=== PATIENT | male | born 1945 | race Caucasian/White ===

== ENCOUNTER 2019-10-15 10:51 | Outpatient (CLI) | payer OTHER, SELFPAY ==
[2019-10-15 11:53] LABS: Prostate Specific Antigen < 0.02 ng/mL (0-4)
[2019-10-15 12:44] LABS: Testosterone Total 4.5 ng/dL (193-740)
== END 2019-10-15 10:52 | disposition home or self-care (01) ==
LOC: ONCMED 10:54
PROVIDERS: Family Provider Internal Medicine; PCP Internal Medicine; Visit Provider Internal Medicine Hematology & Oncology
DX: C61 Malignant neoplasm of prostate (principal)
CPT/HCPCS: 84153; 84403

== ENCOUNTER 2019-10-16 15:32 | Outpatient (CLI) | payer OTHER, SELFPAY ==
--- NOTE | 2019-10-16 16:17 | ONC FU_ITS ---
Dr. Park follow up note Patient: Luther Lindquist Unit #: [id number]: 1945 Dicatated By: Aretha Park M.D.Date of Visit:Oct 16, 2019 Onc Med Follow-up/Prog Note History of Present Illness: Mr. Luther Lindquist, 74-year-old gentleman who was recently diagnosed with adenocarcinoma prostrate gland. As per patient his PSA was progressively going up to 4.64, subsequently was referred to urology and on 03/07/2018 he underwent prostate biopsy which confirmed prostrate cancer. On 02/23/[address] scan of abdomen pelvis done which showed no evidence of pelvic lymphadenopathy or bone lesions but prominent prostrate gland.Started on ADT with Zoladex and Casodex on 03/28/2018 as neoadjuvant, concurrent radiation therapy started on 07/02/2018 till 08/07/2018.and adjuvant Zoladex till 03/28/2019 Came for follow-up, denies any specific complaints, no fever or chills, no nausea or vomiting, no diarrhea constipation, no hot flashes. No new bony pains. No dysuria or hematuria. Patient underwent right shoulder surgery recently, now recovering well. . Medications: Allopurinol 1 Tablet (of 300 mg) Tablet Oral daily, Atenolol 0.5 Tablet (of 100 mg) Oral daily, Casodex 1 (50 mg) Tablet Oral daily, Fish Oil 1 Capsule (of 1000 mg) Oral b.i.d., Gemfibrozil 1 Tablet (of 600 mg) Oral b.i.d., GlipiZIDE 2 Tablet (of 10 mg) Oral b.i.d., Insulin Glargine 35 Units (of 100 Units/mL) Subcutaneous daily, Lisinopril 0.5 Tablet (of 20 mg) Oral daily, MetFORMIN HCl 1 Tablet (of 1000 mg) Oral b.i.d. Allergies: Aspirin Review of Systems: Review of Systems is not available for this patient. Vital Signs: Performed on Oct 16, 2019 15:48 Height - 72.00 in Weight - 219.0 lbs (LOW) BSA - 2.21 sq.m BMI - 29.70 Temperature - 97.8 F (LOW) Pulse - 67 /min Respiration - 18 /min BP - 151/83 mm(hg) (HIGH) O2 Sat - 99 % Pain - 0 Performance Status: 1 - No physically strenuous activity, but ambulatory and able to carry out light or sedentary work (e.g. office work, light house work). (ECOG) Physical Examination: ENMT - No oral exudates, ulcers, masses, thrush or mucositis. Oropharynx clear. Tongue normal, Respiratory - Lungs are clear to auscultation without rhonchi or wheezing, Cardiovascular - Regular rate and rhythm of heart, Abdomen - Non-tender, non-distended, Good bowel sounds. No guarding or rebound tenderness. No pulsatile masses, Extremities - no edema. Lab/Imaging: Test performed on Jun 27, 2019 09:25 Sodium 137 mmol/L Testosterone, Total 5.1 ng/dL Potassium 4.3 mmol/L Chloride 99 mmol/L CO2 23 mmol/L Anion Gap 19.3 BUN 20 mg/dL Creatinine 1.0 mg/dL Cr Clearance (Est) 95.6200 mL/min Glucose 163 mg/dl Calcium 9.3 mg/dL Protein, Total 7.3 g/dL Albumin 4.3 g/dL Globulin 3.0 gm/dL Bilirubin, Total 0.3 mg/dL ALT (SGPT) 20 U/L AST (SGOT) 18 U/L Alkaline Phosphatase 139 U/L WBC 6.1 /cmm RBC 4.00 10 6/cmm HGB 12.1 g/dl HCT 33.6 % MCV 83.9 /cmm MCH 30.2 pg MCHC 36.0 g/dl RDW 13.5 % Platelet Count 217 10 3/cmm MPV 7.6 fl Neutrophils 3.8 10 3/cmm Lymphocytes 1.5 10 3/cmm Monocytes 0.5 10 3/cmm Eosinophils 0.2 10 3/cmm Basophils 0.1 10 3/cmm Neutrophil % 62.5 % Lymphocyte % 25.2 % Monocyte % 8.0 % Eosinophil % 3.1 % Basophils % 1.2 % PSA < 0.02 ng/mL Impression: Adenocarcinoma of prostate gland per biopsy done on 03/07/2018 [place] score 3+4, PSA 4.64, intermediate risk stage T2b, Nx MX CT scan of abdomen pelvis done on 02/23/2018 showed no evidence of pelvic lymphadenopathy or bony lesions but prominent prostate gland Started on combined androgen blockade with Zoladex and Casodex on 03/28/2018As neoadjuvant, concurrent radiation therapy was added on 07/02/2018 and finished on 08/07/2018 and casodex d/bryan last dose of Zoladex given on 12/27/18 PSA on 09/25/2018 was less than 0.01 .Adjuvant therapy with Zoladex was concluded on 03/28/2019 Plan: Discussed with patient regarding his labs PSA less than 0.02 testosterone 4.5 Clinically, patient is doing well with no signs symptoms suggestive of recurrence of disease his follow-up lab shows PSA stable and still less than 0.02. We will continue to monitor and he will return to clinic in 6 months with PSA. Signed By: Aretha Park M.D. <<Signature on File>>
== END 2019-10-16 15:33 | disposition home or self-care (01) ==
PROVIDERS: Family Provider Internal Medicine; PCP Internal Medicine; Visit Provider Internal Medicine Hematology & Oncology
DX: C61 Malignant neoplasm of prostate (principal); Z79.818 Long term (current) use of other agents affecting estrogen receptors and estrogen levels; Z79.899 Other long term (current) drug therapy; Z92.3 Personal history of irradiation
CPT/HCPCS: G0463

== ENCOUNTER 2020-01-09 16:59 | Outpatient (CLI) | payer OTHER, SELFPAY | END 2020-01-09 17:00 | disposition home or self-care (01) | LOC: LAB 17:01 | PROVIDERS: Family Provider Internal Medicine; PCP Internal Medicine; Visit Provider Nurse Practitioner Family | DX: E11.621 Type 2 diabetes mellitus with foot ulcer (principal) | CPT/HCPCS: 87070; 87077; 87186; 87205 ==

== ENCOUNTER 2020-01-13 14:38 | Outpatient (RCR) | payer MEDICARE, BC, SELFPAY ==
--- NOTE | 2020-01-13 14:42 | XR_ITS ---
WS: [id number] FOOT RIGHT TECHNIQUE: 3 views of the right foot CLINICAL INFORMATION: PAIN, REDNESS, NON HEALING ULCER COMPARISON: None. FINDINGS: Soft tissue ulceration overlying the big toe with subcutaneous emphysema. Erosive changes involving t he first MTP suspicious for osteomyelitis. This can be further evaluated with MRI. Plantar and Achill es calcaneal spurring. XR/XR foot RT min 3V* [id number] IMPRESSION: Soft tissue ulceration overlying the big toe with erosive changes first MTP justin picious for osteomyelitis. This can be further evaluated with MRI.
== END 2020-01-16 23:59 | disposition home or self-care (01) ==
LOC: WOUND 14:38
PROVIDERS: Family Provider Internal Medicine; PCP Internal Medicine; Visit Provider Emergency Medicine
DX: E11.621 Type 2 diabetes mellitus with foot ulcer (principal); L97.512 Non-pressure chronic ulcer of other part of right foot with fat layer exposed; M79.671 Pain in right foot
CPT/HCPCS: 11042; 73630; 87070; 87077; 87176; 87186; 87205; G0463; L3260

== ENCOUNTER 2020-01-20 13:32 | Outpatient (CLI) | payer MEDICARE, BC, SELFPAY | END 2020-01-20 13:33 | disposition home or self-care (01) | PROVIDERS: Family Provider Internal Medicine; PCP Internal Medicine; Visit Provider Nurse Practitioner Family | DX: E11.621 Type 2 diabetes mellitus with foot ulcer (principal); L97.512 Non-pressure chronic ulcer of other part of right foot with fat layer exposed | CPT/HCPCS: 11042 ==

== ENCOUNTER 2020-01-23 13:15 | Outpatient (CLI) | payer MEDICARE, BC, SELFPAY ==
--- NOTE | 2020-01-23 13:24 | USCV_ITS ---
ThoLuther villanueva Age: 74 Gender: M : 1945 Exam Date: 01/23/2020 14:09 Ordering Phys: Apple Andrews DO Technologist: Ra Vogt Exam Location: [facility] – [place] Indication: HISTORY: PROCEDURES: Bilateral duplex Venous Insufficiency study of the Deep and Superficial systems was carried out according to normal protocol with the patient in supine positon for deep system and dependent position for the superficial system. FINDINGS: There is no evidence of bilateral deep vein thrombosis. No notable reflux was seen in the bilateral deep system at this time. No evidence of superficial thrombosis in the bilateral saphenous system. No notable reflux was seen in the RIGHT saphenous system at this time. Venous reflux is demonstrated in the LEFT greater saphenous vein with a spectral Doppler display of greater than 500 milliseconds below the knee. Marginal reflux noted in the LEFT greater saphenous vein with a spectral Doppler display of 494 milliseconds just distal to SFJ. CONCLUSIONS No evidence of DVT in the above-mentioned identifiable veins. Significant venous reflux of 1560 ms was noted at the below-knee segment of the greater saphenous vein on the left side. This segment was found to be 1.02 cm deep from the surface and a diameter of 0.46 cm. The venous dimensions and depth from the surface of all the other venous segments are as mentioned above. No similar previous studies available for comparison Dr Aspen Lucia MD [facility] (Electronically Signed) Final Date: 23 Jan 2020 19:07 S
== END 2020-01-23 13:16 | disposition home or self-care (01) ==
PROVIDERS: PCP Family Medicine; Visit Provider Emergency Medicine
DX: L97.909 Non-pressure chronic ulcer of unspecified part of unspecified lower leg with unspecified severity (principal); M79.605 Pain in left leg; M79.604 Pain in right leg
CPT/HCPCS: 93970

== ENCOUNTER 2020-01-24 08:31 | Outpatient (CLI) | payer MEDICARE, BC, SELFPAY ==
--- NOTE | 2020-01-24 09:30 | USCV_ITS ---
Luther Lindquist Age: 74 Gender: M : 1945 Exam Date: 01/24/2020 08:26 Ordering Phys: Apple Andrews DO Technologist: Tegan Sarah Exam Location: [facility] [place] Indication: NON HEALING WOUND RT PLANTAR SURFACE OF FOOT RIGHT LEFT Brachial 146.00 mmHg Brachial 147.00 mmHg Pressure (mmHg) Waveform Pressure (mmHg) Waveform 174.00 Above Knee 173.00 180.00 Below Knee 170.00 182.00 BAIL ATTACHER 174.00 182.00 DPA 181.00 1.24 Ankle/Brachial Index 1.23 91.00 Pre-Exercise Toe Pressure 120.00 0.62 Pre-Exercise Toe/Brachial Index 0.82 FINDINGS Normal resting ABIs bilaterally Slightly diminished resting TBI on the right side PVR waveforms showing slight blunting of the dicrotic notch. The segmental pressures revealed no significant gradient between segments except for the differential pressure between the right and left big toes. CONCLUSIONS Features suggestive of mild PAD on the right side No significant arterial obstruction on the left side Dr Aspen Lucia MD [facility] (Electronically Signed) Final Date: 24 Jan 2020 11:09 S
== END 2020-01-24 08:32 | disposition home or self-care (01) ==
LOC: RAD 08:34
PROVIDERS: PCP Family Medicine; Visit Provider Emergency Medicine
DX: L97.909 Non-pressure chronic ulcer of unspecified part of unspecified lower leg with unspecified severity (principal)
CPT/HCPCS: 93925

== ENCOUNTER 2020-01-27 07:47 | Outpatient (CLI) | payer MEDICARE, BC, SELFPAY | END 2020-01-27 07:48 | disposition home or self-care (01) | LOC: WOUND 07:48 | PROVIDERS: PCP Family Medicine; Visit Provider Nurse Practitioner Family | DX: E11.621 Type 2 diabetes mellitus with foot ulcer (principal); L97.512 Non-pressure chronic ulcer of other part of right foot with fat layer exposed | CPT/HCPCS: 11042; A6545 ==

== ENCOUNTER 2020-02-12 13:40 | Outpatient (CLI) | payer OTHER, SELFPAY | END 2020-02-12 13:41 | disposition home or self-care (01) | LOC: WOUND 13:42 | PROVIDERS: PCP Family Medicine; Visit Provider Nurse Practitioner Family | DX: E11.621 Type 2 diabetes mellitus with foot ulcer (principal); L97.512 Non-pressure chronic ulcer of other part of right foot with fat layer exposed | CPT/HCPCS: 11042 ==

== ENCOUNTER 2020-02-17 07:47 | Outpatient (CLI) | payer MEDICARE, BC, SELFPAY ==
--- NOTE | 2020-02-17 07:59 | NM_ITS ---
WS: [id number] [place] bone 3 phase 57633 REASON FOR EXAM: ?OSTEOMYELITIS RT FOOT /PAIN/REDNESS/NON HEALING ULCER TECHNICAL: The dose 26.2 mCi technetium 99m HDP FINDINGS: This study shows progressive activity in the first metatarsal phalangeal joint of the right foot with increased uptake noted extending into the delayed images. This is consistent with destruct winsome process and probably osteomyelitis. The left ankle shows increased activity diffusely involving the ankle but no 3 phase changes. The left shoulder shows increased activity from degenerate changes NM/NM bone 3 phase 32680 IMPRESSION: Abnormal three-phase findings in the first metatarsal phalangeal joint of the r ight foot consistent with osteomyelitis There is degenerated of activity noted in the left ankle diffuse There is diffuse activity noted in the left shoulder. There is normal activity in both kidneys.
--- NOTE | 2020-02-17 10:39 | XR_ITS ---
WS: [id number] XR foot RT min 3V* [id number] REASON FOR EXAM: BONE SCAN COMPARISON FINDINGS: Right foot comparisons no further destruction of the first metatarsal head proximal first p halanx with large cystic changes noted this area on the bone scan appears to show progressive uptake of the contrast suggesting inflammatory bone disease. Rather than gout. XR/XR foot RT min 3V* [id number] IMPRESSION: Destructive changes involving the first metacarpal tarsal phalangeal junction s uggest destructive changes.
== END 2020-02-17 07:48 | disposition home or self-care (01) ==
LOC: RAD 07:53
PROVIDERS: PCP Family Medicine; Visit Provider Nurse Practitioner Family
DX: L98.499 Non-pressure chronic ulcer of skin of other sites with unspecified severity (principal)
CPT/HCPCS: 73630; 78315; A9561

== ENCOUNTER 2020-02-20 07:57 | Outpatient (CLI) | payer OTHER, SELFPAY ==
[2020-02-20 09:49] LABS: Basophils # 0.1 10^3/uL (0.0-0.1); Basophils % 1.2 %; Eosinophils # 0.2 10^3/uL (0.0-0.8); Eosinophils % 4.1 %; Hemoglobin 11.1 g/dL (11.7-16.6); Lymphocytes # 1.7 10^3/uL (0.8-4.8); Lymphocytes % 33.8 %; Mean Corpuscular HGB Conc 32.6 g/dL (30.0-36.0); Mean Corpuscular Hemoglobin 27.9 pg (28.0-34.0); Mean Corpuscular Volume 85.4 fL (80-94); Mean Platelet Volume 9.3 fL (7.4-10.4); Monocytes # 0.4 10^3/uL (0.2-0.9); Monocytes % 8.4 %; Neutrophils # 2.5 10^3/uL (1.8-7.7); Neutrophils % 52.1 %; Nucleated Red Blood Cells % 0 %; Platelet Count 218 10^3/cmm (130-400); Red Blood Count 3.98 10^6/uL (4.1-5.3); Red Cell Distribution Width 12.6 % (12.1-15.1); White Blood Count 4.9 10^3/uL (4.0-10.0)
[2020-02-20 10:02] LABS: Anion Gap 14.5 (5-19); Blood Urea Nitrogen 16 mg/dL (8-23); Calcium 9.6 mg/dL (8.5-10.5); Carbon Dioxide 26 mmol/L (22-29); Chloride 102 mmol/L (98-107); Glucose 184 mg/dL (65-115); Osmolality Calculated 287 mOsm/kg (285-295); Potassium 4.5 mmol/L (3.5-5.1); Sodium 138 mmol/L (136-145)
== END 2020-02-20 07:58 | disposition home or self-care (01) ==
LOC: WOUND 07:59
PROVIDERS: Visit Provider Nurse Practitioner Family
DX: E11.621 Type 2 diabetes mellitus with foot ulcer (principal); L97.512 Non-pressure chronic ulcer of other part of right foot with fat layer exposed
CPT/HCPCS: 11042; 36415; 80048; 85025; L3260

== ENCOUNTER 2020-02-27 08:10 | Outpatient (CLI) | payer OTHER, SELFPAY | END 2020-02-27 08:11 | disposition home or self-care (01) | LOC: WOUND 08:17 | PROVIDERS: Visit Provider Nurse Practitioner Family | DX: E11.621 Type 2 diabetes mellitus with foot ulcer (principal); L97.512 Non-pressure chronic ulcer of other part of right foot with fat layer exposed | CPT/HCPCS: 11042; L3260 ==

== ENCOUNTER 2020-03-05 08:30 | Outpatient (CLI) | payer OTHER, SELFPAY | END 2020-03-05 08:31 | disposition home or self-care (01) | LOC: WOUND 08:31 | PROVIDERS: Visit Provider Nurse Practitioner Family | DX: E11.621 Type 2 diabetes mellitus with foot ulcer (principal); L97.512 Non-pressure chronic ulcer of other part of right foot with fat layer exposed | CPT/HCPCS: 11042 ==

== ENCOUNTER 2020-03-12 08:35 | Outpatient (CLI) | payer OTHER, SELFPAY | END 2020-03-12 08:36 | disposition home or self-care (01) | LOC: WOUND 08:43 | PROVIDERS: Visit Provider Nurse Practitioner Family | DX: E11.621 Type 2 diabetes mellitus with foot ulcer (principal); L97.519 Non-pressure chronic ulcer of other part of right foot with unspecified severity | CPT/HCPCS: 11042 ==

== ENCOUNTER 2020-03-19 08:02 | Outpatient (CLI) | payer OTHER, SELFPAY | END 2020-03-19 08:03 | disposition home or self-care (01) | LOC: WOUND 08:03 | PROVIDERS: Visit Provider Nurse Practitioner Family | DX: E11.621 Type 2 diabetes mellitus with foot ulcer (principal); L97.512 Non-pressure chronic ulcer of other part of right foot with fat layer exposed | CPT/HCPCS: 11042 ==

== ENCOUNTER 2020-03-26 14:58 | Outpatient (CLI) | payer OTHER, SELFPAY | END 2020-03-26 14:59 | disposition home or self-care (01) | LOC: WOUND 15:00 | PROVIDERS: Visit Provider Surgery | DX: E11.621 Type 2 diabetes mellitus with foot ulcer (principal); L97.512 Non-pressure chronic ulcer of other part of right foot with fat layer exposed | CPT/HCPCS: 11042 ==

== ENCOUNTER 2020-04-02 10:33 | Outpatient (CLI) | payer OTHER, SELFPAY | END 2020-04-02 10:34 | disposition home or self-care (01) | LOC: WOUND 10:35 | PROVIDERS: Visit Provider Emergency Medicine | DX: E11.621 Type 2 diabetes mellitus with foot ulcer (principal); L97.512 Non-pressure chronic ulcer of other part of right foot with fat layer exposed | CPT/HCPCS: 11042 ==

== ENCOUNTER 2020-04-09 14:00 | Outpatient (CLI) | payer OTHER, SELFPAY | END 2020-04-09 14:01 | disposition home or self-care (01) | LOC: WOUND 14:02 | PROVIDERS: Visit Provider Nurse Practitioner Family | DX: E11.621 Type 2 diabetes mellitus with foot ulcer (principal); L97.512 Non-pressure chronic ulcer of other part of right foot with fat layer exposed | CPT/HCPCS: 11042; L4387 ==

== ENCOUNTER 2020-04-13 07:55 | Outpatient (CLI) | payer OTHER, SELFPAY | END 2020-04-13 07:56 | disposition home or self-care (01) | LOC: WOUND 07:55 | PROVIDERS: Visit Provider Emergency Medicine | DX: E11.621 Type 2 diabetes mellitus with foot ulcer (principal); L97.516 Non-pressure chronic ulcer of other part of right foot with bone involvement without evidence of necrosis | CPT/HCPCS: G0277 ==

== ENCOUNTER 2020-04-14 07:40 | Outpatient (CLI) | payer OTHER, SELFPAY | END 2020-04-14 07:41 | disposition home or self-care (01) | LOC: WOUND 07:40 | PROVIDERS: Visit Provider Thoracic Surgery (Cardiothoracic Vascular Surgery) | DX: E11.621 Type 2 diabetes mellitus with foot ulcer (principal); L97.516 Non-pressure chronic ulcer of other part of right foot with bone involvement without evidence of necrosis | CPT/HCPCS: G0277 ==

== ENCOUNTER 2020-04-14 10:30 | Outpatient (CLI) | payer OTHER, SELFPAY ==
[2020-04-14 11:41] LABS: Prostate Specific Antigen 0.006 ng/mL (0-4)
== END 2020-04-14 10:31 | disposition home or self-care (01) ==
LOC: ONCMED 10:35
PROVIDERS: PCP Family Medicine; Visit Provider Internal Medicine Hematology & Oncology
DX: C61 Malignant neoplasm of prostate (principal)
CPT/HCPCS: 84153

== ENCOUNTER 2020-04-15 07:37 | Outpatient (CLI) | payer OTHER, SELFPAY | END 2020-04-15 07:38 | disposition home or self-care (01) | LOC: WOUND 07:39 | PROVIDERS: PCP Family Medicine; Visit Provider Emergency Medicine | DX: E11.622 Type 2 diabetes mellitus with other skin ulcer (principal); L98.496 Non-pressure chronic ulcer of skin of other sites with bone involvement without evidence of necrosis | CPT/HCPCS: G0277 ==

== ENCOUNTER 2020-04-15 11:37 | Outpatient (CLI) | payer OTHER, SELFPAY ==
--- NOTE | 2020-04-15 13:52 | ONC FU_ITS ---
Dr. Park follow up note Patient: Luther Lindquist Unit #: [id number]: 1945 Dicatated By: Aretha Park M.D.Date of Visit:Apr 15, 2020 Onc Med Follow-up/Prog Note History of Present Illness: Mr. Luther Lindquist, 74-year-old gentleman who was recently diagnosed with adenocarcinoma prostrate gland. As per patient his PSA was progressively going up to 4.64, subsequently was referred to urology and on 03/07/2018 he underwent prostate biopsy which confirmed prostrate cancer. On 02/23/[address] scan of abdomen pelvis done which showed no evidence of pelvic lymphadenopathy or bone lesions but prominent prostrate gland.Started on ADT with Zoladex and Casodex on 03/28/2018 as neoadjuvant, concurrent radiation therapy started on 07/02/2018 till 08/07/2018.and adjuvant Zoladex till 03/28/2019 Came for follow-up, denies any specific complaints, no fever chills, no nausea or vomiting, no diarrhea or constipation, no new bony pains except right big toe infection and recently diagnosed with osteomyelitis and being treated with hyperbaric oxygenation. Otherwise no back pain no hematuria or dysuria, no weight loss, appetite is good. . Medications: Allopurinol 1 Tablet (of 300 mg) Tablet Oral daily, Atenolol 0.5 Tablet (of 100 mg) Oral daily, Casodex 1 (50 mg) Tablet Oral daily, Fish Oil 1 Capsule (of 1000 mg) Oral b.i.d., Gemfibrozil 1 Tablet (of 600 mg) Oral b.i.d., GlipiZIDE 2 Tablet (of 10 mg) Oral b.i.d., Insulin Glargine 35 Units (of 100 Units/mL) Subcutaneous daily, Lisinopril 0.5 Tablet (of 20 mg) Oral daily, MetFORMIN HCl 1 Tablet (of 1000 mg) Oral b.i.d. Allergies: Aspirin Review of Systems: Review of Systems is not available for this patient. Vital Signs: Performed on Apr 15, 2020 13:11 Height - 72.00 in Weight - 222.0 lbs (HIGH) BSA - 2.23 sq.m BMI - 30.11 (HIGH) Temperature - 98.3 F (LOW) Pulse - 73 /min Respiration - 16 /min BP - 133/69 mm(hg) O2 Sat - 97 % Pain - 0 Performance Status: 1 - No physically strenuous activity, but ambulatory and able to carry out light or sedentary work (e.g. office work, light house work). (ECOG) Physical Examination: ENMT - No mouth sores no thrush or jaundice, Respiratory - Lungs are clear, Cardiovascular - Regular rate and rhythm of heart, Abdomen - Soft, bowel sounds present, Extremities - No visible edema. , Right big toe cellulitis Lab/Imaging: Most recent lab results are not available for this patient. Impression: Adenocarcinoma of prostate gland per biopsy done on 03/07/2018 [place] score 3+4, PSA 4.64, intermediate risk stage T2b, Nx MX CT scan of abdomen pelvis done on 02/23/2018 showed no evidence of pelvic lymphadenopathy or bony lesions but prominent prostate gland Started on combined androgen blockade with Zoladex and Casodex on 03/28/2018As neoadjuvant, concurrent radiation therapy was added on 07/02/2018 and finished on 08/07/2018 and casodex d/bryan PSA on 09/25/2018 was less than 0.01 .Adjuvant therapy with Zoladex was concluded on 03/28/2019 Plan: Discussed with patient regarding his labs PSA is 0.006 Clinically, patient is doing well with no signs symptom suggestive of recurrence of disease his follow-up labs shows PSA still subzero. At this point we will continue to monitor return to clinic in 6 months with PSA Recently diagnosed with right big toe cellulitis/osteomyelitis, now undergoing hyperbaric oxygenation. Signed By: Aretha Park M.D. <<Signature on File>>
== END 2020-04-15 11:38 | disposition home or self-care (01) ==
PROVIDERS: PCP Family Medicine; Visit Provider Internal Medicine Hematology & Oncology
DX: Z08 Encounter for follow-up examination after completed treatment for malignant neoplasm (principal); Z85.46 Personal history of malignant neoplasm of prostate; L03.031 Cellulitis of right toe; M86.9 Osteomyelitis, unspecified; Z92.23 Personal history of estrogen therapy; Z92.3 Personal history of irradiation
CPT/HCPCS: G0463

== ENCOUNTER 2020-04-16 08:10 | Outpatient (CLI) | payer OTHER, SELFPAY | END 2020-04-16 08:11 | disposition home or self-care (01) | LOC: WOUND 08:11 | PROVIDERS: PCP Family Medicine; Visit Provider Emergency Medicine | DX: E11.621 Type 2 diabetes mellitus with foot ulcer (principal); L97.516 Non-pressure chronic ulcer of other part of right foot with bone involvement without evidence of necrosis | CPT/HCPCS: 11042; G0277 ==

== ENCOUNTER 2020-04-17 07:36 | Outpatient (CLI) | payer OTHER, SELFPAY | END 2020-04-17 07:37 | disposition home or self-care (01) | LOC: WOUND 07:36 | PROVIDERS: PCP Family Medicine; Visit Provider Surgery | DX: E11.621 Type 2 diabetes mellitus with foot ulcer (principal); L97.516 Non-pressure chronic ulcer of other part of right foot with bone involvement without evidence of necrosis | CPT/HCPCS: G0277 ==

== ENCOUNTER 2020-04-20 07:55 | Outpatient (CLI) | payer OTHER, SELFPAY | END 2020-04-20 07:56 | disposition home or self-care (01) | LOC: WOUND 07:55 | PROVIDERS: PCP Family Medicine; Visit Provider Nurse Practitioner Family | DX: E11.621 Type 2 diabetes mellitus with foot ulcer (principal); L97.516 Non-pressure chronic ulcer of other part of right foot with bone involvement without evidence of necrosis | CPT/HCPCS: 99183; G0277 ==

== ENCOUNTER 2020-04-21 07:51 | Outpatient (CLI) | payer OTHER, SELFPAY | END 2020-04-21 07:52 | disposition home or self-care (01) | LOC: WOUND 07:51 | PROVIDERS: PCP Family Medicine; Visit Provider Thoracic Surgery (Cardiothoracic Vascular Surgery) | DX: E11.621 Type 2 diabetes mellitus with foot ulcer (principal); L97.516 Non-pressure chronic ulcer of other part of right foot with bone involvement without evidence of necrosis | CPT/HCPCS: 99183; G0277 ==

== ENCOUNTER 2020-04-24 07:46 | Outpatient (CLI) | payer OTHER, SELFPAY | END 2020-04-24 07:47 | disposition home or self-care (01) | LOC: WOUND 07:46 | PROVIDERS: PCP Family Medicine; Visit Provider Thoracic Surgery (Cardiothoracic Vascular Surgery) | DX: E11.621 Type 2 diabetes mellitus with foot ulcer (principal); L97.516 Non-pressure chronic ulcer of other part of right foot with bone involvement without evidence of necrosis | CPT/HCPCS: G0277 ==

== ENCOUNTER 2020-04-30 08:07 | Outpatient (CLI) | payer OTHER, SELFPAY | END 2020-04-30 08:08 | disposition home or self-care (01) | LOC: WOUND 08:09 | PROVIDERS: PCP Family Medicine; Visit Provider Nurse Practitioner Family | DX: E11.621 Type 2 diabetes mellitus with foot ulcer (principal); L97.512 Non-pressure chronic ulcer of other part of right foot with fat layer exposed | CPT/HCPCS: 11042; L3260 ==

== ENCOUNTER 2020-05-07 08:00 | Outpatient (CLI) | payer OTHER, SELFPAY | END 2020-05-07 08:01 | disposition home or self-care (01) | LOC: WOUND 08:00 | PROVIDERS: PCP Family Medicine; Visit Provider Emergency Medicine | DX: E11.621 Type 2 diabetes mellitus with foot ulcer (principal); L97.512 Non-pressure chronic ulcer of other part of right foot with fat layer exposed | CPT/HCPCS: 11042 ==

== ENCOUNTER 2020-05-14 08:12 | Outpatient (CLI) | payer OTHER, SELFPAY | END 2020-05-14 08:13 | disposition home or self-care (01) | LOC: WOUND 08:14 | PROVIDERS: PCP Family Medicine; Visit Provider Emergency Medicine | DX: E11.621 Type 2 diabetes mellitus with foot ulcer (principal); L97.512 Non-pressure chronic ulcer of other part of right foot with fat layer exposed | CPT/HCPCS: 11042 ==

== ENCOUNTER 2020-05-21 08:10 | Outpatient (CLI) | payer OTHER, SELFPAY | END 2020-05-21 08:11 | disposition home or self-care (01) | LOC: WOUND 08:11 | PROVIDERS: PCP Family Medicine; Visit Provider Emergency Medicine | DX: E11.621 Type 2 diabetes mellitus with foot ulcer (principal); L97.512 Non-pressure chronic ulcer of other part of right foot with fat layer exposed | CPT/HCPCS: 11042 ==

== ENCOUNTER 2020-05-28 08:16 | Outpatient (CLI) | payer OTHER, SELFPAY | END 2020-05-28 08:17 | disposition home or self-care (01) | LOC: WOUND 08:16 | PROVIDERS: PCP Family Medicine; Visit Provider Emergency Medicine | DX: E11.621 Type 2 diabetes mellitus with foot ulcer (principal); L97.512 Non-pressure chronic ulcer of other part of right foot with fat layer exposed | CPT/HCPCS: 11042; L3260 ==

== ENCOUNTER 2020-06-04 07:56 | Outpatient (CLI) | payer OTHER, SELFPAY | END 2020-06-04 07:57 | disposition home or self-care (01) | LOC: WOUND 07:57 | PROVIDERS: PCP Family Medicine; Visit Provider Emergency Medicine | DX: E11.621 Type 2 diabetes mellitus with foot ulcer (principal); L97.512 Non-pressure chronic ulcer of other part of right foot with fat layer exposed | CPT/HCPCS: 97597 ==

== ENCOUNTER 2020-06-11 08:10 | Outpatient (CLI) | payer OTHER, SELFPAY | END 2020-06-11 08:11 | disposition home or self-care (01) | LOC: WOUND 08:11 | PROVIDERS: PCP Family Medicine; Visit Provider Nurse Practitioner Family | DX: Z09 Encounter for follow-up examination after completed treatment for conditions other than malignant neoplasm (principal) | CPT/HCPCS: 99212 ==

== ENCOUNTER 2020-10-15 10:32 | Outpatient (CLI) | payer OTHER, MEDICARE, BC, SELFPAY ==
[2020-10-15 12:19] LABS: Prostate Specific Antigen 0.037 ng/mL (0-4)
--- NOTE | 2020-10-15 13:38 | ONC FU_ITS ---
Dr. Park follow up note Patient: Luther Lindquist Unit #: [id number]: 1945 Dicatated By: Aretha Park M.D.Date of Visit:Oct 15, 2020 Onc Med Follow-up/Prog Note History of Present Illness: Mr. Luther Lindquist, 75-year-old gentleman who was recently diagnosed with adenocarcinoma prostrate gland. As per patient his PSA was progressively going up to 4.64, subsequently was referred to urology and on 03/07/2018 he underwent prostate biopsy which confirmed prostrate cancer. On 02/23/[address] scan of abdomen pelvis done which showed no evidence of pelvic lymphadenopathy or bone lesions but prominent prostrate gland.Started on ADT with Zoladex and Casodex on 03/28/2018 as neoadjuvant, concurrent radiation therapy started on 07/02/2018 till 08/07/2018.and adjuvant Zoladex till 03/28/2019 Came for follow-up, denies any specific complaints, no fever chills, no nausea or vomiting, no diarrhea or constipation, no new bony pains, appetite is good . Medications: Allopurinol 1 Tablet (of 300 mg) Tablet Oral daily, Atenolol 0.5 Tablet (of 100 mg) Oral daily, Casodex 1 (50 mg) Tablet Oral daily, Fish Oil 1 Capsule (of 1000 mg) Oral b.i.d., Gemfibrozil 1 Tablet (of 600 mg) Oral b.i.d., GlipiZIDE 2 Tablet (of 10 mg) Oral b.i.d., Insulin Glargine 35 Units (of 100 Units/mL) Subcutaneous daily, Lisinopril 0.5 Tablet (of 20 mg) Oral daily, MetFORMIN HCl 1 Tablet (of 1000 mg) Oral b.i.d. Allergies: Aspirin Review of Systems: Review of Systems is not available for this patient. Vital Signs: Performed on Oct 15, 2020 13:02 Height - 72.00 in Weight - 221.5 lbs (LOW) BSA - 2.22 sq.m BMI - 30.04 (HIGH) Temperature - 98.2 F (LOW) Pulse - 77 /min Respiration - 16 /min BP - 152/73 mm(hg) (HIGH) O2 Sat - 94 % (LOW) Pain - 0 Performance Status: 0 - Fully active, able to carry on all predisease activities without restrictions. (ECOG) Physical Examination: ENMT - No mouth sores, no thrush, no jaundice, Respiratory - Lungs are clear to auscultation, Cardiovascular - Regular rate and rhythm of heart, Abdomen - Soft, bowel sounds present, Extremities - No visible edema. Lab/Imaging: Most recent lab results are not available for this patient. Impression: Adenocarcinoma of prostate gland per biopsy done on 03/07/2018 [place] score 3+4, PSA 4.64, intermediate risk stage T2b, Nx MX CT scan of abdomen pelvis done on 02/23/2018 showed no evidence of pelvic lymphadenopathy or bony lesions but prominent prostate gland Started on combined androgen blockade with Zoladex and Casodex on 03/28/2018As neoadjuvant, concurrent radiation therapy was added on 07/02/2018 and finished on 08/07/2018 and casodex d/bryan PSA on 09/25/2018 was less than 0.01 .Adjuvant therapy with Zoladex was concluded on 03/28/2019 Plan: Discussed with patient regarding his labs PSA is 0.037 compared to 0.006 on April 14, 2020 Clinically, patient doing well with no new signs symptom suggestive of disease progression but his follow-up PSA has increased since last time but still subzero, at this point ,we will continue to monitor and return to clinic in 3 months with PSA and testosterone level and patient was advised not to take testosterone in any form including [id number] Signed By: Aretha Park M.D. <<Signature on File>>
== END 2020-10-15 10:33 | disposition home or self-care (01) ==
PROVIDERS: Visit Provider Internal Medicine Hematology & Oncology
DX: C61 Malignant neoplasm of prostate (principal); R97.21 Rising PSA following treatment for malignant neoplasm of prostate; Z92.23 Personal history of estrogen therapy; Z92.3 Personal history of irradiation; Z92.21 Personal history of antineoplastic chemotherapy
CPT/HCPCS: 36415; 84153; 99214

== ENCOUNTER 2021-01-13 12:28 | Outpatient (CLI) | payer OTHER, MEDICARE, BC, SELFPAY ==
[2021-01-13 13:30] LABS: Prostate Specific Antigen 0.052 ng/mL (0-4); Testosterone Total 125.2 ng/dL (193-740)
--- NOTE | 2021-01-13 14:27 | ONC FU_ITS ---
Dr. Park follow up note Patient: Luther Lindquist Unit #: [id number]: 1945 Dicatated By: Aretha Park M.D.Date of Visit:Jan 13, 2021 Onc Med Follow-up/Prog Note History of Present Illness: Mr. Luther Lindquist, 75-year-old gentleman who was recently diagnosed with adenocarcinoma prostrate gland. As per patient his PSA was progressively going up to 4.64, subsequently was referred to urology and on 03/07/2018 he underwent prostate biopsy which confirmed prostrate cancer. On 02/23/[address] scan of abdomen pelvis done which showed no evidence of pelvic lymphadenopathy or bone lesions but prominent prostrate gland.Started on ADT with Zoladex and Casodex on 03/28/2018 as neoadjuvant, concurrent radiation therapy started on 07/02/2018 till 08/07/2018.and adjuvant Zoladex till 03/28/2019 Came for follow-up, denies any specific complaints, no fever chills, no nausea or vomiting, no diarrhea or constipation, no new bony pains, appetite is good . Medications: Allopurinol 1 Tablet (of 300 mg) Tablet Oral daily, Atenolol 0.5 Tablet (of 100 mg) Oral daily, Casodex 1 (50 mg) Tablet Oral daily, Fish Oil 1 Capsule (of 1000 mg) Oral b.i.d., Gemfibrozil 1 Tablet (of 600 mg) Oral b.i.d., GlipiZIDE 2 Tablet (of 10 mg) Oral b.i.d., Insulin Glargine 35 Units (of 100 Units/mL) Subcutaneous daily, Lisinopril 0.5 Tablet (of 20 mg) Oral daily, MetFORMIN HCl 1 Tablet (of 1000 mg) Oral b.i.d. Allergies: Aspirin Review of Systems: Review of Systems is not available for this patient. Vital Signs: Performed on Jan 13, 2021 14:02 Height - 72.00 in Weight - 228.0 lbs (HIGH) BSA - 2.25 sq.m BMI - 30.92 (HIGH) Temperature - 97.2 F (LOW) Pulse - 57 /min (LOW) Respiration - 18 /min BP - 176/81 mm(hg) (HIGH) O2 Sat - 99 % Pain - 0 Performance Status: 0 - Fully active, able to carry on all predisease activities without restrictions. (ECOG) Physical Examination: ENMT - No mouth sores, no thrush, no jaundice, Respiratory - Lungs are clear to auscultation, Cardiovascular - Regular rate and rhythm of heart, Abdomen - Soft, bowel sounds present, Extremities - No visible edema. Lab/Imaging: Test performed on Oct 15, 2020 11:04 PSA 0.037 ng/mL Impression: Adenocarcinoma of prostate gland per biopsy done on 03/07/2018 [place] score 3+4, PSA 4.64, intermediate risk stage T2b, Nx MX CT scan of abdomen pelvis done on 02/23/2018 showed no evidence of pelvic lymphadenopathy or bony lesions but prominent prostate gland Started on combined androgen blockade with Zoladex and Casodex on 03/28/2018As neoadjuvant, concurrent radiation therapy was added on 07/02/2018 and finished on 08/07/2018 and casodex d/bryan PSA on 09/25/2018 was less than 0.01 .Adjuvant therapy with Zoladex was concluded on 03/28/2019 Plan: Regarding his labs PSA 0.052 compared to 0.037 on October 15, 2020, his testosterone is 125.2 Clinically, patient is doing well with no new signs symptom suggestive of recurrence of disease, his follow-up labs shows PSA mildly progressive, will continue to monitor return to clinic in 3 months with a PSA, if it continues to go up may consider scan to rule out recurrence Signed By: Aretha Park M.D. <<Signature on File>>
== END 2021-01-13 12:29 | disposition home or self-care (01) ==
LOC: ONCMED 12:30
PROVIDERS: Visit Provider Internal Medicine Hematology & Oncology
DX: C61 Malignant neoplasm of prostate (principal); R97.20 Elevated prostate specific antigen [PSA]; Z79.818 Long term (current) use of other agents affecting estrogen receptors and estrogen levels
CPT/HCPCS: 36415; 84153; 84403; 99214

== ENCOUNTER 2021-04-23 08:14 | Outpatient (CLI) | payer OTHER, MEDICARE, BC, SELFPAY ==
[2021-04-23 09:22] LABS: Prostate Specific Antigen 0.083 ng/mL (0-4)
--- NOTE | 2021-04-23 10:12 | ONC FU_ITS ---
Dr. Park follow up note Patient: Luther Lindquist Unit #: [id number]: 1945 Dicatated By: Aretha Park M.D.Date of Visit:Apr 23, 2021 Onc Med Follow-up/Prog Note History of Present Illness: Mr. Luther Lindquist, 75-year-old gentleman who was recently diagnosed with adenocarcinoma prostrate gland. As per patient his PSA was progressively going up to 4.64, subsequently was referred to urology and on 03/07/2018 he underwent prostate biopsy which confirmed prostrate cancer. On 02/23/[address] scan of abdomen pelvis done which showed no evidence of pelvic lymphadenopathy or bone lesions but prominent prostrate gland.Started on ADT with Zoladex and Casodex on 03/28/2018 as neoadjuvant, concurrent radiation therapy started on 07/02/2018 till 08/07/2018.and adjuvant Zoladex till 03/28/2019 Came for follow-up, denies any specific complaints, no fever chills, no nausea or vomiting, no diarrhea or constipation, no melena or hematochezia, no hemoptysis hematemesis, no dysuria or hematuria, no new bony pains, appetite is good . Medications: Allopurinol 1 Tablet (of 300 mg) Tablet Oral daily, Atenolol 0.5 Tablet (of 100 mg) Oral daily, Casodex 1 (50 mg) Tablet Oral daily, Fish Oil 1 Capsule (of 1000 mg) Oral b.i.d., Gemfibrozil 1 Tablet (of 600 mg) Oral b.i.d., GlipiZIDE 2 Tablet (of 10 mg) Oral b.i.d., Insulin Glargine 35 Units (of 100 Units/mL) Subcutaneous daily, Lisinopril 0.5 Tablet (of 20 mg) Oral daily, MetFORMIN HCl 1 Tablet (of 1000 mg) Oral b.i.d. Allergies: Aspirin Review of Systems: Review of Systems is not available for this patient. Vital Signs: Performed on Apr 23, 2021 09:30 Height - 72.00 in Weight - 222.8 lbs (LOW) BSA - 2.23 sq.m BMI - 30.22 (HIGH) Temperature - 97.6 F (LOW) Pulse - 58 /min (LOW) Respiration - 18 /min BP - 154/82 mm(hg) (HIGH) O2 Sat - 99 % Pain - 0 Performance Status: 0 - Fully active, able to carry on all predisease activities without restrictions. (ECOG) Physical Examination: ENMT - No mouth sores, no thrush, no jaundice, Respiratory - Lungs are clear to auscultation, Cardiovascular - Regular rate and rhythm of heart, Abdomen - Soft, bowel sounds present, Extremities - No visible edema. Lab/Imaging: Most recent lab results are not available for this patient. Impression: Adenocarcinoma of prostate gland per biopsy done on 03/07/2018 [place] score 3+4, PSA 4.64, intermediate risk stage T2b, Nx MX CT scan of abdomen pelvis done on 02/23/2018 showed no evidence of pelvic lymphadenopathy or bony lesions but prominent prostate gland Started on combined androgen blockade with Zoladex and Casodex on 03/28/2018As neoadjuvant, concurrent radiation therapy was added on 07/02/2018 and finished on 08/07/2018 and casodex d/bryan PSA on 09/25/2018 was less than 0.01 .Adjuvant therapy with Zoladex was concluded on 03/28/2019 Plan: Discussed with patient regarding his labs PSA is 0.083 compared to 0.052 in December 2020 Clinically, patient has no signs symptom suggestive of recurrence of disease, his PSA is still subzero, will continue to monitor and he'll return to clinic in 6 months with a PSA Signed By: Aretha Park M.D. <<Signature on File>>
== END 2021-04-23 08:15 | disposition home or self-care (01) ==
LOC: ONCMED 08:20
PROVIDERS: PCP Family Medicine; Visit Provider Internal Medicine Hematology & Oncology
DX: C61 Malignant neoplasm of prostate (principal); Z79.899 Other long term (current) drug therapy
CPT/HCPCS: 84153; 99214

== ENCOUNTER 2021-09-20 12:34 | Outpatient (CLI) | payer OTHER, SELFPAY ==
--- NOTE | 2021-09-20 13:08 | MM_ITS ---
WS: [id number] DIAGNOSTIC BILATERAL DIGITAL MAMMOGRAM WITH CAD LEFT breast ultrasound, limited. HISTORY: BREAST Pain, mass 3:00 LT BR COMPARISON: None available. Technique: CC, MLO and ML views. Spot compression LEFT MLO. Breast composition: The breasts are almost entirely fatty. Subtle increased density just posterior t o the LEFT nipple. Similar but less conspicuous findings on the RIGHT. This is a flame-shaped area of increased echogenicity measuring 11 x 10 mm on the LEFT. Ultrasound to follow. LEFT breast ultrasound, limited. Ultrasound is directed to the area of pain posterior to the nipple. There is very slight area of decr eased echogenicity posterior to the nipple. MM/[place] [id number] IMPRESSION: BI-RADS: 2-Benign FOLLOW UP: See Report Findings are most consistent with a very mild case of gynecomastia.
== END 2021-09-20 12:35 | disposition home or self-care (01) ==
PROVIDERS: PCP Family Medicine; Visit Provider Family Medicine
DX: N64.4 Mastodynia (principal); N63.25 Unspecified lump in the left breast, overlapping quadrants
CPT/HCPCS: 76642; 77066

== ENCOUNTER 2021-10-29 08:27 | Outpatient (CLI) | payer OTHER, SELFPAY ==
[2021-10-29 09:07] LABS: Basophils # 0.1 10^3/uL (0.0-0.1); Eosinophils # 0.2 10^3/uL (0.0-0.8); Eosinophils % 2.6 %; Hematocrit 40.2 % (42.0-52.0); Hemoglobin 13.8 g/dL (11.7-16.6); Lymphocytes # 1.5 10^3/uL (0.8-4.8); Lymphocytes % 19.3 %; Mean Corpuscular HGB Conc 34.3 g/dL (30.0-36.0); Mean Corpuscular Hemoglobin 29.1 pg (28.0-34.0); Mean Corpuscular Volume 84.8 fl (80-94); Mean Platelet Volume 9.6 fL (7.4-10.4); Monocytes # 0.4 10^3/uL (0.2-0.9); Monocytes % 5.6 %; Neutrophils # 5.45 10^3/uL (1.8-7.7); Neutrophils % 71.2 %; Nucleated Red Blood Cells % 0 %; Platelet Count 216 10^3/cmm (130-400); Red Blood Count 4.74 10^6/uL (4.1-5.3); Red Cell Distribution Width 12.4 % (12.1-15.1); White Blood Count 7.7 10^3/uL (4.0-10.0)
[2021-10-29 09:27] LABS: Alanine Aminotransferase 45 U/L (0-41); Albumin Level 4.7 g/dL (3.5-5.2); Alkaline Phosphatase 115 IU/L (40-130); Anion Gap 16.4 (5-19); Aspartate Amino Transferase 34 U/L (0-40); Blood Urea Nitrogen 16 mg/dL (8-23); Calcium 9.1 mg/dL (8.5-10.5); Carbon Dioxide 26 mmol/L (22-29); Chloride 96 mmol/L (98-107); Globulin 2.8 g/dL (1.3-4.6); Glucose 351 mg/dL (65-115); Osmolality Calculated 291 mOsm/kg (285-295); Potassium 5.4 mmol/L (3.5-5.1); Prostate Specific Antigen 0.174 ng/mL (0-4); Sodium 133 mmol/L (136-145); Testosterone Total 185.8 ng/dL (193-740); Total Bilirubin 0.5 mg/dL (0.15-1.2); Total Protein 7.5 g/dL (6.6-8.7)
--- NOTE | 2021-11-01 18:23 | ONC FU_ITS ---
Dr. Park follow up note Patient: Luther Lindquist Unit #: [id number]: 1945 Dicatated By: Aretha Park M.D.Date of Visit:Oct 29, 2021 Onc Med Follow-up/Prog Note History of Present Illness: Mr. Luther Lindquist, 76-year-old gentleman who was recently diagnosed with adenocarcinoma prostrate gland. As per patient his PSA was progressively going up to 4.64, subsequently was referred to urology and on 03/07/2018 he underwent prostate biopsy which confirmed prostrate cancer. On 02/23/[address] scan of abdomen pelvis done which showed no evidence of pelvic lymphadenopathy or bone lesions but prominent prostrate gland.Started on ADT with Zoladex and Casodex on 03/28/2018 as neoadjuvant, concurrent radiation therapy started on 07/02/2018 till 08/07/2018.and adjuvant Zoladex till 03/28/2019 Came for follow-up, denies any specific complaints, no fever chills, no nausea or vomiting, no diarrhea or constipation, no new bony pains, no dysuria or hematuria, patient denies taking [id number] medication or male hormone supplement in any form. . Medications: Allopurinol 1 Tablet (of 300 mg) Tablet Oral daily, Atenolol 0.5 Tablet (of 100 mg) Oral daily, Casodex 1 (50 mg) Tablet Oral daily, Fish Oil 1 Capsule (of 1000 mg) Oral b.i.d., Gemfibrozil 1 Tablet (of 600 mg) Oral b.i.d., GlipiZIDE 2 Tablet (of 10 mg) Oral b.i.d., Insulin Glargine 35 Units (of 100 Units/mL) Subcutaneous daily, Lisinopril 0.5 Tablet (of 20 mg) Oral daily, MetFORMIN HCl 1 Tablet (of 1000 mg) Oral b.i.d. Allergies: Aspirin Review of Systems: Review of Systems is not available for this patient. Vital Signs: Performed on Oct 29, 2021 09:58 Height - 72.00 in Weight - 227 lbs (HIGH) BSA - 2.25 sq.m BMI - 30.79 (HIGH) Temperature - 98.3 F (LOW) Pulse - 73 /min Respiration - 17 /min BP - 161/88 mm(hg) (HIGH) O2 Sat - 100 % Pain - 0 Fatigue - 0 Performance Status: 0 - Fully active, able to carry on all predisease activities without restrictions. (ECOG) Physical Examination: ENMT - No mouth sores, no thrush, no jaundice, Respiratory - Lungs are clear to auscultation, Cardiovascular - Regular rate and rhythm of heart, Abdomen - Soft, bowel sounds present, Extremities - No visible edema. Lab/Imaging: Most recent lab results are not available for this patient. Impression: Adenocarcinoma of prostate gland per biopsy done on 03/07/2018 Michelle score 3+4, PSA 4.64, intermediate risk stage T2b, Nx MX CT scan of abdomen pelvis done on 02/23/2018 showed no evidence of pelvic lymphadenopathy or bony lesions but prominent prostate gland Started on combined androgen blockade with Zoladex and Casodex on 03/28/2018As neoadjuvant, concurrent radiation therapy was added on 07/02/2018 and finished on 08/07/2018 and casodex d/bryan PSA on 09/25/2018 was less than 0.01 .Adjuvant therapy with Zoladex was concluded on 03/28/2019 Plan: Discussed with patient regarding his labs white blood count 7.7 hemoglobin 13.8 hematocrit 40.2 platelets 216,000 CMP within normal limit except sodium 133 potassium 5.4, ALT 45 and testosterone 185.8 normal being 193 to 740 and PSA 0.174 compared to 0.083 on April 23, 2021 Clinically, patient is doing well with no new signs symptoms just of recurrence of disease, his lab work-up shows CBC within normal range, CMP shows mildly elevated potassium with a normal creatinine, could be due to sample hemolysis, mildly elevated ALT Etiology unclear, will monitor As far as PSA is concerned, continue to go up but 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 So we will continue to monitor he will return to clinic in 6 months with CMP, testosterone and PSA level Signed By: Aretha Park M.D. <<Signature on File>>
== END 2021-10-29 08:28 | disposition home or self-care (01) ==
PROVIDERS: PCP Family Medicine; Visit Provider Internal Medicine Hematology & Oncology
DX: Z85.46 Personal history of malignant neoplasm of prostate (principal); Z79.899 Other long term (current) drug therapy
CPT/HCPCS: 36415; 80053; 84153; 84403; 85025; 99214

== ENCOUNTER → 2021-11-16 14:22 | Outpatient (BNVA) | payer OTHER, SELFPAY | PROVIDERS: PCP Family Medicine; Visit Provider Nurse Practitioner | DX: R05.9 Cough, unspecified (principal) | CPT/HCPCS: 87400 ==

== ENCOUNTER → 2022-04-13 09:37 | Outpatient (BNVA) | payer OTHER, SELFPAY | PROVIDERS: PCP Family Medicine; Referring Provider Family Medicine; Visit Provider Orthopaedic Surgery | DX: M17.12 Unilateral primary osteoarthritis, left knee (principal); M25.562 Pain in left knee | CPT/HCPCS: 20610; 73560; 73565; 99203; J0702; J3490 ==

== ENCOUNTER 2022-04-29 07:43 | Oncology outpatient (recurring) (ONCR) | payer OTHER, SELFPAY ==
[2022-04-29 07:58] LABS: Basophils # 0.1 10^3/uL (0.0-0.1); Eosinophils # 0.2 10^3/uL (0.0-0.8); Eosinophils % 3.1 %; Hematocrit 37.9 % (42.0-52.0); Hemoglobin 12.9 g/dL (11.7-16.6); Lymphocytes # 1.6 10^3/uL (0.8-4.8); Lymphocytes % 25.2 %; Mean Corpuscular Hemoglobin 29.1 pg (28.0-34.0); Mean Corpuscular Volume 85.4 fl (80-94); Mean Platelet Volume 9.7 fL (7.4-10.4); Monocytes # 0.5 10^3/uL (0.2-0.9); Monocytes % 7.8 %; Neutrophils # 3.85 10^3/uL (1.8-7.7); Neutrophils % 62.6 %; Nucleated Red Blood Cells % 0 %; Platelet Count 176 10^3/cmm (130-400); Red Blood Count 4.44 10^6/uL (4.1-5.3); Red Cell Distribution Width 12.3 % (12.1-15.1); White Blood Count 6.2 10^3/uL (4.0-10.0)
[2022-04-29 08:32] LABS: Alanine Aminotransferase 41 U/L (0-41); Albumin Level 4.1 g/dL (3.5-5.2); Alkaline Phosphatase 101 IU/L (40-130); Anion Gap 13.7 (5-19); Aspartate Amino Transferase 28 U/L (0-40); Blood Urea Nitrogen 18 mg/dL (8-23); Calcium 9.3 mg/dL (8.5-10.5); Carbon Dioxide 28 mmol/L (22-29); Chloride 98 mmol/L (98-107); Globulin 2.7 g/dL (1.3-4.6); Glucose 323 mg/dL (65-115); Osmolality Calculated 294 mOsm/kg (285-295); Potassium 4.7 mmol/L (3.5-5.1); Prostate Specific Antigen 0.147 ng/mL (0-4); Sodium 135 mmol/L (136-145); Testosterone Total 157.2 ng/dL (193-740); Total Bilirubin 0.4 mg/dL (0.15-1.2); Total Protein 6.8 g/dL (6.6-8.7)
== END 2022-05-18 23:59 | disposition home or self-care (01) ==
PROVIDERS: PCP Family Medicine; Visit Provider Internal Medicine Hematology & Oncology
DX: Z08 Encounter for follow-up examination after completed treatment for malignant neoplasm (principal); Z85.46 Personal history of malignant neoplasm of prostate; Z92.3 Personal history of irradiation; Z79.899 Other long term (current) drug therapy
CPT/HCPCS: 36415; 80053; 84153; 84403; 85025; 99214; G0463

== ENCOUNTER → 2022-05-11 09:00 | Outpatient (BNVA) | payer OTHER, SELFPAY | PROVIDERS: PCP Family Medicine; Visit Provider Orthopaedic Surgery | DX: M17.12 Unilateral primary osteoarthritis, left knee (principal) | CPT/HCPCS: 99212 ==

== ENCOUNTER 2022-08-04 10:42 | Oncology outpatient (recurring) (ONCR) | payer OTHER, SELFPAY ==
[2022-08-04 11:23] LABS: Prostate Specific Antigen 0.196 ng/mL (0-4); Testosterone Total 253.9 ng/dL (193-740)
== END 2022-08-17 23:59 | disposition home or self-care (01) ==
PROVIDERS: PCP Family Medicine; Visit Provider Internal Medicine Hematology & Oncology
DX: Z08 Encounter for follow-up examination after completed treatment for malignant neoplasm (principal); Z85.46 Personal history of malignant neoplasm of prostate; Z92.3 Personal history of irradiation
CPT/HCPCS: 36415; 84153; 84403; 99213; 99214

== ENCOUNTER → 2022-11-08 14:39 | Outpatient (BNVA) | payer OTHER, SELFPAY | PROVIDERS: PCP Family Medicine; Visit Provider Podiatrist Foot & Ankle Surgery | DX: M76.822 Posterior tibial tendinitis, left leg (principal); S93.322A Subluxation of tarsometatarsal joint of left foot, initial encounter; X58.XXXA Exposure to other specified factors, initial encounter; E11.42 Type 2 diabetes mellitus with diabetic polyneuropathy; Z79.84 Long term (current) use of oral hypoglycemic drugs; Z79.4 Long term (current) use of insulin | CPT/HCPCS: 11055; 11721; 73630; 99204 ==

== ENCOUNTER → 2023-01-25 13:11 | Outpatient (BNVA) | payer OTHER, SELFPAY | PROVIDERS: PCP Family Medicine; Visit Provider Dermatology | DX: D04.39 Carcinoma in situ of skin of other parts of face (principal); L57.0 Actinic keratosis; S50.812A Abrasion of left forearm, initial encounter; X58.XXXA Exposure to other specified factors, initial encounter; L82.1 Other seborrheic keratosis; L81.4 Other melanin hyperpigmentation; L57.8 Other skin changes due to chronic exposure to nonionizing radiation; B07.8 Other viral warts | CPT/HCPCS: 11102; 17000; 17003; 99213 ==

== ENCOUNTER 2023-02-01 12:57 | Oncology outpatient (recurring) (ONCR) | payer OTHER, SELFPAY ==
[2023-02-01 13:24] LABS: Basophils # 0.1 10^3/uL (0.0-0.1); Basophils % 0.9 %; Eosinophils # 0.1 10^3/uL (0.0-0.8); Eosinophils % 1.6 %; Hematocrit 41.2 % (42.0-52.0); Hemoglobin 13.9 g/dL (11.7-16.6); Lymphocytes # 1.6 10^3/uL (0.8-4.8); Lymphocytes % 21.7 %; Mean Corpuscular HGB Conc 33.7 g/dL (30.0-36.0); Mean Corpuscular Hemoglobin 28.8 pg (28.0-34.0); Mean Corpuscular Volume 85.5 fl (80-94); Mean Platelet Volume 9.4 fL (7.4-10.4); Monocytes # 0.5 10^3/uL (0.2-0.9); Monocytes % 6.1 %; Neutrophils # 5.18 10^3/uL (1.8-7.7); Neutrophils % 69.3 %; Nucleated Red Blood Cells % 0 %; Platelet Count 206 10^3/cmm (130-400); Red Blood Count 4.82 10^6/uL (4.1-5.3); Red Cell Distribution Width 12.6 % (12.1-15.1); White Blood Count 7.5 10^3/uL (4.0-10.0)
[2023-02-01 13:58] LABS: Alanine Aminotransferase 38 U/L (0-41); Albumin Level 4.3 g/dL (3.5-5.2); Alkaline Phosphatase 72 U/L (40-130); Anion Gap 14.7 (5-19); Aspartate Amino Transferase 30 U/L (0-40); Blood Urea Nitrogen 28 mg/dL (8-23); Calcium 9.6 mg/dL (8.5-10.5); Carbon Dioxide 27 mmol/L (22-29); Chloride 97 mmol/L (98-107); Globulin 2.7 g/dL (1.3-4.6); Glucose 201 mg/dL (65-115); Osmolality Calculated 289 mOsm/kg (285-295); Potassium 4.7 mmol/L (3.5-5.1); Prostate Specific Antigen 0.184 ng/mL (0-4); Sodium 134 mmol/L (136-145); Total Bilirubin 0.4 mg/dL (0.15-1.2)
== END 2023-02-15 23:59 | disposition home or self-care (01) ==
PROVIDERS: PCP Family Medicine; Visit Provider Internal Medicine Hematology & Oncology
DX: Z08 Encounter for follow-up examination after completed treatment for malignant neoplasm (principal); Z85.46 Personal history of malignant neoplasm of prostate; Z92.3 Personal history of irradiation
CPT/HCPCS: 36415; 80053; 84153; 85025; 99213; 99214

== ENCOUNTER → 2023-02-07 15:02 | Outpatient (BNVA) | payer OTHER, SELFPAY | PROVIDERS: PCP Family Medicine; Visit Provider Podiatrist Foot & Ankle Surgery | DX: E11.42 Type 2 diabetes mellitus with diabetic polyneuropathy (principal); L60.3 Nail dystrophy; L84 Corns and callosities; M76.822 Posterior tibial tendinitis, left leg; S93.322A Subluxation of tarsometatarsal joint of left foot, initial encounter; X58.XXXA Exposure to other specified factors, initial encounter; Z79.84 Long term (current) use of oral hypoglycemic drugs; Z79.4 Long term (current) use of insulin | CPT/HCPCS: 11055; 11721; 99214 ==

== ENCOUNTER → 2023-02-16 08:17 | Outpatient (BNVA) | payer OTHER, SELFPAY | PROVIDERS: PCP Family Medicine; Visit Provider Dermatology | DX: L57.0 Actinic keratosis (principal); D04.39 Carcinoma in situ of skin of other parts of face | CPT/HCPCS: 17000; 17003; 17282 ==

== ENCOUNTER → 2023-04-11 14:52 | Outpatient (BNVA) | payer OTHER, SELFPAY | PROVIDERS: PCP Family Medicine; Visit Provider Podiatrist Foot & Ankle Surgery | DX: M76.822 Posterior tibial tendinitis, left leg (principal); M19.072 Primary osteoarthritis, left ankle and foot; M21.42 Flat foot [pes planus] (acquired), left foot; Z79.84 Long term (current) use of oral hypoglycemic drugs; Z79.4 Long term (current) use of insulin; E11.42 Type 2 diabetes mellitus with diabetic polyneuropathy | CPT/HCPCS: 99214 ==

== ENCOUNTER 2023-05-04 09:49 | Oncology outpatient (recurring) (ONCR) | payer OTHER, SELFPAY ==
[2023-05-04 09:59] VITALS: BP 151/83; PULSE 62; RESP 18; TEMP 36.4; O2SAT 97
[2023-05-04 10:16] LABS: Basophils # 0.1 10^3/uL (0.0-0.1); Eosinophils # 0.3 10^3/uL (0.0-0.8); Eosinophils % 3.7 %; Hematocrit 39.7 % (42.0-52.0); Hemoglobin 13.5 g/dL (11.7-16.6); Lymphocytes # 1.6 10^3/uL (0.8-4.8); Lymphocytes % 24.4 %; Mean Corpuscular Hemoglobin 28.9 pg (28.0-34.0); Mean Platelet Volume 9.1 fL (7.4-10.4); Monocytes # 0.5 10^3/uL (0.2-0.9); Monocytes % 6.7 %; Neutrophils # 4.28 10^3/uL (1.8-7.7); Neutrophils % 63.9 %; Nucleated Red Blood Cells % 0 %; Platelet Count 210 10^3/cmm (130-400); Red Blood Count 4.67 10^6/uL (4.1-5.3); Red Cell Distribution Width 12.7 % (12.1-15.1); White Blood Count 6.7 10^3/uL (4.0-10.0)
[2023-05-04 10:53] LABS: Alanine Aminotransferase 40 U/L (0-41); Albumin Level 4.2 g/dL (3.5-5.2); Alkaline Phosphatase 78 U/L (40-130); Aspartate Amino Transferase 31 U/L (0-40); Blood Urea Nitrogen 27 mg/dL (8-23); Calcium 8.9 mg/dL (8.5-10.5); Carbon Dioxide 24 mmol/L (22-29); Chloride 100 mmol/L (98-107); Creatinine Clr Calc Pharmacy 70.9059; Globulin 2.8 g/dL (1.3-4.6); Glucose 161 mg/dL (65-115); Osmolality Calculated 291 mOsm/kg (285-295); Prostate Specific Antigen 0.148 ng/mL (0-4); Sodium 136 mmol/L (136-145); Testosterone Total 189.9 ng/dL (193-740); Total Bilirubin 0.2 mg/dL (0.15-1.2)
[2023-05-04 10:54] LABS: Anion Gap 16.4 (5-19); Potassium 4.4 mmol/L (3.5-5.1)
== END 2023-05-18 23:59 | disposition home or self-care (01) ==
PROVIDERS: Nurse Practitioner Family; PCP Family Medicine; Visit Provider Internal Medicine Medical Oncology
DX: Z08 Encounter for follow-up examination after completed treatment for malignant neoplasm (principal); Z85.46 Personal history of malignant neoplasm of prostate; Z92.3 Personal history of irradiation
CPT/HCPCS: 36415; 80053; 84153; 84403; 85025; 99213

== ENCOUNTER → 2023-06-20 13:36 | Outpatient (BNVA) | payer OTHER, SELFPAY | PROVIDERS: PCP Family Medicine; Visit Provider Dermatology | DX: Z85.828 Personal history of other malignant neoplasm of skin (principal); L57.0 Actinic keratosis; L57.8 Other skin changes due to chronic exposure to nonionizing radiation | CPT/HCPCS: 17000; 99214 ==

== ENCOUNTER 2023-07-01 14:04 | Emergency (ER) | payer OTHER, SELFPAY ==
[2023-07-01 14:17] VITALS: BMI 29.8
--- NOTE | 2023-07-01 14:24 | XRR_ITS ---
PROCEDURE INFORMATION: Exam: XR Left Foot Exam date and time: 07/01/2023 2:47 PM Age: 77 years old Clinical indication: Edema; Yes, it is localized; Prior surgery; Surgery date: 6+ months; Surgery type: Tendon repair left ankle; Patient HX: Lt foot pain/swelling/ erythema; Open wound of unknown origin to top of left great toe TECHNIQUE: Imaging protocol: Radiologic exam of the left foot. Views: 3 or more views. COMPARISON: CR XR foot LT min 3V* [id number] 11/08/2022 2:41 PM FINDINGS: Bones/joints: No acute fracture or dislocation. Mild progression of severe joint space narrowing, osteophytosis, subchondral sclerosis and cystic change at the 1st MTP joint. No cortical erosion or focal osteopenia. Small plantar and posterior calcaneal enthesophytes. Soft tissues: Soft tissue thickening overlies the medial 1st MTP joint. Dorsal foot soft tissue swelling. XR/XR foot LT min 3V* [id number] IMPRESSION: 1. Left foot soft tissue swelling without radiographic evidence of acute bony abnormality. 2. 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 No radiographic findings to suggest superimposed osteomyelitis. If there is significant clinical concern for this entity, MRI is more sensitive.
--- NOTE | 2023-07-01 15:25 | CTR_ITS ---
PROCEDURE INFORMATION: Exam: CT Left Lower Extremity Without Contrast, Foot Exam date and time: 07/01/2023 3:34 PM Age: 77 years old Clinical indication: Other: Red swollen ulcer to base of big toe; Additional info: Infection TECHNIQUE: Imaging protocol: CT of the left lower extremity without contrast was performed. Exam focused on the foot. Radiation optimization: All CT scans at this facility use at least one of these dose optimization techniques: automated exposure control; mA and/or kV adjustment per patient size (includes targeted exams where dose is matched to clinical indication); or iterative reconstruction. REPORTING DATA: Count of CT and Cardiac NM exams in prior 12 months: This patient has received 0 known CTs and 0 known cardiac nuclear medicine studies in the 12 months prior to the current study. COMPARISON: 1. CR (LOW EXM, ) 07/01/2023 2:47 PM 2. CR XR foot LT min 3V* [id number] 11/08/2022 2:41 PM RADIATION DOSE METRICS: Total DLP (mGy-cm): 153.09 FINDINGS: Bones/joints: No acute fracture or dislocation. Chronic sequela of medial and lateral ankle injuries with mild tibiotalar joint degenerative change and suspected small lateral intra-articular body. As seen on comparison radiographs, there is advanced degenerative change at the 1st MTP joint with joint space narrowing, osteophytosis, subchondral sclerosis and cystic change. Prominent chronic appearing cystic change/erosion at the 1st metatarsal head similar to October 2022 when allowing for differences in technique, as well as more mildly at the adjacent proximal phalanx base. No evidence of acute erosion or focal demineralization. Corticated dorsal ossicle may represent intra-articular body. Additional degenerative changes at the hindfoot with prominent cystic change at the talus and calcaneus. Additional midfoot degenerative change as well as at the 1st metatarsal head-sesamoids. Soft tissues: Edematous soft tissue swelling of the imaged foot and ankle with focal soft tissue defect at the medial plantar 1st metatarsal head level. CT/CT foot LT wo con* [id number] IMPRESSION: 1. Soft tissue swelling with ulceration at the medial plantar 1st metatarsal head level. 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 2. Additional degenerative changes throughout the hindfoot and midfoot. Suspect small intra-articular bodies at the great toe MTP joint as well as the lateral ankle joint.
--- NOTE | 2023-07-01 15:25 | XRR_ITS ---
PROCEDURE INFORMATION: Exam: XR Chest Exam date and time: 07/01/2023 3:34 PM Age: 77 years old Clinical indication: Cough; Patient HX: Fever; Chest congestion; High wbc; Diabetic ulcer of left foot TECHNIQUE: Imaging protocol: Radiologic exam of the chest. Views: 1 view. COMPARISON: DX XR chest 2V* [id number] 01/26/2018 9:25 AM FINDINGS: Lungs: Mild linear atelectasis versus scarring in the left lung base. No consolidation. Pleural spaces: Unremarkable. No pleural effusion. No pneumothorax. Heart/Mediastinum: Unremarkable. No cardiomegaly. Vasculature: Aortic arch atherosclerotic calcification. Bones/joints: Bilateral reverse shoulder arthroplasties. XR/XR chest 1V portable [id number] IMPRESSION: No acute findings.
--- NOTE | 2023-07-01 15:27 | ED_ITS ---
Documented by User: NANCY Steve 07/01/23 17:04 HPI - Extremity Problem General: Chief complaint: Extremity Problem,Nontraumatic Stated complaint: left foot possibly infected Time Seen by Provider: 07/01/23 15:00 History of Present Illness: Luther is a 77-year-old man that presents to the emergency department with a 48-hour history of fever, chills, body aches. He has had a foot ulcer x3 weeks and this morning upon waking it was noted with increased swelling, erythema, warmth, pain. There is a draining wound on the ball of his foot He had seen his provider at the [facility] who has referred him for podiatry. His appointment with Dr. Bhatia is not until the . Medical history includes hypertension, hyperlipidemia, gout, diabetes, prostate cancer. Associated symptoms: Reports fever(s); Deny chest pain or rash Review of Systems General: Reports: 10 or more systems reviewed and unremarkable except in HPI and below Const: Reports: fever(s), chills, body aches, fatigue and malaise; Denies: change in appetite or change in weight Eyes: Denies: change in vision, eye discomfort, eye discharge or eye redness ENMT: Denies: throat pain, enlarged tonsils, odynophagia, hoarseness, ear or mastoid pain, ear discharge, change in hearing, tinnitus, nasal discharge, nasal congestion, post nasal drip or sinus pain Card: Denies: chest pain, palpitations, irregular heart rhythm, edema, dyspnea on exertion, orthopnea or leg pain with exertion Resp: Denies: dyspnea, productive cough, non-productive cough, wheezing, stridor or chest congestion GI: Denies: abdominal pain, nausea, vomiting, dysphagia, diarrhea, constipation, bloating, GI cramping or hematochezia : Denies: flank pain, dysuria, urinary frequency, urinary urgency, urinary hesitancy, oliguria or hematuria Musc: Reports: extremity swelling, joint pain, joint swelling, joint redness, joint warmth and other (Open draining wound to the plantar surface of the foot); Denies: neck pain, back pain, extremity pain or muscle weakness Skin/Breast: Denies: rash, pruritus, erythema, photosensitivity or new lesions Neuro: Denies: headache(s), numbness in extremities, weakness in extremities, sensory changes, lack of coordination, difficulty walking, frequent falls, dizziness, confusion, Slurred speech present, difficulty communicating thoughts, seizure-like activity or involuntary movements Endo: Denies: polyuria, polydipsia or tired all the time Cristobal/Lymph: Denies: easy bruising or easy bleeding PFS ED PFSH: Medical History Diabetes Gout HTN (hypertension) Hyperlipidemia Prostate cancer Surgical History History of Achilles tendon repair left foot History of prostate biopsy History of replacement of both shoulder joints Previous back surgery Family History Father Cancer skin Other Diabetes Hyperlipidemia Hypertension Denies family history of CAD (coronary artery disease) Clotting disorder Dementia Psychiatric illness Chronic kidney disease (CKD) Suicide Anesthesia complication Bleeding disorder Lung disease Stroke Social History Smoking and tobacco/nicotine status: never used tobacco/nicotine Alcohol intake: current Alcohol intake frequency: holidays/special occasions only Physical Exam Const: COMMON NORMALS: no acute distress, patient oriented x3 and alert GENERAL APPEARANCE: cooperative ORIENTATION/CONSCIOUSNESS: Yes awake, Yes oriented to person, Yes oriented to place and Yes oriented to time HENMT: COMMON NORMALS: normocephalic and atraumatic HEAD & SCALP: normocephalic and atraumatic FACE & SINUS: normal facial exam MOUTH: Normal oral and palatal mucosa present THROAT: posterior oropharynx normal Eye: COMMON NORMALS: Equal, round and reactive pupils present, EOMs intact bilaterally, conjunctivae normal and no scleral icterus GENERAL EYE: appearance normal, both eyes and all related structures ALIGNMENT: Yes alignment normal PERIORBITAL: periorbital findings normal CONJUNCTIVA: Yes conjunctivae normal PUPIL: Yes Equal, round and reactive pupils present Neck/C-Spine: COMMON NORMALS: full ROM GENERAL: Yes normal visual inspection Lymph: LYMPHATIC: no lymphadenopathy noted Chest: COMMONS NORMALS: normal inspection of the chest Breast/axilla inspection: Yes no chest deformity, asymmetry, normal contours, no nodules, masses, tenderness Resp: COMMON NORMALS: normal respiratory effort, No retractions, No use of accessory muscles and clear to auscultation bilaterally EFFORT & INSPECTION: Yes able to speak in complete sentences and Yes symmetric chest movement AUSCULTATION: clear to auscultation bilaterally Cardio: COMMON NORMALS: regular rate, regular rhythm and Peripheral pulses 2+ throughout RATE: regular rate RHYTHM: regular rhythm PERIPHERAL PULSES: Peripheral pulses 2+ throughout GI: COMMON NORMALS: Normal to inspection, nondistended, normoactive bowel sounds present, Soft to palpation, non-tender and No hepatosplenomegaly present INSPECTION: Yes normal to inspection AUSCULTATION: Yes normoactive bowel sounds PALPATION: Yes Soft to palpation and Yes No hepatosplenomegaly present RECTAL EXAM: Yes deferred Extremity: OTHER: Left lower extremity: There is a 1 cm open wound to the plantar surface of the left foot. This wound is noted on the ball of the foot. There is ecchymosis, erythema, edema and warmth noted to the fore and midfoot. Edema noted into the ankle and calf. Patient is able to dorsiflex plantarflex the foot as well as the great toe Sensation is not intact?this is unchanged from baseline due to diabetic neuropathy. Neuro: COMMON NORMALS: patient oriented x3 SENSORIUM/ORIENTATION: Yes alert, Yes oriented to person, Yes oriented to place and Yes oriented to time CRANIAL NERVES: Yes CN normal except as noted Psych: COMMON NORMALS: mental status grossly normal, Normal thought process present, cooperative, activity/motor behavior normal, denies homicidal ideation and denies suicidal ideation THOUGHT PROCESS: Normal thought process present Skin: COMMON NORMALS: no rashes or lesions noted, no wounds and turgor normal GENERAL SKIN EXAM: no rashes or lesions noted and turgor normal Course Vital Signs: Vital signs: Vital Signs Pulse Rate 82 07/01/23 17:20 Respiratory Rate 16 07/01/23 17:20 Blood Pressure 139/75 07/01/23 17:20 Pulse Oximetry 97 07/01/23 17:20 MDM - Extremity (Nontraumatic) Medical Decision Making Patient was evaluated in the emergency department for left foot swelling, erythema, warmth. Patient does have a history of diabetes and was evaluated 3 weeks [facility] for [facility] foot [facility]. He was not started on any antibiotics. This morning he woke up with a very red swollen foot. He was rubbing his foot when he expressed what sounds like serosanguineous drainage from the plantar surface of the foot. He underwent CBC, chemistry, lactic acid. Patient also underwent a CT of the foot. Presumed osteomyelitis. He does have a follow-up with podiatry on the . While awaiting the rest of his labs Rei SIDDIQUI has assumed care Lab Data 07/01/23 16:02 07/01/23 16:02 Radiology Impressions Foot X-Ray 07/01/23 14:24 IMPRESSION: 1. Left foot soft tissue swelling without radiographic evidence of acute bony abnormality. 2. 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 No radiographic findings to suggest superimposed osteomyelitis. If there is significant clinical concern for this entity, MRI is more sensitive. Chest X-Ray 07/01/23 15:25 IMPRESSION: No acute findings. Foot CT 07/01/23 15:25 IMPRESSION: 1. Soft tissue swelling with ulceration at the medial plantar 1st metatarsal head level. 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 2. Additional degenerative changes throughout the hindfoot and midfoot. Suspect small intra-articular bodies at the great toe MTP joint as well as the lateral ankle joint. Laboratory Results WBC 10.76 10^3/uL (3.29-11.43) 07/01/23 16: RBC 4.24 10^6/uL (3.85-5.65) 07/01/23 16:02 Hgb 12.40 g/dL (11.27-16.99) 07/01/23 16: Hct 36.4 % (37-53) L 07/01/23 16: MCV 85.8 fl (82-101) 07/01/23 16:02 MCH 29.2 pg (27-33) 07/01/23 16:02 MCHC 34.1 g/dL (30-55) 07/01/23 16: RDW 12.4 % (12.1-15.1) 07/01/23 16:02 Plt Count 240 10^3/cmm (157-399) 07/01/23 16:02 MPV 9.7 fL (7.4-10.4) 07/01/23 16:02 Neut % (Auto) 82.5 % 07/01/23 16:02 Lymph % (Auto) 9.3 % 07/01/23 16:02 Powell % (Auto) 6.6 % 07/01/23 16:02 Eos % (Auto) 0.7 % 07/01/23 16:02 Baso % (Auto) 0.4 % 07/01/23 16:02 Neut # (Auto) 8.89 10^3/uL (1.8-7.7) H 07/01/23 16:02 Lymph # (Auto) 1.0 10^3/uL (0.8-4.8) 07/01/23 16:02 Powell # (Auto) 0.7 10^3/uL (0.2-0.9) 07/01/23 16:02 Eos # (Auto) 0.1 10^3/uL (0.0-0.8) 07/01/23 16:02 Baso # (Auto) 0.0 10^3/uL (0.0-0.1) 07/01/23 16:02 Nucleated RBC % (auto) 0 % 07/01/23 16:02 Nucleated RBCs # 0.0 /100WBC 07/01/23 16:02 Sodium 132 mmol/L (136-145) L 07/01/23 16:02 Potassium 4.2 mmol/L (3.5-5.1) 07/01/23 16:02 Chloride 98 mmol/L (98-107) 07/01/23 16:02 Carbon Dioxide 23 mmol/L (22-29) 07/01/23 16:02 Anion Gap 15.2 (5-19) 07/01/23 16:02 BUN 26 mg/dL (8-23) H 07/01/23 16:02 Creatinine 1.2 mg/dL (0.7-1.2) 07/01/23 16:02 GFR Calculation Not Reportable 07/01/23 16:02 Glucose 110 mg/dL (65-115) 07/01/23 16:02 Calculated Osmolality 279 mOsm/kg (285-295) L 07/01/23 16:02 Lactic Acid 1.1 mmol/L (0.5-2.2) 07/01/23 16:02 Calcium 9.1 mg/dL (8.5-10.5) 07/01/23 16:02 Total Bilirubin 0.4 mg/dL (0.15-1.2) 07/01/23 16:02 AST 21 U/L (0-40) 07/01/23 16:02 ALT 24 U/L (0-41) 07/01/23 16:02 Alkaline Phosphatase 75 U/L (40-130) 07/01/23 16:02 Total Protein 7.5 g/dL (6.6-8.7) 07/01/23 16:02 Albumin 3.9 g/dL (3.5-5.2) 07/01/23 16:02 Globulin 3.6 g/dL (1.3-4.6) 07/01/23 16:02 All radiology interpretation(s) finalized by discharge Discharge Plan Discharge Patient Disposition: Home Clinical Impression: Diabetic foot ulcer, Cellulitis Condition: Stable Prescriptions: New doxycycline hyclate 100 mg tablet 100 mg PO BID 10 Days Qty: 20 0RF No Action allopurinol 300 mg tablet 150 mg PO DAILY atenolol 100 mg tablet 100 mg PO DAILY glipizide 10 mg tablet 10 mg PO DAILY insulin glargine 100 unit/mL solution 20 unit SUBCUT BID lisinopril 10 mg tablet 10 mg PO DAILY metformin 1,000 mg tablet 1,000 mg PO BID omega-3 fatty acids [Fish Oil Concentrate] 1,000 mg capsule 1,000 mg PO BID fenofibrate 54 mg tablet 54 mg PO DAILY rosuvastatin [Crestor] 20 mg tablet 20 mg PO DAILY clotrimazole [Lotrimin AF (clotrimazole)] 1 % cream 1 applic topical BID Sebex 2-2 % shampoo 1 applic topical DAILY Rx Instructions: massage into wet scalp; leave on for 5 mins ; rinse; repeat application ciclopirox 8 % solution 1 applic topical DAILY Qty: 6.6 3RF Rx Instructions: Apply to nails daily. Do not wash nails for 8hr post application;remove w/alcohol every 7 days mometasone 0.1 % solution 1 applic topical DAILY Qty: 60 3RF Rx Instructions: to scalp prn itch fluconazole 150 mg tablet 300 mg PO .once per week 180 Days Qty: 48 0RF pyridoxine (vitamin B6) 50 mg tablet 50 mg PO DAILY Qty: 30 3RF folic acid 1 mg tablet 1 mg PO DAILY Qty: 30 3RF cyanocobalamin (vitamin B-12) 1,000 mcg capsule 1,000 mcg PO DAILY Qty: 60 5RF (DME) Shoes with custom inserts See Rx Instructions .Route .MEDSUPPLY Qty: 1 0RF Rx Instructions: As directed ketoconazole 2 % shampoo 1 applic topical .2 x weekly Qty: 120 3RF Rx Instructions: Lather into scalp 2 times weekly. Allow to sit on scalp for 5 minutes before rinsing. Discharge Orders: Discharge ED (Routine); Ordered 07/01/23 Ordered By: Itzel Minaya Referrals: Caitlin Beltran MD [Primary Care Provider] - Discharge Diet: Usual diet Discharge Activity: Increase activity as tolerated Patient Instructions: Diabetic Foot Ulcers (ED) Activity Restrictions/Additional Instructions: Labs and imaging today are reassuring. Imaging shows no signs of underlying bony infection concerning for osteomyelitis however, there is diffuse swelling concerning for soft tissue infection. We are going to continue your antibiotic treatment with a prescription started from the emergency room this evening. I have also placed a referral back to wound care for continued wound management as this will most likely take quite a while to heal. Until you are seen by wound care we recommend washing the wound at least once or twice a day with warm water and mild soap. Keep it covered with bandaging and be sure you are wearing socks and closed toed shoes at all times to protect this area. Keep your upcoming appointment with podiatry as it is very important they continue to monitor this as well. If for any reason you feel the infection is getting acutely worse with red streaking up the leg, new onset fever, or dusky discoloration of the toes- you need to be seen and reevaluated back here in the emergency department. Sign Out Sign Out Data: Patient Sign Out occurred on 07/01/23 at 17:16. Patient's care was discussed, and care was transferred from to ARTUR Rubio. Coding Level of Care Code ED All Source Collection Manager for Chg Fwd Documented by User: ARTUR Rubio 07/01/23 17:58 HPI - Extremity Problem General: Chief complaint: Extremity Problem,Nontraumatic Stated complaint: left foot possibly infected Time Seen by Provider: 07/01/23 15:00 [facility] ED PFSH: Medical History Diabetes Gout HTN (hypertension) Hyperlipidemia Prostate cancer Surgical History History of Achilles tendon repair left foot History of prostate biopsy History of replacement of both shoulder joints Previous back surgery Family History Father Cancer skin Other Diabetes Hyperlipidemia Hypertension Denies family history of CAD (coronary artery disease) Clotting disorder Dementia Psychiatric illness Chronic kidney disease (CKD) Suicide Anesthesia complication Bleeding disorder Lung disease Stroke Social History Smoking and tobacco/nicotine status: never used tobacco/nicotine Alcohol intake: current Alcohol intake frequency: holidays/special occasions only Course Vital Signs: Vital signs: Vital Signs Pulse Rate 82 07/01/23 17:20 Respiratory Rate 16 07/01/23 17:20 Blood Pressure 139/75 07/01/23 17:20 Pulse Oximetry 97 07/01/23 17:20 MDM - Extremity (Nontraumatic) Medical Decision Making Patient was evaluated in the emergency department for left foot swelling, erythema, warmth. Patient does have a history of diabetes and was evaluated 3 weeks ago [facility] for [facility] foot ulcer. He was not started on any antibiotics. This morning he woke up with a very red swollen foot. He was rubbing his foot when he expressed what sounds like serosanguineous drainage from the plantar surface of the foot. He underwent CBC, chemistry, lactic acid. Patient also underwent a CT of the foot. Presumed osteomyelitis. He does have a follow-up with podiatry on the . While awaiting the rest of his labs Rei SIDDIQUI has assumed care Itzel Minaya PA-C: Transfer of care at 1700. Lab work is generally unremarkable. CT of the foot reveals no signs of osteomyelitis. 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 Patient received 2 g of Rocephin here in the emergency department. I did discuss with him the negative finding of osteomyelitis on the CT examination. Patient has had diabetic wounds to his feet in the past and states has been a little over a year since he has been seen at wound care. I have referred him back to wound care. He also has an upcoming appointment with podiatry which I encouraged him to keep. We are starting him on doxycycline today with instructions for bandaging and wound care until he is seen and evaluated by specialty care for this ulcer. Wound was cleaned and bandaged here in the emergency department prior to discharge. Return precautions given including skin color changes, streaking redness up the leg or new onset fevers. Patient verbalized understanding and agreement to treatment plan. Differential Diagnosis Likely cellulitis and lower extremity edema; Unlikely gout, superficial thrombophlebitis or deep vein thrombosis of lower extremity Lab Data 07/01/23 16:02 07/01/23 16:02 Radiology Impressions Foot X-Ray 07/01/23 14:24 IMPRESSION: 1. Left foot soft tissue swelling without radiographic evidence of acute bony abnormality. 2. 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 No radiographic findings to suggest superimposed osteomyelitis. If there is significant clinical concern for this entity, MRI is more sensitive. Chest X-Ray 07/01/23 15:25 IMPRESSION: No acute findings. Foot CT 07/01/23 15:25 IMPRESSION: 1. Soft tissue swelling with ulceration at the medial plantar 1st metatarsal head level. 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 2. Additional degenerative changes throughout the hindfoot and midfoot. Suspect small intra-articular bodies at the great toe MTP joint as well as the lateral ankle joint. Laboratory Results WBC 10.76 10^3/uL (3.29-11.43) 07/01/23 16: RBC 4.24 10^6/uL (3.85-5.65) 07/01/23 16: Hgb 12.40 g/dL (11.27-16.99) 07/01/23 16: Hct 36.4 % (37-53) L 07/01/23 16: MCV 85.8 fl (82-101) 07/01/23 16: MCH 29.2 pg (27-33) 07/01/23 16:02 MCHC 34.1 g/dL (30-55) 07/01/23 16:02 RDW 12.4 % (12.1-15.1) 07/01/23 16:02 Plt Count 240 10^3/cmm (157-399) 07/01/23 16:02 MPV 9.7 fL (7.4-10.4) 07/01/23 16:02 Neut % (Auto) 82.5 % 07/01/23 16:02 Lymph % (Auto) 9.3 % 07/01/23 16:02 Powell % (Auto) 6.6 % 07/01/23 16:02 Eos % (Auto) 0.7 % 07/01/23 16:02 Baso % (Auto) 0.4 % 07/01/23 16:02 Neut # (Auto) 8.89 10^3/uL (1.8-7.7) H 07/01/23 16:02 Lymph # (Auto) 1.0 10^3/uL (0.8-4.8) 07/01/23 16:02 Powell # (Auto) 0.7 10^3/uL (0.2-0.9) 07/01/23 16:02 Eos # (Auto) 0.1 10^3/uL (0.0-0.8) 07/01/23 16:02 Baso # (Auto) 0.0 10^3/uL (0.0-0.1) 07/01/23 16:02 Nucleated RBC % (auto) 0 % 07/01/23 16:02 Nucleated RBCs # 0.0 /100WBC 07/01/23 16:02 Sodium 132 mmol/L (136-145) L 07/01/23 16:02 Potassium 4.2 mmol/L (3.5-5.1) 07/01/23 16:02 Chloride 98 mmol/L (98-107) 07/01/23 16:02 Carbon Dioxide 23 mmol/L (22-29) 07/01/23 16:02 Anion Gap 15.2 (5-19) 07/01/23 16:02 BUN 26 mg/dL (8-23) H 07/01/23 16:02 Creatinine 1.2 mg/dL (0.7-1.2) 07/01/23 16:02 GFR Calculation Not Reportable 07/01/23 16:02 Glucose 110 mg/dL (65-115) 07/01/23 16:02 Calculated Osmolality 279 mOsm/kg (285-295) L 07/01/23 16:02 Lactic Acid 1.1 mmol/L (0.5-2.2) 07/01/23 16:02 Calcium 9.1 mg/dL (8.5-10.5) 07/01/23 16:02 Total Bilirubin 0.4 mg/dL (0.15-1.2) 07/01/23 16:02 AST 21 U/L (0-40) 07/01/23 16:02 ALT 24 U/L (0-41) 07/01/23 16:02 Alkaline Phosphatase 75 U/L (40-130) 07/01/23 16:02 Total Protein 7.5 g/dL (6.6-8.7) 07/01/23 16:02 Albumin 3.9 g/dL (3.5-5.2) 07/01/23 16:02 Globulin 3.6 g/dL (1.3-4.6) 07/01/23 16:02 Discharge Plan Discharge Patient Disposition: Home Clinical Impression: Diabetic foot ulcer, Cellulitis Condition: Stable Prescriptions: New doxycycline hyclate 100 mg tablet 100 mg PO BID 10 Days Qty: 20 0RF No Action allopurinol 300 mg tablet 150 mg PO DAILY atenolol 100 mg tablet 100 mg PO DAILY glipizide 10 mg tablet 10 mg PO DAILY insulin glargine 100 unit/mL solution 20 unit SUBCUT BID lisinopril 10 mg tablet 10 mg PO DAILY metformin 1,000 mg tablet 1,000 mg PO BID omega-3 fatty acids [Fish Oil Concentrate] 1,000 mg capsule 1,000 mg PO BID fenofibrate 54 mg tablet 54 mg PO DAILY rosuvastatin [Crestor] 20 mg tablet 20 mg PO DAILY clotrimazole [Lotrimin AF (clotrimazole)] 1 % cream 1 applic topical BID Sebex 2-2 % shampoo 1 applic topical DAILY Rx Instructions: massage into wet scalp; leave on for 5 mins ; rinse; repeat application ciclopirox 8 % solution 1 applic topical DAILY Qty: 6.6 3RF Rx Instructions: Apply to nails daily. Do not wash nails for 8hr post application;remove w/alcohol every 7 days mometasone 0.1 % solution 1 applic topical DAILY Qty: 60 3RF Rx Instructions: to scalp prn itch fluconazole 150 mg tablet 300 mg PO .once per week 180 Days Qty: 48 0RF pyridoxine (vitamin B6) 50 mg tablet 50 mg PO DAILY Qty: 30 3RF folic acid 1 mg tablet 1 mg PO DAILY Qty: 30 3RF cyanocobalamin (vitamin B-12) 1,000 mcg capsule 1,000 mcg PO DAILY Qty: 60 5RF (DME) Shoes with custom inserts See Rx Instructions .Route .MEDSUPPLY Qty: 1 0RF Rx Instructions: As directed ketoconazole 2 % shampoo 1 applic topical .2 x weekly Qty: 120 3RF Rx Instructions: Lather into scalp 2 times weekly. Allow to sit on scalp for 5 minutes before rinsing. Discharge Orders: Discharge ED (Routine); Ordered 07/01/23 Ordered By: Itzel Minaya Referrals: Caitlin Beltran MD [Primary Care Provider] - Discharge Diet: Usual diet Discharge Activity: Increase activity as tolerated Patient Instructions: Diabetic Foot Ulcers (ED) Activity Restrictions/Additional Instructions: Labs and imaging today are reassuring. Imaging shows no signs of underlying bony infection concerning for osteomyelitis however, there is diffuse swelling concerning for soft tissue infection. We are going to continue your antibiotic treatment with a prescription started from the emergency room this evening. I have also placed a referral back to wound care for continued wound management as this will most likely take quite a while to heal. Until you are seen by wound care we recommend washing the wound at least once or twice a day with warm water and mild soap. Keep it covered with bandaging and be sure you are wearing socks and closed toed shoes at all times to protect this area. Keep your upcoming appointment with podiatry as it is very important they continue to monitor this as well. If for any reason you feel the infection is getting acutely worse with red streaking up the leg, new onset fever, or dusky discoloration of the toes- you need to be seen and reevaluated back here in the emergency department. Sign Out Sign Out Data: Patient Sign Out occurred on 07/01/23 at 17:16. Patient's care was discussed, and care was transferred from to ARTUR Rubio. Coding Level of Care Code ED All Source Collection Manager for Gloria Andino
[2023-07-01] MEDS: sodium chloride 0.9% 500 ML IV (16:00)
[2023-07-01 16:26] LABS: Basophils % 0.4 %; Eosinophils # 0.1 10^3/uL (0.0-0.8); Eosinophils % 0.7 %; Hematocrit 36.4 % (37-53); Lymphocytes % 9.3 %; Mean Corpuscular HGB Conc 34.1 g/dL (30-55); Mean Corpuscular Hemoglobin 29.2 pg (27-33); Mean Corpuscular Volume 85.8 fl (82-101); Mean Platelet Volume 9.7 fL (7.4-10.4); Monocytes # 0.7 10^3/uL (0.2-0.9); Monocytes % 6.6 %; Neutrophils # 8.89 10^3/uL (1.8-7.7); Neutrophils % 82.5 %; Nucleated Red Blood Cells % 0 %; Platelet Count 240 10^3/cmm (157-399); Red Blood Count 4.24 10^6/uL (3.85-5.65); Red Cell Distribution Width 12.4 % (12.1-15.1); White Blood Count 10.76 10^3/uL (3.29-11.43)
[2023-07-01] MEDS: cefTRIAXone 2,000 MG in sodium chloride 0.9% (plus) 50 ML 100 MG IV (16:40)
[2023-07-01 16:52] LABS: Alanine Aminotransferase 24 U/L (0-41); Albumin Level 3.9 g/dL (3.5-5.2); Alkaline Phosphatase 75 U/L (40-130); Anion Gap 15.2 (5-19); Aspartate Amino Transferase 21 U/L (0-40); Blood Urea Nitrogen 26 mg/dL (8-23); Calcium 9.1 mg/dL (8.5-10.5); Carbon Dioxide 23 mmol/L (22-29); Chloride 98 mmol/L (98-107); Globulin 3.6 g/dL (1.3-4.6); Glucose 110 mg/dL (65-115); Osmolality Calculated 279 mOsm/kg (285-295); Potassium 4.2 mmol/L (3.5-5.1); Sodium 132 mmol/L (136-145); Total Bilirubin 0.4 mg/dL (0.15-1.2); Total Protein 7.5 g/dL (6.6-8.7)
[2023-07-01 16:53] LABS: Lactic Sepsis W/Reflex 1.1 mmol/L (0.5-2.2)
[2023-07-01 17:20] VITALS: BP 139/75; PULSE 82; RESP 16; O2SAT 97
--- NOTE | 2023-07-01 18:06 | PC.NURSE ---
Cleansed wound to left foot with NS, covered with non stick dressing and wrapped with kerlex, secured with tape
--- NOTE | 2023-07-03 11:43 | PC.SOCIAL ---
Wound Clinic Referral Referral to clinic at this time. Clinic to contact patient with appt date/time.
== END 2023-07-01 18:07 | disposition home or self-care (01) ==
PROVIDERS: Nurse Practitioner; Emergency Provider Physician Assistant; PCP Family Medicine
DX: E11.621 Type 2 diabetes mellitus with foot ulcer (principal); L03.116 Cellulitis of left lower limb; Z79.4 Long term (current) use of insulin; Z79.84 Long term (current) use of oral hypoglycemic drugs; I10 Essential (primary) hypertension; E78.5 Hyperlipidemia, unspecified; Z85.46 Personal history of malignant neoplasm of prostate
CPT/HCPCS: 36415; 71045; 73630; 73700; 80053; 83605; 85025; 87040; 96361; 96374; 99285; J0696; J7040

== ENCOUNTER → 2023-07-06 13:05 | Outpatient (BNVA) | payer OTHER, MEDICARE, BC, SELFPAY | PROVIDERS: PCP Family Medicine; Visit Provider Nurse Practitioner Family | DX: E11.52 Type 2 diabetes mellitus with diabetic peripheral angiopathy with gangrene (principal); E11.621 Type 2 diabetes mellitus with foot ulcer; L97.522 Non-pressure chronic ulcer of other part of left foot with fat layer exposed | CPT/HCPCS: 11042; 11045; 87070; 87176; 87186; 87205; 99213 ==

== ENCOUNTER 2023-07-11 16:09 | Inpatient (IN) | payer OTHER, SELFPAY ==
[2023-07-11 16:14] VITALS: BP 176/85; PULSE 87; RESP 16; TEMP 37.8; O2SAT 99; BMI 29.8
--- NOTE | 2023-07-11 16:18 | XRR_ITS ---
PROCEDURE INFORMATION: Exam: XR Left Foot Exam date and time: 07/11/2023 4:24 PM Age: 77 years old Clinical indication: Condition or disease; Other: Diabetic foot ulcer TECHNIQUE: Imaging protocol: Radiologic exam of the left foot. Views: 3 or more views. COMPARISON: CT foot LT wo con* [id number] 07/01/2023 3:34 PM FINDINGS: Bones/joints: Hypertrophic degenerative changes of the 1st MTP joint. Slight mottled appearance with small lucencies in the base of the 1st proximal phalanx and head of the distal 1st metatarsal. The other bones are intact. Small calcaneal spur. Soft tissues: Soft tissue swelling of the great toe and dorsal foot. Ulceration along the medial great toe, at the level of the MTP joint. Soft tissue gas in the plantar soft tissues of the great toe. XR/XR foot LT min 3V* [id number] IMPRESSION: 1. Lucencies in the head of the 1st metatarsal and base of the 1st proximal phalanx may be degenerative. A septic 1st MTP joint with osteomyelitis can not be excluded. 2. Soft tissue ulceration, gas, and swelling of the great toe. This is consistent with soft tissue infection.
--- NOTE | 2023-07-11 16:19 | XRR_ITS ---
PROCEDURE INFORMATION: Exam: XR Chest Exam date and time: 07/11/2023 4:22 PM Age: 77 years old Clinical indication: Cough and dyspnea; Additional info: Dyspnea/cough TECHNIQUE: Imaging protocol: Radiologic exam of the chest. Views: 1 view. COMPARISON: CR (CHEST, ) 07/01/2023 3:34 PM FINDINGS: Lungs: Shallow inspiration with crowding. Linear opacities in the peripheral left lung is most likely atelectasis. No consolidation. Pleural spaces: Unremarkable. No pleural effusion. No pneumothorax. Heart/Mediastinum: Unremarkable. No cardiomegaly. Bones/joints: Bilateral shoulder arthroplasties. XR/XR chest 1V portable [id number] IMPRESSION: Allowing for shallow inspiration, no acute findings.
--- NOTE | 2023-07-11 16:45 | W.ED.EXTPRO ---
HPI - Extremity Problem General: Chief complaint: Extremity Injury, Lower Stated complaint: left foot wound/diabetic Time Seen by Provider: 07/11/23 16:18 Source: patient Mode of arrival: ambulatory History of Present Illness: 77-year-old male presents emergency room from wound clinic with a large tunneling diabetic foot ulcer on the left foot. He was here on July 01 and seen in the emergency room CT did not show any osteomyelitis he was treated as an outpatient he was to wound clinic today and they referred him here. He is reporting a fever at home. Wound has been being packed it is draining now it is more reddened and increasingly swollen. Patient is a diabetic. MD Complaint: extremity pain and extremity swelling Onset (ago): day(s) Location: left (foot) Quality: burning Relieving factors: nothing Exacerbating factors: nothing Associated symptoms: Reports fever(s); Deny chest pain or rash Review of Systems Const: Reports: fever(s); Denies: chills Card: Denies: chest pain Resp: Denies: dyspnea GI: Denies: abdominal pain : Denies: dysuria, urinary frequency or urinary urgency Musc: Denies: neck pain or back pain Skin/Breast: Reports: skin swelling, sores, changing lesions, non-healing lesions and lesions; Denies: rash PFSH ED PFSH: Medical History Diabetes Gout HTN (hypertension) Hyperlipidemia Prostate cancer Surgical History History of Achilles tendon repair left foot History of prostate biopsy History of replacement of both shoulder joints Previous back surgery Family History Father Cancer skin Other Diabetes Hyperlipidemia Hypertension Denies family history of CAD (coronary artery disease) Clotting disorder Dementia Psychiatric illness Chronic kidney disease (CKD) Suicide Anesthesia complication Bleeding disorder Lung disease Stroke Social History Smoking and tobacco/nicotine status: never used tobacco/nicotine Alcohol intake: current Alcohol intake frequency: holidays/special occasions only Physical Exam Const: GENERAL APPEARANCE: cooperative and comfortable ORIENTATION/CONSCIOUSNESS: Yes awake, Yes oriented to person, Yes oriented to place and Yes oriented to time HENMT: COMMON NORMALS: normocephalic, atraumatic and hearing grossly normal bilaterally HEAD & SCALP: normocephalic and atraumatic Resp: COMMON NORMALS: normal respiratory effort, No retractions, No use of accessory muscles and clear to auscultation bilaterally AUSCULTATION: clear to auscultation bilaterally Cardio: COMMON NORMALS: regular rate, regular rhythm and No murmurs present (Cardio) RATE: regular rate RHYTHM: regular rhythm GI: COMMON NORMALS: Soft to palpation and No hepatosplenomegaly present AUSCULTATION: Yes normoactive bowel sounds PALPATION: Yes Soft to palpation, No Tenderness to palpation present (GI), No Guarding due to palpation present (GI) and Yes No hepatosplenomegaly present Extremity: OTHER: Large open wound with tunneling packing in place this was removed. There is some mucousy eschar at its base some areas of granulation tissue exposed there is exposed bone and tendon. I was able to palpate a dorsalis pedis pulse but not a posterior tibialis pulse. Neuro: SENSORIUM/ORIENTATION: Yes oriented to person, Yes oriented to place and Yes oriented to time Skin: COMMON NORMALS: no rashes or lesions noted GENERAL SKIN EXAM: no rashes or lesions noted Course Vital Signs: Vital signs: Vital Signs Temperature 98.9 F 07/18/23 04:00 Pulse Rate 62 07/18/23 07:33 Respiratory Rate 20 H 07/18/23 07:33 Blood Pressure 126/71 07/18/23 04:00 Pulse Oximetry 97 07/18/23 07:33 Oxygen Delivery Me thod Room Air 07/18/23 07:33 Oxygen Flow Rate 6 07/16/23 09:29 MDM - Extremity (Nontraumatic) Medical Decision Making Discussed with podiatry and with hospitalist will admit anticipate surgery tomorrow started on IV antibiotics cultures have been done. Orders written. Arterial Doppler lower extremity shows signs of moderate to severe disease. Plain x-rays of the left foot show lucencies suggestive of osteomyelitis with some soft tissue ulceration and gas discussed with podiatry they will order advanced imaging is felt appropriate. Medical Records I reviewed the patient's medical records. Lab Data I reviewed the patient's lab results. 07/17/23 03:37 07/17/23 03:37 Radiology Impressions Duplex Scan Lower Extremity Artery 07/11/23 16:59 IMPRESSION: 1. Moderate-severe disease in the anterior tibial artery with a poststenotic monophasic waveform in the dorsalis pedis artery. Laboratory Results WBC 11.71 10^3/uL (3.29-11.43) H 07/11/23 16:36 RBC 4.35 10^6/uL (3.85-5.65) 07/11/23 16:36 Hgb 12.30 g/dL (11.27-16.99) 07/11/23 16:36 Hct 37.5 % (37-53) 07/11/23 16:36 MCV 86.2 fl (82-101) 07/11/23 16:36 MCH 28.3 pg (27-33) 07/11/23 16:36 MCHC 32.8 g/dL (30-55) 07/11/23 16:36 RDW 12.4 % (12.1-15.1) 07/11/23 16:36 Plt Count 346 10^3/cmm (157-399) 07/11/23 16:36 MPV 8.6 fL (7.4-10.4) 07/11/23 16:36 Neut % (Auto) 78.9 % 07/11/23 16:36 Lymph % (Auto) 14.1 % 07/11/23 16:36 Hettinger % (Auto) 5.0 % 07/11/23 16:36 Eos % (Auto) 0.8 % 07/11/23 16:36 Baso % (Auto) 0.5 % 07/11/23 16:36 Neut # (Auto) 9.24 10^3/uL (1.8-7.7) H 07/11/23 16:36 Lymph # (Auto) 1.7 10^3/uL (0.8-4.8) 07/11/23 16:36 Hettinger # (Auto) 0.6 10^3/uL (0.2-0.9) 07/11/23 16:36 Eos # (Auto) 0.1 10^3/uL (0.0-0.8) 07/11/23 16:36 Baso # (Auto) 0.1 10^3/uL (0.0-0.1) 07/11/23 16:36 Nucleated RBC % (auto) 0 % 07/11/23 16:36 Nucleated RBCs # 0.0 /100WBC 07/11/23 16:36 ESR 17 mm/hr (0-10) H 07/11/23 16:36 Creatinine 1.3 mg/dL (0.7-1.2) H 07/11/23 16:36 GFR Calculation Not Reportable 07/11/23 16:36 Estimat Average Glucose 203 07/11/23 16:36 Hemoglobin A1c 8.7 % (4.0-6.0) H 07/11/23 16:36 Lactic Acid 1.4 mmol/L (0.5-2.2) 07/11/23 16:36 Procalcitonin 0.19 ng/mL (0-0.5) 07/11/23 16:36 Urine Color Yellow (Yellow) 07/11/23 19:54 Urine Appearance Clear (CLEAR) 07/11/23 19:54 Urine pH 5 (5-7) 07/11/23 19:54 Ur Specific Edison 1.015 (1.005-1.030) 07/11/23 19:54 Urine Protein Neg (Negative) 07/11/23 19:54 Urine Glucose (UA) 4+ (Normal) H 07/11/23 19:54 Urine Ketones Negative (Negative) 07/11/23 19:54 Urine Blood Neg (Negative) 07/11/23 19:54 Urine Nitrate Negative (Negative) 07/11/23 19:54 Urine Bilirubin Neg (Negative) 07/11/23 19:54 Urine Urobilinogen Norm mg/dL (Negative) 07/11/23 19:54 Ur Leukocyte Esterase Negative (Negative) 07/11/23 19:54 Coronavirus 229E (PCR) Not detected (NOT DETECT) 07/11/23 17:04 SARS-CoV-2 (PCR) Not detected (NOT DETECT) 07/11/23 17:04 All radiology interpretation(s) finalized by discharge Discharge Plan Discharge Patient Disposition: Admitted As Inpatient Admit Provider: Bhavik Nugent Clinical Impression: Non-pressure chronic ulcer of other part of left foot with necrosis of bone, Cellulitis of left foot, Diabetic peripheral neuropathy associated with type 2 diabetes mellitus, Gas gangrene, Osteomyelitis, Peripheral vascular disease Condition: Stable Coding Level of Care Code ED 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
[2023-07-11 16:59] LABS: Basophils # 0.1 10^3/uL (0.0-0.1); Basophils % 0.5 %; Eosinophils # 0.1 10^3/uL (0.0-0.8); Eosinophils % 0.8 %; Hematocrit 37.5 % (37-53); Lymphocytes # 1.7 10^3/uL (0.8-4.8); Lymphocytes % 14.1 %; Mean Corpuscular HGB Conc 32.8 g/dL (30-55); Mean Corpuscular Hemoglobin 28.3 pg (27-33); Mean Corpuscular Volume 86.2 fl (82-101); Mean Platelet Volume 8.6 fL (7.4-10.4); Monocytes # 0.6 10^3/uL (0.2-0.9); Neutrophils # 9.24 10^3/uL (1.8-7.7); Neutrophils % 78.9 %; Nucleated Red Blood Cells % 0 %; Platelet Count 346 10^3/cmm (157-399); Red Blood Count 4.35 10^6/uL (3.85-5.65); Red Cell Distribution Width 12.4 % (12.1-15.1); White Blood Count 11.71 10^3/uL (3.29-11.43)
--- NOTE | 2023-07-11 16:59 | USR_ITS ---
PROCEDURE INFORMATION: Exam: US Duplex Left Lower Extremity Arteries Or Arterial Bypass Grafts Exam date and time: 07/11/2023 5:26 PM Age: 77 years old Clinical indication: Other: Foot ulcer; Additional info: Diabetic foot ulcer TECHNIQUE: Imaging protocol: Left Real-time duplex scan of the arteries or arterial bypass grafts of the left lower extremity with 2-D spears scale, color Doppler flow and spectral waveform analysis. Images documented and saved. COMPARISON: CT foot LT wo con* [id number] 07/01/2023 3:34 PM FINDINGS: Left common femoral artery: No occlusion or significant stenosis. Normal waveform. Left superficial femoral artery: No occlusion or significant stenosis. Normal waveform. Left popliteal artery: No occlusion or significant stenosis. Normal waveform. Left calf/foot arteries: Monophasic waveform in the posterior tibial artery with a peak systolic velocity of 127.3 cm/s. Monophasic post stenotic waveform in the dorsalis pedis artery, with a peak systolic velocity of 31.1 cm/s. No images were obtained of the proximal anterior tibial artery. US/CV arterial duplex [facility] [id number] IMPRESSION: 1. Moderate-severe disease in the anterior tibial artery with a poststenotic monophasic waveform in the dorsalis pedis artery.
[2023-07-11 17:16] LABS: Lactic Sepsis W/Reflex 1.4 mmol/L (0.5-2.2)
--- NOTE | 2023-07-11 17:26 | P.CONIM_ITS ---
Providers/Reason For Consult Consulting Physician/Specialty*: Cortez Bhatia D.P.M./podiatry Reason for Consult*: Left diabetic foot infection Primary Care Provider: Caitlin Beltran MD History of Present Illness History of Present Illness Luther Lindquist is a 77 year old male presents to the emergency department with a wound to his left foot exposed to bone, patient reports the wound starting out as a blister, he states he has no feeling in his feet and was unaware of how long the wound was present. Approximately 1 week ago he began having fevers. He was referred to the emergency department by wound care clinic today due to the severity of his wound and concern for sepsis. Review of Systems General: Reports: 10 or more systems reviewed and unremarkable except in HPI and below Const: Denies: fever(s) or chills Eyes: Denies: change in vision Card: Denies: chest pain or palpitations Resp: Denies: dyspnea or productive cough GI: Denies: abdominal pain, nausea or vomiting : Denies: flank pain Musc: Reports: extremity swelling, joint stiffness and deformity Skin/Breast: Reports: erythema, sores, changes in skin color, dry skin, nail changes and change in hair Neuro: Reports: numbness in extremities, sensory changes and difficulty walking Psych: Denies: suicidal ideation Endo: Denies: change in body appearance Cristobal/Lymph: Denies: tender lymph nodes Medications/Allergies Home Medications Medication Instructions Recorded Confirmed Last Taken Type allopurinol 300 mg tablet 150 mg PO DAILY 05/13/21 05/04/23 Unknown History atenolol 100 mg tablet 100 mg PO DAILY 05/13/21 05/04/23 Unknown History clotrimazole 1 % topical cream 1 applic topical BID 05/13/21 05/04/23 Unknown History (Lotrimin AF (clotrimazole)) fenofibrate 54 mg tablet 54 mg PO DAILY 05/13/21 05/04/23 Unknown History glipizide 10 mg tablet 10 mg PO DAILY 05/13/21 05/04/23 Unknown History insulin glargine 100 unit/mL 20 unit SUBCUT BID 05/13/21 05/04/23 Unknown History subcutaneous solution lisinopril 10 mg tablet 10 mg PO DAILY 05/13/21 05/04/23 Unknown History metformin 1,000 mg tablet 1,000 mg PO BID 05/13/21 05/04/23 Unknown History omega-3 fatty acids 1,000 mg 1,000 mg PO BID 05/13/21 05/04/23 Unknown History capsule (Fish Oil Concentrate) rosuvastatin 20 mg tablet (Crestor) 20 mg PO DAILY 05/13/21 05/04/23 Unknown History salicylic acid-sulfur 2 %-2 % 1 applic topical DAILY 05/13/21 05/04/23 Unknown History shampoo (Sebex) ciclopirox 8 % topical solution 1 applic topical DAILY #6.6 mL 04/04/22 05/04/23 Unknown Rx mometasone 0.1 % topical solution 1 applic topical DAILY #60 mL 04/04/22 05/04/23 Unknown Rx ketoconazole 2 % shampoo 1 applic topical .2 x weekly #120 07/06/22 05/04/23 Unknown Rx mL fluconazole 150 mg tablet 300 mg PO .once per week 6 months 09/27/22 05/04/23 Unknown Rx #48 tabs folic acid 1 mg tablet 1 mg PO DAILY #30 tabs 11/08/22 05/04/23 Unknown Rx pyridoxine (vitamin B6) 50 mg 50 mg PO DAILY #30 tabs 11/08/22 05/04/23 Unknown Rx tablet Shoes with custom inserts #1 ea 04/11/23 05/04/23 Unknown Rx cyanocobalamin (vitamin B-12) 1,000 mcg PO DAILY #60 caps 04/11/23 05/04/23 Unknown Rx 1,000 mcg capsule Allergies Allergy/AdvReac Type Severity Reaction Status Date / Time No Known Allergies Allergy Verified 07/11/23 16:13 PFSH Acute 2 PFSH: Medical History Diabetes Gout HTN (hypertension) Hyperlipidemia Prostate cancer Surgical History History of Achilles tendon repair left foot History of prostate biopsy History of replacement of both shoulder joints Previous back surgery Family History Father Cancer skin Other Diabetes Hyperlipidemia Hypertension Denies family history of CAD (coronary artery disease) Clotting disorder Dementia Psychiatric illness Chronic kidney disease (CKD) Suicide Anesthesia complication Bleeding disorder Lung disease Stroke Social History Smoking and tobacco/nicotine status: never used tobacco/nicotine Alcohol intake: current Alcohol intake frequency: holidays/special occasions only Vitals/I&O/Wt Last Vital Signs Temp 100.0 F H 07/11/23 16:14 Pulse 87 07/11/23 16:14 Resp 16 07/11/23 16:14 BP 176/85 07/11/23 16:14 Pulse Ox 99 07/11/23 16:14 O2 Del Method Room Air 07/11/23 16:14 Weight last 48 hrs Weight 220 lb Physical Exam Narrative: GENERAL: Patient is alert and oriented ?3 and in no acute distress. The following is a focused bilateral lower extremity exam. His is bedside. VASCULAR: Dorsalis pedis decreased bilaterally. Posterior tibial arteries d ecreased bilaterally. Capillary refill time less than 5 decreased seconds to the distal hallux bilaterally. Calf is supple and nontender proximally and distally. Decreased pedal hair growth. Edema to the left forefoot medially. NEUROLOGICAL: Protective sensation intact neuro/10 sites, tested with [place] monofilament to bilateral feet. DERMATOLOGICAL: Wound at the plantar medial aspect of the left forefoot probes to proximal and distal phalanx of the left hallux as well as to the sesamoids and first metatarsal head. Periwound erythema localized to the left forefoot, purulent drainage, foul odor. Grade 2 wound at the left medial malleolus exposed to fat layer measures 1.1 cm x 1.3 cm x 0.2 cm. MUSCULOSKELETAL: No soft tissue crepitus on palpation of the left foot and ankle. Pes planus foot type bilaterally. Contracture of lesser digits 2 through 5 bilaterally with sagittal plane dominance, bunion bilaterally. Data 07/11/23 16:36 Micro: Microbiology 07/11/23 16:41 Blood Culture - Preliminary Blood SPECIMEN COLLECTED 07/11/23 16:36 Blood Culture - Preliminary Blood SPECIMEN COLLECTED A&P Assessment and plan (1) Diabetic peripheral neuropathy associated with type 2 diabetes mellitus: (2) Cellulitis of left foot: (3) Non-pressure chronic ulcer of other part of left foot with necrosis of bone: (4) Non-pressure chronic ulcer of left ankle with fat layer exposed: Plan 77-year-old diabetic male presents with left foot wound exposed to bone, underlying osteomyelitis and cellulitis appreciated clinically. Patient examined and evaluated, findings and treatment options discussed with patient at length. Recommended partial ray resection and monitoring for any indication for higher level of amputation during this hospitalization. May require serial debridements. Patient is wish to proceed. Dressing of 4 x 4 gauze, Kerlix left foot. N.p.o. at midnight Empiric IV antibiotics Wound culture performed, per emergency department, greatly appreciate wound culture being done. Planning on surgical intervention tomorrow 07/12/2023 at noon Coding Level of Care Code Acute Code for [facility] Fwd Diagnoses Diabetic peripheral neuropathy associated with type 2 diabetes mellitus E11.42 Cellulitis of left foot L03.116 Non-pressure chronic ulcer of other part of left foot with necrosis of bone L97.524 Non-pressure chronic ulcer of left ankle with fat layer exposed L97.322
--- NOTE | 2023-07-11 17:31 | PM.HP ---
Providers/Chief Complaint Primary Care Provider: Caitlin Beltran MD Chief Complaint: left foot wound/diabetic History of Present Illness Luther Lindquist is a 77 year old male with history of diabetic neuropathy, diabetic foot ulcer presented today from wound care clinic for fever, chills and worsening of his wound. Dr. Weathers is planning for intervention tomorrow morning Patient is endorsing fever 101 at home with chills/rigors. No recent nausea, vomiting or diarrhea. Patient independent for daily activities, he still enjoys gardening, uses offloading boot. He is being admitted for management of osteomyelitis will need bone cultures Review of Systems Const: Reports: fever(s) and chills Eyes: Denies: change in vision ENMT: Denies: throat pain Card: Denies: chest pain Resp: Reports: dyspnea GI: Denies: abdominal pain : Denies: flank pain Musc: Reports: joint swelling and joint redness Medications/Allergies Home Medications Medication Instructions Recorded Confirmed Last Taken Type allopurinol 300 mg tablet 150 mg PO DAILY 05/13/21 05/04/23 Unknown History atenolol 100 mg tablet 100 mg PO DAILY 05/13/21 05/04/23 Unknown History clotrimazole 1 % topical cream 1 applic topical BID 05/13/21 05/04/23 Unknown History (Lotrimin AF (clotrimazole)) fenofibrate 54 mg tablet 54 mg PO DAILY 05/13/21 05/04/23 Unknown History glipizide 10 mg tablet 10 mg PO DAILY 05/13/21 05/04/23 Unknown History insulin glargine 100 unit/mL 20 unit SUBCUT BID 05/13/21 05/04/23 Unknown History subcutaneous solution lisinopril 10 mg tablet 10 mg PO DAILY 05/13/21 05/04/23 Unknown History metformin 1,000 mg tablet 1,000 mg PO BID 05/13/21 05/04/23 Unknown History omega-3 fatty acids 1,000 mg 1,000 mg PO BID 05/13/21 05/04/23 Unknown History capsule (Fish Oil Concentrate) rosuvastatin 20 mg tablet (Crestor) 20 mg PO DAILY 05/13/21 05/04/23 Unknown History salicylic acid-sulfur 2 %-2 % 1 applic topical DAILY 05/13/21 05/04/23 Unknown History shampoo (Sebex) ciclopirox 8 % topical solution 1 applic topical DAILY #6.6 mL 04/04/22 05/04/23 Unknown Rx mometasone 0.1 % topical solution 1 applic topical DAILY #60 mL 04/04/22 05/04/23 Unknown Rx ketoconazole 2 % shampoo 1 applic topical .2 x weekly #120 07/06/22 05/04/23 Unknown Rx mL fluconazole 150 mg tablet 300 mg PO .once per week 6 months 09/27/22 05/04/23 Unknown Rx #48 tabs folic acid 1 mg tablet 1 mg PO DAILY #30 tabs 11/08/22 05/04/23 Unknown Rx pyridoxine (vitamin B6) 50 mg 50 mg PO DAILY #30 tabs 11/08/22 05/04/23 Unknown Rx tablet Shoes with custom inserts #1 ea 04/11/23 05/04/23 Unknown Rx cyanocobalamin (vitamin B-12) 1,000 mcg PO DAILY #60 caps 04/11/23 05/04/23 Unknown Rx 1,000 mcg capsule Allergies Allergy/AdvReac Type Severity Reaction Status Date / Time No Known Allergies Allergy Verified 07/11/23 16:13 PFSH Acute PFSH: Medical History Diabetes Gout HTN (hypertension) Hyperlipidemia Prostate cancer Surgical History History of Achilles tendon repair left foot History of prostate biopsy History of replacement of both shoulder joints Previous back surgery Family History Father Cancer skin Other Diabetes Hyperlipidemia Hypertension Denies family history of CAD (coronary artery disease) Clotting disorder Dementia Psychiatric illness Chronic kidney disease (CKD) Suicide Anesthesia complication Bleeding disorder Lung disease Stroke Social History Smoking and tobacco/nicotine status: never used tobacco/nicotine Alcohol intake: current Alcohol intake frequency: holidays/special occasions only Vitals/I&O/Wt Last Vital Signs Temp 100.0 F H 07/11/23 16:14 Pulse 87 07/11/23 16:14 Resp 16 07/11/23 16:14 BP 176/85 07/11/23 16:14 Pulse Ox 99 07/11/23 16:14 O2 Del Method Room Air 07/11/23 16:14 Weight last 48 hrs Weight 99.79 kg Physical Exam Narrative: Left foot wound at ankle purulent base Fat layer exposed Left foot large wound around base of great toe exposed to bone with purulent base Wet/gas gangrene Abdomen soft Left leg is swollen S1, S2 Currently on room air Pleasant Hard of hearing Data 07/11/23 16:36 Micro: Microbiology 07/11/23 16:41 Blood Culture - Preliminary Blood SPECIMEN COLLECTED 07/11/23 16:36 Blood Culture - Preliminary Blood SPECIMEN COLLECTED A&P Assessment and plan (1) Non-pressure chronic ulcer of left ankle with fat layer exposed: (2) Cellulitis of left foot: (3) Non-pressure chronic ulcer of other part of left foot with necrosis of bone: (4) Diabetic peripheral neuropathy associated with type 2 diabetes mellitus: (5) Osteomyelitis: (6) Gas gangrene: Plan Osteomyelitis left foot Gas gangrene Patient will need partial ray resection of left foot by Dr. Weathers tomorrow N.p.o. after midnight Hold Lantus patient is stating that he has been increasing low blood sugar attacks he takes 50 units Check A1c level Opioids along bowel regimen Continue IV fluids Patient is not septic Lactic acid is normal Full code DVT prophylaxis on hold in anticipation of surgical intervention tomorrow I will add vancomycin, Zosyn and clindamycin Dr. Weathers has seen the patient in the ER we will follow-up with podiatry recommendations depending on bone culture will further decide on antibiotics Disposition: Dependent upon progress after surgery Attestations Medical Necessity Statement*: More than 2 midnights anticipate Diagnoses Non-pressure chronic ulcer of left ankle with fat layer exposed L97.322 Cellulitis of left foot L03.116 Non-pressure chronic ulcer of other part of left foot with necrosis of bone L97.524 Diabetic peripheral neuropathy associated with type 2 diabetes mellitus E11.42 Osteomyelitis M86.9 Gas gangrene A48.0
[2023-07-11 17:49] LABS: Erythrocyte Sedimentation Rate 17 mm/hr (0-10)
[2023-07-11 18:12] VITALS: BP 138/70; PULSE 90; O2SAT 96
[2023-07-11 18:19] LABS: Procalcitonin 0.19 ng/mL (0-0.5)
[2023-07-11 19:07] VITALS: BP 139/70; PULSE 84; O2SAT 96
[2023-07-11 19:19] LABS: Adenovirus Not Detected (NOT DETECT); Chlamydia Pneumoniae Not Detected (NOT DETECT); Coronavirus 229E,HKU1,NL63,OC4 Not Detected (NOT DETECT); Human Metapneumovirus Not Detected (NOT DETECT); Human Rhinovirus/Enterovirus Not Detected (NOT DETECT); Influenza A Not Detected (NOT DETECT); Influenza A H1 Not Detected (NOT DETECT); Influenza A H1-2009 Not Detected (NOT DETECT); Influenza A H3 Not Detected (NOT DETECT); Influenza B Not Detected (NOT DETECT); Mycoplasma Pneumoniae Not Detected (NOT DETECT); Parainfluenza Virus Type 1 Not Detected (NOT DETECT); Parainfluenza Virus Type 2 Not Detected (NOT DETECT); Parainfluenza Virus Type 3 Not Detected (NOT DETECT); Parainfluenza Virus Type 4 Not Detected (NOT DETECT); Respiratory Syncytial Virus A Not Detected (NOT DETECT); Respiratory Syncytial Virus B Not Detected (NOT DETECT); SARS-COV-2 Not Detected (NOT DETECT)
[2023-07-11 20:08] LABS: Add Urine Microscopic? NO; Charge for UA Resulting for Rev
[2023-07-11 20:13] LABS: Bilirubin Urine Neg (Negative); Blood Urine Neg (Negative); Glucose Urine UA 4+ (Normal); Ketones Urine Negative (Negative); Leukocyte Esterase Urine Negative (Negative); Nitrate Urine Negative (Negative); Protein Urine Neg (Negative); Specific Gravity, Urine 1.015 (1.005-1.030); Urine Appearance Clear (CLEAR); Urine Color Yellow (Yellow); Urobilinogen Urine Norm (Negative); pH Urine 5 (5-7)
[2023-07-11] MEDS: sodium chloride 0.9% 1,000 ML 75 ML IV (20:47)
[2023-07-11] MEDS: clindamycin 150 mg Capsule 600 MG PO (20:48)
[2023-07-11 20:49] LABS: Glucose Point of Care 69 mg/dL (70-110)
[2023-07-11 20:50] LABS: Estmated Average Glucose 203; Hemoglobin A1C 8.7 % (4.0-6.0)
--- NOTE | 2023-07-11 22:57 | PC.PHAR ---
Pharmacokinetic dosing service Date: 07/11/23 Time: 2257 Objective: Patient: Luther Lindquist Floor: 275-1 Age: 77 yo Serum creatinine: 1.3 mg/dL Height: 72.0 Inches Weight (kg): 99.79 Diagnosis: Relevant medical/social history: Cultures and sensitivities: Other labs: Assessment: IBW (kg): 77.60 Dosing wt(kg): 99.79 Estimated Creatinine clearance (ml/min): 53.1 CRCL method: Cockcroft and Gault using ibw(default). Drug selected: Vancomycin Loading dose (mg): 0 Vd (liters): 89.8 (factor used: 0.9 L/kg) Troy (hr-1): 0.048 Half life (hrs): 14.44 Recommended dose: 1500 mg Interval: 18 hrs Infusion time (hrs): 1.5 Predicted peak (mcg/mL): 27.9 Predicted trough (mcg/mL): 12.64 Total body weight is being used for vancomycin dosing. Renal function is stable [ ] /unstable [ ] Recommendations: Give Vancomycin 1500 mg q 18 hrs with an expected Cpeak of 27.9 mcg/ml and an expected Ctrough of 12.64 mcg/ml Renal dosing of other antibiotics (review renal dosing of other medications and list guidelines here): Thank you for the consult, will continue to follow. Signature: Francia Grant [facility]
[2023-07-11 23:09] VITALS: BP 131/70; PULSE 78; RESP 19; TEMP 38.1; O2SAT 94
[2023-07-11] MEDS: vancomycin 1,500 MG/300 ML PIGGYBACK 200 MG IV (23:15)
[2023-07-11] MEDS: acetaminophen 500 mg Tablet PO (23:20)
[2023-07-12] VITALS (13 sets, daily range): BP systolic 102–160; BP diastolic 56–84; PULSE 58–82; RESP 14–18; TEMP 36.1–37.8; O2SAT 94–98
[2023-07-12] MEDS: piperacillin-tazobactam 3.375 GM in sodium chloride 0.9% (plus) 50 ML IV ×3 (00:44→21:09)
[2023-07-12 05:49] LABS: Basophils # 0.1 10^3/uL (0.0-0.1); Basophils % 0.7 %; Eosinophils # 0.1 10^3/uL (0.0-0.8); Eosinophils % 1.6 %; Hematocrit 29.9 % (37-53); Lymphocytes # 1.5 10^3/uL (0.8-4.8); Lymphocytes % 20.8 %; Mean Corpuscular HGB Conc 32.4 g/dL (30-55); Mean Corpuscular Hemoglobin 28.1 pg (27-33); Mean Corpuscular Volume 86.7 fl (82-101); Mean Platelet Volume 8.8 fL (7.4-10.4); Monocytes # 0.6 10^3/uL (0.2-0.9); Monocytes % 7.4 %; Neutrophils # 5.09 10^3/uL (1.8-7.7); Nucleated Red Blood Cells % 0 %; Platelet Count 250 10^3/cmm (157-399); Red Blood Count 3.45 10^6/uL (3.85-5.65); Red Cell Distribution Width 12.3 % (12.1-15.1); White Blood Count 7.39 10^3/uL (3.29-11.43)
[2023-07-12 06:14] LABS: Anion Gap 13.4 (5-19); Blood Urea Nitrogen 18 mg/dL (8-23); C Reactive Protein 155.1 mg/L (0.0-4.9); Carbon Dioxide 26 mmol/L (22-29); Chloride 100 mmol/L (98-107); Glucose 73 mg/dL (65-115); Magnesium 2.3 mg/dL (1.7-2.3); Osmolality Calculated 280 mOsm/kg (285-295); Phosphorus 3.7 mg/dL (2.5-4.5); Potassium 4.4 mmol/L (3.5-5.1); Sodium 135 mmol/L (136-145)
[2023-07-12 06:34] LABS: Glucose Point of Care 85 mg/dL (70-110)
--- NOTE | 2023-07-12 08:56 | PM.PN ---
Subjective Subjective: ESR 17 No leukocytosis Fever noted overnight Hemoglobin A1c is 8.7 Low-grade fever over night Vitals/I&O/Wt Last Vital Signs Temp 98.2 F 07/12/23 07:27 Pulse 60 07/12/23 07:27 Resp 16 07/12/23 07:27 BP 119/56 07/12/23 07:27 Pulse Ox 97 07/12/23 07:27 O2 Del Method Room Air 07/12/23 07:27 07/11/23 07/12/23 07/12/23 22:59 06:59 14:59 Intake Total 350 / 350 Output Total 0 / 0 1600 / 1600 Balance 0 / 0 -1250 / -1250 Weight last 48 hrs Weight 99.79 kg Physical Exam Narrative: Patient is awake and alert GCS 15 Nonfocal neuro exam Foot covered in dressing No overnight events Pleasant cooperative is at the bedside Pleasant and cooperative S1, S2 Currently is on room air Data 07/12/23 05:20 07/12/23 05:20 Micro: Microbiology 07/11/23 16:41 Blood Culture - Preliminary Blood SPECIMEN COLLECTED 07/11/23 16:36 Blood Culture - Preliminary Blood SPECIMEN COLLECTED A&P Assessment and plan (1) Gas gangrene: (2) Osteomyelitis: (3) Non-pressure chronic ulcer of left ankle with fat layer exposed: (4) Cellulitis of left foot: (5) Diabetic peripheral neuropathy associated with type 2 diabetes mellitus: (6) Peripheral vascular disease: Plan Peripheral vascular disease Diabetic with nephropathy Planning for intervention today for left foot gangrene/x-ray showing ulceration with gas and swelling of great toe Low-grade fever overnight Currently on broad-spectrum antibiotics including clindamycin We will wait for the bone cultures to decide on antibiotics We will touch base with Dr. Weathers after intervention today Patient is n.p.o. Patient is hoping that he will be able to go home after his intervention but I did tell him that it might take the whole week to get the final culture report We will add DVT prophylaxis after intervention Attestations Medical Necessity Statement*: Continue medical management Diagnoses Gas gangrene A48.0 Osteomyelitis M86.9 Non-pressure chronic ulcer of left ankle with fat layer exposed L97.322 Cellulitis of left foot L03.116 Diabetic peripheral neuropathy associated with type 2 diabetes mellitus E11.42 Peripheral vascular disease I73.9
--- NOTE | 2023-07-12 09:17 | P.CONIM_ITS ---
Providers/Reason For Consult Attending Physician: Bhavik Nugent MD Primary Care Provider: Caitlin Beltran MD History of Present Illness History of Present Illness Luther Lindquist is a 77 year old male Medications/Allergies Home Medications Medication Instructions Recorded Confirmed Last Taken Type allopurinol 300 mg tablet 150 mg PO DAILY 05/13/21 05/04/23 Unknown History atenolol 100 mg tablet 100 mg PO DAILY 05/13/21 05/04/23 Unknown History clotrimazole 1 % topical cream 1 applic topical BID 05/13/21 05/04/23 Unknown History (Lotrimin AF (clotrimazole)) fenofibrate 54 mg tablet 54 mg PO DAILY 05/13/21 05/04/23 Unknown History glipizide 10 mg tablet 10 mg PO DAILY 05/13/21 05/04/23 Unknown History insulin glargine 100 unit/mL 20 unit SUBCUT BID 05/13/21 05/04/23 Unknown Histo ry subcutaneous solution lisinopril 10 mg tablet 10 mg PO DAILY 05/13/21 05/04/23 Unknown History metformin 1,000 mg tablet 1,000 mg PO BID 05/13/21 05/04/23 Unknown History omega-3 fatty acids 1,000 mg 1,000 mg PO BID 05/13/21 05/04/23 Unknown History capsule (Fish Oil Concentrate) rosuvastatin 20 mg tablet (Crestor) 20 mg PO DAILY 05/13/21 05/04/23 Unknown History salicylic acid-sulfur 2 %-2 % 1 applic topical DAILY 05/13/21 05/04/23 Unknown History shampoo (Sebex) ciclopirox 8 % topical solution 1 applic topical DAILY #6.6 mL 04/04/22 05/04/23 Unknown Rx mometasone 0.1 % topical solution 1 applic topical DAILY #60 mL 04/04/22 05/04/23 Unknown Rx ketoconazole 2 % shampoo 1 applic topical .2 x weekly #120 07/06/22 05/04/23 Unknown Rx mL fluconazole 150 mg tablet 300 mg PO .once per week 6 months 09/27/22 05/04/23 Unknown Rx #48 tabs folic acid 1 mg tablet 1 mg PO DAILY #30 tabs 11/08/22 05/04/23 Unknown Rx pyridoxine (vitamin B6) 50 mg 50 mg PO DAILY #30 tabs 11/08/22 05/04/23 Unknown Rx tablet Shoes with custom inserts #1 ea 04/11/23 05/04/23 Unknown Rx cyanocobalamin (vitamin B-12) 1,000 mcg PO DAILY #60 caps 04/11/23 05/04/23 Unknown Rx 1,000 mcg capsule Allergies Allergy/AdvReac Type Severity Reaction Status Date / Time No Known Allergies Allergy Verified 07/11/23 16:13 Current Medications Generic Name Dose Route Start Last Admin Trade Name Freq PRN Reason Stop Dose Admin Acetaminophen 500 mg 07/11/23 20:07 07/11/23 23:20 Acetaminophen 500 Mg Tablet PO 500 mg Q4H PRN Administration fever Sodium Chloride 1,000 mls @ 75 mls/hr 07/11/23 20:07 07/11/23 20:47 Sodium Chloride 0.9% IV 75 mls/hr .[id number] JULISA Administration Piperacillin Sod/Tazobactam 50 mls @ 12.5 mls/hr 07/11/23 22:00 07/12/23 05:36 Sod 3.375 gm/ Sodium Chloride IV Infused Q8H JULISA Infusion Protocol Vancomycin/PEG/NADA/Lysine/Water 1,500 mg in 300 mls @ 200 mls/hr 07/11/23 23:00 07/12/23 00:51 Vancocin IV Infused Q18H JULISA Infusion Insulin Human Lispro 0 unit 07/11/23 20:07 07/12/23 07:32 Insulin Lispro 100 Unit/1 Ml SUBCUT Not Given TIDWM JULISA Protocol PFSH Acute PFSH: Medical History Diabetes Gout HTN (hypertension) Hyperlipidemia Prostate cancer Surgical History History of Achilles tendon repair left foot History of prostate biopsy History of replacement of both shoulder joints Previous back surgery Family History Father Cancer skin Other Diabetes Hyperlipidemia Hypertension Denies family history of CAD (coronary artery disease) Clotting disorder Dementia Psychiatric illness Chronic kidney disease (CKD) Suicide Anesthesia complication Bleeding disorder Lung disease Stroke Social History Smoking and tobacco/nicotine status: never used tobacco/nicotine Alcohol intake: current Alcohol intake frequency: holidays/special occasions only Vitals/I&O/Wt Last Vital Signs Temp 98.2 F 07/12/23 07:27 Pulse 60 07/12/23 07:27 Resp 16 07/12/23 07:27 BP 119/56 07/12/23 07:27 Pulse Ox 97 07/12/23 07:27 O2 Del Method Room Air 07/12/23 07:27 07/11/23 07/12/23 07/12/23 22:59 06:59 14:59 Intake Total 350 / 350 Output Total 0 / 0 1600 / 1600 Balance 0 / 0 -1250 / -1250 Weight last 48 hrs Weight 220 lb Data 07/12/23 05:20 07/12/23 05:20 Micro: Microbiology 07/11/23 16:41 Blood Culture - Preliminary Blood SPECIMEN COLLECTED 07/11/23 16:36 Blood Culture - Preliminary Blood SPECIMEN COLLECTED Coding Level of Care Code Acute Code for Chg Fwd Diagnoses
--- NOTE | 2023-07-12 09:19 | PC.PHAR ---
waiting on med list from [place] to do med rec
--- NOTE | 2023-07-12 11:02 | PC.CHAP ---
Pastoral Care Encounter/Spiritual Assessment Type of Contact [] Declined senior medical transcriptionist visit [] Patient/Family/Request visit [] Outpatient visit [] Follow-up visit [] Physician referral [] Code/Alert [x] Routine visit [] Staff referral [] Actively dying [] Patient sleeping [x] Family support [] [] Out of room [] Palliative care [] [] Receiving care in room [] Pre-surgical visit [] Trauma [] Long length of stay [] ICU visit [] Other: Relational/Emotional Strength [x] Patient feels connected with others/family/visitors/staff [] Distress [] Loneliness/isolation [] Abandonment Spirituality of Patient [] Person of Negra [] Attends Jewish of their Negra [] Believes in Prayer [] Reads Bible or Catholic materials [] There are Spiritual issues to be addressed Diagrammer Interventions [x] Prayer [] Active listening [] Non-anxious presence [] Spiritual/emotional support [] Crisis/trauma care [] Spiritual counseling [] Bereavement support [] Provided bereavement packet [] Provided Bible/devotional materials [] Provided toy/stuffed animal, coloring book to patient or family member [] Provided Communion [] Anointing/Spring [] Salvation [] Completed spiritual assessment [] Other: Impact on Illness or Injury [] Angry [] Fearful [] Anxious [] Often cries [] Exhaustion [] Unable to work [] Unable to attend religion [] Unable to walk/stand [] Unable to read [] Unable to drive [] Unable to eat/drink [] Unable to sleep [] Unable to be with family [] Patient intubated [] Other: Summary Time spent with patient 10 min
--- NOTE | 2023-07-12 11:25 | ANES.PREANE2 ---
Pre-Anesthetic Assessment Height/Weight: Height 1.83 m Weight 99.79 kg Temp Pulse Resp BP Pulse Ox O2 Del Method 98.2 F 60 16 119/56 97 Room Air 07/12/23 07:27 07/12/23 07:27 07/12/23 07:27 07/12/23 07:27 07/12/23 07:27 07/12/23 07:27 Preop Diagnosis: Osteomyelitis left foot Operation Date: 07/12/23 11:40 Proposed Procedures p Ray Resection Partial Ray Resection(Left) - Cortez Bhatia DPM Familial anesthetic complications: none Was Beta Johnathon taken within 24 hours: Yes Was Clonidine taken within 24 hours: N/A Last intake: Intake Last Liquid Date 07/11/23 Last Liquid Time 23:45 Last Solid Date 07/11/23 Last Solid Time 21:00 Social No alcohol and No tobacco Exam alert, oriented x 3, clear to auscultation bilaterally and regular rate & rhythm Airway Submandibular: within normal limits Cervical ROM: within normal limits Mallampati: Class II Dentition: false CV/HEM Anemia, Hypertension and Peripheral Vascular Disease Metabolic Morbid Obesity Neuropsych Neuropathy Anesthetic Plan ASA status: 3 Anesthesia: MAC Medications/Allergies Home Medications Medication Instructions Recorded Confirmed Last Taken Type allopurinol 300 mg tablet 300 mg PO DAILY 05/13/21 07/12/23 Unknown History atenolol 100 mg tablet 50 mg PO DAILY 05/13/21 07/12/23 Unknown History glipizide 10 mg tablet 20 mg PO BID 05/13/21 07/12/23 Unknown History insulin glargine 100 unit/mL 50 unit SUBCUT BID 05/13/21 07/12/23 Unknown History subcutaneous solution salicylic acid-sulfur 2 %-2 % 1 applic topical DAILY 05/13/21 07/12/23 Unknown History shampoo (Sebex) fluconazole 150 mg tablet 300 mg PO .once per week 6 months 09/27/22 07/12/23 Unknown Rx #48 tabs folic acid 1 mg tablet 1 mg PO DAILY #30 tabs 11/08/22 07/12/23 Unknown Rx pyridoxine (vitamin B6) 50 mg 50 mg PO DAILY #30 tabs 11/08/22 07/12/23 Unknown Rx tablet Shoes with custom inserts #1 ea 04/11/23 07/12/23 Unknown Rx cyanocobalamin (vitamin B-12) 1,000 mcg PO DAILY #60 caps 04/11/23 07/12/23 Unknown Rx 1,000 mcg capsule empagliflozin 25 mg tablet 25 mg PO DAILY 07/12/23 07/12/23 Unknown History fenofibrate 160 mg tablet 160 mg PO DAILY 07/12/23 07/12/23 Unknown History ferrous sulfate 325 mg (65 mg 325 mg PO DAILY 07/12/23 07/12/23 Unknown History iron) tablet lisinopril 20 mg tablet 10 mg PO DAILY 07/12/23 07/12/23 Unknown History metformin 500 mg tablet 1,000 mg PO BID 07/12/23 07/12/23 Unknown History omega 0-elv-hvs-fish oil 300 1 cap PO DAILY 07/12/23 07/12/23 Unknown History mg-1,000 mg capsule (Fish Oil) Allergies Allergy/AdvReac Type Severity Reaction Status Date / Time No Known Allergies Allergy Verified 07/11/23 16:13 Current Medications Generic Name Dose Route Start Last Admin Trade Name Anjel PRN Reason Stop Dose Admin Acetaminophen 500 mg 07/11/23 20:07 07/11/23 23:20 Acetaminophen 500 Mg Tablet PO 500 mg Q4H PRN Administration fever Sodium Chloride 1,000 mls @ 75 mls/hr 07/11/23 20:07 07/12/23 11:10 Sodium Chloride 0.9% IV Infused .[id number] JULISA Infusion Piperacillin Sod/Tazobactam 50 mls @ 12.5 mls/hr 07/11/23 22:00 07/12/23 11:10 Sod 3.375 gm/ Sodium Chloride IV Infused Q8H JULISA Infusion Protocol Vancomycin/PEG/NADA/Lysine/Water 1,500 mg in 300 mls @ 200 mls/hr 07/11/23 23:00 07/12/23 00:51 Vancocin IV Infused Q18H JULISA Infusion Insulin Human Lispro 0 unit 07/11/23 20:07 07/12/23 07:32 Insulin Lispro 100 Unit/1 Ml SUBCUT Not Given TIDWM JULISA Protocol Senna/Docusate Sodium 1 tab 07/12/23 09:00 07/12/23 09:34 Sennosides-Docusate Tablet PO Not Given DAILY JULISA PFSH Anesthesia Medical History Diabetes Gout HTN (hypertension) Hyperlipidemia Prostate cancer Surgical History History of Achilles tendon repair left foot History of prostate biopsy History of replacement of both shoulder joints Previous back surgery Family History Father Cancer skin Other Diabetes Hyperlipidemia Hypertension Denies family history of CAD (coronary artery disease) Clotting disorder Dementia Psychiatric illness Chronic kidney disease (CKD) Suicide Anesthesia complication Bleeding disorder Lung disease Stroke Social History Smoking and tobacco/nicotine status: never used tobacco/nicotine Alcohol intake: current Alcohol intake frequency: holidays/special occasions only Data Anesthesia 07/12/23 05:20 07/12/23 05:20 Short CBC 07/11/23 07/12/23 Range/Units 16:36 05:20 WBC 11.71 H 7.39 (3.29-11.43) 10^3/uL Hgb 12.30 9.70 L (11.27-16.99) g/dL Hct 37.5 29.9 L (37-53) % MCV 86.2 86.7 (82-101) fl Plt Count 346 250 (157-399) 10^3/cmm Neut % (Auto) 78.9 69.0 % Neut # (Auto) 9.24 H 5.09 (1.8-7.7) 10^3/uL BMP 07/11/23 07/12/23 16:36 05:20 Sodium 135 L Potassium 4.4 Chloride 100 Carbon Dioxide 26 BUN 18 Creatinine 1.3 H 1.2 Glucose 73 Calcium 9.0 Urine 07/11/23 Range/Units 19:54 Urine Color Yellow (Yellow) Urine Appearance Clear (CLEAR) Urine pH 5 (5-7) Ur Specific [place] 1.015 (1.005-1.030) Urine Protein Neg (Negative) Urine Glucose (UA) 4+ H (Normal) Urine Ketones Negative (Negative) Urine Nitrate Negative (Negative) Urine Bilirubin Neg (Negative) Ur Leukocyte Esterase Negative (Negative) COVID Results 07/11/23 17:04 Coronavirus 229E (PCR) Not detected SARS-CoV-2 (PCR) Not detected Coags 07/11/23 07/12/23 16:36 05:20 ESR 17 H C-Reactive Protein 155.1 H Microbiology 07/11/23 16:41 Blood Culture - Preliminary Blood SPECIMEN COLLECTED 07/11/23 16:36 Blood Culture - Preliminary Blood SPECIMEN COLLECTED Cardiac Studies: No Data to Display
[2023-07-12] MEDS: sodium chloride 0.9% 1,000 ML 30 ML IV (11:27)
[2023-07-12] MEDS: lidocaine 2% INJ 20 mL INJECTION (12:12)
[2023-07-12] MEDS: BUPivacaine 0.5% INJ 30 mL INJECTION (12:13)
--- NOTE | 2023-07-12 12:28 | P.OP_ITS ---
Operative Report Date of procedure: July 12, 2023 Pre-op diagnosis: Osteomyelitis left foot Post-op diagnosis: Osteomyelitis left foot Post-op findings: Devitalized bone of the tibial and fibular sesamoid, first metatarsal head and proximal phalanx base. Procedure done: Partial first ray amputation, left foot. Implants: None Specimens removed/disposition: Left great toe sent to microbiology for Gram stain, culture and sensitivity Surgeon: Cortez Bhatia DPM Supervisor [employer]: Kevin Estimated blood loss: 10 22 IV fluids: 0 Urine output: 0 Complications: none Findings: Devitalized bone and heavy purulence adjacent to sesamoids, first metatarsal head and proximal phalanx base of the left foot. Brief History: 77-year-old diabetic male presents with left foot wound exposed to bone, underlying osteomyelitis and cellulitis appreciated clinically. Patient examined and evaluated, findings and treatment options discussed with patient at length.? Recommended partial ray resection and monitoring for any indication for higher level of amputation during this hospitalization.? May require serial debridements.? Patient is wish to proceed. Procedure: Under mild sedation the patient was brought to the operating room and remained on the gurney in supine position. A timeout is performed. Anesthesia was administered by the anesthesia service. Local anesthesia was injected by myself consisting of one-to-one mixture 1% lidocaine and 0.5% Marcaine plain total of 30 cc in a left male block fashion. Well-padded pneumatic tourniquet was applied to the left high calf. Left lower extremity was scrubbed, prepped and draped utilizing normal aseptic technique. No Esmarch bandage or examination was performed due to underlying infection. Attention was directed to the left forefoot where a full-thickness wound with exposed sesamoids which were dusky spears with heavy purulence at the sesamoids were appreciated, osteophytes also were dusky spears with soft bone at the medial aspect of the first metatarsal head and at the medial aspect of the medial condyle of the proximal phalanx of the left great toe. Is much soft tissue that was viable surrounding the infection site being preserved as possible in #10 blade was utilized to perform of incision that was atypical trying to maintain redundant skin for delayed closure, the great toe was disarticulated to the metatarsophalangeal joint sharply and passed from the operative field, this was sent to microbiology for Gram stain, culture and sensitivity. Given the intraoperative findings of devitalized bone of the medial aspect of the left first metatarsal head a beveled osteotomies performed of the diaphysis of the left first metatarsal beveled with the cut oriented proximal medial to distal lateral and the first metatarsal head was passed from the operative field. The incision was irrigated with copious amounts of sterile skin solution, debrided of all devitalized tissue followed by further irrigation and dressing consisting of saline wet-to-dry 4 x 4's, ABD pad, Kerlix and Coban. Patient tolerated the procedure well and was transferred to the PACU with vital signs stable and vascular status intact. Following a period of postoperative monitoring he will be transferred back to the floor to continue empiric IV antibiotics, will monitor soft improvement for possible delayed closure during this hospitalization.
--- NOTE | 2023-07-12 12:28 | W.PM.OPSUD ---
Surgery/Procedure H&P Update DATE OF PROCEDURE: July 12, 2023 DATE H&P PERFORMED: 07/11/23 H&P UPDATE INFORMATION: I have reviewed H&P completed within last 30 days, I have examined patient prior to procedure, No changes to prior documentation and [place] is [place] [facility] [place] indicated PREOP DIAGNOSIS: Osteomyelitis left foot PLANNED PROCEDURE: Operation Date: 07/12/23 11:40 Proposed Procedures p Ray Resection Partial Ray Resection(Left) - Cortez Bhatia DPM
--- NOTE | 2023-07-12 12:52 | XR_ITS ---
WS: [id number] Exam: XR foot LT min 3V* [id number] Date/Time of Exam: 07/12/2023 1:49 PM Reason For Exam: post op Comparison 07/11/2023. There has been amputation of the first ray at the level of the proximal metatarsal. No other postoper ative changes are noted. Degenerative change and bony sclerosis in the tarsal bones and cuneiform bon es with numerous subcortical cysts noted in the tarsal bones. No acute fracture. Soft tissue edema of the foot. IMPRESSION: 1. Amputation of the first ray at the level of the proximal metatarsal as detailed above. 2. Moderately advanced changes of bony sclerosis and degenerative joint changes in the mid and hindfo ot joints.
[2023-07-12] MEDS: sodium chloride 0.9% 1,000 ML 75 ML IV (13:09)
--- NOTE | 2023-07-12 13:26 | ANE.PACU2 ---
Inpatient post-anesthesia follow up: Airway intact: Yes Vital signs: Temperature 97 F Pulse Rate 65 Respiratory Rate 16 Blood Pressure 112/62 Pulse Oximetry 96 Oxygen Delivery Me thod Room Air Oxygen Flow Rate Fraction of Inspir ed Oxygen Hydration adequate: Yes Nausea and vomiting: No Pain level: 2 Mental status: Baseline
[2023-07-12 16:47] LABS: Glucose Point of Care 219 mg/dL (70-110)
[2023-07-12] MEDS: vancomycin 1,500 MG/300 ML PIGGYBACK 200 MG IV (17:08)
[2023-07-12] MEDS: insulin lispro 100 unit/1 mL SUBCUT (18:03)
[2023-07-12 21:18] LABS: Glucose Point of Care 198 mg/dL (70-110)
[2023-07-13] VITALS (7 sets, daily range): BP systolic 108–152; BP diastolic 51–83; PULSE 63–90; RESP 15–18; TEMP 36.9–38.2; O2SAT 92–97
--- NOTE | 2023-07-13 | XR_ITS ---
WS: [id number] Exam: XR chest 1V portable [id number] Date/Time of Exam: 07/13/2023 9:35 AM Reason For Exam: post PICC insertion Right-sided PICC line has been placed and ends in the region of the RIGHT atrium. The lungs are clear and fully expanded. Cardiomediastinal silhouette is unremarkable for portable technique. Bilateral r everse shoulder prostheses are noted. IMPRESSION: 1. Right-sided PICC line ending in the region of the RIGHT atrium. 2. No acute cardiopulmonary process.
--- NOTE | 2023-07-13 | XR_ITS ---
WS: [id number] Exam: XR chest 1V portable [id number] Date/Time of Exam: 07/13/2023 12:00 AM Reason For Exam: PICC LINE ADJUSTMENT Comparison with the previous exam performed earlier on the same day at 9:46 a.m. Right-sided PICC line has been retracted and now ends at the region of the cavoatrial junction. The l ungs remain clear. Normal cardiomediastinal silhouette. No other change. IMPRESSION: 1. Right-sided PICC line appears to end at the cavoatrial junction. The chest is otherwise unchanged since the prior study.
--- NOTE | 2023-07-13 | XR_ITS ---
WS: [id number] Exam: XR chest 1V portable [id number] Date/Time of Exam: 07/13/2023 12:00 AM Reason For Exam: PICC LINE ADJUSTMENT Comparison with the previous exam performed earlier on the same day at 9:46 a.m. Right-sided PICC line has been retracted and now ends at the region of the cavoatrial junction. The l ungs remain clear. Normal cardiomediastinal silhouette. No other change. IMPRESSION: 1. Right-sided PICC line appears to end at the cavoatrial junction. The chest is otherwise unchanged since the prior study.
[2023-07-13] MEDS: sodium chloride 0.9% 1,000 ML 75 ML IV (03:16)
[2023-07-13] MEDS: piperacillin-tazobactam 3.375 GM in sodium chloride 0.9% (plus) 50 ML IV ×3 (05:13→20:30)
[2023-07-13 05:36] LABS: Basophils # 0.1 10^3/uL (0.0-0.1); Basophils % 0.6 %; Eosinophils # 0.1 10^3/uL (0.0-0.8); Eosinophils % 0.9 %; Hematocrit 31.6 % (37-53); Lymphocytes # 1.3 10^3/uL (0.8-4.8); Lymphocytes % 16.5 %; Mean Corpuscular HGB Conc 32.6 g/dL (30-55); Mean Corpuscular Hemoglobin 28.7 pg (27-33); Mean Platelet Volume 8.5 fL (7.4-10.4); Monocytes # 0.5 10^3/uL (0.2-0.9); Monocytes % 6.8 %; Neutrophils # 5.84 10^3/uL (1.8-7.7); Neutrophils % 74.7 %; Nucleated Red Blood Cells % 0 %; Platelet Count 284 10^3/cmm (157-399); Red Blood Count 3.59 10^6/uL (3.85-5.65); Red Cell Distribution Width 12.3 % (12.1-15.1); White Blood Count 7.82 10^3/uL (3.29-11.43)
[2023-07-13 05:56] LABS: Anion Gap 12.5 (5-19); Blood Urea Nitrogen 18 mg/dL (8-23); Calcium 8.5 mg/dL (8.5-10.5); Carbon Dioxide 22 mmol/L (22-29); Chloride 99 mmol/L (98-107); Glucose 151 mg/dL (65-115); Osmolality Calculated 273 mOsm/kg (285-295); Potassium 4.5 mmol/L (3.5-5.1); Sodium 129 mmol/L (136-145)
--- NOTE | 2023-07-13 06:15 | P.PN_ITS ---
Subjective Subjective: Patient seen bedside this morning. His is present. Denies any acute events overnight. Denies any pain to the left foot at the operative site. Patient denies any subjective nausea, vomiting, fever, chills, shortness of breath or chest pain. Vitals/I&O/Wt Last Vital Signs Temp 98.4 F 07/13/23 04:00 Pulse 66 07/13/23 04:00 Resp 17 07/13/23 04:00 BP 108/60 07/13/23 04:00 Pulse Ox 95 07/13/23 04:00 O2 Del Method Room Air 07/13/23 04:00 07/12/23 07/12/23 07/13/23 14:59 22:59 06:59 Intake Total 1050 / 1050 505.5 / 1555.5 1050 / 2605.5 Output Total 1200 / 1210 925 / 2135 Balance 1040 / 1040 -694.5 / 345.5 125 / 470.5 Weight last 48 hrs Weight 220 lb Physical Exam Narrative: GENERAL: Patient is alert and oriented ?3 and in no acute distress. The f ollowing is a focused bilateral lower extremity exam. His is bedside. VASCULAR: Dorsalis pedis decreased bilaterally. Posterior tibial arteries decreased bilaterally. Calf is supple and nontender proximally and distally. Decreased pedal hair growth. Edema to the left forefoot medially. NEUROLOGICAL: Protective sensation intact neuro/10 sites, tested with Gackle Chaparro monofilament to bilateral feet. DERMATOLOGICAL: No active bleeding at the operative site left foot partial first ray resection, no purulence, improved erythema and improved edema. Stable wound at the left medial malleolus without erythema or purulence. MUSCULOSKELETAL: No soft tissue crepitus on palpation of the left foot and ankle. Pes planus foot type bilaterally. Contracture of lesser digits 2 through 5 bilaterally with sagittal plane dominance, bunion bilaterally. Data 07/13/23 05:14 07/13/23 05:14 Micro: Microbiology 07/11/23 16:41 Blood Culture - Preliminary Blood NEGATIVE TO DATE 07/11/23 16:36 Blood Culture - Preliminary Blood NEGATIVE TO DATE 07/12/23 12:21 Gram Stain - Final Bone A&P Assessment and plan (1) Gas gangrene: (2) Non-pressure chronic ulcer of left ankle with fat layer exposed: (3) Cellulitis of left foot: (4) Diabetic peripheral neuropathy associated with type 2 diabetes mellitus: (5) Peripheral vascular disease: (6) Amputation of left great toe: (7) Non-pressure chronic ulcer of other part of left foot with necrosis of bone: Plan Patient is 1 day status post partial first ray amputation of left foot secondary to diabetic foot infection with osteomyelitis and soft tissue edema. Date of operation 11/13/2022. Surgical dressing changed this a.m., new dressing saline wet-to-dry was performed. Appreciated significant clinical improvement of the left foot, decreased edema, decreased erythema and warmth. No purulence. Continue to round twice daily, will perform another dressing change this p.m. and determine if he is appropriate for a delayed closure potentially tomorrow 07/14/2023. Please continue empiric IV antibiotics at this time Surgical cultures with bone sent to microbiology for Gram stain, culture and sensitivity, cultures in the ED still pending. Will discuss with hospitalist PICC line versus oral antibiotics I think both are an option. Nonweightbearing to the left foot, heel touch only for transfers. Elevate left foot while resting. Podiatry will follow Ricardo Bhatia D.P.M. cell phone [phone] Attestations Medical Necessity Statement*: Left diabetic foot infection Coding Level of Care Code Acute Code for [facility] Diagnoses Gas gangrene A48.0 Non-pressure chronic ulcer of left ankle with fat layer exposed L97.322 Cellulitis of left foot L03.116 Diabetic peripheral neuropathy associated with type 2 diabetes mellitus E11.42 Peripheral vascular disease I73.9 Amputation of left great toe S98.112A Non-pressure chronic ulcer of other part of left foot with necrosis of bone L97.524
[2023-07-13 06:55] LABS: Glucose Point of Care 152 mg/dL (70-110)
[2023-07-13] MEDS: insulin lispro 100 unit/1 mL SUBCUT ×3 (08:10→17:57)
[2023-07-13] MEDS: sennosides-docusate Tablet 1 TAB PO (08:12)
--- NOTE | 2023-07-13 08:53 | XR_ITS ---
WS: [id number] Exam: XR chest 1V portable [id number] Date/Time of Exam: 07/13/2023 9:35 AM Reason For Exam: post PICC insertion Right-sided PICC line has been placed and ends in the region of the RIGHT atrium. The lungs are clear and fully expanded. Cardiomediastinal silhouette is unremarkable for portable technique. Bilateral r everse shoulder prostheses are noted. IMPRESSION: 1. Right-sided PICC line ending in the region of the RIGHT atrium. 2. No acute cardiopulmonary process.
--- NOTE | 2023-07-13 10:00 | PC.NURSE ---
Single lumen PICC placed to right basilic vein. Referred for PICC placement for IV antibiotics. Risks and benefits discussed with patient and and informed consent obtained from patient. Right arm assessed with right basilic vein measuring 5 mm, straight, and apparent best choice for placement. Using sterile technique and MST, right basilic vein accessed x 1 stick. Mid-arm circumference measured 10 cm from right AC 31 cm. Trimmed cath 45 cm with external length noted at 3 cm. CXR showed original tip in right atrium with recommendation to retract 3 cm per radiologist. Cath retracted 3 cm with tip now noted in SVC, cavoatrial junction, in good position for use per radiologist. Line secured with stat-lock. Insertion site covered with Biopatch and TSM. Report given to bedside nurseLena.
--- NOTE | 2023-07-13 10:27 | PM.CONSULT ---
Providers/Reason For Consult Consulting Physician/Specialty*: Kalia Pahn MD/ Interventional Cardiology Reason for Consult*: Foot infection/Peripheral artery disease Requesting Physician: Dr Nugent Attending Physician: Bhavik Nugent MD Primary Care Provider: Caitlin Beltran MD History of Present Illness History of Present Illness Luther Lindquist is a 77 year old male with past medical history of diabetes who is admitted with fever and left foot wound. Patient had amputation of left big toe secondary to the wound. Doppler ultrasound is showing severe disease to occlusion of anterior tibial/dorsalis pedis artery and severe disease of posterior tibial artery. Review of Systems Const: Reports: fever(s) and chills Eyes: Denies: change in vision ENMT: Denies: throat pain Card: Denies: chest pain Resp: Reports: dyspnea GI: Denies: abdominal pain : Denies: flank pain Musc: Reports: joint swelling and joint redness Medications/Allergies Home Medications Medication Instructions Recorded Confirmed Last Taken Type allopurinol 300 mg tablet 300 mg PO DAILY 05/13/21 07/12/23 Unknown History atenolol 100 mg tablet 50 mg PO DAILY 05/13/21 07/12/23 Unknown History glipizide 10 mg tablet 20 mg PO BID 05/13/21 07/12/23 Unknown History insulin glargine 100 unit/mL 50 unit SUBCUT BID 05/13/21 07/12/23 Unknown History subcutaneous solution salicylic acid-sulfur 2 %-2 % 1 applic topical DAILY 05/13/21 07/12/23 Unknown History shampoo (Sebex) fluconazole 150 mg tablet 300 mg PO .once per week 6 months 09/27/22 07/12/23 Unknown Rx #48 tabs folic acid 1 mg tablet 1 mg PO DAILY #30 tabs 11/08/22 07/12/23 Unknown Rx pyridoxine (vitamin B6) 50 mg 50 mg PO DAILY #30 tabs 11/08/22 07/12/23 Unknown Rx tablet Shoes with custom inserts #1 ea 04/11/23 07/12/23 Unknown Rx cyanocobalamin (vitamin B-12) 1,000 mcg PO DAILY #60 caps 04/11/23 07/12/23 Unknown Rx 1,000 mcg capsule empagliflozin 25 mg tablet 25 mg PO DAILY 07/12/23 07/12/23 Unknown History fenofibrate 160 mg tablet 160 mg PO DAILY 07/12/23 07/12/23 Unknown History ferrous sulfate 325 mg (65 mg 325 mg PO DAILY 07/12/23 07/12/23 Unknown History iron) tablet lisinopril 20 mg tablet 10 mg PO DAILY 07/12/23 07/12/23 Unknown History metformin 500 mg tablet 1,000 mg PO BID 07/12/23 07/12/23 Unknown History omega 9-avn-qvo-fish oil 300 1 cap PO DAILY 07/12/23 07/12/23 Unknown History mg-1,000 mg capsule (Fish Oil) Allergies Allergy/AdvReac Type Severity Reaction Status Date / Time No Known Allergies Allergy Verified 07/11/23 16:13 Current Medications Generic Name Dose Route Start Last Admin Trade Name Freq PRN Reason Stop Dose Admin Acetaminophen 500 mg 07/11/23 20:07 07/11/23 23:20 Acetaminophen 500 Mg Tablet PO 500 mg Q4H PRN Administration fever Sodium Chloride 1,000 mls @ 75 mls/hr 07/11/23 20:07 07/13/23 03:16 Sodium Chloride 0.9% IV 75 mls/hr .[id number] JULISA Administration Piperacillin Sod/Tazobactam 50 mls @ 12.5 mls/hr 07/11/23 22:00 07/13/23 05:13 Sod 3.375 gm/ Sodium Chloride IV 12.5 mls/hr Q8H JULISA Administration Protocol Vancomycin/PEG/NADA/Lysine/Water 1,500 mg in 300 mls @ 200 mls/hr 07/11/23 23:00 07/12/23 19:49 Vancocin IV Infused Q18H JULISA Infusion Insulin Human Lispro 0 unit 07/11/23 20:07 07/13/23 08:10 Insulin Lispro 100 Unit/1 Ml SUBCUT 4 unit TIDWM JULISA Administration Protocol Senna/Docusate Sodium 1 tab 07/12/23 09:00 07/13/23 08:12 Sennosides-Docusate Tablet PO 1 tab DAILY JULISA Administration PFSH Acute PFSH: Medical History Diabetes Gout HTN (hypertension) Hyperlipidemia Prostate cancer Surgical History History of Achilles tendon repair left foot History of prostate biopsy History of replacement of both shoulder joints Previous back surgery Family History Father Cancer skin Other Diabetes Hyperlipidemia Hypertension Denies family history of CAD (coronary artery disease) Clotting disorder Dementia Psychiatric illness Chronic kidney disease (CKD) Suicide Anesthesia complication Bleeding disorder Lung disease Stroke Social History Smoking and tobacco/nicotine status: never used tobacco/nicotine Alcohol intake: current Alcohol intake frequency: holidays/special occasions only Vitals/I&O/Wt Last Vital Signs Temp 99.2 F 07/13/23 07:25 Pulse 77 07/13/23 07:35 Resp 16 07/13/23 07:35 BP 139/64 07/13/23 07:25 Pulse Ox 97 07/13/23 07:35 O2 Del Method Room Air 07/13/23 07:35 07/12/23 07/13/23 07/13/23 22:59 06:59 14:59 Intake Total 505.5 / 1555.5 1050 / 2605.5 240 / 240 Output Total 1200 / 1210 925 / 2135 Balance -694.5 / 345.5 125 / 470.5 240 / 240 Weight last 48 hrs Weight 220 lb Physical Exam Narrative: GENERAL: Patient is alert, awake and oriented x3. [] NECK: No jugular vein distension. [] HEENT: No cyanosis. No icterus. No pallor. [] HEART: Regular S1 and S2. No murmur, rub or gallop. [] LUNGS: Clear to auscultate bilaterally. [] CENTRAL NERVOUS SYSTEM: Grossly nonfocal. [] EXTREMITIES: Dorsalis pedis not palpable. Dressing applied on left foot. Data 07/14/23 05:53 07/14/23 05:53 Micro: Microbiology 07/11/23 16:41 Blood Culture - Preliminary Blood NEGATIVE TO DATE 07/11/23 16:36 Blood Culture - Preliminary Blood NEGATIVE TO DATE 07/12/23 12:21 Gram Stain - Final Bone A&P Assessment and plan (1) Amputation of left great toe: (2) Peripheral vascular disease: (3) Diabetic peripheral neuropathy associated with type 2 diabetes mellitus: Plan Patient has diabetic ulcer of the left foot and underwent amputation of left big toe. Doppler ultrasound showing significant PAD with possible total occlusion of the AT/DP. We will perform peripheral angiogram with intention of intervention to improve wound healing chances. Risks and benefits of the procedure have been discussed with the patient NPO past midnight. Thank you for involving us with care of this patient. We will continue to follow. Please call with questions. Consult Attestations Medical Necessity Statement: Care expected to cross 2 midnights. Coding Level of Care Code Acute Code for [facility] Diagnoses Amputation of left great toe S98.112A Peripheral vascular disease I73.9 Diabetic peripheral neuropathy associated with type 2 diabetes mellitus E11.42
--- NOTE | 2023-07-13 10:50 | PM.PN ---
Subjective Subjective: Status post amputation yesterday Patient is agreeable for angiogram Dr. Villar was notified Plan for primary delayed closure on Monday with angiogram Patient is agreeable We will request PICC line for long-term antibiotic course Patient is hoping he will be able to go home with home health Vitals/I&O/Wt Last Vital Signs Temp 99.2 F 07/13/23 07:25 Pulse 77 07/13/23 07:35 Resp 16 07/13/23 07:35 BP 139/64 07/13/23 07:25 Pulse Ox 97 07/13/23 07:35 O2 Del Method Room Air 07/13/23 07:35 07/12/23 07/13/23 07/13/23 22:59 06:59 14:59 Intake Total 505.5 / 1555.5 1050 / 2605.5 240 / 240 Output Total 1200 / 1210 925 / 2135 Balance -694.5 / 345.5 125 / 470.5 240 / 240 Weight last 48 hrs Weight 99.79 kg Physical Exam Narrative: Patient is awake and alert Foot covered in dressing Currently on room air Pleasant and cooperative Euvolemic GCS 15 Nonfocal neuro exam Sitting comfortably in his bed Data 07/13/23 05:14 07/13/23 05:14 Micro: Microbiology 07/11/23 16:41 Blood Culture - Preliminary Blood NEGATIVE TO DATE 07/11/23 16:36 Blood Culture - Preliminary Blood NEGATIVE TO DATE 07/12/23 12:21 Gram Stain - Final Bone A&P Assessment and plan (1) Amputation of left great toe: (2) Peripheral vascular disease: (3) Gas gangrene: (4) Osteomyelitis: (5) Diabetic peripheral neuropathy associated with type 2 diabetes mellitus: Plan Plan for angiogram primary closure tomorrow Requested PICC line today patient most likely will need long-term antibiotics Final antibiotic will be decided after bone culture report We will make him n.p.o. after midnight Blood glucose is normal Hemodynamically stable Holding aspirin until primary delayed closure Add DVT prophylaxis by tomorrow Disposition: Likely home with home health next week Attestations Medical Necessity Statement*: Continue medical management Diagnoses Amputation of left great toe S98.112A Peripheral vascular disease I73.9 Gas gangrene A48.0 Osteomyelitis M86.9 Diabetic peripheral neuropathy associated with type 2 diabetes mellitus E11.42
[2023-07-13 11:49] LABS: Glucose Point of Care 303 mg/dL (70-110)
[2023-07-13] MEDS: vancomycin 1,750 MG/350 ML PIGGYBACK 233.33 MG IV (12:01)
[2023-07-13 17:01] LABS: Glucose Point of Care 182 mg/dL (70-110)
--- NOTE | 2023-07-13 18:04 | PC.NURSE ---
Called report to Kiesha in [facility]
[2023-07-13 21:00] LABS: Glucose Point of Care 240 mg/dL (70-110)
[2023-07-14] VITALS: BP 131/68; PULSE 69; RESP 17; TEMP 37; O2SAT 96
--- NOTE | 2023-07-14 04:26 | PC.NURSE ---
Patient transferred to ICU 3 due to bed availability. Left message for spouse. Report called to JAZIEL George. Ex
[2023-07-14] MEDS: vancomycin 1,750 MG/350 ML PIGGYBACK 233.33 MG IV ×2 (04:58→23:03)
[2023-07-14] MEDS: piperacillin-tazobactam 3.375 GM in sodium chloride 0.9% (plus) 50 ML IV ×3 (05:39→19:56)
[2023-07-14 06:36] LABS: Basophils % 0.7 %; Eosinophils # 0.2 10^3/uL (0.0-0.8); Eosinophils % 2.7 %; Hematocrit 32.1 % (37-53); Lymphocytes # 1.2 10^3/uL (0.8-4.8); Lymphocytes % 20.3 %; Mean Corpuscular HGB Conc 33.3 g/dL (30-55); Mean Corpuscular Hemoglobin 28.8 pg (27-33); Mean Corpuscular Volume 86.3 fl (82-101); Mean Platelet Volume 8.6 fL (7.4-10.4); Monocytes # 0.4 10^3/uL (0.2-0.9); Monocytes % 7.2 %; Neutrophils # 4.03 10^3/uL (1.8-7.7); Neutrophils % 68.8 %; Nucleated Red Blood Cells % 0 %; Platelet Count 302 10^3/cmm (157-399); Red Blood Count 3.72 10^6/uL (3.85-5.65); Red Cell Distribution Width 12.3 % (12.1-15.1); White Blood Count 5.86 10^3/uL (3.29-11.43)
[2023-07-14 06:51] LABS: Anion Gap 14.8 (5-19); Blood Urea Nitrogen 15 mg/dL (8-23); Calcium 8.6 mg/dL (8.5-10.5); Carbon Dioxide 25 mmol/L (22-29); Chloride 100 mmol/L (98-107); Glucose 161 mg/dL (65-115); Osmolality Calculated 284 mOsm/kg (285-295); Potassium 4.8 mmol/L (3.5-5.1); Sodium 135 mmol/L (136-145)
--- NOTE | 2023-07-14 07:00 | XACV_ITS ---
Exam Room: 2 Ht: 183 cm Wt: 100 kg BSA: 2.27 m2 Gender: Male : 1945 Any Known Allergies: No known allergies Exam Priority: Routine Procedure(s): Procedure Description: Diagnostic procedure Procedure Description: Peripheral Cath Diagnostic Procedure Procedure Description: Abdominal aortic angiography Procedure Description: Lower extremities' angiography Procedure Description: Peripheral vascular Intervention Procedure Description: PV Balloon Procedure Description: Miscellaneous Procedure Description: ACT Abdominal Diagnostic Findings Distal abdominal aorta: Patent. Lower Extremity Diagnostic Findings INDICATION: Diabetic wound s/p amputation/ Severe PAD/ Critical limb ischemia. Left Mid- Anterior Tibial Artery:Total 100% occlusion. Left lower extremity findings: Common iliac artery is patent. Left external iliac artery is patent. Left internal iliac artery is patent. Left common femoral artery is patent. Left profunda artery is patent. Left SFA is patent. Left popliteal artery is patent. Left TP trunk is patent. Left peroneal artery is patent. Left posterior tibial artery is patent. Left anterior tibial artery is 100% occluded at the proximal to mid segment. Reconstitutes poorly and mid to distal section.. Lower Extremity Interventional Findings Left Mid-longitudinal Anterior Tibial Artery:100% stenosis treated with AB ARMADA 14 OTW [id number], AB MINI TREK 1.50X20 RX BALLOON, and AB ARMADA 14 OTW [id number]. PROCEDUDURE DETAIL: Plan was to perform revascularization of totally occluded anterior tibial artery for wound healing post amputation. After diagnostic imaging was performed, which switched short 6 fr sheath in right common femoral artery to long Cook sheath that was put into left external iliac artery. Using seeker support catheter and Glidewire we attempted to cross the totally occluded anterior tibial artery. However the wire could not cross it. We then switched wire to command wire and were able to cross 100% occluded segment. We then performed balloon angioplasty with [id number] Mcgregor balloon. However it could not cross the distal occluded segment. We then performed multiple balloon angioplasties with 1.5x20mm coronary balloon to create a channel. We then performed balloon angioplasty with [id number] balloon. This time it crossed completely. We then performed balloon angioplasty with [id number] Mcgregor balloon. At this time final angiogram was performed that showed patent anterior tibial artery with flow all the way to the foot. At this time wire and seeker support catheter were removed. Patient left the matlab developer in a stable condition. . Conclusions Totally occluded left anterior tibial artery s/p successful revascularization with balloon angioplasty. Left Mid-longitudinal Anterior Tibial Artery was treated with three Balloon. Recommendations Wound care per podiatry. Aspirin and plavix. Outpatient cardiology follow up in 1 month. Pressures Phase:Rest AO : 134 / 56 ( 82 ) @ 8:58:00 AM 130 / 52 ( 77 ) @ 9:03:00 AM 123 / 52 ( 77 ) @ 9:16:00 AM 109 / 53 ( 76 ) @ 9:50:00 AM Hemodynamic Data Phase:Rest AO : 134.0 / 56.0 ( 82.0 ) @ 8:58:00 AM 130.0 / 52.0 ( 77.0 ) @ 9:03:00 AM 123.0 / 52.0 ( 77.0 ) @ 9:16:00 AM 109.0 / 53.0 ( 76.0 ) @ 9:50:00 AM Clinical Evaluation EBL: 5mL-10mL Procedural Details Pre-Procedure Time Out. Identified patient by full name and date of as verbalized by the patient/guarantor. Does the consent match the physician's order: Yes. Accurate & Complete Informed Consent: Yes. Inpatient/Outpatient History & Physical on Chart: Yes. If H&P is completed, is and addenduem needed: No; If yes, is the addendum complete: N/A. Visualize and Verify Site with Patient/Guarantor: N/A. Relevant Radiology Images available: Yes. The risks, benefits, and alternatives of sedation and/or procedure were discussed by physician. The patient agrees to continue. Procedure started. Procedure Consent Obtained. Physician arrived. Correct patient, site and procedure confirmed by cath team. PERRLA. 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 Lungs clear x 5 lobes. IV Site on Arrival: 18 gauge in the right anticubital. IV Fluids: 0.9% NaCl at KVO. 0 mL infused prior to matlab developer. Oxygen started at 2liters/min via nasal canula. bilateral groins was prepped with chloroprep then draped in the usual sterile fashion. Baseline sample Acquired. HR: 65 BPM. Lidocaine 1% infiltrated to the right groin. Arterial access obtained with micropuncture set. A 5FrFr UF catheter in over wire. Abdominal aortogram performed in AP @ 10 mL/sec for a total of 30 mL. Catheter repositioned to the left iliac over the glidewire. Left popliteal selected and DSA performed. Glidewire inserted through the catheter. Catheter removed OTW. The sheath exchanged for a 6FR Flexor 45cm sheath. Side port of sheath attached to Normal Saline flush at KVO to maintain patency. Seeker inserted OTW. Wire out. Contrast hand injected through the catheter. Glidewire inserted. Wire out. Contrast hand injected through the catheter. Wire out. Command wire inserted through the seeker catheter. Seeker advanced to the Anterior Tibial. Seeker out OTW. Inflation number : 1 A AB ARMADA 14 OTW [id number] was prepped and advanced across the Anterior Tibial, Left , then inflated to 6 PAUL for 0:32 seconds. Balloon out over wire. Results checked. Family updated. Inflation number : 2 A AB MINI TREK 1.50X20 RX BALLOON was prepped and advanced across the Anterior Tibial, Left , then inflated to 8 PAUL for 0:31 seconds. Inflation number: 3 The AB MINI TREK 1.50X20 RX BALLOON was reinflated across the Anterior Tibial, Left, to 8 PAUL for 0:21 seconds. Inflation number: 4 The AB MINI TREK 1.50X20 RX BALLOON was reinflated across the Anterior Tibial, Left, to 8 PAUL for 0:19 seconds. Inflation number: 5 The AB MINI TREK 1.50X20 RX BALLOON was reinflated across the Anterior Tibial, Left, to 8 PAUL for 0:16 seconds. Inflation number: 6 The AB MINI TREK 1.50X20 RX BALLOON was reinflated across the Anterior Tibial, Left, to 8 PAUL for 0:21 seconds. Balloon out over wire. Inflation number: 7 The AB ARMADA 14 OTW [id number] was reinflated across the Anterior Tibial, Left, to 8 PAUL for 0:36 seconds. Inflation number: 8 The AB ARMADA 14 OTW [id number] was reinflated across the Anterior Tibial, Left, to 8 PAUL for 2:00 seconds. Inflation number: 9 The AB ARMADA 14 OTW [id number] was reinflated across the Anterior Tibial, Left, to 8 PAUL for 1:00 seconds. Balloon out over wire. Results checked. Inflation number : 10 A AB ARMADA 14 OTW [id number] was prepped and advanced across the Anterior Tibial, Left , then inflated to 8 PAUL for 1:55 seconds. Balloon out over wire. Results checked. Wire out. Standard J wire inserted. The long sheath exchanged for a short 6FR sheath. ACT drawn. Results 192 seconds. Therapeutic limits - pre-heparin administration 90-150 seconds and monitoring heparin during a vascular procedure >250 seconds. Vital chart was stopped. A Suture was successful obtaining hemostatsis at the Right Femoral artery insertion site. Arterial sheath flushed and connected to tranducer and pressure bag with heparinized saline. Post Procedure: Pulses reassessed and unchanged. PERRLA. 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 No VTE prophylaxis required. Medication's Wasted: Heparin = 2000 units. Total IV fluids: 110 mL. Post-op diagnosis: PAD. Complications: None. Estimated blood loss: 5mL-10mL. Responsiveness - Normal response to verbal stimuli; alert and oriented, PERRLA. Airway - Unaffected, no intervention required; spontaneous ventilation. Circulation: W/N/L, pulses unchanged. Nausea/Vomiting: No. Procedure completed. Patient transferred by bed to ICU. Access Site Site: Right Femoral artery Sheath Size: 6 Fr Hemostasis Method: Suture Hemostasis Success: Successful Procedure Medications Start: 7:37 AM Stop: 7:37 AM Medication: Fentanyl Amount: 50 mcg Route: I.V. Start: 7:46 AM Stop: 7:46 AM Medication: Versed Amount: 1 mg Route: I.V. Start: 8:01 AM Stop: 8:01 AM Medication: Heparin Amount: 6000 units Route: I.V. Start: 8:01 AM Stop: 8:01 AM Medication: Versed 1 mg and Fentanyl 25 mcg Amount: 1 Route: I.V. Start: 8:15 AM Stop: 8:15 AM Medication: Heparin Amount: 1000 units Route: I.V. Start: 8:15 AM Stop: 8:15 AM Medication: Fentanyl Amount: 25 mcg Route: I.V. Start: 8:36 AM Stop: 8:36 AM Medication: Heparin Amount: 1000 units Route: I.V. Start: 8:54 AM Stop: 8:54 AM Medication: Heparin Amount: 1000 units Route: I.V. Start: 9:00 AM Stop: 9:00 AM Medication: Aspirin Amount: 325 mg Route: P.O. Start: 9:00 AM Stop: 9:00 AM Medication: Plavix Amount: 300 mg Route: P.O. Start: 9:00 AM Stop: 9:00 AM Medication: Heparin Amount: 2000 units Route: I.V. I, the attending physician, have reviewed and verified all procedure medications. Yes, all medications given per verbal order History/Risk Factors Hypertension: Yes Dyslipidemia: Yes Peripheral Arterial Disease (PAD): Yes Myocardial Infarction (CO): No Obesity: No Renal Disease: No Tobacco Use: Never Prior Interventions PCI: No CABG: No Valve Surgery: No Report Signatures Finalized by Kalia Phan MD on 07/16/2023 11:39 AM
--- NOTE | 2023-07-14 07:45 | W.PM.OPSUD ---
Surgery/Procedure H&P Update DATE OF PROCEDURE: July 14, 2023 DATE H&P PERFORMED: 07/13/23 H&P UPDATE INFORMATION: I have reviewed H&P completed within last 30 days, I have examined patient prior to procedure and No changes to prior documentation PREOP DIAGNOSIS: Diabetic wound s/p amputation/ Severe PAD PRIMARY INDICATION FOR PROCEDURE: Diabetic wound s/p amputation/ Severe PAD PLANNED PROCEDURE: Operation Date: 07/14/23 11:40 Proposed Procedures Peripheral angiogram with possible percutaneous intervention (Kalia Phan MD) PATIENT REASSESSED PRIOR TO SEDATION, WITH NO CHANGE NOTED: Yes PHYSICAL EXAM: alert, oriented x 3, clear to auscultation bilaterally and regular rate & rhythm AIRWAY EVAL/ANESTHESIA PLAN: normal airway, ASA III, Local Anesthesia, Risks, benefits & alternatives of sedation and/or procedure discussed and Patient agrees to continue as planned ADDITIONAL INFORMATION: Moderate sedation
--- NOTE | 2023-07-14 08:14 | P.PN_ITS ---
Subjective Subjective: Patient seen bedside this morning. Angiography performed this morning. Denies any pain to the left foot at the operative site. Patient denies any subjective nausea, vomiting, fever, chills, shortness of breath or chest pain. Vitals/I&O/Wt Last Vital Signs Temp 98.6 F 07/14/23 00:00 Pulse 69 07/14/23 00:00 Resp 17 07/14/23 00:00 BP 131/68 07/14/23 00:00 Pulse Ox 96 07/14/23 00:00 O2 Del Method Room Air 07/14/23 04:24 07/13/23 07/14/23 07/14/23 22:59 06:59 14:59 Intake Total 850.625 / 2361.875 1199.375 / 3561.250 Output Total 425 / 900 850 / 1750 Balance 425.625 / 1461.875 349.375 / 1811.250 Physical Exam Narrative: GENERAL: Patient is alert and oriented ?3 and in no acute distress. The following is a focused bilateral lower extremity exam. His is bedside. VASCULAR: Dorsalis pedis decreased bilaterally. Posterior tibial arteries decreased bilaterally. Calf is supple and nontender proximally and distally. Decreased pedal hair growth. Edema to the left forefoot medially. NEUROLOGICAL: Protective sensation intact neuro/10 sites, tested with Osceola Chaparro monofilament to bilateral feet. DERMATOLOGICAL: No active bleeding at the operative site left foot partial first ray resection, no purulence, improved erythema and improved edema. Stable wound at the left medial malleolus without erythema or purulence. MUSCULOSKELETAL: No soft tissue crepitus on palpation of the left foot and ankle. Pes planus foot type bilaterally. Contracture of lesser digits 2 through 5 bilaterally with sagittal plane dominance, bunion bilaterally. Data 07/14/23 05:53 07/14/23 05:53 Micro: Microbiology 07/12/23 12:21 Gram Stain - Final Bone Tissue Culture - Preliminary A&P Assessment and plan (1) Gas gangrene: (2) Non-pressure chronic ulcer of left ankle with fat layer exposed: (3) Cellulitis of left foot: (4) Diabetic peripheral neuropathy associated with type 2 diabetes mellitus: (5) Peripheral vascular disease: (6) Amputation of left great toe: (7) Non-pressure chronic ulcer of other part of left foot with necrosis of bone: Plan Patient is 2 days status post partial first ray amputation of left foot secondary to diabetic foot infection with osteomyelitis and soft tissue edema. Date of operation 11/13/2022. Surgical dressing changed this a.m, new dressing saline wet-to-dry was performed. Appreciated significant clinical improvement of the left foot, d ecreased edema, decreased erythema and warmth. No purulence. Planning on primary delayed closure this 07/16/2023. Please continue empiric IV antibiotics at this time Surgical cultures with bone sent to microbiology for Gram stain, culture and sensitivity, cultures in the ED still pending. Will discuss with hospitalist PICC line versus oral antibiotics I think both are an option. Nonweightbearing to the left foot, heel touch only for transfers. Elevate left foot while resting. Podiatry will follow Ricardo Bhatia D.P.M. cell phone [phone] Attestations Medical Necessity Statement*: Diabetic foot infection Coding Level of Care Code Acute Code for [facility] Diagnoses Gas gangrene A48.0 Non-pressure chronic ulcer of left ankle with fat layer exposed L97.322 Cellulitis of left foot L03.116 Diabetic peripheral neuropathy associated with type 2 diabetes mellitus E11.42 Peripheral vascular disease I73.9 Amputation of left great toe S98.112A Non-pressure chronic ulcer of other part of left foot with necrosis of bone L97.524
--- NOTE | 2023-07-14 09:35 | P.PN_ITS ---
Subjective Subjective: Patient had total 100% occlusion of anterior tibial artery with limited blood flow in that territory. S/p successful revascularization with balloon angioplasty establishing blood flow. Vitals/I&O/Wt Last Vital Signs Temp 98.6 F 07/14/23 00:00 Pulse 69 07/14/23 00:00 Resp 17 07/14/23 00:00 BP 131/68 07/14/23 00:00 Pulse Ox 96 07/14/23 00:00 O2 Del Method Room Air 07/14/23 04:24 07/13/23 07/14/23 07/14/23 22:59 06:59 14:59 Intake Total 850.625 / 2361.875 1199.375 / 3561.250 Output Total 425 / 900 850 / 1750 Balance 425.625 / 1461.875 349.375 / 1811.250 Physical Exam Narrative: GENERAL: Patient is alert, awake and oriented x3. [] NECK: No jugular vein distension. [] HEENT: No cyanosis. No icterus. No pallor. [] HEART: Regular S1 and S2. No murmur, rub or gallop. [] LUNGS: Clear to auscultate bilaterally. [] CENTRAL NERVOUS SYSTEM: Grossly nonfocal. [] EXTREMITIES: Dorsalis pedis not palpable. Dressing applied on left foot. Data 07/14/23 05:53 07/14/23 05:53 Micro: Microbiology 07/12/23 12:21 Gram Stain - Final Bone Tissue Culture - Preliminary A&P Assessment and plan (1) Amputation of left great toe: (2) Peripheral vascular disease: (3) Diabetic peripheral neuropathy associated with type 2 diabetes mellitus: Plan Patient had total occlusion of proximal anterior tibial artery with very limited flow in that territory. Successful revascularization with balloon angioplasty performed establishing good flow to the foot Started on aspirin and plavix. If no bleeding complications, will recommmend dual antiplatelet therapy for 3-6 months. Thank you for involving us with care of this patient. We will continue to follow. Please call with questions. Attestations Medical Necessity Statement*: Care expected to cross 2 midnights. Coding Level of Care Code Acute Code for [facility] Fwd Diagnoses Amputation of left great toe S98.112A Peripheral vascular disease I73.9 Diabetic peripheral neuropathy associated with type 2 diabetes mellitus E11.42
[2023-07-14] MEDS: sennosides-docusate Tablet 1 TAB PO (10:00)
[2023-07-14] MEDS: insulin lispro 100 unit/1 mL SUBCUT ×3 (10:00→17:58)
[2023-07-14 10:01] LABS: Glucose Point of Care 173 mg/dL (70-110)
--- NOTE | 2023-07-14 11:00 | PC.SOCIAL ---
PG 2 IMM Explained to pt & Pg 2 IMM. no questions voiced. Provided pt a copy. Initialed, dated, & timed a copy & placed in chart.
[2023-07-14 11:01] VITALS: PULSE 60; RESP 16; O2SAT 96
--- NOTE | 2023-07-14 11:30 | PM.PN ---
Subjective Subjective: Plan for delayed wound closure on Monday Cultures negative to date Spoke with Dr. Bhatia Vitals/I&O/Wt Last Vital Signs Temp 98.6 F 07/14/23 00:00 Pulse 60 07/14/23 11:01 Resp 16 07/14/23 11:01 BP 131/68 07/14/23 00:00 Pulse Ox 96 07/14/23 11:01 O2 Del Method Room Air 07/14/23 11:01 07/13/23 07/14/23 07/14/23 22:59 06:59 14:59 Intake Total 850.625 / 2361.875 1199.375 / 3561.250 50 / 50 Output Total 425 / 900 850 / 1750 Balance 425.625 / 1461.875 349.375 / 1811.250 50 / 50 Physical Exam Narrative: Pleasant cooperative GCS 15 Awake and alert S1: S2 On room air Foot covered with dressing Family at the bedside Abdomen soft Data 07/14/23 05:53 07/14/23 05:53 Micro: Microbiology 07/12/23 12:21 Gram Stain - Final Bone Tissue Culture - Preliminary A&P Assessment and plan (1) Amputation of left great toe: (2) Peripheral vascular disease: (3) Gas gangrene: (4) Osteomyelitis: Plan Continue IV antibiotics Plan for primary delayed closure on Monday Angiogram today with Dr. Phan anterior tibial artery with very limited flow in that territory.? Successful revascularization with balloon angioplasty performed establishing good flow to the foot Started on aspirin and plavix.? We will touch this with cardiology to see if we can hold Plavix until he gets his intervention on Monday Attestations Medical Necessity Statement*: Continue medical management Diagnoses Amputation of left great toe S98.112A Peripheral vascular disease I73.9 Gas gangrene A48.0 Osteomyelitis M86.9
[2023-07-14 11:31] LABS: Glucose Point of Care 175 mg/dL (70-110)
[2023-07-14 12:25] LABS: Partial Thromboplastin Time 32.8 SECONDS (23.9-36.7)
--- NOTE | 2023-07-14 13:20 | PC.NURSE ---
Sheath removed from right groin per protocol, this nurse and JAZIEL Giang noted to be at bedside. Pressure held for 20min, patient tolerated well. No hemotoma noted, gauze and tegaderm in placed. Patient educated to lay flat for 6 hours, patient verbalized understanding- noted to be at bedside as well and verbalized understanding to education.
[2023-07-14 14:00] VITALS: PULSE 73
[2023-07-14 14:45] LABS: Partial Thromboplastin Time 31.6 SECONDS (23.9-36.7)
--- NOTE | 2023-07-14 15:53 | PC.NURSE ---
Report called to CSU nurse. Patient to be transferred via bed to C[facility] room 105 accompanied by this nurse and . Belongings placed at bedside. CSU nurse at bedside at time of transfer of care. Patient denies any pain at this time and noted to be A&Ox4.
[2023-07-14] MEDS: sodium chloride 0.9% 1,000 ML 100 ML IV ×2 (16:02→23:02)
[2023-07-14 17:17] LABS: Glucose Point of Care 234 mg/dL (70-110)
[2023-07-14 20:00] VITALS: BP 144/77; PULSE 80; RESP 21; TEMP 37.1; O2SAT 96
[2023-07-14 22:00] VITALS: PULSE 71
[2023-07-14 22:55] LABS: Vancomycin Trough 10.7 ug/mL (10-15)
[2023-07-15] VITALS (11 sets, daily range): BP systolic 124–153; BP diastolic 51–79; PULSE 60–92; RESP 13–22; TEMP 36.8–37.1; O2SAT 94–98
[2023-07-15] MEDS: piperacillin-tazobactam 3.375 GM in sodium chloride 0.9% (plus) 50 ML IV ×3 (04:17→20:40)
[2023-07-15 05:03] LABS: Basophils # 0.1 10^3/uL (0.0-0.1); Basophils % 1.1 %; Eosinophils # 0.1 10^3/uL (0.0-0.8); Eosinophils % 2.5 %; Lymphocytes # 1.2 10^3/uL (0.8-4.8); Lymphocytes % 20.5 %; Mean Corpuscular HGB Conc 32.5 g/dL (30-55); Mean Corpuscular Hemoglobin 28.1 pg (27-33); Mean Corpuscular Volume 86.5 fl (82-101); Mean Platelet Volume 8.5 fL (7.4-10.4); Monocytes # 0.4 10^3/uL (0.2-0.9); Monocytes % 6.6 %; Neutrophils # 3.87 10^3/uL (1.8-7.7); Neutrophils % 68.8 %; Nucleated Red Blood Cells % 0 %; Platelet Count 321 10^3/cmm (157-399); Red Cell Distribution Width 12.1 % (12.1-15.1); White Blood Count 5.62 10^3/uL (3.29-11.43)
[2023-07-15 05:26] LABS: Anion Gap 11.6 (5-19); Blood Urea Nitrogen 13 mg/dL (8-23); Calcium 8.3 mg/dL (8.5-10.5); Carbon Dioxide 24 mmol/L (22-29); Chloride 102 mmol/L (98-107); Glucose 203 mg/dL (65-115); Osmolality Calculated 282 mOsm/kg (285-295); Potassium 4.6 mmol/L (3.5-5.1); Sodium 133 mmol/L (136-145)
[2023-07-15 06:18] LABS: Glucose Point of Care 223 mg/dL (70-110)
--- NOTE | 2023-07-15 09:01 | P.PN_ITS ---
Subjective Subjective: Patient is doing well. no access site complications. S/p successful revascularization of left anterior tibial artery. Vitals/I&O/Wt Last Vital Signs Temp 98.7 F 07/15/23 07:28 Pulse 75 07/15/23 07:28 Resp 13 07/15/23 07:28 BP 124/61 07/15/23 07:28 Pulse Ox 98 07/15/23 07:28 O2 Del Method Room Air 07/15/23 07:28 07/14/23 07/15/23 07/15/23 22:59 06:59 14:59 Intake Total 350 / 400 1600 / 2000 Output Total 500 / 875 850 / 1725 Balance -150 / -475 750 / 275 Physical Exam Narrative: GENERAL: Patient is alert, awake and oriented x3. [] NECK: No jugular vein distension. [] HEENT: No cyanosis. No icterus. No pallor. [] HEART: Regular S1 and S2. No murmur, rub or gallop. [] LUNGS: Clear to auscultate bilaterally. [] CENTRAL NERVOUS SYSTEM: Grossly nonfocal. [] EXTREMITIES: Dorsalis pedis is palpable. Dressing applied on left foot. Data 07/15/23 04:15 07/15/23 04:15 Micro: Microbiology 07/12/23 12:21 Gram Stain - Final Bone Tissue Culture - Preliminary Gram Negative Rods Coag negative Staphylococcus A&P Assessment and plan (1) Amputation of left great toe: (2) Peripheral vascular disease: (3) Diabetic peripheral neuropathy associated with type 2 diabetes mellitus: Plan Patient doing well. Continue aspirin. Primary team held Plavix after discussion as patient needs another procedure on Monday. Once bleeding risk is acceptable, will recommend putting back on dual antiplatelet therapy Thank you for involving us with care of this patient. We will continue to follow. Please call with questions. Attestations Medical Necessity Statement*: Care expected to cross 2 midnights. Coding Level of Care Code Acute Code for [facility] Fw Diagnoses Amputation of left great toe S98.112A Peripheral vascular disease I73.9 Diabetic peripheral neuropathy associated with type 2 diabetes mellitus E11.42
[2023-07-15] MEDS: insulin lispro 100 unit/1 mL SUBCUT ×3 (09:17→17:38)
[2023-07-15] MEDS: aspirin 81 mg EC Tablet PO (09:18)
[2023-07-15] MEDS: sennosides-docusate Tablet 1 TAB PO (09:18)
--- NOTE | 2023-07-15 09:52 | PM.PN ---
Subjective Subjective: Plan for delayed primary closure tomorrow No overnight events Patient is pleasant and cooperative Vitals/I&O/Wt Last Vital Signs Temp 98.7 F 07/15/23 07:28 Pulse 76 07/15/23 08:00 Resp 16 07/15/23 08:00 BP 124/61 07/15/23 07:28 Pulse Ox 94 07/15/23 08:00 O2 Del Method Room Air 07/15/23 08:00 07/14/23 07/15/23 07/15/23 22:59 06:59 14:59 Intake Total 350 / 400 1600 / 2000 1050 / 1050 Output Total 500 / 875 850 / 1725 Balance -150 / -475 750 / 275 1050 / 1050 Physical Exam Narrative: Awake and alert Pleasant and cooperative Euvolemic Abdomen soft Currently on room air Left foot covered in dressing PICC line has been placed GCS 15 Data 07/15/23 04:15 07/15/23 04:15 Micro: Microbiology 07/12/23 12:21 Gram Stain - Final Bone Tissue Culture - Preliminary Gram Negative Rods Coag negative Staphylococcus A&P Assessment and plan (1) Amputation of left great toe: (2) Peripheral vascular disease: (3) Gas gangrene: (4) Osteomyelitis: (5) Diabetic peripheral neuropathy associated with type 2 diabetes mellitus: Plan Bone culture showing gram-negative growth along coagulase-negative Staphylococcus Continue IV antibiotics Afebrile no leukocytosis Final antibiotic will be decided once we see final Culture report Plan for delayed primary closure tomorrow Status post balloon angioplasty and stent continue aspirin holding Plavix for intervention tomorrow N.p.o. after midnight Hold DVT prophylaxis today Repeat labs for tomorrow Full code Plan to send him home with home health for IV antibiotics, ID consultation might be needed on Monday for outpatient IV antibiotic follow-up Attestations Medical Necessity Statement*: Continue medical management Diagnoses Amputation of left great toe S98.112A Peripheral vascular disease I73.9 Gas gangrene A48.0 Osteomyelitis M86.9 Diabetic peripheral neuropathy associated with type 2 diabetes mellitus E11.42
--- NOTE | 2023-07-15 10:34 | PM.PN ---
Subjective Subjective: Patient seen bedside this morning. Denies any pain to the left foot at the operative site. Patient denies any subjective nausea, vomiting, fever, chills, shortness of breath or chest pain. Vitals/I&O/Wt Last Vital Signs Temp 98.7 F 07/15/23 07:28 Pulse 76 07/15/23 08:00 Resp 16 07/15/23 08:00 BP 124/61 07/15/23 07:28 Pulse Ox 94 07/15/23 08:00 O2 Del Method Room Air 07/15/23 08:00 07/14/23 07/15/23 07/15/23 22:59 06:59 14:59 Intake Total 350 / 400 1600 / 2000 1050 / 1050 Output Total 500 / 875 850 / 1725 Balance -150 / -475 750 / 275 1050 / 1050 Physical Exam Narrative: GENERAL: Patient is alert and oriented ?3 and in no acute distress. The following is a focused bilateral lower extremity exam. His is bedside. VASCULAR: Dorsalis pedis decreased bilaterally. Posterior tibial arteries decreased bilaterally. Calf is supple and nontender proximally and distally. Decreased pedal hair growth. Edema to the left forefoot medially. NEUROLOGICAL: Protective sensation intact neuro/10 sites, tested with [place] monofilament to bilateral feet. DERMATOLOGICAL: No active bleeding at the operative site left foot partial first ray resection, no purulence, improved erythema and improved edema. Stable wound at the left medial malleolus without erythema or purulence. MUSCULOSKELETAL: No soft tissue crepitus on palpation of the left foot and ankle. Pes planus foot type bilaterally. Contracture of lesser digits 2 through 5 bilaterally with sagittal plane dominance, bunion bilaterally. Data 07/15/23 04:15 07/15/23 04:15 Micro: Microbiology 07/12/23 12:21 Gram Stain - Final Bone Tissue Culture - Preliminary Gram Negative Rods Coag negative Staphylococcus A&P Assessment and plan (1) Amputation of left great toe: (2) Peripheral vascular disease: (3) Gas gangrene: (4) Osteomyelitis: (5) Diabetic peripheral neuropathy associated with type 2 diabetes mellitus: Plan Patient is 3 days status post partial ray resection secondary to osteomyelitis and soft tissue emphysema left foot medial column. Date of operation 07/12/2023. Cultures significant for actinobacter, staph lugdunensis and strep B We will discuss PICC line versus orals with hospitalist Performed saline wet-to-dry dressing change Soft tissue improvement and amputation site, will benefit from further debridement and delayed closure. N.p.o. at midnight Delayed closure left foot scheduled for tomorrow morning 07/16/2023 Attestations Medical Necessity Statement*: Diabetic foot infection Coding Level of Care Code Acute Code for [facility] Fwd Diagnoses Amputation of left great toe S98.112A Peripheral vascular disease I73.9 Gas gangrene A48.0 Osteomyelitis M86.9 Diabetic peripheral neuropathy associated with type 2 diabetes mellitus E11.42
[2023-07-15] MEDS: vancomycin 1,750 MG/350 ML PIGGYBACK 233.33 MG IV (16:08)
[2023-07-15 16:30] LABS: Glucose Point of Care 242 mg/dL (70-110)
[2023-07-15 20:18] LABS: Glucose Point of Care 342 mg/dL (70-110)
[2023-07-15 20:18] LABS: Glucose Point of Care 302 mg/dL (70-110)
[2023-07-16] VITALS (151 sets, daily range): BP systolic 99–155; BP diastolic 65–83; PULSE 61–89; RESP 13–22; TEMP 36.6–37.2; O2SAT 94–98
[2023-07-16 03:16] LABS: Basophils # 0.1 10^3/uL (0.0-0.1); Basophils % 1.1 %; Eosinophils # 0.2 10^3/uL (0.0-0.8); Eosinophils % 3.6 %; Hematocrit 31.8 % (37-53); Lymphocytes # 1.3 10^3/uL (0.8-4.8); Lymphocytes % 23.6 %; Mean Corpuscular Hemoglobin 28.5 pg (27-33); Mean Corpuscular Volume 83.9 fl (82-101); Mean Platelet Volume 8.3 fL (7.4-10.4); Monocytes # 0.3 10^3/uL (0.2-0.9); Monocytes % 6.2 %; Neutrophils # 3.59 10^3/uL (1.8-7.7); Neutrophils % 65.3 %; Nucleated Red Blood Cells % 0 %; Platelet Count 312 10^3/cmm (157-399); Red Blood Count 3.79 10^6/uL (3.85-5.65); Red Cell Distribution Width 12.2 % (12.1-15.1)
[2023-07-16 03:38] LABS: Anion Gap 11.3 (5-19); Blood Urea Nitrogen 11 mg/dL (8-23); Carbon Dioxide 23 mmol/L (22-29); Chloride 101 mmol/L (98-107); Glucose 242 mg/dL (65-115); Osmolality Calculated 279 mOsm/kg (285-295); Potassium 4.3 mmol/L (3.5-5.1); Sodium 131 mmol/L (136-145)
[2023-07-16] MEDS: piperacillin-tazobactam 3.375 GM in sodium chloride 0.9% (plus) 50 ML IV ×3 (04:14→22:35)
[2023-07-16 06:38] LABS: Glucose Point of Care 238 mg/dL (70-110)
--- NOTE | 2023-07-16 07:06 | P.HPUD_ITS ---
Surgery/Procedure H&P Update DATE OF PROCEDURE: July 16, 2023 DATE H&P PERFORMED: 07/13/23 H&P UPDATE INFORMATION: I have reviewed H&P completed within last 30 days, I have examined patient prior to procedure, No changes to prior documentation and H&P is in [facility] EMR on date indicated PREOP DIAGNOSIS: Diabetic wound s/p amputation/ Severe PAD PLANNED PROCEDURE: Operation Date: 07/12/23 11:40 Proposed Procedures p Ray Resection Partial Ray Resection(Left) - Cortez Bhatia DPM Operation Date: 07/14/23 07:00 Proposed Procedures p Peripheral Diagnostic(Not Applicable) - Kalia Phan M.D Operation Date: 07/16/23 09:00 Proposed Procedures p Delayed Wound Closure of left foot(Left) - Cortez Bhatia DPM
--- NOTE | 2023-07-16 07:06 | PM.OP ---
Operative Report Date of procedure: July 16, 2023 Pre-op diagnosis: Osteomyelitis left foot Post-op diagnosis: Osteomyelitis left foot. Status post left foot first partial ray amputation. Diabetic ulcer right medial ankle exposed to fat layer Post-op findings: same Procedure done: Delayed closure left foot. CPT code 28012 Implants: 3-0 Vicryl, 3-0 nylon Specimens removed/disposition: None Pathology: none Surgeon: Cortez Bhatia DPM Candle Molder Hand: Nazia Parker Peter Estimated blood loss: 5 No tourniquet IV fluids: 0 Urine output: 0 Complications: none Brief History: Patient underwent partial ray amputation of the left foot secondary to diabetic foot infection with soft tissue emphysema. On the course of hospital stay he received empiric IV antibiotics and twice daily dressing changes, improvement in soft tissue quality with subsided cellulitis appreciated, wound has devitalized tissue necessitating further surgical debridement and attempted delayed closure. Procedure: Sedation the patient was brought to the operating room and remained on the gurney in supine position. Timeout was performed.? Anesthesia was then administered by the anesthesia service.? Local anesthesia was injected by myself consisting of 30 cc of one-to-one mixture 1% lidocaine and 0.5% Marcaine plain in a Hines block fashion to the left foot.? Well-padded pneumatic tourniquet was applied to the left high calf.? The left lower extremity was scrubbed, prepped and draped utilizing normal aseptic technique. Left foot was elevated and the tourniquet was inflated to 250 mmHg. Attention was directed to the left medial foot where devitalized epidermis, dermis, subcutaneous tissue, myofascial layer and tendon were debrided sharply with pickups and a #15 blade, skin margins were freshened to bleeding sharply with 15 blade. Thorough debridement was performed at the amputation site of the left partial first ray. Was able to visualize diaphysis of the first metatarsal appeared to have appropriate color and density. The incision was irrigated with copious amounts of sterile saline solution. The wound was able to be closed with skin margins under appropriate amount of tension, no excessive tension appreciated. Deep fascia and subcutaneous tissue was closed with 3-0 Vicryl, closing down all cavernous areas. Skin was then reapproximated utilizing 3-0 nylon. Skin margins were coapted nicely without excessive tension. The incision was dressed with Adaptic, sterile 4 x 4's and Kerlix. Attention was then directed to the medial malleolar wound measured 1.8 cm x 1.8 cm x 0.2 cm which was debrided sharply with #15 blade and pickups down to and including subcutaneous tissue and fat layer. Wound did not probe to bone. No vernell purulence appreciated. This was also dressed with Adaptic, sterile 4 x 4's, Kerlix and Giancarlo wrap. No tourniquet was utilized during the duration of this procedure. Patient tolerated the procedure and anesthesia well and was transferred to the PACU with vital signs stable and vascular status intact. Following a period of postoperative monitoring he will be transferred back to cardiac stepdown unit and will continue IV antibiotics. Okay for discharge from podiatry standpoint. Follow-up in podiatry clinic next week. Will discuss antibiotic options at discharge with hospitalist.
[2023-07-16] MEDS: sodium chloride 0.9% 1,000 ML 30 ML IV (08:10)
--- NOTE | 2023-07-16 08:13 | ANES.PREANE2 ---
Pre-Anesthetic Assessment Height/Weight: Height 1.83 m Weight 99.79 kg Temp Pulse Resp BP Pulse Ox O2 Del Method O2 Flow Rate 98.5 F 74 16 126/70 98 Nasal Cannula 2 07/16/23 04:00 07/16/23 07:45 07/16/23 07:45 07/16/23 04:00 07/16/23 07:45 07/16/23 07:45 07/16/23 07:45 Preop Diagnosis: Diabetic wound s/p amputation/ Severe PAD Operation Date: 07/12/23 11:40 Proposed Procedures p Ray Resection Partial Ray Resection(Left) - Cortez Bhatia DPM Operation Date: 07/14/23 07:00 Proposed Procedures p Peripheral Diagnostic(Not Applicable) - Kalia Phan M.D Operation Date: 07/16/23 09:00 Proposed Procedures p Delayed Wound Closure of left foot(Left) - Cortez Bhatia DPM Last intake: Intake Last Liquid Date 07/15/23 Last Liquid Time 23:45 Last Solid Date 07/15/23 Last Solid Time 21:00 Social No alcohol and No tobacco Exam alert, oriented x 3, clear to auscultation bilaterally and regular rate & rhythm Airway Submandibular: within normal limits Cervical ROM: within normal limits Mallampati: Class I Dentition: false Pulmonary None reported CV/HEM Hypertension GI None reported Metabolic Gout Anesthetic Plan ASA status: 3E Anesthesia: MAC Medications/Allergies Home Medications Medication Instructions Recorded Confirmed Last Taken Type allopurinol 300 mg tablet 300 mg PO DAILY 05/13/21 07/12/23 Unknown History atenolol 100 mg tablet 50 mg PO DAILY 05/13/21 07/12/23 Unknown History glipizide 10 mg tablet 20 mg PO BID 05/13/21 07/12/23 Unknown History insulin glargine 100 unit/mL 50 unit SUBCUT BID 05/13/21 07/12/23 Unknown History subcutaneous solution salicylic acid-sulfur 2 %-2 % 1 applic topical DAILY 05/13/21 07/12/23 Unknown History shampoo (Sebex) fluconazole 150 mg tablet 300 mg PO .once per week 6 months 09/27/22 07/12/23 Unknown Rx #48 tabs folic acid 1 mg tablet 1 mg PO DAILY #30 tabs 11/08/22 07/12/23 Unknown Rx pyridoxine (vitamin B6) 50 mg 50 mg PO DAILY #30 tabs 11/08/22 07/12/23 Unknown Rx tablet Shoes with custom inserts #1 ea 04/11/23 07/12/23 Unknown Rx cyanocobalamin (vitamin B-12) 1,000 mcg PO DAILY #60 caps 04/11/23 07/12/23 Unknown Rx 1,000 mcg capsule empagliflozin 25 mg tablet 25 mg PO DAILY 07/12/23 07/12/23 Unknown History fenofibrate 160 mg tablet 160 mg PO DAILY 07/12/23 07/12/23 Unknown History ferrous sulfate 325 mg (65 mg 325 mg PO DAILY 07/12/23 07/12/23 Unknown History iron) tablet lisinopril 20 mg tablet 10 mg PO DAILY 07/12/23 07/12/23 Unknown History metformin 500 mg tablet 1,000 mg PO BID 07/12/23 07/12/23 Unknown History omega 8-drc-nsa-fish oil 300 1 cap PO DAILY 07/12/23 07/12/23 Unknown History mg-1,000 mg capsule (Fish Oil) Allergies Allergy/AdvReac Type Severity Reaction Status Date / Time No Known Allergies Allergy Verified 07/11/23 16:13 Current Medications Generic Name Dose Route Start Last Admin Trade Name Freq PRN Reason Stop Dose Admin Acetaminophen 500 mg 07/11/23 20:07 07/11/23 23:20 Acetaminophen 500 Mg Tablet PO 500 mg Q4H PRN Administration fever Aspirin 81 mg 07/14/23 11:45 07/15/23 09:18 Aspirin 81 Mg Ec Tablet PO 81 mg DAILY JULISA Administration Piperacillin Sod/Tazobactam 50 mls @ 12.5 mls/hr 07/11/23 22:00 07/16/23 04:14 Sod 3.375 gm/ Sodium Chloride IV 12.5 mls/hr Q8H JULISA Administration Protocol Insulin Human Lispro 0 unit 07/11/23 20:07 07/16/23 07:53 Insulin Lispro 100 Unit/1 Ml SUBCUT Not Given TIDWM JULISA Protocol Senna/Docusate Sodium 1 tab 07/12/23 09:00 07/15/23 09:18 Sennosides-Docusate Tablet PO 1 tab DAILY JULISA Administration PFSH Anesthesia Medical History Diabetes Gout HTN (hypertension) Hyperlipidemia Prostate cancer Surgical History History of Achilles tendon repair left foot History of prostate biopsy History of replacement of both shoulder joints Previous back surgery Family History Father Cancer skin Other Diabetes Hyperlipidemia Hypertension Denies family history of CAD (coronary artery disease) Clotting disorder Dementia Psychiatric illness Chronic kidney disease (CKD) Suicide Anesthesia complication Bleeding disorder Lung disease Stroke Social History Smoking and tobacco/nicotine status: never used tobacco/nicotine Alcohol intake: current Alcohol intake frequency: holidays/special occasions only Data Anesthesia 07/16/23 02:52 07/16/23 02:52 Short CBC 07/15/23 07/16/23 Range/Units 04:15 02:52 WBC 5.62 5.50 (3.29-11.43) 10^3/uL Hgb 10.40 L 10.80 L (11.27-16.99) g/dL Hct 32.0 L 31.8 L (37-53) % MCV 86.5 83.9 (82-101) fl Plt Count 321 312 (157-399) 10^3/cmm Neut % (Auto) 68.8 65.3 % Neut # (Auto) 3.87 3.59 (1.8-7.7) 10^3/uL BMP 07/15/23 07/16/23 04:15 02:52 Sodium 133 L 131 L Potassium 4.6 4.3 Chloride 102 101 Carbon Dioxide 24 23 BUN 13 11 Creatinine 1.0 0.9 Glucose 203 H 242 H Calcium 8.3 L 9.0 Coags 07/14/23 07/14/23 07/14/23 10:46 11:58 14:00 APTT 53.0 H 32.8 31.6 Microbiology 07/12/23 12:21 Gram Stain - Final Bone Tissue Culture - Final Acinetobacter baumannii/haemol Staphylococcus lugdunensis Strep agalactiae - (group b) Cardiac Studies: No Data to Display
--- NOTE | 2023-07-16 08:47 | PC.NURSE ---
Pt off floor for surgery
[2023-07-16] MEDS: BUPivacaine 0.5% INJ 30 mL 15 ML INJECTION (08:58)
[2023-07-16] MEDS: lidocaine 2% INJ 20 mL 15 ML INJECTION (08:58)
--- NOTE | 2023-07-16 09:01 | P.PN_ITS ---
Subjective Subjective: 6 this morning patient is getting delayed wound closure Polymicrobial infection as per recent culture report We will add ceftriaxone Discontinue vancomycin Will need ID consultation on Monday Vitals/I&O/Wt Last Vital Signs Temp 98.7 F 07/16/23 08:21 Pulse 78 07/16/23 08:21 Resp 17 07/16/23 08:21 BP 129/81 07/16/23 08:21 Pulse Ox 95 07/16/23 08:21 O2 Del Method Room Air 07/16/23 08:21 O2 Flow Rate 2 07/16/23 07:45 07/15/23 07/16/23 07/16/23 22:59 06:59 14:59 Intake Total 580 / 1750 50 / 1800 Output Total 1450 / 1850 1300 / 3150 Balance -870 / -100 -1250 / -1350 Physical Exam Narrative: Nonfocal neuro exam GCS 15 Pleasant pleasant and cooperative Currently on room air Pleasant cooperative S1, S2 Abdomen soft Data 07/16/23 02:52 07/16/23 02:52 Micro: Microbiology 07/12/23 12:21 Gram Stain - Final Bone Tissue Culture - Final Acinetobacter baumannii/haemol Staphylococcus lugdunensis Strep agalactiae - (group b) A&P Assessment and plan (1) Peripheral vascular disease: (2) Gas gangrene: (3) Amputation of left great toe: (4) Osteomyelitis: (5) Diabetic peripheral neuropathy associated with type 2 diabetes mellitus: Plan Polymicrobial infection as per Add ceftriaxone to Zosyn Afebrile Will need ID consultation on Monday Will need 6 days IV antibiotic course We will add Plavix after today's procedure, patient had balloon angioplasty and stent Appreciate cardiology recommendations He may resume his diet after procedure DVT prophylaxis Full code Discharge in next 24 hours Attestations Medical Necessity Statement*: Continue medical management Coding Level of Care Code 13438 Moderate MDM includes number and complexity of problems actively addressed during encounter, amount and/or complexity of data reviewed/ordered and described risk of complication, morbidity or mortality of management as d ocumented Diagnoses Peripheral vascular disease I73.9 Gas gangrene A48.0 Amputation of left great toe S98.112A Osteomyelitis M86.9 Diabetic peripheral neuropathy associated with type 2 diabetes mellitus E11.42
--- NOTE | 2023-07-16 09:30 | ANE.PACU2 ---
Inpatient post-anesthesia follow up: Vital signs: Temperature 98.7 F Pulse Rate 78 Respiratory Rate 17 Blood Pressure 129/81 Pulse Oximetry 95 Oxygen Delivery Me thod Room Air Oxygen Flow Rate 2 Fraction of Inspir ed Oxygen Hydration adequate: Yes Nausea and vomiting: No Pain level: 1 Mental status: Baseline
--- NOTE | 2023-07-16 09:59 | P.PN_ITS ---
Subjective Subjective: Patient doing well. Had podiatry procedure. Plan for ID evaluation Vitals/I&O/Wt Last Vital Signs Temp 98.7 F 07/16/23 09:44 Pulse 82 07/16/23 09:44 Resp 17 07/16/23 09:44 BP 111/69 07/16/23 09:44 Pulse Ox 94 07/16/23 09:44 O2 Del Method Room Air 07/16/23 09:44 O2 Flow Rate 6 07/16/23 09:29 07/15/23 07/16/23 07/16/23 22:59 06:59 14:59 Intake Total 580 / 1750 50 / 1800 95 / 95 Output Total 1450 / 1850 1300 / 3150 115 / 115 Balance -870 / -100 -1250 / -1350 -20 / -20 Physical Exam Narrative: GENERAL: Patient is alert, awake and oriented x3. [] NECK: No jugular vein distension. [] HEENT: No cyanosis. No icterus. No pallor. [] HEART: Regular S1 and S2. No murmur, rub or gallop. [] LUNGS: Clear to auscultate bilaterally. [] CENTRAL NERVOUS SYSTEM: Grossly nonfocal. [] EXTREMITIES: Dorsalis pedis is palpable. Dressing applied on left foot. Data 07/17/23 03:37 07/17/23 03:37 Micro: Microbiology 07/12/23 12:21 Gram Stain - Final Bone Tissue Culture - Final Acinetobacter baumannii/haemol Staphylococcus lugdunensis Strep agalactiae - (group b) A&P Assessment and plan (1) Amputation of left great toe: (2) Peripheral vascular disease: (3) Diabetic peripheral neuropathy associated with type 2 diabetes mellitus: Plan Patient is stable. On aspirin. Can restart plavix when OK per podiatry team. Thank you for involving us with care of this patient. Please call with q uestions. Attestations Medical Necessity Statement*: Care expected to cross 2 midnights. Coding Level of Care Code Acute Code for [facility] Diagnoses Amputation of left great toe S98.112A Peripheral vascular disease I73.9 Diabetic peripheral neuropathy associated with type 2 diabetes mellitus E11.42
[2023-07-16] MEDS: cefTRIAXone 2,000 MG in sodium chloride 0.9% (plus) 50 ML 100 MG IV (10:10)
--- NOTE | 2023-07-16 10:20 | PC.NURSE ---
Patient back in room post surgery. He is resting in bed. Reports no pain. Vitals are stable. Examined left foot with OR nurse. Dressing clean, dry and intact.
[2023-07-16 11:46] LABS: Glucose Point of Care 258 mg/dL (70-110)
[2023-07-16] MEDS: insulin lispro 100 unit/1 mL SUBCUT ×2 (11:52→17:24)
[2023-07-16 17:10] LABS: Glucose Point of Care 325 mg/dL (70-110)
[2023-07-16] MEDS: enoxaparin 40 mg/0.4 mL Syringe SUBCUT (17:24)
[2023-07-16 20:58] LABS: Glucose Point of Care 293 mg/dL (70-110)
[2023-07-17] VITALS (14 sets, daily range): BP systolic 124–153; BP diastolic 68–82; PULSE 54–89; RESP 16–22; TEMP 36.8–37; O2SAT 95–98
[2023-07-17 04:17] LABS: Basophils # 0.1 10^3/uL (0.0-0.1); Eosinophils # 0.2 10^3/uL (0.0-0.8); Eosinophils % 3.4 %; Lymphocytes # 1.4 10^3/uL (0.8-4.8); Lymphocytes % 23.6 %; Mean Corpuscular HGB Conc 33.1 g/dL (30-55); Mean Corpuscular Volume 84.4 fl (82-101); Mean Platelet Volume 8.5 fL (7.4-10.4); Monocytes # 0.4 10^3/uL (0.2-0.9); Monocytes % 6.7 %; Neutrophils # 3.81 10^3/uL (1.8-7.7); Neutrophils % 65.1 %; Nucleated Red Blood Cells % 0 %; Platelet Count 277 10^3/cmm (157-399); Red Blood Count 3.79 10^6/uL (3.85-5.65); Red Cell Distribution Width 12.1 % (12.1-15.1); White Blood Count 5.85 10^3/uL (3.29-11.43)
[2023-07-17 04:29] LABS: Anion Gap 13.2 (5-19); Blood Urea Nitrogen 14 mg/dL (8-23); Calcium 8.8 mg/dL (8.5-10.5); Carbon Dioxide 26 mmol/L (22-29); Chloride 99 mmol/L (98-107); Glucose 215 mg/dL (65-115); Osmolality Calculated 285 mOsm/kg (285-295); Potassium 4.2 mmol/L (3.5-5.1); Sodium 134 mmol/L (136-145)
[2023-07-17] MEDS: piperacillin-tazobactam 3.375 GM in sodium chloride 0.9% (plus) 50 ML IV (05:08)
[2023-07-17 06:04] LABS: Glucose Point of Care 244 mg/dL (70-110)
[2023-07-17] MEDS: insulin lispro 100 unit/1 mL SUBCUT ×3 (08:02→19:07)
[2023-07-17] MEDS: sennosides-docusate Tablet 1 TAB PO (08:03)
[2023-07-17] MEDS: aspirin 81 mg EC Tablet PO (08:03)
[2023-07-17] MEDS: clopidogrel 75 mg Tablet PO (08:03)
[2023-07-17] MEDS: cefTRIAXone 2,000 MG in sodium chloride 0.9% (plus) 50 ML 100 MG IV (08:04)
--- NOTE | 2023-07-17 10:48 | PM.PN ---
Subjective Subjective: vancomycin was discontinued Monday, Dr. Higgins is planning to use vancomycin along ceftriaxone, polymicrobial infection sensitive to oxacillin and cephalosporin, she will be consulted, Dr. Bhatia is stating that although he has cleared all the discolored bone margins he still concerned about future worsening considering his peripheral vascular disease Vitals/I&O/Wt Last Vital Signs Temp 98.6 F 07/17/23 07:54 Pulse 89 07/17/23 08:16 Resp 21 H 07/17/23 08:16 BP 141/72 07/17/23 08:16 Pulse Ox 98 07/17/23 08:16 O2 Del Method Room Air 07/17/23 08:16 O2 Flow Rate 6 07/16/23 09:29 07/16/23 07/17/23 07/17/23 22:59 06:59 14:59 Intake Total 50 / 725 550 / 1275 454 / 454 Output Total 950 / 1065 Balance -900 / -340 550 / 210 454 / 454 Physical Exam Narrative: Patient laying supine Awake and alert GCS 15, at the bedside Pleasant cooperative Currently doing well room air S1, S2 Data 07/17/23 03:37 07/17/23 03:37 Micro: Microbiology 07/11/23 16:41 Blood Culture - Final Blood NO GROWTH AFTER 5 DAYS 07/11/23 16:36 Blood Culture - Final Blood NO GROWTH AFTER 5 DAYS A&P Assessment and plan (1) Amputation of left great toe: (2) Peripheral vascular disease: (3) Gas gangrene: (4) Osteomyelitis: (5) Diabetic peripheral neuropathy associated with type 2 diabetes mellitus: Plan Gas gangrene, osteomyelitis Status post partial ray [id number] With delayed wound [id number] Polymicrobial bone cultures positive 07/12 Add vancomycin, continue ceftriaxone Discontinue Zosyn If no leukocytosis No sign of sepsis Peripheral vascular disease status postBalloon angioplasty 07/14 Continue aspirin and Plavix PICC line placed Patient will need ID consultation to follow-up on long-term outpatient IV antibiotics, Patient is medically cleared to be discharged home, will wait for Dr. Higgins to evaluate the patient, patient likely will be discharged home tomorrow Continue consistent carb diet Hyperglycemia noted No need to repeat labs, Attestations Medical Necessity Statement*: Discharge tomorrow Diagnoses Amputation of left great toe S98.112A Peripheral vascular disease I73.9 Gas gangrene A48.0 Osteomyelitis M86.9 Diabetic peripheral neuropathy associated with type 2 diabetes mellitus E11.42
[2023-07-17] MEDS: vancomycin 1,250 MG/250 ML PIGGYBACK 250 MG IV ×2 (11:11→23:20)
--- NOTE | 2023-07-17 11:22 | P.PN_ITS ---
Subjective Subjective: Patient seen bedside this AM, 1 day status post delayed closure left foot. is bedside. Hopeful to see infectious disease tomorrow, plans for PICC line. Patient denies any acute events overnight. Tolerating regular diet. Patient denies any subjective nausea, vomiting, fever, chills, shortness of breath or chest pain. Vitals/I&O/Wt Last Vital Signs Temp 98.3 F 07/17/23 11:14 Pulse 69 07/17/23 11:13 Resp 20 H 07/17/23 11:13 BP 151/81 07/17/23 11:13 Pulse Ox 96 07/17/23 11:13 O2 Del Method Room Air 07/17/23 11:13 O2 Flow Rate 6 07/16/23 09:29 07/16/23 07/17/23 07/17/23 22:59 06:59 14:59 Intake Total 50 / 725 550 / 1275 454 / 454 Output Total 950 / 1065 200 / 200 Balance -900 / -340 550 / 210 254 / 254 Physical Exam Narrative: GENERAL: Patient is alert and oriented ?3 and in no acute distress. The following is a focused bilateral lower extremity exam. His is bedside. VASCULAR: Dorsalis pedis decreased bilaterally. Posterior tibial arteries decreased bilaterally. Calf is supple and nontender proximally and distally. Decreased pedal hair growth. Edema to the left forefoot medially. NEUROLOGICAL: Protective sensation intact neuro/10 sites, tested with [place] monofilament to bilateral feet. DERMATOLOGICAL: Wound at the left medial malleolus measures1.3 cm x 1.1 cm x 0.2 cm with base, does not probe to capsule or bone. Incision is coapted to the left delayed closure site with sutures intact, no dehiscence and no aguila- incisional erythema, warmth or drainage. No active bleeding. MUSCULOSKELETAL: No soft tissue crepitus on palpation of the left foot and ankle. Pes planus foot type bilaterally. Contracture of lesser digits 2 through 5 bilaterally with sagittal plane dominance, bunion bilaterally. Data 07/17/23 03:37 07/17/23 03:37 Micro: Microbiology 07/11/23 16:41 Blood Culture - Final Blood NO GROWTH AFTER 5 DAYS 07/11/23 16:36 Blood Culture - Final Blood NO GROWTH AFTER 5 DAYS A&P Assessment and plan (1) Amputation of left great toe: (2) Peripheral vascular disease: (3) Gas gangrene: (4) Osteomyelitis: (5) Diabetic peripheral neuropathy associated with type 2 diabetes mellitus: Plan Patient is status post partial ray resection secondary to osteomyelitis and soft tissue emphysema left foot medial column. Date of operation 07/12/2023. Delayed closure performed 07/16/2023. Cultures significant for actinobacter, staph lugdunensis and strep B Plans for PICC line, infectious disease consultation. New dry sterile dressing applied, silver alginate to the medial malleolus wound. Adaptic, sterile 4 x 4's, Kerlix and tape to the left foot. Nonweightbearing to the left foot, heel touch only for transfers. Elevate left foot while resting. We will continue to round while patient is admitted to the hospital, planning on changing his dressing tomorrow a.m. Follow up with podiatry this Monday 10:30 AM Attestations Medical Necessity Statement*: Left diabetic foot infection Coding Level of Care Code Acute Code for [facility] Diagnoses Amputation of left great toe S98.112A Peripheral vascular disease I73.9 Gas gangrene A48.0 Osteomyelitis M86.9 Diabetic peripheral neuropathy associated with type 2 diabetes mellitus E11.42
[2023-07-17 11:26] LABS: Glucose Point of Care 309 mg/dL (70-110)
[2023-07-17] MEDS: insulin glargine 100 units/1 mL 30 UNIT SUBCUT ×2 (11:44→19:06)
--- NOTE | 2023-07-17 11:54 | PC.SOCIAL ---
IMM Update pg 2 of IMM updated and reviewed w/ patient. Copy provided and Copy in chart dated, and initialed.
[2023-07-17 17:02] LABS: Glucose Point of Care 385 mg/dL (70-110)
[2023-07-17] MEDS: enoxaparin 40 mg/0.4 mL Syringe SUBCUT (19:06)
[2023-07-17 21:38] LABS: Glucose Point of Care 351 mg/dL (70-110)
[2023-07-18] VITALS (7 sets, daily range): BP systolic 126–151; BP diastolic 71–83; PULSE 62–87; RESP 15–23; TEMP 36.9–37.2; O2SAT 95–98
[2023-07-18 06:15] LABS: Glucose Point of Care 168 mg/dL (70-110)
--- NOTE | 2023-07-18 07:12 | PM.PN ---
Subjective Subjective: Patient seen bedside this AM, 2 days status post delayed closure left foot. is bedside. Patient denies any acute events overnight. Tolerating regular diet. Patient denies any subjective nausea, vomiting, fever, chills, shortness of breath or chest pain. Vitals/I&O/Wt Last Vital Signs Temp 98.9 F 07/18/23 04:00 Pulse 62 07/18/23 05:52 Resp 20 H 07/18/23 04:00 BP 126/71 07/18/23 04:00 Pulse Ox 97 07/18/23 04:00 O2 Del Method Room Air 07/18/23 04:00 O2 Flow Rate 6 07/16/23 09:29 07/17/23 07/18/23 07/18/23 22:59 06:59 14:59 Intake Total 360 / 1564 250 / 1814 Output Total 1430 / 1630 1150 / 2780 Balance -1070 / -66 -900 / -966 Physical Exam Narrative: GENERAL: Patient is alert and oriented ?3 and in no acute distress. The following is a focused bilateral lower extremity exam. His is bedside. VASCULAR: Dorsalis pedis decreased bilaterally. Posterior tibial arteries decreased bilaterally. Calf is supple and nontender proximally and distally. Decreased pedal hair growth. Edema to the left forefoot medially. NEUROLOGICAL: Protective sensation intact neuro/10 sites, tested with [place] monofilament to bilateral feet. DERMATOLOGICAL: Wound at the left medial malleolus measures1.3 cm x 1.1 cm x 0.2 cm with base, does not probe to capsule or bone. Incision is coapted to the left delayed closure site with sutures intact, no dehiscence and no aguila-incisional erythema, warmth or drainage. No active bleeding. MUSCULOSKELETAL: No soft tissue crepitus on palpation of the left foot and ankle. Pes planus foot type bilaterally. Contracture of lesser digits 2 through 5 bilaterally with sagittal plane dominance, bunion bilaterally. Data 07/17/23 03:37 07/17/23 03:37 A&P Assessment and plan (1) Amputation of left great toe: (2) Peripheral vascular disease: (3) Gas gangrene: (4) Osteomyelitis: (5) Diabetic peripheral neuropathy associated with type 2 diabetes mellitus: Plan Patient is status post partial ray resection secondary to osteomyelitis and soft tissue emphysema left foot medial column. Date of operation 07/12/2023. Delayed closure performed 07/16/2023. Cultures significant for actinobacter, staph lugdunensis and strep B Plans for PICC line, infectious disease consultation. New dry sterile dressing applied, silver alginate to the medial malleolus wound. Adaptic, sterile 4 x 4's, Kerlix and tape to the left foot. Nonweightbearing to the left foot, heel touch only for transfers. Elevate left foot while resting. Okay for discharge from podiatry standpoint. We will continue to round while patient is admitted to the hospital, planning on changing his dressing tomorrow a.m. Follow up with podiatry this Monday 10:30 AM Attestations Medical Necessity Statement*: Left diabetic foot infection Coding Level of Care Code Acute Code for [facility] Diagnoses Amputation of left great toe S98.112A Peripheral vascular disease I73.9 Gas gangrene A48.0 Osteomyelitis M86.9 Diabetic peripheral neuropathy associated with type 2 diabetes mellitus E11.42
--- NOTE | 2023-07-18 08:10 | PM.CONSULT ---
Providers/Reason For Consult Consulting Physician/Specialty*: Karen Higgins MD/ Infectious Disease Reason for Consult*: osteomyelitis Requesting Physician: Bhavik Nugent MD Attending Physician: Bhavik Nugent MD Primary Care Provider: Caitlin Beltran MD History of Present Illness History of Present Illness Luther Lindquist is a 77 year old male with a past medical history of diabetic neuropathy, diabetic foot ulcer who was admitted on July 11 with fever and chills. Review of wound care notes show that patient establish care with wound care clinic on July 06, 2023 after he developed a blister on his foot. His left foot CT showed soft tissue swelling with ulceration at the medial plantar first metatarsal head level. There were diffuse cystic changes noted at the time without underlying osteomyelitis. He was prescribed doxycycline. NIKOLAI of the foot was at 1.2. Assessment of the wound revealed a large defect of the left medial and that extended to the dorsal and plantar surfaces between the great and second toe. Was extending down into the fat layer. There was noted erythema and warmth with overall edematous left foot. Tissue culture was obtained on this day. He was placed on doxycycline orally. By July 11 he started to develop a fever of 101 Fahrenheit. On podiatry assessment in the state the plantar medial aspect probe down to the proximal and distal phalanx of the left hallux as well as to the sesamoids of the first metatarsal head. There was purulent drainage and foul odor from the left forefoot. On 1024 he underwent partial first ray amputation of the left foot. Left great toe was sent to microbiology for Gram stain culture and sensitivity. Intraoperatively the left forefoot showed exposed sesamoids which were spears with heavy purulence. Devitalized bone was encountered at the level of the first metatarsal. He has also been evaluated by cardiology as Doppler ultrasound showed severe peripheral vascular disease with occlusion of the anterior tibial/dorsalis pedis artery and severe disease of the posterior tibial artery. He underwent a peripheral angiogram and was found to have 100% occlusion of the anterior tibial artery with limited blood flow status post successful revascularization with balloon angioplasty establishing blood flow. on 07/16 he underwent delayed closure left foot. Afberile since 07/13. No leukocytosis Review of Systems General: Reports: 10 or more systems reviewed and unremarkable except in HPI and below Const: Denies: fever(s), chills or body aches Eyes: Denies: change in vision, blurry vision or photophobia ENMT: Reports: hoarseness; Denies: throat pain, enlarged tonsils, odynophagia or nasal congestion Card: Denies: chest pain, palpitations, irregular heart rhythm, edema, swelling of feet/ankles, lightheadedness, pre-syncope, dyspnea on exertion or orthopnea Resp: Denies: dyspnea, productive cough, non-productive cough, wheezing, stridor, pain on inspiration, change in phlegm color, hemoptysis or chest congestion GI: Denies: abdominal pain, nausea, vomiting, hematemesis, coffee ground emesis, dysphagia, heartburn, diarrhea, constipation, GI cramping, change in stool character, hematochezia or melena : Denies: flank pain, dysuria, urinary frequency, urinary urgency, urinary hesitancy or hematuria Musc: Denies: neck pain, back pain, extremity pain, joint swelling, joint warmth or deformity Neuro: Denies: headache(s), numbness in extremities, weakness in extremities, sensory changes, difficulty walking, frequent falls, dizziness, vertigo, behavioral changes, Slurred speech present or seizure-like activity Psych: Denies: anxiety, depression, suicidal ideation or homicidal ideation Endo: Denies: polyuria, polydipsia, tired all the time, cold intolerance or hot flashes Cristobal/Lymph: Denies: easy bruising or easy bleeding Medications/Allergies Home Medications Medication Instructions Recorded Confirmed Last Taken Type allopurinol 300 mg tablet 300 mg PO DAILY 05/13/21 07/12/23 Unknown History atenolol 100 mg tablet 50 mg PO DAILY 05/13/21 07/12/23 Unknown History glipizide 10 mg tablet 20 mg PO BID 05/13/21 07/12/23 Unknown History insulin glargine 100 unit/mL 50 unit SUBCUT BID 05/13/21 07/12/23 Unknown History subcutaneous solution salicylic acid-sulfur 2 %-2 % 1 applic topical DAILY 05/13/21 07/12/23 Unknown History shampoo (Sebex) fluconazole 150 mg tablet 300 mg PO .once per week 6 months 09/27/22 07/12/23 Unknown Rx #48 tabs folic acid 1 mg tablet 1 mg PO DAILY #30 tabs 11/08/22 07/12/23 Unknown Rx pyridoxine (vitamin B6) 50 mg 50 mg PO DAILY #30 tabs 11/08/22 07/12/23 Unknown Rx tablet Shoes with custom inserts #1 ea 04/11/23 07/12/23 Unknown Rx cyanocobalamin (vitamin B-12) 1,000 mcg PO DAILY #60 caps 04/11/23 07/12/23 Unknown Rx 1,000 mcg capsule empagliflozin 25 mg tablet 25 mg PO DAILY 07/12/23 07/12/23 Unknown History fenofibrate 160 mg tablet 160 mg PO DAILY 07/12/23 07/12/23 Unknown History ferrous sulfate 325 mg (65 mg 325 mg PO DAILY 07/12/23 07/12/23 Unknown History iron) tablet lisinopril 20 mg tablet 10 mg PO DAILY 07/12/23 07/12/23 Unknown History metformin 500 mg tablet 1,000 mg PO BID 07/12/23 07/12/23 Unknown History omega 3-hgc-zat-fish oil 300 1 cap PO DAILY 07/12/23 07/12/23 Unknown History mg-1,000 mg capsule (Fish Oil) Allergies Allergy/AdvReac Type Severity Reaction Status Date / Time No Known Allergies Allergy Verified 07/11/23 16:13 Current Medications Generic Name Dose Route Start Last Admin Trade Name Fawn PRN Reason Stop Dose Admin Acetaminophen 500 mg 07/11/23 20:07 07/11/23 23:20 Acetaminophen 500 Mg Tablet PO 500 mg Q4H PRN Administration fever Aspirin 81 mg 07/14/23 11:45 07/17/23 08:03 Aspirin 81 Mg Ec Tablet PO 81 mg DAILY JULISA Administration Clopidogrel Bisulfate 75 mg 07/17/23 09:00 07/17/23 08:03 Clopidogrel 75 Mg Tablet PO 75 mg DAILY JULISA Administration Enoxaparin Sodium 40 mg 07/16/23 19:00 07/17/23 19:06 Enoxaparin 40 Mg/0.4 Ml Syringe SUBCUT 40 mg Q24H JULISA Administration Ceftriaxone Sodium 2,000 mg/ 50 mls @ 100 mls/hr 07/16/23 08:15 07/17/23 08:54 Sodium Chloride IV Infused Q24H JULISA Infusion Protocol Vancomycin/PEG/NADA/Lysine/Water 1,250 mg in 250 mls @ 250 mls/hr 07/17/23 11:00 07/18/23 00:33 Vancocin IV Infused Q12H JULISA Infusion Insulin Glargine 30 unit 07/17/23 11:30 07/17/23 19:06 Insulin Glargine 100 Units/1 Ml SUBCUT 30 unit BID JULISA Administration Insulin Human Lispro 0 unit 07/11/23 20:07 07/17/23 19:07 Insulin Lispro 100 Unit/1 Ml SUBCUT 14 unit TIDWM JULISA Administration Protocol Senna/Docusate Sodium 1 tab 07/12/23 09:00 07/17/23 08:03 Sennosides-Docusate Tablet PO 1 tab DAILY JULISA Administration PFSH Acute PFSH: Medical History Diabetes Gout HTN (hypertension) Hyperlipidemia Prostate cancer Surgical History History of Achilles tendon repair left foot History of prostate biopsy History of replacement of both shoulder joints Previous back surgery Family History Father Cancer skin Other Diabetes Hyperlipidemia Hypertension Denies family history of CAD (coronary artery disease) Clotting disorder Dementia Psychiatric illness Chronic kidney disease (CKD) Suicide Anesthesia complication Bleeding disorder Lung disease Stroke Social History Smoking and tobacco/nicotine status: never used tobacco/nicotine Alcohol intake: current Alcohol intake frequency: holidays/special occasions only Vitals/I&O/Wt Last Vital Signs Temp 98.9 F 07/18/23 04:00 Pulse 62 07/18/23 07:33 Resp 20 H 07/18/23 07:33 BP 126/71 07/18/23 04:00 Pulse Ox 97 07/18/23 07:33 O2 Del Method Room Air 07/18/23 07:33 O2 Flow Rate 6 07/16/23 09:29 07/17/23 07/18/23 07/18/23 22:59 06:59 14:59 Intake Total 360 / 1564 250 / 1814 Output Total 1430 / 1630 1150 / 2780 Balance -1070 / -66 -900 / -966 Physical Exam Narrative: General: No acute distress, AO x3 HEENT: PERRLA, pupils bilaterally equal and reactive, pallors not present Chest: Normal vesicular breath sounds, no added sounds, equal good air entry bilaterally CVS: S1-S2 regular, no murmurs, no tachycardia, no gallops, no rubs Abdomen: Soft, nontender, no organomegaly, bowel sounds present Neuro: No focal deficits, no facial deformity, AO x3, power 5/5 in all limbs Data 07/17/23 03:37 07/17/23 03:37 Other Labs: NAME: Luther Lindquist LOC: [facility] #: [id number] AGE/SX: 77/M ROOM: 105 RE07/11/[address]: Bhavik Nugent MD : 1945 BED: 1 DIS: FAX #: STATUS: ADM IN TLOC: Spec #: [id number] Gurwinder: 07/12/231221 Status: COMP Req #: [id number] Recd: 07/12/[address]: Cortez Bhatia DPGonzalez Src: Bone SpDesc: Ordered: Tissue Cult GS Procedure Result Verified Site Gram Stain Final 07/12/23-161 Result RARE WHITE BLOOD CELLS FEW GRAM POSITIVE COCCI IN PAIRS Tissue Culture Final 07/15/23-180 Organism 1 Acinetobacter baumannii/haemol Growth HEAVY Organism 2 Staphylococcus lugdunensis Growth HEAVY Organism 3 Strep agalactiae - (group b) Growth MODERATE Strep Typing Strep Typing FEW MIXED SUPERFICIAL JHONATAN ON DAY 3 Aci bau/hawa lunsford M.I.C. RX M.I.C. RX --------- ------ --------- ------ * Amikacin <=16 S * Amoxicillin/Clavulanate <=4/2 S * Ampicillin >8 R * Ampicillin/Sulbactam <=8/4 S * Cefepime <=8 S * Ceftriaxone 8 S <=8 S * Ciprofloxacin <=1 S <=1 S * Clindamycin <=0.5 S * Erythromycin <=0.5 S * Gentamicin <=2 S <=4 S * Levofloxacin <=2 S <=1 S * Linezolid 2 S * Oxacillin 1 S * Penicillin >8 R * Rifampin <=1 S * Tetracycline >8 R * Trimethoprim/Sulfamethoxazole >2/38 R <=0.5/9.5 S Vancomycin 1 S Daptomycin <=0.5 S Tissue Culture Preliminary (changed) 07/15/23-1636 Organism 1 Gram Negative Rods Organism 2 Coag negative Staphylococcus Organism 3 Strep agalactiae - (group b) Growth MODERATE Strep Typing Strep Typing FEW MIXED SUPERFICIAL JHONATAN ON DAY 3 Tissue Culture Preliminary (changed) 07/14/23-1705 Organism 1 Gram Negative Rods Organism 2 Coag negative Staphylococcus FEW MIXED SUPERFICIAL JHONATAN ON DAY 2 Tissue Culture Preliminary (changed) 07/13/23 FEW MIXED SUPERFICIAL JHONATAN ON DAY 1 NAME: Luther Lindquist LOC: [facility] U #: [id number] AGE/SX: 77/M ROOM: [facility] RE07/11/[address]: Bhavik Nugent MD : 1945 BED: 1 DIS: FAX #: STATUS: ADM IN TLOC: Spec #: [id number] Gurwinder: 07/11/23 Status: COMP Req #: [id number] Recd: 07/11/[address]: Sandeep Nath DO Src: Blood SpDesc: Ordered: Bcult Procedure Result Verified Site Blood Culture Final 07/16/23 NO GROWTH AFTER 5 DAYS Blood Culture Preliminary (changed) 07/12/23 NEGATIVE TO DATE Blood Culture Preliminary (changed) 07/11/23 SPECIMEN COLLECTED NAME: Luther Lindquist LOC: [facility] U #: [id number] AGE/SX: 77/M ROOM: RE07/06/[address]: Jadyn Fernandes : 1945 BED: DIS: FAX #: STATUS: DEP AMB TLOC: Spec #: [id number] Gurwinder: 07/06/23 Status: COMP Req #: [id number] Recd: 07/06/[address]: Dom, Jadyn HOME HEALTH OCCUPATIONAL THERAPIST Src: Foot SpDesc: Left Ordered: Tissue Cult GS Procedure Result Verified Site Gram Stain Final 07/07/23-1754 Result RARE GRAM POSITIVE COCCI IN PAIRS FEW GRAM NEGATIVE RODS Tissue Culture Final 07/11/23-1140 Organism 1 Strep agalactiae - (group b) Growth HEAVY Strep Typing Strep Typing MODERATE MIXED SUPERFICIAL JHONATAN DAY 4 S aga(gr b M.I.C. RX --------- ------ * Ampicillin 0.12 S * Azithromycin <=0.25 S * Cefepime <=0.25 S * Ceftriaxone <=0.25 S * Clindamycin <=0.06 S * Erythromycin <=0.06 S * Levofloxacin 1 S * Penicillin 0.06 S * Tetracycline >4 R Vancomycin 0.5 S Tissue Culture Preliminary (changed) 07/10/23-0837 Organism 1 Strep agalactiae - (group b) Growth HEAVY Strep Typing Strep Typing MODERATE MIXED SUPERFICIAL JHONATAN DAY 3 RESULTS TO FOLLOW Tissue Culture Preliminary (changed) 07/09/23-1453 Organism 1 Strep agalactiae - (group b) Growth MODERATE Strep Typing Strep Typing MODERATE MIXED SUPERFICIAL JHONATAN DAY 2 Tissue Culture Preliminary (changed) 07/08/23-1036 Organism 1 Strep agalactiae - (group b) Growth MODERATE Strep Typing Strep Typing A&P Assessment and plan (1) Amputation of left great toe: (2) Peripheral vascular disease: (3) Gas gangrene: (4) Osteomyelitis: (5) Diabetic peripheral neuropathy associated with type 2 diabetes mellitus: Plan 77-year-old male with diabetes mellitus, peripheral neuropathy, peripheral vascular disease status post revascularization of the anterior tibial artery on this current admission presenting with worsening foot ulcer and osteomyelitis of the left forefoot. Necrotic bone encountered intraoperatively including sesamoid, first metatarsal head and his great toe. Status post first ray amputation and debridement of the remaining forefoot. Cultures polymicrobial from amputated bone, noted above. Currently patient is on treatment with ceftriaxone and vancomycin. Recommend discharge on ceftriaxone 1 g IV every 24 hours and vancomycin 1.25 g every 12 hours for 6 weeks (07/12-08/23) Weekly labs including CBC, LFT, creat, vanc trough and crp while on above abx - fax to ID clinic f/up close outpatient with podiatry f/up ID clinic Aug 24 Consult Attestations Medical Necessity Statement: per admitting Coding Level of Care Code Acute Code for Chg Fwd High MDM includes number and complexity of problems actively addressed during encounter, amount and/or complexity of data reviewed/ordered and described risk of complication, morbidity or mortality of management as documented Diagnoses Amputation of left great toe S98.112A Peripheral vascular disease I73.9 Gas gangrene A48.0 Osteomyelitis M86.9 Diabetic peripheral neuropathy associated with type 2 diabetes mellitus E11.42
[2023-07-18] MEDS: cefTRIAXone 2,000 MG in sodium chloride 0.9% (plus) 50 ML 100 MG IV (08:34)
[2023-07-18] MEDS: aspirin 81 mg EC Tablet PO (08:35)
[2023-07-18] MEDS: sennosides-docusate Tablet 1 TAB PO (08:35)
[2023-07-18] MEDS: insulin glargine 100 units/1 mL 30 UNIT SUBCUT (08:35)
[2023-07-18] MEDS: clopidogrel 75 mg Tablet PO (08:35)
[2023-07-18] MEDS: insulin lispro 100 unit/1 mL SUBCUT ×2 (08:36→12:47)
--- NOTE | 2023-07-18 11:12 | P.DS_ITS ---
Discharge Providers Date of Admission: 07/11/23 20:07 Date of Discharge: July 18, 2023 Attending Provider at Admission: Bhavik Nugent MD Attending Provider at Discharge: Bhavik Nugent MD Primary Care Provider: Caitlin Beltran MD Diagnoses at Discharge Discharge Diagnosis (1) Amputation of left great toe: Status: Acute (2) Peripheral vascular disease: Status: Acute (3) Diabetic peripheral neuropathy associated with type 2 diabetes mellitus: Status: Acute Reason for Visit Reason for Visit: left foot wound/diabetic Hospital Course Hospital Course This data has been taken from the ID consultation note which is showing detailed information Luther Lindquist is a 77 year old male with a past medical history of diabetic neuropathy, diabetic foot ulcer who was admitted on July 11 with fever and chills.? Review of wound care notes show that patient establish care with wound care clinic on July 06, 2023 after he developed a blister on his foot.? His left foot CT showed soft tissue swelling with ulceration at the medial plantar first metatarsal head level.? There were diffuse cystic changes noted at the time without underlying osteomyelitis.? He was prescribed doxycycline.? NIKOLAI of the foot was at 1.2.? Assessment of the wound revealed a large defect of the left medial and that extended to the dorsal and plantar surfaces between the great and second toe.? Was extending down into the fat layer.? There was noted erythema and warmth with overall edematous left foot.? Tissue culture was obtained on this day.? He was placed on doxycycline orally. By July 11 he started to develop a fever of 101 Fahrenheit.? On podiatry assessment in the state the plantar medial aspect probe down to the proximal and distal phalanx of the left hallux as well as to the sesamoids of the first metatarsal head.? There was purulent drainage and foul odor from the left forefoot. On 07/12 he underwent partial first ray amputation of the left foot.? Left great toe was sent to microbiology for Gram stain culture and sensitivity.? Intraoperatively the left forefoot showed exposed sesamoids which were spears with heavy purulence.? Devitalized bone was encountered at the level of the first metatarsal.? He has also been evaluated by cardiology as Doppler ultrasound showed severe peripheral vascular disease with occlusion of the anterior tibial/dorsalis pedis artery and severe disease of the posterior tibial artery.? He underwent a peripheral angiogram and was found to have 100% occlusion of the anterior tibial artery with limited blood flow status post successful revascularization with balloon angioplasty establishing blood flow. on 07/16 he underwent delayed closure left foot. Afberile since 07/13 At the time of discharge patient will get 6 weeks of IV antibiotics with vancomycin 1.25 g every 12 hours along ceftriaxone 1 g daily 07/12 till 08/23, he will follow-up with Dr. Bhatia and Dr. 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 Moderate-severe disease in the anterior tibial artery with a poststenotic monophasic waveform in the dorsalis pedis artery. Laboratory Results WBC 5.85 10^3/uL (3.29-11.43) 07/17/23 03:37 RBC 3.79 10^6/uL (3.85-5.65) L 07/17/23 03:37 Hgb 10.60 g/dL (11.27-16.99) L 07/17/23 03:37 Hct 32.0 % (37-53) L 07/17/23 03:37 MCV 84.4 fl (82-101) 07/17/23 03:37 MCH 28.0 pg (27-33) 07/17/23 03:37 MCHC 33.1 g/dL (30-55) 07/17/23 03:37 RDW 12.1 % (12.1-15.1) 07/17/23 03:37 Plt Count 277 10^3/cmm (157-399) 07/17/23 03:37 MPV 8.5 fL (7.4-10.4) 07/17/23 03:37 Neut % (Auto) 65.1 % 07/17/23 03:37 Lymph % (Auto) 23.6 % 07/17/23 03:37 [place] % (Auto) 6.7 % 07/17/23 03:37 Eos % (Auto) 3.4 % 07/17/23 03:37 Baso % (Auto) 1.0 % 07/17/23 03:37 Neut # (Auto) 3.81 10^3/uL (1.8-7.7) 07/17/23 03:37 Lymph # (Auto) 1.4 10^3/uL (0.8-4.8) 07/17/23 03:37 [place] # (Auto) 0.4 10^3/uL (0.2-0.9) 07/17/23 03:37 Eos # (Auto) 0.2 10^3/uL (0.0-0.8) 07/17/23 03:37 Baso # (Auto) 0.1 10^3/uL (0.0-0.1) 07/17/23 03:37 Nucleated RBC % (auto) 0 % 07/17/23 03:37 Nucleated RBCs # 0.0 /100WBC 07/17/23 03:37 ESR 17 mm/hr (0-10) H 07/11/23 16:36 APTT 31.6 SECONDS (23.9-36.7) 07/14/23 14:00 Sodium 134 mmol/L (136-145) L 07/17/23 03:37 Potassium 4.2 mmol/L (3.5-5.1) 07/17/23 03:37 Chloride 99 mmol/L (98-107) 07/17/23 03:37 Carbon Dioxide 26 mmol/L (22-29) 07/17/23 03:37 Anion Gap 13.2 (5-19) 07/17/23 03:37 BUN 14 mg/dL (8-23) 07/17/23 03:37 Creatinine 1.1 mg/dL (0.7-1.2) 07/17/23 03:37 GFR Calculation Not Reportable 07/17/23 03:37 Glucose 215 mg/dL (65-115) H 07/17/23 03:37 POC Glucose 168 mg/dL (70-110) H 07/18/23 06:12 Estimat Average Glucose 203 07/11/23 16:36 Hemoglobin A1c 8.7 % (4.0-6.0) H 07/11/23 16:36 Calculated Osmolality 285 mOsm/kg (285-295) 07/17/23 03:37 Lactic Acid 1.4 mmol/L (0.5-2.2) 07/11/23 16:36 Calcium 8.8 mg/dL (8.5-10.5) 07/17/23 03:37 Phosphorus 3.7 mg/dL (2.5-4.5) 07/12/23 05:20 Magnesium 2.3 mg/dL (1.7-2.3) 07/12/23 05:20 C-Reactive Protein 155.1 mg/L (0.0-4.9) H 07/12/23 05:20 Procalcitonin 0.19 ng/mL (0-0.5) 07/11/23 16:36 Urine Color Yellow (Yellow) 07/11/23 19:54 Urine Appearance Clear (CLEAR) 07/11/23 19:54 Urine pH 5 (5-7) 07/11/23 19:54 Ur Specific [place] 1.015 (1.005-1.030) 07/11/23 19:54 Urine Protein Neg (Negative) 07/11/23 19:54 Urine Glucose (UA) 4+ (Normal) H 07/11/23 19:54 Urine Ketones Negative (Negative) 07/11/23 19:54 Urine Blood Neg (Negative) 07/11/23 19:54 Urine Nitrate Negative (Negative) 07/11/23 19:54 Urine Bilirubin Neg (Negative) 07/11/23 19:54 Urine Urobilinogen Norm mg/dL (Negative) 07/11/23 19:54 Ur Leukocyte Esterase Negative (Negative) 07/11/23 19:54 Vancomycin Trough 10.7 ug/mL (10-15) 07/14/23 22:11 Coronavirus 229E (PCR) Not detected (NOT DETECT) 07/11/23 17:04 SARS-CoV-2 (PCR) Not detected (NOT DETECT) 07/11/23 17:04 Vitals Last Vital Signs Temp 98.5 F 07/18/23 08:38 Pulse 87 07/18/23 08:38 Resp 23 H 07/18/23 08:38 BP 135/75 07/18/23 08:38 Pulse Ox 96 07/18/23 08:38 O2 Del Method Room Air 07/18/23 08:38 O2 Flow Rate 6 07/16/23 09:29 Discharge Plan Discharge Patient Disposition: Home Condition: Stable Prescriptions: New ceftriaxone 1 gram recon soln 1 g IV DAILY 42 Days Qty: 25 0RF vancomycin 1.25 gram recon soln 1.25 g IV Q12H 42 Days Qty: 10 0RF atorvastatin 40 mg tablet 40 mg PO DAILY Qty: 90 2RF aspirin 81 mg tablet,delayed release (DR/EC) 81 mg PO DAILY Qty: 90 1RF clopidogrel [Plavix] 75 mg tablet 75 mg PO DAILY Qty: 90 0RF Continued allopurinol 300 mg tablet 300 mg PO DAILY insulin glargine 100 unit/mL solution 50 unit SUBCUT BID Sebex 2-2 % shampoo 1 applic topical DAILY Rx Instructions: massage into wet scalp; leave on for 5 mins ; rinse; repeat application fluconazole 150 mg tablet 300 mg PO .once per week 180 Days Qty: 48 0RF pyridoxine (vitamin B6) 50 mg tablet 50 mg PO DAILY Qty: 30 3RF folic acid 1 mg tablet 1 mg PO DAILY Qty: 30 3RF cyanocobalamin (vitamin B-12) 1,000 mcg capsule 1,000 mcg PO DAILY Qty: 60 5RF (DME) Shoes with custom inserts See Rx Instructions .Route .MEDSUPPLY Qty: 1 0RF Rx Instructions: As directed metformin 500 mg Tablet 1,000 mg PO BID ferrous sulfate 325 mg (65 mg iron) Tablet 325 mg PO DAILY fenofibrate 160 mg Tablet 160 mg PO DAILY Fish Oil 300-1,000 mg Capsule 1 cap PO DAILY empagliflozin 25 mg Tablet 25 mg PO DAILY Changed lisinopril 20 mg Tablet 30 mg PO DAILY Qty: 90 0RF Discontinued atenolol 100 mg tablet 50 mg PO DAILY glipizide 10 mg tablet 20 mg PO BID Discharge Orders: Discharge Order (Routine); Ordered 07/18/23 Ordered By: Bhavik Nugent Referrals: [facility] [Provider Group] - 08/24/23 Cortez Bhatia DPM [Physician] - 07/21/23 10:30 am (you have an appointment on Saturday 07/21 at 1030 with Doctor ) Kalia Phan M.D [Physician] - (Your Dr. Phan follow up appointment will be scheduled during your Millicent Carpenter appointment. Thank you.) Caitlin Beltran MD [Primary Care Provider] - 07/26/23 2:15 pm Millicent Carpenter FNP [Nurse Practitioner] - 07/25/23 10:30 am Patient Instructions: Peripheral Vascular Angioplasty (DC), Opioid Safety, Post Angiogram Home Care Instructions Activity Restrictions/Additional Instructions: Orders from Dr. Bhatia -Nonweightbearing left foot, heel touch only for transfers with postop shoe or cam boot to the left lower extremity. -Elevate left foot while resting Once daily dressing change left foot * Betadine wet-to-dry utilizing 4 x 4 gauze, 4 inch Kerlix and tape Once daily dressing change left ankle * Silver alginate with 4 x 4 gauze, Kerlix and tape. Follow-up in podiatry clinic this 07/21/2023 at 10:30 AM. Discharge Attestations Time Spent in Discharge Care*: greater than 30 min Quality Metrics Clinical Quality Measures [ No reported AMI, CVA or VTE this stay] Coding Level of Care Code Acute Code for Chg Fwd Diagnoses Amputation of left great toe S98.112A Peripheral vascular disease I73.9 Diabetic peripheral neuropathy associated with type 2 diabetes mellitus E11.42
[2023-07-18] MEDS: vancomycin 1,250 MG/250 ML PIGGYBACK 250 MG IV (11:14)
[2023-07-18 11:25] LABS: Glucose Point of Care 268 mg/dL (70-110)
--- NOTE | 2023-07-18 16:17 | PC.NURSE ---
Discharge Note Patient discharged to home with home health services with IV administration via private vehicle accompanied by . Discharge instructions reviewed with patient and/or development representative. Mobile pharmacy medications and/or prescriptions provided. Belongings/home medications returned.
== END 2023-07-18 14:59 | disposition home health service (06) | DRG 616 ==
LOC: ER 16:52 → MEDSURG 18:39 → CSU 07-13 16:35 → ICU 07-14 04:22 → CSU 07-14 15:56
PROVIDERS: Internal Medicine; Podiatrist Foot & Ankle Surgery; Admitting Provider Internal Medicine; Emergency Provider Family Medicine; PCP Family Medicine; Visit Provider Internal Medicine
PROC: (CPT 28810; principal; 2023-07-12 11:40)
PROC: 047Q3ZZ Dilation of Left Anterior Tibial Artery, Percutaneous Approach (ICD-10-PCS; principal; 2023-07-14 07:00)
PROC: 047Q3ZZ Dilation of Left Anterior Tibial Artery, Percutaneous Approach (ICD-10-PCS; 2023-07-14 07:00)
PROC: 0JQR0ZZ Repair Left Foot Subcutaneous Tissue and Fascia, Open Approach (ICD-10-PCS; CPT 13160; principal; 2023-07-16 08:50)
DX: E11.69 Type 2 diabetes mellitus with other specified complication (principal); A48.0 Gas gangrene; E11.52 Type 2 diabetes mellitus with diabetic peripheral angiopathy with gangrene; L97.424 Non-pressure chronic ulcer of left heel and midfoot with necrosis of bone; M86.9 Osteomyelitis, unspecified; L03.116 Cellulitis of left lower limb; E11.621 Type 2 diabetes mellitus with foot ulcer; E11.42 Type 2 diabetes mellitus with diabetic polyneuropathy; Z79.4 Long term (current) use of insulin; Z79.84 Long term (current) use of oral hypoglycemic drugs; M10.9 Gout, unspecified; I10 Essential (primary) hypertension; E78.5 Hyperlipidemia, unspecified; Z85.46 Personal history of malignant neoplasm of prostate; I77.1 Stricture of artery
CPT/HCPCS: 36415; 36416; 36573; 36592; 37228; 71045; 73630; 75625; 75710; 80048; 80202; 81003; 82565; 82962; 83036; 83605; 83735; 84100; 84145; 85025; 85347; 85651; 85730; 86140; 87040; 87070; 87077; 87176; 87186; 87205; 87635; 93926; 96372; 97760; 99152; 99153; 99213; 99285; A6212; C1725; C1769; C1887; C1894; J0696; J1644; J1650; J1815; J2250; J2543; J2704; J3010; J3370; J3372; J3490; J7030; L4361; Q9967

== ENCOUNTER 2023-07-21 17:44 | Outpatient (CLI) | payer OTHER, SELFPAY ==
[2023-07-20 11:01] LABS: Vancomycin Trough 13.9 ug/mL (10-15)
== END 2023-07-21 17:45 | disposition home or self-care (01) ==
LOC: LAB 17:56
PROVIDERS: PCP Family Medicine; Visit Provider Student in an Organized Health Care Education/Training Program
DX: M86.9 Osteomyelitis, unspecified (principal); L97.524 Non-pressure chronic ulcer of other part of left foot with necrosis of bone; Z89.412 Acquired absence of left great toe; I77.9 Disorder of arteries and arterioles, unspecified; E11.42 Type 2 diabetes mellitus with diabetic polyneuropathy; E11.621 Type 2 diabetes mellitus with foot ulcer; L97.322 Non-pressure chronic ulcer of left ankle with fat layer exposed; Z79.84 Long term (current) use of oral hypoglycemic drugs; Z79.4 Long term (current) use of insulin
CPT/HCPCS: 80202; 82565; 99213

== ENCOUNTER 2023-07-24 08:44 | Outpatient (CLI) | payer OTHER, SELFPAY | END 2023-07-24 08:45 | disposition home or self-care (01) | LOC: LAB 11-07 08:44 | PROVIDERS: PCP Family Medicine; Visit Provider Student in an Organized Health Care Education/Training Program | DX: M86.9 Osteomyelitis, unspecified (principal); L97.524 Non-pressure chronic ulcer of other part of left foot with necrosis of bone | CPT/HCPCS: 80076; 80202; 82565; 85025; 86140 ==

== ENCOUNTER → 2023-07-25 10:06 | Outpatient (BNVA) | payer OTHER, SELFPAY | PROVIDERS: PCP Family Medicine; Visit Provider Nurse Practitioner Family | DX: I77.9 Disorder of arteries and arterioles, unspecified (principal) | CPT/HCPCS: 99213 ==

== ENCOUNTER → 2023-07-27 15:10 | Outpatient (BNVA) | payer OTHER, SELFPAY | PROVIDERS: PCP Family Medicine; Visit Provider Podiatrist Foot & Ankle Surgery | DX: Z89.412 Acquired absence of left great toe (principal); I77.9 Disorder of arteries and arterioles, unspecified; E11.42 Type 2 diabetes mellitus with diabetic polyneuropathy; L97.322 Non-pressure chronic ulcer of left ankle with fat layer exposed; E11.621 Type 2 diabetes mellitus with foot ulcer; Z79.84 Long term (current) use of oral hypoglycemic drugs; Z79.4 Long term (current) use of insulin | CPT/HCPCS: 99024 ==

== ENCOUNTER 2023-07-31 08:39 | Outpatient (CLI) | payer OTHER, SELFPAY ==
[2023-07-31 08:49] LABS: Basophils # 0.1 10^3/uL (0.0-0.1); Basophils % 1.7 %; Eosinophils # 0.2 10^3/uL (0.0-0.8); Eosinophils % 3.3 %; Lymphocytes # 1.3 10^3/uL (0.8-4.8); Lymphocytes % 24.4 %; Mean Corpuscular HGB Conc 32.8 g/dL (30-55); Mean Corpuscular Hemoglobin 28.3 pg (27-33); Mean Corpuscular Volume 86.3 fl (82-101); Mean Platelet Volume 9.3 fL (7.4-10.4); Monocytes # 0.4 10^3/uL (0.2-0.9); Monocytes % 6.6 %; Neutrophils # 3.45 10^3/uL (1.8-7.7); Neutrophils % 63.6 %; Nucleated Red Blood Cells % 0 %; Platelet Count 209 10^3/cmm (157-399); Red Blood Count 4.17 10^6/uL (3.85-5.65); White Blood Count 5.42 10^3/uL (3.29-11.43)
[2023-07-31 09:15] LABS: Alanine Aminotransferase 27 U/L (0-41); Alkaline Phosphatase 78 U/L (40-130); Aspartate Amino Transferase 24 U/L (0-40); C Reactive Protein 7.8 mg/L (0.0-4.9); Total Bilirubin 0.4 mg/dL (0.15-1.2)
[2023-07-31 09:16] LABS: Vancomycin Trough 15.9 ug/mL (10-15)
== END 2023-07-31 08:40 | disposition home or self-care (01) ==
LOC: LAB 08:41
PROVIDERS: PCP Family Medicine; Visit Provider Student in an Organized Health Care Education/Training Program
DX: C61 Malignant neoplasm of prostate (principal)
CPT/HCPCS: 80076; 80202; 82565; 85025; 86140

== ENCOUNTER 2023-08-03 11:00 | Oncology outpatient (recurring) (ONCR) | payer OTHER, SELFPAY ==
[2023-08-03 11:10] VITALS: BP 129/83; PULSE 96; RESP 17; TEMP 36.6; O2SAT 96
[2023-08-03 11:10] LABS: Basophils # 0.1 10^3/uL (0.0-0.1); Basophils % 1.4 %; Eosinophils # 0.2 10^3/uL (0.0-0.8); Eosinophils % 3.5 %; Hematocrit 39.2 % (37-53); Lymphocytes # 1.6 10^3/uL (0.8-4.8); Lymphocytes % 26.2 %; Mean Corpuscular HGB Conc 33.9 g/dL (30-55); Mean Corpuscular Volume 85.4 fl (82-101); Mean Platelet Volume 8.8 fL (7.4-10.4); Monocytes # 0.4 10^3/uL (0.2-0.9); Monocytes % 6.3 %; Neutrophils # 3.86 10^3/uL (1.8-7.7); Neutrophils % 62.1 %; Nucleated Red Blood Cells % 0 %; Platelet Count 232 10^3/cmm (157-399); Red Blood Count 4.59 10^6/uL (3.85-5.65); Red Cell Distribution Width 14.1 % (12.1-15.1); White Blood Count 6.22 10^3/uL (3.29-11.43)
[2023-08-03 11:25] VITALS: BP 129/83; PULSE 96; RESP 17; TEMP 36.6; O2SAT 98
[2023-08-03 11:39] LABS: Alanine Aminotransferase 31 U/L (0-41); Albumin Level 4.5 g/dL (3.5-5.2); Alkaline Phosphatase 85 U/L (40-130); Anion Gap 16.3 (5-19); Aspartate Amino Transferase 23 U/L (0-40); Blood Urea Nitrogen 22 mg/dL (8-23); Calcium 9.8 mg/dL (8.5-10.5); Carbon Dioxide 26 mmol/L (22-29); Chloride 95 mmol/L (98-107); Globulin 3.3 g/dL (1.3-4.6); Glucose 201 mg/dL (65-115); Osmolality Calculated 285 mOsm/kg (285-295); Potassium 4.3 mmol/L (3.5-5.1); Prostate Specific Antigen 0.233 ng/mL (0-4); Sodium 133 mmol/L (136-145); Testosterone Total 313.3 ng/dL (193-740); Total Bilirubin 0.3 mg/dL (0.15-1.2); Total Protein 7.8 g/dL (6.6-8.7)
== END 2023-08-17 23:59 | disposition home or self-care (01) ==
PROVIDERS: Nurse Practitioner Family; PCP Family Medicine; Visit Provider Internal Medicine Medical Oncology
DX: Z08 Encounter for follow-up examination after completed treatment for malignant neoplasm (principal); Z85.46 Personal history of malignant neoplasm of prostate; Z92.3 Personal history of irradiation; C61 Malignant neoplasm of prostate; E11.621 Type 2 diabetes mellitus with foot ulcer; L97.322 Non-pressure chronic ulcer of left ankle with fat layer exposed; Z98.890 Other specified postprocedural states; Z89.412 Acquired absence of left great toe; I77.9 Disorder of arteries and arterioles, unspecified; E11.42 Type 2 diabetes mellitus with diabetic polyneuropathy; Z79.4 Long term (current) use of insulin; Z79.84 Long term (current) use of oral hypoglycemic drugs
CPT/HCPCS: 36415; 80053; 84153; 84403; 85025; 99213; 99214

== ENCOUNTER 2023-08-07 08:32 | Outpatient (CLI) | payer OTHER, SELFPAY ==
[2023-07-24 08:52] LABS: Basophils # 0.1 10^3/uL (0.0-0.1); Basophils % 1.7 %; Eosinophils # 0.2 10^3/uL (0.0-0.8); Hematocrit 35.3 % (37-53); Lymphocytes # 1.5 10^3/uL (0.8-4.8); Lymphocytes % 29.3 %; Mean Corpuscular HGB Conc 32.6 g/dL (30-55); Mean Corpuscular Volume 85.9 fl (82-101); Mean Platelet Volume 9.2 fL (7.4-10.4); Monocytes # 0.4 10^3/uL (0.2-0.9); Monocytes % 8.1 %; Neutrophils # 2.94 10^3/uL (1.8-7.7); Neutrophils % 56.7 %; Nucleated Red Blood Cells % 0 %; Platelet Count 257 10^3/cmm (157-399); Red Blood Count 4.11 10^6/uL (3.85-5.65); Red Cell Distribution Width 13.2 % (12.1-15.1); White Blood Count 5.19 10^3/uL (3.29-11.43)
[2023-07-24 09:17] LABS: Alanine Aminotransferase 29 U/L (0-41); Albumin Level 3.9 g/dL (3.5-5.2); Alkaline Phosphatase 85 U/L (40-130); Aspartate Amino Transferase 20 U/L (0-40); C Reactive Protein 7.1 mg/L (0.0-4.9); Globulin 3.1 g/dL (1.3-4.6); Total Bilirubin 0.4 mg/dL (0.15-1.2); Vancomycin Trough 17.3 ug/mL (10-15)
[2023-08-07 08:57] LABS: Basophils # 0.1 10^3/uL (0.0-0.1); Basophils % 1.6 %; Eosinophils # 0.2 10^3/uL (0.0-0.8); Eosinophils % 3.4 %; Lymphocytes # 1.3 10^3/uL (0.8-4.8); Lymphocytes % 26.3 %; Mean Corpuscular HGB Conc 33.4 g/dL (30-55); Mean Corpuscular Hemoglobin 29.1 pg (27-33); Mean Platelet Volume 9.6 fL (7.4-10.4); Monocytes # 0.5 10^3/uL (0.2-0.9); Monocytes % 9.7 %; Neutrophils # 2.97 10^3/uL (1.8-7.7); Neutrophils % 58.6 %; Nucleated Red Blood Cells % 0 %; Platelet Count 193 10^3/cmm (157-399); Red Blood Count 4.37 10^6/uL (3.85-5.65); Red Cell Distribution Width 14.1 % (12.1-15.1); White Blood Count 5.06 10^3/uL (3.29-11.43)
[2023-08-07 09:21] LABS: Alanine Aminotransferase 26 U/L (0-41); Albumin Level 3.8 g/dL (3.5-5.2); Alkaline Phosphatase 74 U/L (40-130); Aspartate Amino Transferase 21 U/L (0-40); Gamma Glutamyl Transferase 23 U/L (8-61); Globulin 3.5 g/dL (1.3-4.6); Total Bilirubin 0.5 mg/dL (0.15-1.2); Total Protein 7.3 g/dL (6.6-8.7)
[2023-08-07 09:23] LABS: Vancomycin Trough 17.5 ug/mL (10-15)
== END 2023-08-07 08:33 | disposition home or self-care (01) ==
PROVIDERS: PCP Family Medicine; Visit Provider Student in an Organized Health Care Education/Training Program
DX: M86.9 Osteomyelitis, unspecified (principal); L97.524 Non-pressure chronic ulcer of other part of left foot with necrosis of bone
CPT/HCPCS: 80076; 80202; 82565; 82977; 85025; 86140

== ENCOUNTER 2023-08-14 07:39 | Outpatient (CLI) | payer OTHER, SELFPAY ==
[2023-08-14 08:52] LABS: Basophils # 0.1 10^3/uL (0.0-0.1); Basophils % 1.3 %; Eosinophils # 0.2 10^3/uL (0.0-0.8); Eosinophils % 3.5 %; Hematocrit 38.9 % (37-53); Lymphocytes # 1.2 10^3/uL (0.8-4.8); Lymphocytes % 22.3 %; Mean Corpuscular HGB Conc 32.9 g/dL (30-55); Mean Corpuscular Hemoglobin 27.9 pg (27-33); Mean Corpuscular Volume 84.9 fl (82-101); Mean Platelet Volume 9.5 fL (7.4-10.4); Monocytes # 0.5 10^3/uL (0.2-0.9); Monocytes % 8.3 %; Neutrophils # 3.49 10^3/uL (1.8-7.7); Neutrophils % 64.2 %; Nucleated Red Blood Cells % 0 %; Platelet Count 222 10^3/cmm (157-399); Red Blood Count 4.58 10^6/uL (3.85-5.65); Red Cell Distribution Width 13.7 % (12.1-15.1); White Blood Count 5.43 10^3/uL (3.29-11.43)
[2023-08-14 09:03] LABS: Alanine Aminotransferase 31 U/L (0-41); Aspartate Amino Transferase 26 U/L (0-40); C Reactive Protein 7.7 mg/L (0.0-4.9); Total Bilirubin 0.3 mg/dL (0.15-1.2)
[2023-08-14 09:04] LABS: Albumin Level 4.3 g/dL (3.5-5.2); Alkaline Phosphatase 77 U/L (40-130); Total Protein 7.3 g/dL (6.6-8.7); Vancomycin Trough 20.6 ug/mL (10-15)
== END 2023-08-14 07:40 | disposition home or self-care (01) ==
LOC: LAB 07:41
PROVIDERS: PCP Family Medicine; Visit Provider Student in an Organized Health Care Education/Training Program
DX: M86.9 Osteomyelitis, unspecified (principal); L97.524 Non-pressure chronic ulcer of other part of left foot with necrosis of bone
CPT/HCPCS: 80076; 80202; 82565; 85025; 86140

== ENCOUNTER → 2023-08-16 10:01 | Outpatient (BNVA) | payer OTHER, SELFPAY | PROVIDERS: PCP Family Medicine; Visit Provider Podiatrist Foot & Ankle Surgery | DX: I77.9 Disorder of arteries and arterioles, unspecified (principal); E11.42 Type 2 diabetes mellitus with diabetic polyneuropathy; L97.322 Non-pressure chronic ulcer of left ankle with fat layer exposed; Z98.890 Other specified postprocedural states; Z89.412 Acquired absence of left great toe; E11.621 Type 2 diabetes mellitus with foot ulcer; Z79.4 Long term (current) use of insulin; Z79.84 Long term (current) use of oral hypoglycemic drugs | CPT/HCPCS: 11042 ==

== ENCOUNTER 2023-08-21 09:15 | Outpatient (CLI) | payer OTHER, SELFPAY ==
[2023-08-21 09:27] LABS: Basophils # 0.1 10^3/uL (0.0-0.1); Basophils % 1.4 %; Eosinophils # 0.2 10^3/uL (0.0-0.8); Eosinophils % 3.2 %; Hematocrit 36.4 % (37-53); Lymphocytes # 1.2 10^3/uL (0.8-4.8); Lymphocytes % 20.8 %; Mean Corpuscular HGB Conc 33.8 g/dL (30-55); Mean Corpuscular Hemoglobin 28.6 pg (27-33); Mean Corpuscular Volume 84.7 fl (82-101); Mean Platelet Volume 9.9 fL (7.4-10.4); Monocytes # 0.4 10^3/uL (0.2-0.9); Monocytes % 7.7 %; Neutrophils # 3.71 10^3/uL (1.8-7.7); Neutrophils % 66.4 %; Nucleated Red Blood Cells % 0 %; Platelet Count 209 10^3/cmm (157-399); Red Cell Distribution Width 13.5 % (12.1-15.1); White Blood Count 5.59 10^3/uL (3.29-11.43)
[2023-08-21 09:46] LABS: C Reactive Protein 7.8 mg/L (0.0-4.9); Vancomycin Trough 19.1 ug/mL (10-15)
== END 2023-08-21 09:16 | disposition home or self-care (01) ==
PROVIDERS: PCP Family Medicine; Visit Provider Student in an Organized Health Care Education/Training Program
DX: M86.9 Osteomyelitis, unspecified (principal); L97.524 Non-pressure chronic ulcer of other part of left foot with necrosis of bone
CPT/HCPCS: 80202; 82565; 85025; 86140

== ENCOUNTER → 2023-08-23 09:41 | Outpatient (BNVA) | payer OTHER, SELFPAY | PROVIDERS: PCP Family Medicine; Visit Provider Podiatrist Foot & Ankle Surgery | DX: I77.9 Disorder of arteries and arterioles, unspecified (principal); E11.42 Type 2 diabetes mellitus with diabetic polyneuropathy; L97.322 Non-pressure chronic ulcer of left ankle with fat layer exposed; Z98.890 Other specified postprocedural states; Z89.412 Acquired absence of left great toe; E11.622 Type 2 diabetes mellitus with other skin ulcer; Z79.4 Long term (current) use of insulin; Z79.84 Long term (current) use of oral hypoglycemic drugs | CPT/HCPCS: 99213 ==

== ENCOUNTER → 2023-08-24 12:58 | Outpatient (BNVA) | payer OTHER, SELFPAY | PROVIDERS: PCP Family Medicine; Visit Provider Student in an Organized Health Care Education/Training Program | DX: I77.9 Disorder of arteries and arterioles, unspecified (principal); E11.42 Type 2 diabetes mellitus with diabetic polyneuropathy; M86.9 Osteomyelitis, unspecified; Z45.2 Encounter for adjustment and management of vascular access device | CPT/HCPCS: 99205; 99214 ==

== ENCOUNTER → 2023-09-07 07:06 | Outpatient (BNVA) | payer OTHER, SELFPAY | PROVIDERS: PCP Family Medicine; Visit Provider Podiatrist Foot & Ankle Surgery | DX: I77.9 Disorder of arteries and arterioles, unspecified (principal); E11.42 Type 2 diabetes mellitus with diabetic polyneuropathy; Z45.2 Encounter for adjustment and management of vascular access device; M86.8X7 Other osteomyelitis, ankle and foot; Z79.4 Long term (current) use of insulin | CPT/HCPCS: 99213 ==

== ENCOUNTER → 2023-09-20 13:18 | Outpatient (BNVA) | payer OTHER, SELFPAY | PROVIDERS: PCP Family Medicine; Visit Provider Dermatology | DX: Z85.828 Personal history of other malignant neoplasm of skin (principal); L57.8 Other skin changes due to chronic exposure to nonionizing radiation; L57.0 Actinic keratosis; L82.1 Other seborrheic keratosis; D69.2 Other nonthrombocytopenic purpura | CPT/HCPCS: 17000; 99213 ==

== ENCOUNTER → 2023-09-21 06:50 | Outpatient (BNVA) | payer OTHER, SELFPAY | PROVIDERS: PCP Family Medicine; Visit Provider Podiatrist Foot & Ankle Surgery | DX: I77.9 Disorder of arteries and arterioles, unspecified (principal); E11.42 Type 2 diabetes mellitus with diabetic polyneuropathy; M86.8X7 Other osteomyelitis, ankle and foot; Z79.4 Long term (current) use of insulin | CPT/HCPCS: 99024; 99213 ==

== ENCOUNTER → 2023-10-02 12:19 | Outpatient (BNVA) | payer OTHER, SELFPAY | PROVIDERS: PCP Family Medicine; Visit Provider Internal Medicine | DX: I77.9 Disorder of arteries and arterioles, unspecified (principal); I10 Essential (primary) hypertension | CPT/HCPCS: 99214 ==

== ENCOUNTER 2023-10-07 16:03 | Emergency (ER) | payer OTHER, SELFPAY ==
[2023-10-07 16:09] VITALS: BP 138/79; PULSE 98; RESP 16; TEMP 36.7; O2SAT 99
--- NOTE | 2023-10-07 17:01 | XRR_ITS ---
PROCEDURE INFORMATION: Exam: XR Left Foot Exam date and time: 10/07/2023 5:15 PM Age: 78 years old Clinical indication: Pain; Foot; Left TECHNIQUE: Imaging protocol: Radiologic exam of the left foot. Views: 3 or more views. COMPARISON: CR XR foot LT min 3V* [id number] 07/12/2023 2:00 PM FINDINGS: Bones/joints: Amputation again seen at level of the 1st metatarsal proximal diaphysis. Tibiotalar and intertarsal joint moderate osteoarthritis. Small calcified heel spur. Distal Achilles tendon degenerative calcification. Soft tissues: Soft tissue swelling about the foot. Vasculature: Scattered vascular calcifications. XR/XR foot LT min 3V* [id number] IMPRESSION: 1. Negative for acute bony abnormality. 2. Amputation again seen at level of the 1st metatarsal proximal diaphysis. 3. Tibiotalar and intertarsal joint moderate osteoarthritis. 4. Small calcified heel spur. 5. Distal Achilles tendon degenerative calcification. 6. Soft tissue swelling about the foot. 7. Scattered vascular calcifications.
--- NOTE | 2023-10-07 17:03 | ED_ITS ---
HPI - Extremity Problem 2 General: Chief complaint: Extremity Problem,Nontraumatic Stated complaint: left foot issues Time Seen by Provider: 10/07/23 17:00 Source: patient Mode of arrival: ambulatory History of Present Illness: 78-year-old male presents emergency room with swelling and inflammation of the left second toe. He has a chronic ulcer on the tip of it. No active drainage denies any fever sweats or chills. He has previously had a amputation of the left great toe due to a chronic ulcer. [facility] on [facility]. 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 Peripheral vascular disease Gas gangrene Osteomyelitis Non-pressure chronic ulcer of left ankle with fat layer exposed Cellulitis of left foot Diabetic peripheral neuropathy associated with type 2 diabetes mellitus Prostate cancer Hyperlipidemia Diabetes Gout HTN (hypertension) Surgical History History of Achilles tendon repair left foot Previous back surgery History of prostate biopsy History of replacement of both shoulder joints Family History Father Cancer skin Other Diabetes Hyperlipidemia Hypertension Denies family history of CAD (coronary artery disease) Clotting disorder Dementia Psychiatric illness Chronic kidney disease (CKD) Suicide Anesthesia complication Bleeding disorder Lung disease Stroke Social History Smoking and tobacco/nicotine status: never used tobacco/nicotine Alcohol intake: current Alcohol intake frequency: holidays/special occasions only Physical Exam 2 Const: COMMON NORMALS: no acute distress GENERAL APPEARANCE: cooperative and comfortable ORIENTATION/CONSCIOUSNESS: Yes awake, Yes oriented to person, Yes oriented to place and Yes oriented to time HENMT: COMMON NORMALS: normocephalic, atraumatic and hearing grossly normal bilaterally HEAD & SCALP: normocephalic and atraumatic Resp: COMMON NORMALS: normal respiratory effort, No retractions, No use of accessory muscles and clear to auscultation bilaterally AUSCULTATION: clear to auscultation bilaterally Cardio: COMMON NORMALS: regular rate, regular rhythm and No murmurs present (Cardio) RATE: regular rate RHYTHM: regular rhythm GI: COMMON NORMALS: Soft to palpation and No hepatosplenomegaly present A USCULTATION: Yes normoactive bowel sounds PALPATION: Yes Soft to palpation, No Tenderness to palpation present (GI), No Guarding due to palpation present (GI) and Yes No hepatosplenomegaly present Extremity: COMMON NORMALS: normal to inspection, capillary refill normal, no clubbing, cyanosis or edema, no calf tenderness and no pedal edema OTHER: Second toe inflamed reddened moderately tender. No active drainage. Dry eschar at the tip no active drainage Neuro: SENSORIUM/ORIENTATION: Yes oriented to person, Yes oriented to place and Yes oriented to time Skin: COMMON NORMALS: no rashes or lesions noted GENERAL SKIN EXAM: no rashes or lesions noted Course 2 Vital Signs: Vital signs: Vital Signs Temperature 98.1 F 10/07/23 16:09 Pulse Rate 86 10/07/23 18:10 Respiratory Rate 16 10/07/23 16:09 Blood Pressure 122/73 10/07/23 18:10 Pulse Oximetry 97 10/07/23 18:10 Oxygen Delivery Me thod Room Air 10/07/23 18:02 MDM - Extremity (Nontraumatic) Medical Decision Making Started on oral antibiotics for the toe infection 2 days ago continue current medication and will set him up for podiatry consultation. Discussed with podiatry on-call they will see him early next week Medical Records I reviewed the patient's medical records. Lab Data I reviewed the patient's lab results. 10/07/23 17:36 10/07/23 17:36 Radiology Impressions Foot X-Ray 10/07/23 17:01 IMPRESSION: 1. Negative for acute bony abnormality. 2. Amputation again seen at level of the 1st metatarsal proximal diaphysis. 3. Tibiotalar and intertarsal joint moderate osteoarthritis. 4. Small calcified heel spur. 5. Distal Achilles tendon degenerative calcification. 6. Soft tissue swelling about the foot. 7. Scattered vascular calcifications. Laboratory Results WBC 8.56 10^3/uL (3.29-11.43) 10/07/23 17:36 RBC 4.57 10^6/uL (3.85-5.65) 10/07/23 17:36 Hgb 13.00 g/dL (11.27-16.99) 10/07/23 17:36 Hct 39.8 % (37-53) 10/07/23 17:36 MCV 87.1 fl (82-101) 10/07/23 17:36 MCH 28.4 pg (27-33) 10/07/23 17:36 MCHC 32.7 g/dL (30-55) 10/07/23 17:36 RDW 12.8 % (12.1-15.1) 10/07/23 17:36 Plt Count 230 10^3/cmm (157-399) 10/07/23 17:36 MPV 9.1 fL (7.4-10.4) 10/07/23 17:36 Neut % (Auto) 73.7 % 10/07/23 17:36 Lymph % (Auto) 16.2 % 10/07/23 17:36 [place] % (Auto) 7.6 % 10/07/23 17:36 Eos % (Auto) 1.4 % 10/07/23 17:36 Baso % (Auto) 0.6 % 10/07/23 17:36 Neut # (Auto) 6.31 10^3/uL (1.8-7.7) 10/07/23 17:36 Lymph # (Auto) 1.4 10^3/uL (0.8-4.8) 10/07/23 17:36 [place] # (Auto) 0.7 10^3/uL (0.2-0.9) 10/07/23 17:36 Eos # (Auto) 0.1 10^3/uL (0.0-0.8) 10/07/23 17:36 Baso # (Auto) 0.1 10^3/uL (0.0-0.1) 10/07/23 17:36 Nucleated RBC % (auto) 0 % 10/07/23 17:36 Nucleated RBCs # 0.0 /100WBC 10/07/23 17:36 ESR 24 mm/hr (0-10) H 10/07/23 17:36 Sodium 131 mmol/L (136-145) L 10/07/23 17:36 Potassium 4.8 mmol/L (3.5-5.1) 10/07/23 17:36 Chloride 94 mmol/L (98-107) L 10/07/23 17:36 Carbon Dioxide 26 mmol/L (22-29) 10/07/23 17:36 Anion Gap 15.8 (5-19) 10/07/23 17:36 BUN 28 mg/dL (8-23) H 10/07/23 17:36 Creatinine 1.5 mg/dL (0.7-1.2) H 10/07/23 17:36 GFR Calculation Not Reportable 10/07/23 17:36 Glucose 238 mg/dL (65-115) H 10/07/23 17:36 Calculated Osmolality 285 mOsm/kg (285-295) 10/07/23 17:36 Calcium 9.5 mg/dL (8.5-10.5) 10/07/23 17:36 Total Bilirubin 0.4 mg/dL (0.15-1.2) 10/07/23 17:36 AST 18 U/L (0-40) 10/07/23 17:36 ALT 22 U/L (0-41) 10/07/23 17:36 Alkaline Phosphatase 87 U/L (40-130) 10/07/23 17:36 C-Reactive Protein 52.0 mg/L (0.0-4.9) H 10/07/23 17:36 Total Protein 7.4 g/dL (6.6-8.7) 10/07/23 17:36 Albumin 4.1 g/dL (3.5-5.2) 10/07/23 17:36 Globulin 3.3 g/dL (1.3-4.6) 10/07/23 17:36 All radiology interpretation(s) finalized by discharge Discharge Plan Discharge Patient Disposition: Home Clinical Impression: Diabetic foot ulcer, Diabetes mellitus Condition: Stable Prescriptions: No Action allopurinol 300 mg tablet 300 mg PO DAILY insulin glargine 100 unit/mL solution 50 unit SUBCUT BID Sebex 2-2 % shampoo 1 applic topical DAILY Rx Instructions: massage into wet scalp; leave on for 5 mins ; rinse; repeat application fluconazole 150 mg tablet 300 mg PO .once per week 180 Days Qty: 48 0RF (DME) Diabetic shoes See Rx Instructions .ROUTE .MEDSUPPLY Qty: 1 0RF Rx Instructions: With 3 pairs of inserts toe filler to the left shoe made by the shoe jo pyridoxine (vitamin B6) 50 mg tablet 50 mg PO DAILY Qty: 30 3RF folic acid 1 mg tablet 1 mg PO DAILY Qty: 30 3RF cyanocobalamin (vitamin B-12) 1,000 mcg capsule 1,000 mcg PO DAILY Qty: 60 5RF (DME) Shoes with custom inserts See Rx Instructions .Route .MEDSUPPLY Qty: 1 0RF Rx Instructions: As directed lisinopril 20 mg tablet 40 mg PO DAILY Qty: 90 3RF metformin 500 mg Tablet 1,000 mg PO BID ferrous sulfate 325 mg (65 mg iron) Tablet 325 mg PO DAILY fenofibrate 160 mg Tablet 160 mg PO DAILY empagliflozin 25 mg Tablet 25 mg PO DAILY aspirin 81 mg tablet,delayed release (DR/EC) 81 mg PO DAILY Qty: 90 1RF Plavix 75 mg tablet 75 mg PO DAILY Qty: 90 0RF atorvastatin 40 mg tablet 40 mg PO DAILY Qty: 90 2RF Fish Oil 300-1,000 mg capsule 1 cap PO BID Discharge Orders: Discharge ED (Routine); Ordered 10/07/23 Ordered By: Sandeep Nath Referrals: Caitlin Beltran MD [Primary Care Provider] - Discharge Diet: Usual diet Discharge Activity: Increase activity as tolerated Patient Instructions: Opioid Safety, Pain Management Activity Restrictions/Additional Instructions: Thank you for choosing [facility] for your healthcare needs today. Please realize this is an emergency room and that we are providing you with a medical screening exam and this may not be complete and all inclusive of all the testing and or work up that you may need to determine your ailment or severity of your illness. It is very important that you follow up as instructed or that you return to the Emergency Department should you have concerns or if your condition changes or worsens in any way. Continue previously prescribed antibiotics case management make arrangements for you to follow-up with podiatry next week. Coding Level of Care Code ED Radiation Oncology Therapist for Gloria Andino
[2023-10-07 17:34] VITALS: BP 124/64; PULSE 85; O2SAT 95
[2023-10-07 17:48] LABS: Basophils # 0.1 10^3/uL (0.0-0.1); Basophils % 0.6 %; Eosinophils # 0.1 10^3/uL (0.0-0.8); Eosinophils % 1.4 %; Hematocrit 39.8 % (37-53); Lymphocytes # 1.4 10^3/uL (0.8-4.8); Lymphocytes % 16.2 %; Mean Corpuscular HGB Conc 32.7 g/dL (30-55); Mean Corpuscular Hemoglobin 28.4 pg (27-33); Mean Corpuscular Volume 87.1 fl (82-101); Mean Platelet Volume 9.1 fL (7.4-10.4); Monocytes # 0.7 10^3/uL (0.2-0.9); Monocytes % 7.6 %; Neutrophils # 6.31 10^3/uL (1.8-7.7); Neutrophils % 73.7 %; Nucleated Red Blood Cells % 0 %; Platelet Count 230 10^3/cmm (157-399); Red Blood Count 4.57 10^6/uL (3.85-5.65); Red Cell Distribution Width 12.8 % (12.1-15.1); White Blood Count 8.56 10^3/uL (3.29-11.43)
[2023-10-07 17:52] LABS: Erythrocyte Sedimentation Rate 24 mm/hr (0-10)
[2023-10-07 18:02] VITALS: BP 122/69; PULSE 83; O2SAT 93
[2023-10-07 18:10] VITALS: BP 122/73; PULSE 86; O2SAT 97
[2023-10-07 18:11] LABS: Alanine Aminotransferase 22 U/L (0-41); Albumin Level 4.1 g/dL (3.5-5.2); Alkaline Phosphatase 87 U/L (40-130); Anion Gap 15.8 (5-19); Aspartate Amino Transferase 18 U/L (0-40); Blood Urea Nitrogen 28 mg/dL (8-23); Calcium 9.5 mg/dL (8.5-10.5); Carbon Dioxide 26 mmol/L (22-29); Chloride 94 mmol/L (98-107); Globulin 3.3 g/dL (1.3-4.6); Glucose 238 mg/dL (65-115); Osmolality Calculated 285 mOsm/kg (285-295); Potassium 4.8 mmol/L (3.5-5.1); Sodium 131 mmol/L (136-145); Total Bilirubin 0.4 mg/dL (0.15-1.2); Total Protein 7.4 g/dL (6.6-8.7)
--- NOTE | 2023-10-11 11:03 | DCPLANNER ---
Message sent to podiatry for cellulites left second toe. Follow up appointment
== END 2023-10-07 18:14 | disposition home or self-care (01) ==
PROVIDERS: Emergency Provider Family Medicine; PCP Family Medicine
DX: E11.621 Type 2 diabetes mellitus with foot ulcer (principal); Z79.02 Long term (current) use of antithrombotics/antiplatelets; Z79.82 Long term (current) use of aspirin; Z79.84 Long term (current) use of oral hypoglycemic drugs; Z79.4 Long term (current) use of insulin; Z85.46 Personal history of malignant neoplasm of prostate; E78.5 Hyperlipidemia, unspecified; I10 Essential (primary) hypertension; E11.42 Type 2 diabetes mellitus with diabetic polyneuropathy
CPT/HCPCS: 36415; 73630; 80053; 85025; 85651; 86140; 99284

== ENCOUNTER → 2023-10-10 10:34 | Outpatient (BNVA) | payer OTHER, MEDICARE, SELFPAY | PROVIDERS: PCP Family Medicine; Visit Provider Podiatrist Foot & Ankle Surgery | DX: L97.524 Non-pressure chronic ulcer of other part of left foot with necrosis of bone (principal); E11.42 Type 2 diabetes mellitus with diabetic polyneuropathy | CPT/HCPCS: 11044; 87070; 87075; 87077; 87186; 87205 ==

== ENCOUNTER → 2023-10-12 15:18 | Outpatient (BNVA) | payer OTHER, MEDICARE, SELFPAY | PROVIDERS: PCP Family Medicine; Visit Provider Podiatrist Foot & Ankle Surgery | DX: E11.42 Type 2 diabetes mellitus with diabetic polyneuropathy (principal); L97.524 Non-pressure chronic ulcer of other part of left foot with necrosis of bone; E11.621 Type 2 diabetes mellitus with foot ulcer; Z79.84 Long term (current) use of oral hypoglycemic drugs; Z79.4 Long term (current) use of insulin | CPT/HCPCS: 99213 ==

== ENCOUNTER → 2023-10-16 07:38 | Outpatient (BNVA) | payer OTHER, SELFPAY | PROVIDERS: PCP Family Medicine; Visit Provider Podiatrist Foot & Ankle Surgery | DX: E11.42 Type 2 diabetes mellitus with diabetic polyneuropathy (principal); L97.524 Non-pressure chronic ulcer of other part of left foot with necrosis of bone; E11.621 Type 2 diabetes mellitus with foot ulcer; Z79.84 Long term (current) use of oral hypoglycemic drugs; Z79.4 Long term (current) use of insulin | CPT/HCPCS: 99213 ==

== ENCOUNTER → 2023-10-19 14:34 | Outpatient (BNVA) | payer OTHER, SELFPAY | PROVIDERS: PCP Family Medicine; Visit Provider Podiatrist Foot & Ankle Surgery | DX: L97.524 Non-pressure chronic ulcer of other part of left foot with necrosis of bone (principal); E11.621 Type 2 diabetes mellitus with foot ulcer; E11.42 Type 2 diabetes mellitus with diabetic polyneuropathy; M20.42 Other hammer toe(s) (acquired), left foot; Z79.4 Long term (current) use of insulin | CPT/HCPCS: 28010 ==

== ENCOUNTER → 2023-10-26 06:48 | Outpatient (BNVA) | payer OTHER, SELFPAY | PROVIDERS: PCP Family Medicine; Visit Provider Podiatrist Foot & Ankle Surgery | DX: E11.42 Type 2 diabetes mellitus with diabetic polyneuropathy (principal); M20.42 Other hammer toe(s) (acquired), left foot; L97.524 Non-pressure chronic ulcer of other part of left foot with necrosis of bone; E11.621 Type 2 diabetes mellitus with foot ulcer; Z79.84 Long term (current) use of oral hypoglycemic drugs; Z79.4 Long term (current) use of insulin | CPT/HCPCS: 99213 ==

== ENCOUNTER → 2023-10-31 07:04 | Outpatient (BNVA) | payer OTHER, SELFPAY | PROVIDERS: PCP Family Medicine; Visit Provider Podiatrist Foot & Ankle Surgery | DX: E11.42 Type 2 diabetes mellitus with diabetic polyneuropathy (principal); M20.42 Other hammer toe(s) (acquired), left foot; L97.524 Non-pressure chronic ulcer of other part of left foot with necrosis of bone; E11.621 Type 2 diabetes mellitus with foot ulcer; Z79.84 Long term (current) use of oral hypoglycemic drugs; Z79.4 Long term (current) use of insulin | CPT/HCPCS: 99213 ==

== ENCOUNTER 2023-11-06 12:29 | Oncology outpatient (recurring) (ONCR) | payer OTHER, SELFPAY ==
[2023-11-06 12:55] LABS: Basophils # 0.1 10^3/uL (0.0-0.1); Basophils % 0.6 %; Eosinophils # 0.2 10^3/uL (0.0-0.8); Eosinophils % 2.2 %; Hematocrit 40.9 % (37-53); Lymphocytes # 1.5 10^3/uL (0.8-4.8); Lymphocytes % 18.2 %; Mean Corpuscular HGB Conc 33.5 g/dL (30-55); Mean Corpuscular Hemoglobin 27.9 pg (27-33); Mean Corpuscular Volume 83.3 fl (82-101); Mean Platelet Volume 9.1 fL (7.4-10.4); Monocytes # 0.5 10^3/uL (0.2-0.9); Monocytes % 5.6 %; Neutrophils # 6.03 10^3/uL (1.8-7.7); Neutrophils % 73.2 %; Nucleated Red Blood Cells % 0 %; Platelet Count 221 10^3/cmm (157-399); Red Blood Count 4.91 10^6/uL (3.85-5.65); White Blood Count 8.24 10^3/uL (3.29-11.43)
[2023-11-06 13:39] LABS: Alanine Aminotransferase 22 U/L (0-41); Albumin Level 4.3 g/dL (3.5-5.2); Alkaline Phosphatase 106 U/L (40-130); Anion Gap 17.8 (5-19); Aspartate Amino Transferase 22 U/L (0-40); Blood Urea Nitrogen 24 mg/dL (8-23); Calcium 9.1 mg/dL (8.5-10.5); Carbon Dioxide 23 mmol/L (22-29); Chloride 98 mmol/L (98-107); Globulin 3.1 g/dL (1.3-4.6); Glucose 248 mg/dL (65-115); Osmolality Calculated 290 mOsm/kg (285-295); Potassium 4.8 mmol/L (3.5-5.1); Prostate Specific Antigen 0.209 ng/mL (0-4); Sodium 134 mmol/L (136-145); Total Bilirubin 0.5 mg/dL (0.15-1.2); Total Protein 7.4 g/dL (6.6-8.7)
== END 2023-11-16 23:59 | disposition home or self-care (01) ==
PROVIDERS: Nurse Practitioner Family; PCP Family Medicine; Visit Provider Internal Medicine Medical Oncology
DX: Z85.46 Personal history of malignant neoplasm of prostate; Z92.3 Personal history of irradiation; Z89.412 Acquired absence of left great toe; C61 Malignant neoplasm of prostate
CPT/HCPCS: 36415; 80053; 84153; 85025; 99214

== ENCOUNTER → 2023-11-14 06:54 | Outpatient (BNVA) | payer OTHER, SELFPAY | PROVIDERS: PCP Family Medicine; Visit Provider Podiatrist Foot & Ankle Surgery | DX: E11.42 Type 2 diabetes mellitus with diabetic polyneuropathy (principal); M20.42 Other hammer toe(s) (acquired), left foot; L97.524 Non-pressure chronic ulcer of other part of left foot with necrosis of bone; E11.621 Type 2 diabetes mellitus with foot ulcer; Z79.4 Long term (current) use of insulin; Z79.84 Long term (current) use of oral hypoglycemic drugs | CPT/HCPCS: 11042 ==

== ENCOUNTER → 2023-12-05 06:49 | Outpatient (BNVA) | payer OTHER, SELFPAY | PROVIDERS: PCP Family Medicine; Visit Provider Podiatrist Foot & Ankle Surgery | DX: E11.42 Type 2 diabetes mellitus with diabetic polyneuropathy (principal); L97.524 Non-pressure chronic ulcer of other part of left foot with necrosis of bone; E11.621 Type 2 diabetes mellitus with foot ulcer; Z79.84 Long term (current) use of oral hypoglycemic drugs; Z79.4 Long term (current) use of insulin | CPT/HCPCS: 99213 ==

== ENCOUNTER → 2024-02-06 06:55 | Outpatient (BNVA) | payer OTHER, SELFPAY | PROVIDERS: PCP Family Medicine; Visit Provider Podiatrist Foot & Ankle Surgery | DX: E11.42 Type 2 diabetes mellitus with diabetic polyneuropathy (principal); L60.3 Nail dystrophy; Z79.4 Long term (current) use of insulin; Z79.84 Long term (current) use of oral hypoglycemic drugs | CPT/HCPCS: 99213 ==

== ENCOUNTER → 2024-02-20 14:53 | Outpatient (BNVA) | payer OTHER, SELFPAY | PROVIDERS: PCP Family Medicine; Visit Provider Nurse Practitioner Family | DX: L57.0 Actinic keratosis (principal); B02.9 Zoster without complications; L57.8 Other skin changes due to chronic exposure to nonionizing radiation; D69.2 Other nonthrombocytopenic purpura; D22.5 Melanocytic nevi of trunk | CPT/HCPCS: 10120; 17000; 99213 ==

== ENCOUNTER 2024-02-28 12:16 | Oncology outpatient (recurring) (ONCR) | payer OTHER, SELFPAY ==
[2024-02-28 12:19] LABS: Basophils # 0.1 10^3/uL (0.0-0.1); Basophils % 0.9 %; Eosinophils # 0.1 10^3/uL (0.0-0.8); Eosinophils % 1.9 %; Hematocrit 40.9 % (37-53); Lymphocytes # 1.9 10^3/uL (0.8-4.8); Lymphocytes % 25.4 %; Mean Corpuscular HGB Conc 34.5 g/dL (30-55); Mean Corpuscular Hemoglobin 29.1 pg (27-33); Mean Corpuscular Volume 84.5 fl (82-101); Monocytes # 0.5 10^3/uL (0.2-0.9); Neutrophils # 4.76 10^3/uL (1.8-7.7); Neutrophils % 64.5 %; Nucleated Red Blood Cells % 0 %; Platelet Count 220 10^3/cmm (157-399); Red Blood Count 4.84 10^6/uL (3.85-5.65); Red Cell Distribution Width 13.3 % (12.1-15.1); White Blood Count 7.39 10^3/uL (3.29-11.43)
[2024-02-28 12:38] LABS: Alanine Aminotransferase 29 U/L (0-41); Albumin Level 4.3 g/dL (3.5-5.2); Alkaline Phosphatase 93 U/L (40-130); Anion Gap 16.4 (5-19); Aspartate Amino Transferase 23 U/L (0-40); Blood Urea Nitrogen 27 mg/dL (8-23); Calcium 9.4 mg/dL (8.5-10.5); Carbon Dioxide 24 mmol/L (22-29); Chloride 96 mmol/L (98-107); Glucose 255 mg/dL (65-115); Osmolality Calculated 288 mOsm/kg (285-295); Potassium 4.4 mmol/L (3.5-5.1); Sodium 132 mmol/L (136-145); Total Bilirubin 0.5 mg/dL (0.15-1.2); Total Protein 7.3 g/dL (6.6-8.7)
[2024-02-28 13:57] LABS: Prostate Specific Antigen 0.243 ng/mL (0-4)
== END 2024-03-17 23:59 | disposition home or self-care (01) ==
PROVIDERS: Nurse Practitioner Family; PCP Family Medicine; Visit Provider Internal Medicine Medical Oncology
DX: Z08 Encounter for follow-up examination after completed treatment for malignant neoplasm (principal); C61 Malignant neoplasm of prostate; Z92.3 Personal history of irradiation; Z92.25 Personal history of immunosuppression therapy
CPT/HCPCS: 36415; 80053; 84153; 85025; 99213

== ENCOUNTER → 2024-05-07 06:55 | Outpatient (BNVA) | payer OTHER, SELFPAY | PROVIDERS: PCP Family Medicine; Visit Provider Podiatrist Foot & Ankle Surgery | DX: E11.42 Type 2 diabetes mellitus with diabetic polyneuropathy (principal); S98.112A Complete traumatic amputation of left great toe, initial encounter; X58.XXXA Exposure to other specified factors, initial encounter | CPT/HCPCS: 99213 ==

== ENCOUNTER 2024-07-04 08:47 | Oncology outpatient (recurring) (ONCR) | payer OTHER, SELFPAY ==
[2024-07-04 09:08] LABS: Basophils # 0.1 10^3/uL (0.0-0.1); Basophils % 0.9 %; Eosinophils # 0.2 10^3/uL (0.0-0.8); Eosinophils % 2.2 %; Hematocrit 42.1 % (37-53); Lymphocytes # 1.7 10^3/uL (0.8-4.8); Lymphocytes % 22.8 %; Mean Corpuscular HGB Conc 33.3 g/dL (30-55); Mean Corpuscular Hemoglobin 28.2 pg (27-33); Mean Corpuscular Volume 84.7 fl (82-101); Mean Platelet Volume 9.1 fL (7.4-10.4); Monocytes # 0.5 10^3/uL (0.2-0.9); Monocytes % 6.7 %; Neutrophils # 4.97 10^3/uL (1.8-7.7); Nucleated Red Blood Cells % 0 %; Platelet Count 199 10^3/cmm (157-399); Red Blood Count 4.97 10^6/uL (3.85-5.65); Red Cell Distribution Width 12.7 % (12.1-15.1); White Blood Count 7.42 10^3/uL (3.29-11.43)
[2024-07-04 09:50] LABS: Alanine Aminotransferase 31 U/L (0-41); Albumin Level 4.4 g/dL (3.5-5.2); Alkaline Phosphatase 111 U/L (40-130); Anion Gap 15.5 (5-19); Aspartate Amino Transferase 26 U/L (0-40); Blood Urea Nitrogen 24 mg/dL (8-23); Calcium 9.2 mg/dL (8.5-10.5); Carbon Dioxide 27 mmol/L (22-29); Chloride 99 mmol/L (98-107); Creatinine Clr Calc Pharmacy 75.6665; Globulin 2.7 g/dL (1.3-4.6); Glucose 160 mg/dL (65-115); Lactate Dehydrogenase 147 U/L (135-225); Osmolality Calculated 291 mOsm/kg (285-295); Potassium 4.5 mmol/L (3.5-5.1); Sodium 137 mmol/L (136-145); Testosterone Total 239.5 ng/dL (193-740); Total Bilirubin 0.6 mg/dL (0.15-1.2); Total Protein 7.1 g/dL (6.6-8.7)
[2024-07-04 11:18] LABS: Prostate Specific Antigen 0.166 ng/mL (0-4)
== END 2024-07-18 23:59 | disposition home or self-care (01) ==
PROVIDERS: Internal Medicine; Nurse Practitioner Family; PCP Family Medicine; Visit Provider Internal Medicine Hematology & Oncology
DX: Z08 Encounter for follow-up examination after completed treatment for malignant neoplasm (principal); C61 Malignant neoplasm of prostate; Z92.3 Personal history of irradiation; Z92.25 Personal history of immunosuppression therapy
CPT/HCPCS: 36415; 80053; 83615; 84153; 84403; 85025; 99214

== ENCOUNTER 2024-07-22 17:29 | Emergency (ER) | payer OTHER, MEDICARE, SELFPAY ==
[2024-07-22 17:39] VITALS: BP 150/78; PULSE 106; RESP 18; TEMP 36.7; O2SAT 95; BMI 29.8
[2024-07-22 18:20] LABS: Basophils # 0.1 10^3/uL (0.0-0.1); Eosinophils # 0.2 10^3/uL (0.0-0.8); Eosinophils % 2.7 %; Hematocrit 40.2 % (37-53); Lymphocytes # 1.8 10^3/uL (0.8-4.8); Mean Corpuscular HGB Conc 34.3 g/dL (30-55); Mean Corpuscular Volume 84.5 fl (82-101); Monocytes # 0.4 10^3/uL (0.2-0.9); Monocytes % 6.6 %; Neutrophils # 3.84 10^3/uL (1.8-7.7); Neutrophils % 61.4 %; Nucleated Red Blood Cells % 0 %; Platelet Count 213 10^3/cmm (157-399); Red Blood Count 4.76 10^6/uL (3.85-5.65); Red Cell Distribution Width 12.6 % (12.1-15.1); White Blood Count 6.25 10^3/uL (3.29-11.43)
[2024-07-22 18:32] LABS: INR 0.95 (0.8-1.2)
[2024-07-22 18:38] LABS: Alanine Aminotransferase 30 U/L (0-41); Albumin Level 4.5 g/dL (3.5-5.2); Alkaline Phosphatase 113 U/L (40-130); Anion Gap 14.4 (5-19); Aspartate Amino Transferase 20 U/L (0-40); Blood Urea Nitrogen 28 mg/dL (8-23); Calcium 9.3 mg/dL (8.5-10.5); Carbon Dioxide 28 mmol/L (22-29); Chloride 96 mmol/L (98-107); Creatinine Clr Calc Pharmacy 62.0545; Globulin 2.2 g/dL (1.3-4.6); Glucose 276 mg/dL (65-115); Osmolality Calculated 293 mOsm/kg (285-295); Potassium 4.4 mmol/L (3.5-5.1); Sodium 134 mmol/L (136-145); Total Bilirubin 0.3 mg/dL (0.15-1.2); Total Protein 6.7 g/dL (6.6-8.7)
--- NOTE | 2024-07-22 20:30 | ED_ITS ---
HPI - GI Bleed 2 General: Chief complaint: GI Bleed Stated complaint: Rectal Bleeding Time Seen by Provider: 07/22/24 20:12 History of Present Illness: Patient presents to the ER with complaints of bright red blood per rectum x 2. Differential was a large amount, and a second 1 was a very small amount noted on paper. Patient denies any pain burning nausea vomiting diarrhea but does note some constipation over the last month. Patient is on Plavix. Related Data Home Medications Medication Instructions Recorded Confirmed allopurinol 300 mg tablet 300 mg PO DAILY 05/13/21 07/04/24 insulin glargine 100 unit/mL 50 unit SUBCUT BID 05/13/21 07/04/24 subcutaneous solution salicylic acid-sulfur 2 %-2 % 1 applic topical DAILY 05/13/21 07/04/24 shampoo (Sebex) empagliflozin 25 mg tablet 25 mg PO DAILY 07/12/23 07/04/24 fenofibrate 160 mg tablet 160 mg PO DAILY 07/12/23 07/04/24 ferrous sulfate 325 mg (65 mg 325 mg PO DAILY 07/12/23 07/04/24 iron) tablet metformin 500 mg tablet 1,000 mg PO BID 07/12/23 07/04/24 omega [id number]-fish oil 300 1 cap PO BID 08/03/23 07/04/24 mg-1,000 mg capsule (Fish Oil) acyclovir 800 mg tablet mg PO 02/28/24 07/04/24 Previous Rx's Medication Instructions Recorded fluconazole 150 mg tablet 300 mg (2 x 150 mg) PO .once per 09/27/22 week 6 months #48 tabs Shoes with custom inserts #1 ea 04/11/23 cyanocobalamin (vitamin B-12) 1,000 mcg PO DAILY #60 caps 04/11/23 1,000 mcg capsule aspirin 81 mg tablet,delayed 81 mg PO DAILY #90 tabs 07/18/23 release atorvastatin 40 mg tablet 40 mg PO DAILY #90 tabs 07/18/23 clopidogrel 75 mg tablet (Plavix) 75 mg PO DAILY #90 tabs 07/18/23 Diabetic shoes #1 ea 08/23/23 cam walker #1 ea 10/10/23 folic acid 1 mg tablet See Rx Instructions .Route 01/05/24 .COMPLEX #100 tabs pyridoxine (vitamin B6) 50 mg See Rx Instructions .Route 01/05/24 tablet .COMPLEX #100 tabs lisinopril 20 mg tablet See Rx Instructions .Route 04/01/24 .COMPLEX #90 tabs Allergies Allergy/AdvReac Type Severity Reaction Status Date / Time No Known Allergies Allergy Verified 07/22/24 17:42 Review of Systems 2 General: Reports: 10 or more systems reviewed and unremarkable except in HPI and below PFSH ED 2 PFSH: Medical History 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 Peripheral vascular disease Gas gangrene Osteomyelitis Non-pressure chronic ulcer of left ankle with fat layer exposed Cellulitis of left foot Diabetic peripheral neuropathy associated with type 2 diabetes mellitus Prostate cancer Hyperlipidemia Diabetes Gout HTN (hypertension) Surgical History History of Achilles tendon repair left foot Previous back surgery History of prostate biopsy History of replacement of both shoulder joints Family History Father Cancer skin Other Diabetes Hyperlipidemia Hypertension Denies family history of CAD (coronary artery disease) Clotting disorder Dementia Psychiatric illness Chronic kidney disease (CKD) Suicide Anesthesia complication Bleeding disorder Lung disease Stroke Social History Smoking and tobacco/nicotine status: never used tobacco/nicotine Alcohol intake: current Alcohol intake frequency: holidays/special occasions only Physical Exam 2 Const: COMMON NORMALS: no acute distress, average body habitus, patient oriented x3, no limitations, healthy appearing, alert and well nourished HENMT: COMMON NORMALS: normocephalic, atraumatic, hearing grossly normal bilaterally, external ears normal, Normal external nose present and moist oral mucous membranes HEAD & SCALP: normocephalic and atraumatic NOSE: Normal external nose present EXTERNAL EAR: Yes external ears normal Neck/C-Spine: COMMON NORMALS: no JVD Chest: COMMONS NORMALS: normal inspection of the chest and normal palpation of entire chest wall Resp: COMMON NORMALS: normal respiratory effort, No retractions, No use of accessory muscles and clear to auscultation bilaterally AUSCULTATION: clear to auscultation bilaterally Cardio: COMMON NORMALS: no JVD, regular rate, regular rhythm, S1 normal heart sound present, S2 normal heart sound present, No gallops present (Cardio), No clicks present (Cardio), No murmurs present (Cardio) and No rub (Cardio) R ATE: regular rate RHYTHM: regular rhythm HEART SOUNDS: S1 normal heart sound present and S2 normal heart sound present GI: COMMON NORMALS: Normal to inspection, nondistended, normoactive bowel sounds present, Soft to palpation, non-tender, No hepatosplenomegaly present and no masses PALPATION: Yes Soft to palpation and Yes No hepatosplenomegaly present : OTHER: Minimal blood noted per rectum. No obvious external hemorrhoids or irritation. Neuro: COMMON NORMALS: patient oriented x3 SENSORIUM/ORIENTATION: Yes alert Course 2 Vital Signs: Vital signs: Vital Signs Temperature 98.1 F 07/22/24 17:39 Pulse Rate 73 07/22/24 21:12 Respiratory Rate 18 07/22/24 17:39 Blood Pressure 101/68 07/22/24 21:12 Pulse Oximetry 92 07/22/24 21:12 Oxygen Delivery Me thod Room Air 07/22/24 17:39 MDM - GI Bleed Medical Decision Making Patient patient presented to the ER with complaints of blood per rectum. Lab work was obtained which was unremarkable. Physical exam showed no external hemorrhoids minimal amount of blood noted. Patient will be discharged back to his PCP for follow-up and possible further evaluation and treatment. Medical Records I reviewed the patient's medical records. Lab Data I reviewed the patient's lab results. 07/22/24 18:10 07/22/24 18:10 Laboratory Results WBC 6.25 10^3/uL (3.29-11.43) 07/22/24 18:10 RBC 4.76 10^6/uL (3.85-5.65) 07/22/24 18:10 Hgb 13.80 g/dL (11.27-16.99) 07/22/24 18:10 Hct 40.2 % (37-53) 07/22/24 18:10 MCV 84.5 fl (82-101) 07/22/24 18:10 MCH 29.0 pg (27-33) 07/22/24 18:10 MCHC 34.3 g/dL (30-55) 07/22/24 18:10 RDW 12.6 % (12.1-15.1) 07/22/24 18:10 Plt Count 213 10^3/cmm (157-399) 07/22/24 18:10 MPV 9.0 fL (7.4-10.4) 07/22/24 18:10 Neut % (Auto) 61.4 % 07/22/24 18:10 Lymph % (Auto) 28.0 % 07/22/24 18:10 [place] % (Auto) 6.6 % 07/22/24 18:10 Eos % (Auto) 2.7 % 07/22/24 18:10 Baso % (Auto) 1.0 % 07/22/24 18:10 Neut # (Auto) 3.84 10^3/uL (1.8-7.7) 07/22/24 18:10 Lymph # (Auto) 1.8 10^3/uL (0.8-4.8) 07/22/24 18:10 [place] # (Auto) 0.4 10^3/uL (0.2-0.9) 07/22/24 18:10 Eos # (Auto) 0.2 10^3/uL (0.0-0.8) 07/22/24 18:10 Baso # (Auto) 0.1 10^3/uL (0.0-0.1) 07/22/24 18:10 Nucleated RBC % (auto) 0 % 07/22/24 18:10 Nucleated RBCs # 0.0 /100WBC 07/22/24 18:10 PT 13.00 SECONDS (12.1-14.9) 07/22/24 18:10 INR 0.95 (0.8-1.2) 07/22/24 18:10 Sodium 134 mmol/L (136-145) L 07/22/24 18:10 Potassium 4.4 mmol/L (3.5-5.1) 07/22/24 18:10 Chloride 96 mmol/L (98-107) L 07/22/24 18:10 Carbon Dioxide 28 mmol/L (22-29) 07/22/24 18:10 Anion Gap 14.4 (5-19) 07/22/24 18:10 BUN 28 mg/dL (8-23) H 07/22/24 18:10 Creatinine 1.2 mg/dL (0.7-1.2) 07/22/24 18:10 GFR Calculation Not Reportable 07/22/24 18:10 Glucose 276 mg/dL (65-115) H 07/22/24 18:10 Calculated Osmolality 293 mOsm/kg (285-295) 07/22/24 18:10 Calcium 9.3 mg/dL (8.5-10.5) 07/22/24 18:10 Total Bilirubin 0.3 mg/dL (0.15-1.2) 07/22/24 18:10 AST 20 U/L (0-40) 07/22/24 18:10 ALT 30 U/L (0-41) 07/22/24 18:10 Alkaline Phosphatase 113 U/L (40-130) 07/22/24 18:10 Total Protein 6.7 g/dL (6.6-8.7) 07/22/24 18:10 Albumin 4.5 g/dL (3.5-5.2) 07/22/24 18:10 Globulin 2.2 g/dL (1.3-4.6) 07/22/24 18:10 Blood Type O Positive 07/22/24 18:10 Rho(D) Type Rh positive 07/22/24 18:10 Antibody Screen Positive 07/22/24 18:10 Antibody Identification Anti-Fyb 07/22/24 18:10 No radiology studies performed this visit Discharge Plan Discharge Patient Disposition: Home Clinical Impression: Hematochezia, Anal fissure Condition: Stable Prescriptions: No Action allopurinol 300 mg tablet 300 mg PO DAILY insulin glargine 100 unit/mL solution 50 unit SUBCUT BID Sebex 2-2 % shampoo 1 applic topical DAILY Rx Instructions: massage into wet scalp; leave on for 5 mins ; rinse; repeat application fluconazole 150 mg tablet 300 mg PO .once per week 180 Days Qty: 48 0RF (DME) Diabetic shoes See Rx Instructions .ROUTE .MEDSUPPLY Qty: 1 0RF Rx Instructions: With 3 pairs of inserts toe filler to the left shoe made by the shoe [employer] cyanocobalamin (vitamin B-12) 1,000 mcg capsule 1,000 mcg PO DAILY Qty: 60 5RF (DME) Shoes with custom inserts See Rx Instructions .Route .MEDSUPPLY Qty: 1 0RF Rx Instructions: As directed (DME) connie beauchamp See Rx Instructions .Route .MEDSUPPLY Qty: 1 0RF Rx Instructions: As directed acyclovir 800 mg tablet PO folic acid 1 mg tablet See Rx Instructions .ROUTE .COMPLEX Qty: 100 3RF Dose Instruction: TAKE ONE TABLET BY MOUTH ONCE A DAY FOR FOLIC ACID SUPPLEMENTATION Rx Instructions: TAKE ONE TABLET BY MOUTH ONCE A DAY FOR FOLIC ACID SUPPLEMENTATION pyridoxine (vitamin B6) 50 mg tablet See Rx Instructions .ROUTE .COMPLEX Qty: 100 3RF Dose Instruction: TAKE ONE TABLET BY MOUTH ONCE A DAY FOR VITAMIN B6 DEFICIENCY Rx Instructions: TAKE ONE TABLET BY MOUTH ONCE A DAY FOR VITAMIN B6 DEFICIENCY lisinopril 20 mg tablet See Rx Instructions .ROUTE .COMPLEX Qty: 90 3RF Dose Instruction: TAKE TWO TABLETS BY MOUTH DAILY Rx Instructions: TAKE TWO TABLETS BY MOUTH DAILY metformin 500 mg Tablet 1,000 mg PO BID ferrous sulfate 325 mg (65 mg iron) Tablet 325 mg PO DAILY fenofibrate 160 mg Tablet 160 mg PO DAILY empagliflozin 25 mg Tablet 25 mg PO DAILY aspirin 81 mg tablet,delayed release (DR/EC) 81 mg PO DAILY Qty: 90 1RF Plavix 75 mg tablet 75 mg PO DAILY Qty: 90 0RF atorvastatin 40 mg tablet 40 mg PO DAILY Qty: 90 2RF Fish Oil 300-1,000 mg capsule 1 cap PO BID Discharge Orders: Discharge ED (Routine); Ordered 07/22/24 Ordered By: Michael Bell Referrals: Caitlin Beltran MD [Primary Care Provider] - 1 week Patient Instructions: Anticoagulation Therapy, Rectal Bleeding (ED) Activity Restrictions/Additional Instructions: Your evaluation in the ER showed you your lab work was unremarkable, your physical exam showed minimal bright red blood per rectum. Due to your constipation this may be due to an anal fissure or tear when he had to strain to have a bowel movement. If your bleeding does not slow down over the next couple days he may have to hold your Plavix for couple days. If you become lightheaded dizzy or tachycardic please feel free to return to the ER otherwise follow-up with your family practice physician within the next 7 days for further evaluation and treatment. Coding Level of Care Code ED Cook Fry for Gloria Andino
[2024-07-22 20:41] VITALS: BP 131/71; PULSE 78; O2SAT 97
[2024-07-22 21:12] VITALS: BP 101/68; PULSE 73; O2SAT 92
== END 2024-07-22 21:13 | disposition home or self-care (01) ==
PROVIDERS: Emergency Medicine; Emergency Provider Emergency Medicine; PCP Family Medicine
DX: K92.1 Melena (principal); K60.2 Anal fissure, unspecified; Z79.4 Long term (current) use of insulin; Z79.84 Long term (current) use of oral hypoglycemic drugs; Z79.82 Long term (current) use of aspirin; E11.42 Type 2 diabetes mellitus with diabetic polyneuropathy; I10 Essential (primary) hypertension
CPT/HCPCS: 36415; 80053; 80503; 85025; 85610; 86850; 86870; 86900; 86902; 99283

== ENCOUNTER → 2024-08-06 07:00 | Outpatient (BNVA) | payer OTHER, SELFPAY | PROVIDERS: PCP Family Medicine; Visit Provider Podiatrist Foot & Ankle Surgery | DX: E11.42 Type 2 diabetes mellitus with diabetic polyneuropathy (principal); L60.3 Nail dystrophy; M19.071 Primary osteoarthritis, right ankle and foot; Z89.412 Acquired absence of left great toe; Z79.84 Long term (current) use of oral hypoglycemic drugs; Z79.4 Long term (current) use of insulin | CPT/HCPCS: 11721; 99213 ==

== ENCOUNTER → 2024-08-21 08:20 | Outpatient (BNVA) | payer OTHER, SELFPAY | PROVIDERS: PCP Family Medicine; Visit Provider Nurse Practitioner Family | DX: L57.8 Other skin changes due to chronic exposure to nonionizing radiation (principal); L29.89 Other pruritus; B02.9 Zoster without complications; B02.29 Other postherpetic nervous system involvement; L81.0 Postinflammatory hyperpigmentation; D69.2 Other nonthrombocytopenic purpura; D22.5 Melanocytic nevi of trunk; Z08 Encounter for follow-up examination after completed treatment for malignant neoplasm; Z85.828 Personal history of other malignant neoplasm of skin; L57.0 Actinic keratosis | CPT/HCPCS: 17000; 99213 ==

== ENCOUNTER → 2024-09-30 07:59 | Outpatient (BNVA) | payer OTHER, SELFPAY | PROVIDERS: PCP Family Medicine; Visit Provider Podiatrist Foot & Ankle Surgery | DX: E11.621 Type 2 diabetes mellitus with foot ulcer (principal); L97.524 Non-pressure chronic ulcer of other part of left foot with necrosis of bone; L97.512 Non-pressure chronic ulcer of other part of right foot with fat layer exposed; E11.42 Type 2 diabetes mellitus with diabetic polyneuropathy; Z89.412 Acquired absence of left great toe; Z79.4 Long term (current) use of insulin; Z79.84 Long term (current) use of oral hypoglycemic drugs | CPT/HCPCS: 11042; 11044; 73630; 87070; 87075; 87205 ==

== ENCOUNTER → 2024-10-03 06:52 | Outpatient (BNVA) | payer OTHER, SELFPAY | PROVIDERS: PCP Family Medicine; Visit Provider Podiatrist Foot & Ankle Surgery | DX: E11.42 Type 2 diabetes mellitus with diabetic polyneuropathy (principal); L97.524 Non-pressure chronic ulcer of other part of left foot with necrosis of bone; L97.512 Non-pressure chronic ulcer of other part of right foot with fat layer exposed; E11.621 Type 2 diabetes mellitus with foot ulcer; Z89.412 Acquired absence of left great toe; Z79.4 Long term (current) use of insulin; Z79.84 Long term (current) use of oral hypoglycemic drugs | CPT/HCPCS: 99214 ==

== ENCOUNTER 2024-10-04 05:36 | Day surgery (SDC) | payer OTHER, SELFPAY ==
[2024-10-04] VITALS (7 sets, daily range): BP systolic 109–122; BP diastolic 61–74; PULSE 66–87; RESP 16–18; TEMP 36.4–36.8; O2SAT 96–100; BMI 29.8
[2024-10-04] MEDS: sodium chloride 0.9% 1,000 ML 30 ML IV (06:14)
[2024-10-04 06:19] LABS: Glucose Point of Care 109 mg/dL (70-110)
--- NOTE | 2024-10-04 06:23 | ANES.PREANE2 ---
Pre-Anesthetic Assessment Height/Weight: Height 6 ft Weight 220 lb Temp Pulse Resp BP Pulse Ox O2 Del Method 98.2 F 87 18 122/74 97 Room Air 10/04/24 05:56 10/04/24 05:56 10/04/24 05:56 10/04/24 05:56 10/04/24 05:56 10/04/24 06:12 Preop Diagnosis: Osteomyelitis left foot Operation Date: 10/04/24 07:00 Proposed Procedures p Left second toe amputation, Left third toe amputation, Left fourth toe amputation and Left fifth toe amputation.(Left) - Cortez Bhatia DPM Was Beta Johnathon taken within 24 hours: N/A Was Clonidine taken within 24 hours: N/A Last intake: Intake Last Liquid Date 10/03/24 Last Liquid Time 23:55 Last Solid Date 10/03/24 Last Solid Time 20:00 Social No alcohol and No tobacco Exam alert, oriented x 3, clear to auscultation bilaterally and regular rate & rhythm Airway Submandibular: within normal limits Cervical ROM: within normal limits Mallampati: Class II Dentition: false Comments: Comments: false upper, edentulous on bottom Anesthetic Plan ASA status: 3 Anesthesia: MAC Other: No prior issues with anesthesia NPO since yesterday History of hypertension on lisinopril Type 2 diabetes on insulin. Preop BS 109 Plan for MAC anesthetic with local via surgeon Medications/Allergies Home Medications Medication Instructions Recorded Confirmed Last Taken Type allopurinol 300 mg tablet 300 mg PO DAILY 05/13/21 10/03/24 10/03/24 History insulin glargine 100 unit/mL 50 unit SUBCUT BID 05/13/21 10/03/24 10/03/24 History subcutaneous solution salicylic acid-sulfur 2 %-2 % 1 applic topical DAILY 05/13/21 10/04/24 10/03/24 History shampoo (Sebex) fluconazole 150 mg tablet 300 mg (2 x 150 mg) PO .once per 09/27/22 10/04/24 10/03/24 Rx week 6 months #48 tabs cyanocobalamin (vitamin B-12) 1,000 mcg PO DAILY #60 caps 04/11/23 10/03/24 10/03/24 Rx 1,000 mcg capsule empagliflozin 25 mg tablet 25 mg PO DAILY 07/12/23 10/03/24 10/03/24 History fenofibrate 160 mg tablet 160 mg PO DAILY 07/12/23 10/03/24 10/03/24 History ferrous sulfate 325 mg (65 mg 325 mg PO DAILY 07/12/23 10/03/24 10/03/24 History iron) tablet metformin 500 mg tablet 1,000 mg PO BID 07/12/23 10/03/24 10/03/24 History aspirin 81 mg tablet,delayed 81 mg PO DAILY #90 tabs 07/18/23 10/04/24 10/03/24 Rx release atorvastatin 40 mg tablet 40 mg PO DAILY #90 tabs 07/18/23 10/03/24 10/03/24 Rx omega 7-krb-mqd-fish oil 300 1 cap PO BID 08/03/23 10/04/24 Unknown History mg-1,000 mg capsule (Fish Oil) acyclovir 800 mg tablet 800 mg PO PRN 02/28/24 10/04/24 10/03/24 History meloxicam 15 mg tablet 15 mg PO DAILY #30 tabs 08/06/24 10/03/24 10/03/24 Rx Diabetic shoes #1 ea 09/25/24 10/03/24 Unknown Rx ciprofloxacin HCl 500 mg tablet 500 mg PO BID 7 days #14 tabs 09/30/24 10/03/24 10/03/24 Rx clindamycin HCl 300 mg capsule 300 mg PO TID 7 days #21 caps 09/30/24 10/03/24 10/03/24 Rx folic acid 1 mg tablet 1 mg PO DAILY 10/03/24 10/03/24 10/03/24 History lisinopril 20 mg tablet 40 mg PO DAILY 10/03/24 10/03/24 10/03/24 History pyridoxine (vitamin B6) 50 mg 50 mg PO DAILY 10/03/24 10/04/24 10/03/24 History tablet doxycycline hyclate 100 mg tablet 100 mg PO Q12H 14 days #28 tabs 10/04/24 Unknown Rx Allergies Allergy/AdvReac Type Severity Reaction Status Date / Time No Known Allergies Allergy Verified 10/03/24 06:31 Current Medications Generic Name Dose Route Start Last Admin Trade Name Freq PRN Reason Stop Dose Admin Sodium Chloride 1,000 mls @ 30 mls/hr 10/04/24 05:45 10/04/24 06:14 Sodium Chloride 0.9% IV 10/05/24 05:44 30 mls/hr .Q24H JULISA Administration PFSH Anesthesia Medical History 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 Peripheral vascular disease Gas gangrene Osteomyelitis Non-pressure chronic ulcer of left ankle with fat layer exposed Cellulitis of left foot Diabetic peripheral neuropathy associated with type 2 diabetes mellitus Prostate cancer Hyperlipidemia Diabetes Gout HTN (hypertension) Surgical History History of Achilles tendon repair left foot Previous back surgery History of prostate biopsy History of replacement of both shoulder joints Family History Father Cancer skin Other Diabetes Hyperlipidemia Hypertension Denies family history of CAD (coronary artery disease) Clotting disorder Dementia Psychiatric illness Chronic kidney disease (CKD) Suicide Anesthesia complication Bleeding disorder Lung disease Stroke Social History Smoking and tobacco/nicotine status: never used tobacco/nicotine Alcohol intake: current Alcohol intake frequency: holidays/special occasions only Data Anesthesia Cardiac Studies: No Data to Display
--- NOTE | 2024-10-04 06:29 | P.OP_ITS ---
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 CPT code 32387. 2) left third toe amputation. CPT code 38343 3) left fourth toe amputation. CPT code 67240 4) left fifth toe amputation. CPT code 32008 Implants: 3-0 Vicryl, 4-0 nylon Specimens removed/disposition: Bone culture from distal phalanx left third toe sent to microbiology for Gram stain, culture and sensitivity. Pathology: Left second, third, fourth, fifth toes sent to pathology for permanent. Surgeon: Cortez Bhatia DPM Non Destructive Testing Specialist: Zahida Estimated blood loss: 10 mL 21 min IV fluids: See intraoperative documentation Urine output: None Complications: None Findings: Acute osteomyelitis left foot Brief History: Acute osteomyelitis left third toe, deformities of left second fourth and fifth toes given he has a medial column ray resection including the hallux and first metatarsal and will require an amputation of the left third toe this will leave a deformed second toe and contracted fourth and fifth toes be more practical and functional amputation level to remove the remaining second, fourth and fifth at the same time he like to proceed with this tomorrow morning. I reviewed at length with the patient, the risks, potential complications, benefits, alternatives, expectations, and typical outcomes associated with the surgery. The risks and potential complications were explained in detail, including but not limited to infection, wound dehiscence or soft tissue complications, bleeding and hematoma, chronic edema, neuritis or nerve damage producing numbness or chronic pain, CRPS, failure to relieve pain or worsening pain, thick / painful / unsightly scar, limited motion / stiffness, malposition, delayed union, malunion, or nonunion, fracture, reaction to implants, anesthetic complications, venous thromboembolism, and deformity recurrence. I discussed the notion of no regrets with the patient as it pertains to complications and outcomes. The patient seemed to understand the nature of the proposed care and required convalescence. They asked appropriate questions, answered to their satisfaction. They are aware no guarantees can be made as to a satisfactory outcome and they understand there may be other possible unforeseen complications or outcomes not listed here that will be treated accordingly if they arise. There were no written or implied guarantees given to the patient. They gave informed consent to proceed. Procedure: Under mild sedation the patient was brought to the operating room and remained on the gurney in supine position. Timeout was performed. Anesthesia was then administered by the anesthesia service. Local anesthesia was injected by myself consisting of 30 cc of 1% lidocaine plain in a second, third, fourth, fifth ray block fashion to the left foot. Well-padded pneumatic tourniquet was applied to the left ankle. Left lower extremity was then scrubbed, prepped and draped utilizing normal aseptic technique. No examination performed secondary to infection. Tourniquet was inflated to 250 mmHg. Attention was directed to the left forefoot where full-thickness wound and exposed devitalized bone was appreciated at the distal left third toe, there is also deformity of the left second toe that was cocked up in dorsiflexed position and deviating medially, noted deformities to the left fourth and fifth toes with sagittal plane dominant contractures or similar reducible. The incision with a #15 blade full-thickness circumferentially around the second, third, fourth, fifth metatarsal phalangeal joints was performed and the left second, third, fourth, fifth toes were disarticulated through the metatarsal phalangeal joint and passed from the operative fold. The left second, third, fourth, fifth toes were then sent to pathology for permanent. Devitalized bone consistent with acute osteomyelitis of the left third toe distal phalanx was sent to microbiology for Gram stain, culture and sensitivity. The incision was irrigated with copious amounts of sterile skin solution. All bleeders were ligated and cauterized as necessary. Extensor and flexor tendons were transected under traction. After further irrigation the incision was reapproximated with deep tissues including deep fascia were reapproximated with 3-0 Vicryl and skin with 4-0 nylon. The incision was dressed with Xeroform, sterile 4 x 4's, Kerlix and Giancarlo wrap followed by application of a postop shoe. Tourniquet was then deflated and a prompt hyperemic response is noted to the distal amputation stump of the left foot. Patient tolerated the procedure well and was transferred to the PACU with vital signs stable and [place]neuve status intact. Following. Postoperative monitoring to be discharged home without home care instructions and scheduled follow-up. He finished a 7-day course of clindamycin and ciprofloxacin empirically we will continue antibiotics today he was prescribed doxycycline 100 mg twice daily and we will make adjustments should cultures yield further information necessitating antibiotic coverage.
--- NOTE | 2024-10-04 06:29 | W.PM.OPSUD ---
Surgery/Procedure H&P Update DATE OF PROCEDURE: October 04, 2024 DATE H&P PERFORMED: 09/30/24 H&P UPDATE INFORMATION: I have reviewed H&P completed within last 30 days, I have examined patient prior to procedure, No changes to prior documentation and H&P is in [facility] on date indicated PREOP DIAGNOSIS: Osteomyelitis left foot PLANNED PROCEDURE: Operation Date: 10/04/24 07:00 Proposed Procedures p Left second toe amputation, Left third toe amputation, Left fourth toe amputation and Left fifth toe amputation.(Left) - Cortez Bhatia DPM
[2024-10-04] MEDS: ceFAZolin 2,000 mg SDV 2000 MG IVP (06:55)
[2024-10-04] MEDS: lidocaine 1% 10 ML INJ 30 ML XX (07:15)
--- NOTE | 2024-10-04 08:25 | ANE.PACU2 ---
Inpatient post-anesthesia follow up: Airway intact: Yes Vital signs: Temperature 98 F Pulse Rate 66 Respiratory Rate 18 Blood Pressure 109/67 Pulse Oximetry 97 Oxygen Delivery Me thod Room Air Oxygen Flow Rate 6 Fraction of Inspir ed Oxygen Hydration adequate: Yes Nausea and vomiting: No Pain level: 1 Mental status: Baseline
== END 2024-10-04 08:25 | disposition home or self-care (01) ==
PROVIDERS: PCP Family Medicine; Visit Provider Podiatrist Foot & Ankle Surgery
PROC: (CPT 28820; principal; 2024-10-04 07:00)
DX: L97.512 Non-pressure chronic ulcer of other part of right foot with fat layer exposed (principal); L97.524 Non-pressure chronic ulcer of other part of left foot with necrosis of bone; S98.112A Complete traumatic amputation of left great toe, initial encounter; X58.XXXA Exposure to other specified factors, initial encounter; E11.42 Type 2 diabetes mellitus with diabetic polyneuropathy; I10 Essential (primary) hypertension; E11.9 Type 2 diabetes mellitus without complications; Z79.4 Long term (current) use of insulin
CPT/HCPCS: 28820 ×4; 36416; 82962; 87070; 87075; 87176; 87205; 88305; 88311; J0690; J2704; J7030

== ENCOUNTER → 2024-10-10 12:20 | Outpatient (BNVA) | payer OTHER, SELFPAY | PROVIDERS: PCP Family Medicine; Visit Provider Internal Medicine | DX: I10 Essential (primary) hypertension (principal); I77.9 Disorder of arteries and arterioles, unspecified | CPT/HCPCS: 99213 ==

== ENCOUNTER → 2024-10-11 07:40 | Outpatient (BNVA) | payer OTHER, SELFPAY | PROVIDERS: PCP Family Medicine; Visit Provider Podiatrist Foot & Ankle Surgery | DX: E11.621 Type 2 diabetes mellitus with foot ulcer (principal); L97.512 Non-pressure chronic ulcer of other part of right foot with fat layer exposed; E11.42 Type 2 diabetes mellitus with diabetic polyneuropathy; Z89.422 Acquired absence of other left toe(s); Z91.199 Patient's noncompliance with other medical treatment and regimen due to unspecified reason; Z79.84 Long term (current) use of oral hypoglycemic drugs; Z79.4 Long term (current) use of insulin | CPT/HCPCS: 99213; A4590 ==

== ENCOUNTER → 2024-10-14 07:02 | Outpatient (BNVA) | payer OTHER, SELFPAY | PROVIDERS: PCP Family Medicine; Visit Provider Podiatrist Foot & Ankle Surgery | DX: E11.42 Type 2 diabetes mellitus with diabetic polyneuropathy (principal); L97.512 Non-pressure chronic ulcer of other part of right foot with fat layer exposed; Z89.422 Acquired absence of other left toe(s); Z91.199 Patient's noncompliance with other medical treatment and regimen due to unspecified reason; E11.621 Type 2 diabetes mellitus with foot ulcer; Z79.4 Long term (current) use of insulin; Z79.84 Long term (current) use of oral hypoglycemic drugs | CPT/HCPCS: 99213 ==

== ENCOUNTER 2024-10-17 10:31 | Oncology outpatient (recurring) (ONCR) | payer OTHER, SELFPAY ==
[2024-10-17 10:55] LABS: Basophils # 0.1 10^3/uL (0.0-0.1); Basophils % 0.9 %; Eosinophils # 0.2 10^3/uL (0.0-0.8); Eosinophils % 1.8 %; Hematocrit 39.8 % (37-53); Lymphocytes # 1.8 10^3/uL (0.8-4.8); Lymphocytes % 20.9 %; Mean Corpuscular HGB Conc 32.9 g/dL (30-55); Mean Corpuscular Hemoglobin 27.8 pg (27-33); Mean Corpuscular Volume 84.3 fl (82-101); Mean Platelet Volume 8.7 fL (7.4-10.4); Monocytes # 0.4 10^3/uL (0.2-0.9); Monocytes % 5.2 %; Neutrophils # 5.98 10^3/uL (1.8-7.7); Nucleated Red Blood Cells % 0 %; Platelet Count 315 10^3/cmm (157-399); Red Blood Count 4.72 10^6/uL (3.85-5.65); Red Cell Distribution Width 12.7 % (12.1-15.1); White Blood Count 8.43 10^3/uL (3.29-11.43)
[2024-10-17 11:19] LABS: Alanine Aminotransferase 25 U/L (0-41); Alkaline Phosphatase 101 U/L (40-130); Anion Gap 17.8 (5-19); Aspartate Amino Transferase 22 U/L (0-40); Blood Urea Nitrogen 37 mg/dL (8-23); Calcium 9.7 mg/dL (8.5-10.5); Carbon Dioxide 22 mmol/L (22-29); Chloride 95 mmol/L (98-107); Globulin 2.9 g/dL (1.3-4.6); Glucose 243 mg/dL (65-115); Osmolality Calculated 287 mOsm/kg (285-295); Potassium 4.8 mmol/L (3.5-5.1); Prostate Specific Antigen 0.259 ng/mL (0-4); Sodium 130 mmol/L (136-145); Testosterone Total 377.5 ng/dL (193-740); Total Bilirubin 0.2 mg/dL (0.15-1.2); Total Protein 6.9 g/dL (6.6-8.7)
== END 2024-10-18 23:59 | disposition home or self-care (01) ==
PROVIDERS: Nurse Practitioner Family; PCP Family Medicine; Visit Provider Internal Medicine Hematology & Oncology
DX: Z08 Encounter for follow-up examination after completed treatment for malignant neoplasm (principal); Z85.46 Personal history of malignant neoplasm of prostate; Z98.890 Other specified postprocedural states; E11.42 Type 2 diabetes mellitus with diabetic polyneuropathy; L97.512 Non-pressure chronic ulcer of other part of right foot with fat layer exposed; Z89.422 Acquired absence of other left toe(s); Z92.21 Personal history of antineoplastic chemotherapy; Z92.3 Personal history of irradiation; I51.9 Heart disease, unspecified
CPT/HCPCS: 36415; 80053; 84153; 84403; 85025; 99213; 99214

== ENCOUNTER → 2024-10-30 07:05 | Outpatient (BNVA) | payer OTHER, SELFPAY | PROVIDERS: PCP Family Medicine; Visit Provider Podiatrist Foot & Ankle Surgery | DX: E11.42 Type 2 diabetes mellitus with diabetic polyneuropathy (principal); Z98.890 Other specified postprocedural states; Z89.422 Acquired absence of other left toe(s); Z89.412 Acquired absence of left great toe; Z79.84 Long term (current) use of oral hypoglycemic drugs; Z79.4 Long term (current) use of insulin | CPT/HCPCS: 99213 ==

== ENCOUNTER → 2024-11-11 08:17 | Outpatient (BNVA) | payer OTHER, SELFPAY | PROVIDERS: PCP Family Medicine; Visit Provider Nurse Practitioner Family | DX: L81.4 Other melanin hyperpigmentation (principal); L57.8 Other skin changes due to chronic exposure to nonionizing radiation; Z08 Encounter for follow-up examination after completed treatment for malignant neoplasm; Z85.828 Personal history of other malignant neoplasm of skin; D48.5 Neoplasm of uncertain behavior of skin; L57.0 Actinic keratosis | CPT/HCPCS: 11102; 17000; 99213 ==

== ENCOUNTER → 2024-11-19 06:55 | Outpatient (BNVA) | payer OTHER, SELFPAY | PROVIDERS: PCP Family Medicine; Visit Provider Podiatrist Foot & Ankle Surgery | DX: E11.42 Type 2 diabetes mellitus with diabetic polyneuropathy (principal); Z89.422 Acquired absence of other left toe(s); L97.511 Non-pressure chronic ulcer of other part of right foot limited to breakdown of skin; Z89.421 Acquired absence of other right toe(s); E11.621 Type 2 diabetes mellitus with foot ulcer | CPT/HCPCS: 99213 ==

== ENCOUNTER → 2024-12-10 07:18 | Outpatient (BNVA) | payer OTHER, SELFPAY | PROVIDERS: PCP Family Medicine; Visit Provider Podiatrist Foot & Ankle Surgery | DX: E11.42 Type 2 diabetes mellitus with diabetic polyneuropathy (principal); L60.3 Nail dystrophy; L84 Corns and callosities; E11.621 Type 2 diabetes mellitus with foot ulcer; L97.512 Non-pressure chronic ulcer of other part of right foot with fat layer exposed; Z89.422 Acquired absence of other left toe(s); Z89.412 Acquired absence of left great toe; Z79.4 Long term (current) use of insulin; Z79.84 Long term (current) use of oral hypoglycemic drugs | CPT/HCPCS: 11042; 11055; 11720; 99213 ==

== ENCOUNTER → 2024-12-19 13:00 | Outpatient (BNVA) | payer OTHER, SELFPAY | PROVIDERS: PCP Family Medicine; Visit Provider Nurse Practitioner Family | DX: L24.4 Irritant contact dermatitis due to drugs in contact with skin (principal); L81.4 Other melanin hyperpigmentation; Z08 Encounter for follow-up examination after completed treatment for malignant neoplasm; Z85.828 Personal history of other malignant neoplasm of skin; L57.0 Actinic keratosis | CPT/HCPCS: 17000; 99213 ==

== ENCOUNTER → 2024-12-31 07:17 | Outpatient (BNVA) | payer OTHER, SELFPAY | PROVIDERS: PCP Family Medicine; Visit Provider Podiatrist Foot & Ankle Surgery | DX: L97.513 Non-pressure chronic ulcer of other part of right foot with necrosis of muscle (principal) | CPT/HCPCS: 87070; 87075; 87077; 87205 ==

== ENCOUNTER → 2025-01-06 07:50 | Outpatient (BNVA) | payer OTHER, SELFPAY | PROVIDERS: PCP Family Medicine; Visit Provider Podiatrist Foot & Ankle Surgery | DX: E11.621 Type 2 diabetes mellitus with foot ulcer (principal); L97.513 Non-pressure chronic ulcer of other part of right foot with necrosis of muscle; L97.312 Non-pressure chronic ulcer of right ankle with fat layer exposed; E11.42 Type 2 diabetes mellitus with diabetic polyneuropathy; Z89.422 Acquired absence of other left toe(s); L03.115 Cellulitis of right lower limb; Z89.412 Acquired absence of left great toe; Z79.4 Long term (current) use of insulin; Z79.84 Long term (current) use of oral hypoglycemic drugs | CPT/HCPCS: 29445; 99214 ==

== ENCOUNTER → 2025-01-09 07:31 | Outpatient (BNVA) | payer OTHER, SELFPAY | PROVIDERS: PCP Family Medicine; Visit Provider Podiatrist Foot & Ankle Surgery | DX: E11.621 Type 2 diabetes mellitus with foot ulcer (principal); L97.513 Non-pressure chronic ulcer of other part of right foot with necrosis of muscle; L97.312 Non-pressure chronic ulcer of right ankle with fat layer exposed; C61 Malignant neoplasm of prostate; E11.42 Type 2 diabetes mellitus with diabetic polyneuropathy; Z89.412 Acquired absence of left great toe; Z89.422 Acquired absence of other left toe(s); L03.115 Cellulitis of right lower limb; Z79.4 Long term (current) use of insulin; Z79.84 Long term (current) use of oral hypoglycemic drugs | CPT/HCPCS: 36415; 73610; 73630; 80053; 84153; 84403; 85025; 85651; 86140; 99214 ==

== ENCOUNTER → 2025-01-13 07:04 | Outpatient (BNVA) | payer OTHER, SELFPAY | PROVIDERS: PCP Family Medicine; Visit Provider Podiatrist Foot & Ankle Surgery | DX: L24.4 Irritant contact dermatitis due to drugs in contact with skin (principal); L81.4 Other melanin hyperpigmentation; Z08 Encounter for follow-up examination after completed treatment for malignant neoplasm; Z85.828 Personal history of other malignant neoplasm of skin; E11.42 Type 2 diabetes mellitus with diabetic polyneuropathy; S98.112A Complete traumatic amputation of left great toe, initial encounter; M21.41 Flat foot [pes planus] (acquired), right foot; M21.42 Flat foot [pes planus] (acquired), left foot; Z89.422 Acquired absence of other left toe(s); L97.513 Non-pressure chronic ulcer of other part of right foot with necrosis of muscle; L03.115 Cellulitis of right lower limb; L97.514 Non-pressure chronic ulcer of other part of right foot with necrosis of bone | CPT/HCPCS: 11044; 99213; 99214 ==

== ENCOUNTER 2025-01-15 11:52 | Oncology outpatient (recurring) (ONCR) | payer OTHER, SELFPAY ==
[2025-01-15 12:08] LABS: Basophils # 0.1 10^3/uL (0.0-0.1); Basophils % 0.7 %; Eosinophils # 0.2 10^3/uL (0.0-0.8); Eosinophils % 1.6 %; Hematocrit 39.5 % (37-53); Lymphocytes # 2.4 10^3/uL (0.8-4.8); Lymphocytes % 21.2 %; Mean Corpuscular HGB Conc 33.7 g/dL (30-55); Mean Corpuscular Hemoglobin 27.8 pg (27-33); Mean Corpuscular Volume 82.5 fl (82-101); Mean Platelet Volume 8.9 fL (7.4-10.4); Monocytes # 0.6 10^3/uL (0.2-0.9); Monocytes % 5.3 %; Neutrophils # 7.93 10^3/uL (1.8-7.7); Neutrophils % 70.8 %; Nucleated Red Blood Cells % 0 %; Platelet Count 314 10^3/cmm (157-399); Red Blood Count 4.79 10^6/uL (3.85-5.65); Red Cell Distribution Width 13.2 % (12.1-15.1)
[2025-01-15 12:26] LABS: Alanine Aminotransferase 20 U/L (0-41); Albumin Level 4.1 g/dL (3.5-5.2); Alkaline Phosphatase 103 U/L (40-130); Anion Gap 16.9 (5-19); Aspartate Amino Transferase 17 U/L (0-40); Blood Urea Nitrogen 23 mg/dL (8-23); Calcium 9.6 mg/dL (8.5-10.5); Carbon Dioxide 24 mmol/L (22-29); Chloride 96 mmol/L (98-107); Creatinine Clr Calc Pharmacy 67.5584; Globulin 3.5 g/dL (1.3-4.6); Glucose 189 mg/dL (65-115); Osmolality Calculated 283 mOsm/kg (285-295); Potassium 4.9 mmol/L (3.5-5.1); Sodium 132 mmol/L (136-145); Total Bilirubin 0.3 mg/dL (0.15-1.2); Total Protein 7.6 g/dL (6.6-8.7)
== END 2025-01-15 23:59 | disposition home or self-care (01) ==
PROVIDERS: Nurse Practitioner Family; PCP Family Medicine; Visit Provider Internal Medicine Hematology & Oncology
DX: Z08 Encounter for follow-up examination after completed treatment for malignant neoplasm (principal); C61 Malignant neoplasm of prostate; Z92.3 Personal history of irradiation; Z92.25 Personal history of immunosuppression therapy; E87.1 Hypo-osmolality and hyponatremia; Z79.899 Other long term (current) drug therapy
CPT/HCPCS: 36415; 80053; 85025; 99213; 99214

== ENCOUNTER → 2025-01-22 07:46 | Outpatient (BNVA) | payer OTHER, SELFPAY | PROVIDERS: PCP Family Medicine; Visit Provider Podiatrist Foot & Ankle Surgery | DX: E11.42 Type 2 diabetes mellitus with diabetic polyneuropathy (principal); E11.621 Type 2 diabetes mellitus with foot ulcer; L97.513 Non-pressure chronic ulcer of other part of right foot with necrosis of muscle; L97.514 Non-pressure chronic ulcer of other part of right foot with necrosis of bone; L03.115 Cellulitis of right lower limb; Z89.422 Acquired absence of other left toe(s); Z89.412 Acquired absence of left great toe; Z79.4 Long term (current) use of insulin; Z79.84 Long term (current) use of oral hypoglycemic drugs | CPT/HCPCS: 99214 ==

== ENCOUNTER → 2025-01-24 11:51 | Day surgery (SDC) | payer OTHER, SELFPAY ==
--- NOTE | 2025-01-24 08:40 | XRR_ITS ---
PROCEDURE INFORMATION: Exam: XR Chest Exam date and time: 01/24/2025 12:16 PM Age: 79 years old Clinical indication: Device placement; Picc; Additional info: Post picc insertion, sagar placing picc in ops bay 8 at 1200. Will call when ready. TECHNIQUE: Imaging protocol: Radiologic exam of the chest. Views: 1 view. COMPARISON: CR XR chest 1V portable [id number] 07/13/2023 9:44 AM FINDINGS: Tubes, catheters and devices: PICC from the right arm with the tip in the distal SVC in satisfactory position. Lungs: Unremarkable. No consolidation or mass. Pleural spaces: Unremarkable. No pleural effusion. No pneumothorax. Heart/Mediastinum: Unremarkable. No cardiomegaly. Bones/joints: Bilateral shoulder prostheses are noted. XR/XR chest 1V portable [id number] IMPRESSION: Good PICC positioning
[2025-01-24 12:00] VITALS: BP 126/73; PULSE 102; RESP 16; TEMP 36.7; O2SAT 94
[2025-01-24 12:42] LABS: Basophils # 0.1 10^3/uL (0.0-0.1); Basophils % 0.7 %; Eosinophils # 0.1 10^3/uL (0.0-0.8); Eosinophils % 1.3 %; Hematocrit 35.3 % (37-53); Lymphocytes # 1.6 10^3/uL (0.8-4.8); Lymphocytes % 16.2 %; Mean Corpuscular HGB Conc 33.4 g/dL (30-55); Mean Corpuscular Hemoglobin 27.9 pg (27-33); Mean Corpuscular Volume 83.5 fl (82-101); Mean Platelet Volume 9.1 fL (7.4-10.4); Monocytes # 0.7 10^3/uL (0.2-0.9); Monocytes % 6.9 %; Neutrophils # 7.22 10^3/uL (1.8-7.7); Neutrophils % 74.6 %; Nucleated Red Blood Cells % 0 %; Platelet Count 272 10^3/cmm (157-399); Red Blood Count 4.23 10^6/uL (3.85-5.65); Red Cell Distribution Width 13.2 % (12.1-15.1); White Blood Count 9.69 10^3/uL (3.29-11.43)
[2025-01-24] MEDS: VANCOMYCIN ADD-Vantage 1,000 MG in 0.9% NaCl ADD-Vantage 250 ML 250 MG IV (12:45)
[2025-01-24 13:00] LABS: Blood Urea Nitrogen 23 mg/dL (8-23); Calcium 9.1 mg/dL (8.5-10.5); Carbon Dioxide 25 mmol/L (22-29); Chloride 97 mmol/L (98-107); Glucose 186 mg/dL (65-115); Osmolality Calculated 283 mOsm/kg (285-295); Sodium 132 mmol/L (136-145)
--- NOTE | 2025-01-24 13:00 | PICC.NOTE ---
Single lumen PICC placed to right basilic vein. Referred to vascular access nurse for PICC placement due to need for IV antibiotics x 6 weeks. Risks and benefits discussed and informed consent obtained from pt. Right arm assessed with right basilic vein measuring 6.8 mm, straight, and apparent best choice for placement. Using sterile technique and MST, right basilic vein accessed x 1 stick. Mid-arm circumference measured 10 cm from right AC 32 cm. Trimmed cath 46 cm with 0 cm external length noted. CXR shows tip in distal SVC, in good position for use per radiologist. Line secured with stat-lock. Insertion site covered with Biopatch and TSM. Report called and faxed to [facility] and [place]. Pt and pt educated on how to flush PICC and administer antibiotic. Education print outs given. No questions voiced at this time. Home health scheduled to make visit tomorrow. [place] states antibiotic will be delivered this evening. First dose of Vancomycin started at 1245 with no reaction noted.
[2025-01-24 13:01] LABS: Anion Gap 14.7 (5-19); Potassium 4.7 mmol/L (3.5-5.1)
[2025-01-24 13:15] LABS: Erythrocyte Sedimentation Rate 36 mm/hr (0-10)
== END ==
PROVIDERS: PCP Family Medicine; Visit Provider Podiatrist Foot & Ankle Surgery
DX: L97.513 Non-pressure chronic ulcer of other part of right foot with necrosis of muscle (principal); L97.514 Non-pressure chronic ulcer of other part of right foot with necrosis of bone; E11.42 Type 2 diabetes mellitus with diabetic polyneuropathy
CPT/HCPCS: 36573; 36592; 71045; 80048; 85025; 85651; 86140; 96365; J3370; J7050

== ENCOUNTER → 2025-01-29 07:09 | Outpatient (BNVA) | payer OTHER, SELFPAY | PROVIDERS: PCP Family Medicine; Visit Provider Podiatrist Foot & Ankle Surgery | DX: E11.621 Type 2 diabetes mellitus with foot ulcer (principal); L97.514 Non-pressure chronic ulcer of other part of right foot with necrosis of bone; E11.42 Type 2 diabetes mellitus with diabetic polyneuropathy; L03.115 Cellulitis of right lower limb; Z89.422 Acquired absence of other left toe(s); L97.513 Non-pressure chronic ulcer of other part of right foot with necrosis of muscle; Z89.412 Acquired absence of left great toe; Z79.84 Long term (current) use of oral hypoglycemic drugs; Z79.4 Long term (current) use of insulin | CPT/HCPCS: 99214 ==

== ENCOUNTER 2025-01-30 05:50 | Day surgery (SDC) | payer OTHER, SELFPAY ==
[2025-01-30] VITALS (7 sets, daily range): BP systolic 97–130; BP diastolic 62–79; PULSE 58–90; RESP 17–18; TEMP 36.1–36.6; O2SAT 94–99; BMI 29.8
[2025-01-30] MEDS: sodium chloride 0.9% 1,000 ML 30 ML IV (06:19)
--- NOTE | 2025-01-30 06:38 | P.OP_ITS ---
Operative Report Date of procedure: January 30, 2025 Pre-op diagnosis: Osteomyelitis right second toe L97.514 Post-op diagnosis: Osteomyelitis right second toe L97.514 Post-op findings: Osteomyelitis right second toe Procedure done: Right second toe amputation. CPT code 21301 Implants: 3-0 Vicryl, 4-0 nylon Specimens removed/disposition: Bone right second toe sent to microbiology Pathology: Right second toe to pathology for gross anatomical review/permanent Surgeon: Cortez Bhatia DPM Brand Marketing Coordinator: Keith Estimated blood loss: 10 20 IV fluids: See intraoperative documentation Urine output: None Complications: No complications Brief History: Worsening of right second toe wound, for source control discussed right second toe amputation to potentially prevent ascending into the foot he is currently having streaking to the dorsum of the right forefoot that is more concerning. Patient is in agreements would like to proceed with right second toe amputation tomorrow morning 7 AM. I reviewed at length with the patient, the risks, potential complications, benefits, alternatives, expectations, and typical outcomes associated with the surgery. The risks and potential complications were explained in detail, including but not limited to infection, wound dehiscence or soft tissue complications, bleeding and hematoma, chronic edema, neuritis or nerve damage producing numbness or chronic pain, CRPS, failure to relieve pain or worsening pain, thick / painful / unsightly scar, limited motion / stiffness, malposition, delayed union, malunion, or nonunion, fracture, reaction to implants, anesthetic complications, venous thromboembolism, and deformity recurrence. I discussed the notion of no regrets with the patient as it pertains to complications and outcomes. The patient seemed to understand the nature of the proposed care and required convalescence. They asked appropriate questions, answered to their satisfaction. They are aware no guarantees can be made as to a satisfactory outcome and they understand there may be other possible unforeseen complications or outcomes not listed here that will be treated accordingly if they arise. There were no written or implied guarantees given to the patient. They gave informed consent to proceed. Procedure: Under mild sedation the patient was brought to the operating room and remained on the gurney in supine position. A timeout was performed. Anesthesia was administered by the anesthesia service. Local anesthesia injected by myself consisting of 20 cc of 0.5% Marcaine plain in a right second ray block fashion. Well-padded pneumatic tourniquet applied to the right calf. Right lower extremity was scrubbed, prepped and draped utilizing normal aseptic technique. Right foot was elevated and tourniquet inflated to 250 mmHg. Attention was directed to the right second toe noted to have cellulitis , edema and purulent drainage with wound probing directly to devitalized bone at the distal phalanx and intermediate phalanx. 2 semielliptical converging incisions performed full-thickness down to bone encompassing the right second metatarsal phalangeal joint and the right second toe was disarticulated sharply through the metatarsal phalange joint and passed from operative field. Right second toe bone culture sent to microbiology for Gram stain culture and sensitivity, right second toe sent to pathology for gross anatomical review. The incision was irrigated with copious amounts of sterile saline solution. All bleeders were ligated and cauterized as necessary. Extensor and flexor tendons transected under traction. After further irrigation deep fascia and subcutaneous tissue closed with 3-0 Vicryl, skin closed with 4-0 nylon. The incision was dressed with Xeroform, sterile 4 x 4 gauze, Kerlix, Giancarlo wrap followed by application of a postop shoe. Tourniquet was deflated and a prompt hyperemic response is noted to the remaining digits of the right foot. Patient tolerated the procedure and anesthesia well and was transferred to the PACU with vital signs stable and vascular status intact. Following a period of postoperative monitoring he will be discharged home without home care instructions and scheduled follow-up.
--- NOTE | 2025-01-30 06:38 | W.PM.OPSUD ---
Surgery/Procedure H&P Update DATE OF PROCEDURE: January 30, 2025 DATE H&P PERFORMED: 01/29/25 H&P UPDATE INFORMATION: I have reviewed H&P completed within last 30 days, I have examined patient prior to procedure, No changes to prior documentation and Risks and benefits of the procedure reviewed PREOP DIAGNOSIS: Osteomyelitis right second toe PLANNED PROCEDURE: Operation Date: 01/30/25 07:00 Proposed Procedures p Amputation Toe/s(Right) - Cortez Bhatia DPM
--- NOTE | 2025-01-30 06:39 | ANES.PREANE2 ---
Pre-Anesthetic Assessment Height/Weight: Height 1.83 m Weight 99.79 kg O2 Del Method Room Air 01/30/25 06:13 Preop Diagnosis: Osteomyelitis right second toe Operation Date: 01/30/25 07:00 Proposed Procedures p Amputation Toe/s(Right) - Cortez Bhatia DPM Familial anesthetic complications: None Was Beta Johnathon taken within 24 hours: N/A Was Clonidine taken within 24 hours: N/A Last intake: Intake Last Liquid Date 01/29/25 Last Liquid Time 23:52 Last Solid Date 01/29/25 Last Solid Time 20:00 Social No alcohol and No tobacco Exam alert, oriented x 3, clear to auscultation bilaterally and regular rate & rhythm Airway Mallampati: Class I Dentition: false CV/HEM Hypertension and Peripheral Vascular Disease Metabolic Diabetes Mellitus and Hyperlipidemia Anesthetic Plan ASA status: 3 Anesthesia: MAC Risk of > 500 ml blood loss (7ml/kg in children): No Medications/Allergies Home Medications ?Medication ?Instructions ?Recorded ?Confirmed ?Last Taken ?Type allopurinol 300 mg tablet 300 mg PO DAILY 05/13/21 01/29/25 01/23/25 History insulin glargine 100 unit/mL 50 unit SUBCUT BID 05/13/21 01/29/25 01/29/25 History subcutaneous solution salicylic acid-sulfur 2 %-2 % 1 applic topical DAILY 05/13/21 01/29/25 01/23/25 History shampoo (Sebex) fluconazole 150 mg tablet 300 mg (2 x 150 mg) PO .once per 09/27/22 01/29/25 01/23/25 Rx week 6 months #48 tabs cyanocobalamin (vitamin B-12) 1,000 mcg PO DAILY #60 caps 04/11/23 01/29/25 01/23/25 Rx 1,000 mcg capsule empagliflozin 25 mg tablet 25 mg PO DAILY 07/12/23 01/29/25 01/23/25 History fenofibrate 160 mg tablet 160 mg PO DAILY 07/12/23 01/29/25 01/23/25 History ferrous sulfate 325 mg (65 mg 325 mg PO DAILY 07/12/23 01/29/25 01/23/25 History iron) tablet metformin 500 mg tablet 1,000 mg PO BID 07/12/23 01/29/25 01/29/25 History aspirin 81 mg tablet,delayed 81 mg PO DAILY #90 tabs 07/18/23 01/29/25 01/23/25 Rx release atorvastatin 40 mg tablet 40 mg PO DAILY #90 tabs 07/18/23 01/29/25 01/23/25 Rx omega 7-hjq-vng-fish oil 300 1 cap PO BID 08/03/23 01/29/25 01/23/25 History mg-1,000 mg capsule (Fish Oil) acyclovir 800 mg tablet 800 mg PO PRN 02/28/24 01/29/25 01/23/25 History meloxicam 15 mg tablet 15 mg PO DAILY #30 tabs 08/06/24 01/29/25 01/23/25 Rx Diabetic shoes #1 ea 09/25/24 01/29/25 01/23/25 Rx folic acid 1 mg tablet 1 mg PO DAILY 10/03/24 01/29/25 01/23/25 History lisinopril 20 mg tablet 40 mg PO DAILY 10/03/24 01/29/25 01/29/25 History mupirocin 2 % topical ointment 1 applic topical BID 2 weeks #22 10/11/24 01/29/25 01/23/25 Rx grams mupirocin 2 % topical ointment 1 applic topical BID #15 grams 10/30/24 01/29/25 01/23/25 Rx pyridoxine (vitamin B6) 50 mg See Rx Instructions .Route 12/02/24 01/29/25 01/23/25 Rx tablet .COMPLEX #100 tabs custom molded orthotics with toe #1 ea 12/10/24 01/29/25 01/23/25 Rx filler to the left CAM walker #1 ea 01/09/25 01/29/25 01/23/25 Rx collagenase clostridium histo. 250 1 applic topical DAILY #90 grams 01/17/25 01/29/25 01/23/25 Rx unit/gram topical ointment (Santyl) Allergies Allergy/AdvReac Type Severity Reaction Status Date / Time No Known Allergies Allergy Verified 01/29/25 13:22 Current Medications Generic Name Dose Route Start Last Admin Trade Name Freq PRN Reason Stop Dose Admin Sodium Chloride 1,000 mls @ 30 mls/hr 01/30/25 06:00 01/30/25 06:19 Sodium Chloride 0.9% IV 01/31/25 05:59 30 mls/hr .Q24H JULISA Administration PFSH Anesthesia Medical History 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 Peripheral vascular disease Gas gangrene Osteomyelitis Non-pressure chronic ulcer of left ankle with fat layer exposed Cellulitis of left foot Diabetic peripheral neuropathy associated with type 2 diabetes mellitus Prostate cancer Hyperlipidemia Diabetes Gout HTN (hypertension) Surgical History History of Achilles tendon repair left foot Previous back surgery History of prostate biopsy History of replacement of both shoulder joints Family History Father Cancer skin Other Diabetes Hyperlipidemia Hypertension Denies family history of CAD (coronary artery disease) Clotting disorder Dementia Psychiatric illness Chronic kidney disease (CKD) Suicide Anesthesia complication Bleeding disorder Lung disease Stroke Social History Smoking and tobacco/nicotine status: never used tobacco/nicotine Alcohol intake: current Alcohol intake frequency: holidays/special occasions only
[2025-01-30 06:42] LABS: Basophils % 0.5 %; Eosinophils # 0.3 10^3/uL (0.0-0.8); Hematocrit 34.3 % (37-53); Lymphocytes # 1.5 10^3/uL (0.8-4.8); Mean Corpuscular HGB Conc 33.2 g/dL (30-55); Mean Corpuscular Hemoglobin 27.3 pg (27-33); Mean Corpuscular Volume 82.1 fl (82-101); Mean Platelet Volume 8.7 fL (7.4-10.4); Monocytes # 0.6 10^3/uL (0.2-0.9); Monocytes % 6.7 %; Neutrophils # 5.89 10^3/uL (1.8-7.7); Neutrophils % 71.6 %; Nucleated Red Blood Cells % 0 %; Platelet Count 233 10^3/cmm (157-399); Red Blood Count 4.18 10^6/uL (3.85-5.65); White Blood Count 8.23 10^3/uL (3.29-11.43)
[2025-01-30 06:42] LABS: Glucose Point of Care 118 mg/dL (70-110)
[2025-01-30 07:06] LABS: Alanine Aminotransferase 31 U/L (0-41); Albumin Level 3.4 g/dL (3.5-5.2); Alkaline Phosphatase 86 U/L (40-130); Anion Gap 16.4 (5-19); Aspartate Amino Transferase 28 U/L (0-40); Blood Urea Nitrogen 20 mg/dL (8-23); C Reactive Protein 138.3 mg/L (0.0-4.9); Calcium 8.7 mg/dL (8.5-10.5); Carbon Dioxide 24 mmol/L (22-29); Chloride 97 mmol/L (98-107); Creatinine Clr Calc Pharmacy 67.6959; Globulin 3.6 g/dL (1.3-4.6); Glucose 108 mg/dL (65-115); Osmolality Calculated 279 mOsm/kg (285-295); Potassium 4.4 mmol/L (3.5-5.1); Sodium 133 mmol/L (136-145); Total Bilirubin 0.5 mg/dL (0.15-1.2)
[2025-01-30 07:08] LABS: Vancomycin Trough 12.1 ug/mL (10-15)
[2025-01-30] MEDS: BUPivacaine 0.5% INJ 30 mL INJECTION (07:36)
--- NOTE | 2025-01-30 08:40 | ANE.PACU2 ---
Inpatient post-anesthesia follow up: Airway intact: Yes Vital signs: Temperature 97 F Pulse Rate 58 Respiratory Rate 18 Blood Pressure 122/73 Pulse Oximetry 99 Oxygen Delivery Me thod Room Air Oxygen Flow Rate 6 Fraction of Inspir ed Oxygen Hydration adequate: Yes Nausea and vomiting: No Pain level: 1 Mental status: Baseline
== END 2025-01-30 08:40 | disposition home or self-care (01) ==
PROVIDERS: PCP Family Medicine; Visit Provider Podiatrist Foot & Ankle Surgery
PROC: (CPT 28820; principal; 2025-01-30 07:00)
DX: E11.621 Type 2 diabetes mellitus with foot ulcer (principal); E11.42 Type 2 diabetes mellitus with diabetic polyneuropathy; E11.52 Type 2 diabetes mellitus with diabetic peripheral angiopathy with gangrene; I10 Essential (primary) hypertension; E78.5 Hyperlipidemia, unspecified; L97.514 Non-pressure chronic ulcer of other part of right foot with necrosis of bone; L03.115 Cellulitis of right lower limb; Z79.899 Other long term (current) drug therapy; Z79.82 Long term (current) use of aspirin; Z79.84 Long term (current) use of oral hypoglycemic drugs; Z89.422 Acquired absence of other left toe(s)
CPT/HCPCS: 28820; 36415; 36416; 80053; 80202; 82962; 85025; 86140; 87070; 87077; 87176; 87186; 87205; 88305; 88311; J2704; J3010; J3490; J7030; J9999

== ENCOUNTER 2025-02-03 15:36 | Outpatient (CLI) | payer OTHER, SELFPAY ==
[2025-02-03 16:23] LABS: Basophils # 0.1 10^3/uL (0.0-0.1); Eosinophils # 0.2 10^3/uL (0.0-0.8); Eosinophils % 2.6 %; Hematocrit 33.4 % (37-53); Lymphocytes # 1.3 10^3/uL (0.8-4.8); Lymphocytes % 14.8 %; Mean Corpuscular HGB Conc 32.6 g/dL (30-55); Mean Corpuscular Hemoglobin 27.5 pg (27-33); Mean Corpuscular Volume 84.1 fl (82-101); Mean Platelet Volume 9.4 fL (7.4-10.4); Monocytes # 0.5 10^3/uL (0.2-0.9); Neutrophils # 6.74 10^3/uL (1.8-7.7); Nucleated Red Blood Cells % 0 %; Platelet Count 374 10^3/cmm (157-399); Red Blood Count 3.97 10^6/uL (3.85-5.65); Red Cell Distribution Width 13.2 % (12.1-15.1); White Blood Count 8.98 10^3/uL (3.29-11.43)
[2025-02-03 16:41] LABS: Vancomycin Trough 13.7 ug/mL (10-15)
[2025-02-03 16:48] LABS: Alanine Aminotransferase 40 U/L (0-41); Albumin Level 3.4 g/dL (3.5-5.2); Alkaline Phosphatase 90 U/L (40-130); Aspartate Amino Transferase 27 U/L (0-40); Blood Urea Nitrogen 18 mg/dL (8-23); C Reactive Protein 98.6 mg/L (0.0-4.9); Calcium 8.8 mg/dL (8.5-10.5); Carbon Dioxide 22 mmol/L (22-29); Chloride 97 mmol/L (98-107); Globulin 3.4 g/dL (1.3-4.6); Glucose 132 mg/dL (65-115); Osmolality Calculated 280 mOsm/kg (285-295); Sodium 133 mmol/L (136-145); Total Bilirubin 0.3 mg/dL (0.15-1.2); Total Protein 6.8 g/dL (6.6-8.7)
== END 2025-02-03 15:37 | disposition home or self-care (01) ==
LOC: LAB 15:38
PROVIDERS: PCP Family Medicine; Visit Provider Podiatrist Foot & Ankle Surgery
DX: E11.621 Type 2 diabetes mellitus with foot ulcer (principal)
CPT/HCPCS: 80053; 80202; 85025; 86140

== ENCOUNTER → 2025-02-05 07:03 | Outpatient (BNVA) | payer OTHER, SELFPAY | PROVIDERS: PCP Family Medicine; Visit Provider Podiatrist Foot & Ankle Surgery | DX: E11.42 Type 2 diabetes mellitus with diabetic polyneuropathy (principal); S98.112A Complete traumatic amputation of left great toe, initial encounter; M21.41 Flat foot [pes planus] (acquired), right foot; M21.42 Flat foot [pes planus] (acquired), left foot; L03.115 Cellulitis of right lower limb; L97.513 Non-pressure chronic ulcer of other part of right foot with necrosis of muscle; L97.514 Non-pressure chronic ulcer of other part of right foot with necrosis of bone; E11.621 Type 2 diabetes mellitus with foot ulcer; Z79.4 Long term (current) use of insulin; Z79.84 Long term (current) use of oral hypoglycemic drugs; X58.XXXA Exposure to other specified factors, initial encounter | CPT/HCPCS: 99214 ==

== ENCOUNTER → 2025-02-06 14:00 | Outpatient (BNVA) | payer OTHER, SELFPAY | PROVIDERS: PCP Family Medicine; Visit Provider Podiatrist Foot & Ankle Surgery | DX: E11.42 Type 2 diabetes mellitus with diabetic polyneuropathy (principal); Z89.412 Acquired absence of left great toe; L03.115 Cellulitis of right lower limb; Z89.422 Acquired absence of other left toe(s); E11.621 Type 2 diabetes mellitus with foot ulcer; L97.513 Non-pressure chronic ulcer of other part of right foot with necrosis of muscle; L97.514 Non-pressure chronic ulcer of other part of right foot with necrosis of bone; Z79.84 Long term (current) use of oral hypoglycemic drugs; Z79.4 Long term (current) use of insulin | CPT/HCPCS: 73610; 99214 ==

== ENCOUNTER 2025-02-11 15:49 | Outpatient (CLI) | payer OTHER, SELFPAY ==
[2025-02-11 15:58] LABS: Basophils # 0.1 10^3/uL (0.0-0.1); Basophils % 0.8 %; Eosinophils # 0.2 10^3/uL (0.0-0.8); Eosinophils % 2.3 %; Hematocrit 33.9 % (37-53); Lymphocytes # 1.5 10^3/uL (0.8-4.8); Lymphocytes % 20.2 %; Mean Corpuscular HGB Conc 32.4 g/dL (30-55); Mean Corpuscular Hemoglobin 26.8 pg (27-33); Mean Corpuscular Volume 82.5 fl (82-101); Mean Platelet Volume 9.1 fL (7.4-10.4); Monocytes # 0.5 10^3/uL (0.2-0.9); Monocytes % 6.6 %; Neutrophils # 5.03 10^3/uL (1.8-7.7); Neutrophils % 69.5 %; Nucleated Red Blood Cells % 0 %; Platelet Count 344 10^3/cmm (157-399); Red Blood Count 4.11 10^6/uL (3.85-5.65); Red Cell Distribution Width 13.3 % (12.1-15.1); White Blood Count 7.24 10^3/uL (3.29-11.43)
[2025-02-11 16:30] LABS: Alanine Aminotransferase 21 U/L (0-41); Albumin Level 3.6 g/dL (3.5-5.2); Alkaline Phosphatase 92 U/L (40-130); Aspartate Amino Transferase 20 U/L (0-40); Blood Urea Nitrogen 17 mg/dL (8-23); C Reactive Protein 34.3 mg/L (0.0-4.9); Calcium 8.7 mg/dL (8.5-10.5); Carbon Dioxide 24 mmol/L (22-29); Chloride 99 mmol/L (98-107); Globulin 2.6 g/dL (1.3-4.6); Glucose 123 mg/dL (65-115); Osmolality Calculated 285 mOsm/kg (285-295); Sodium 136 mmol/L (136-145); Total Bilirubin 0.3 mg/dL (0.15-1.2); Total Protein 6.2 g/dL (6.6-8.7)
[2025-02-11 17:18] LABS: Anion Gap 18.2 (5-19); Potassium 5.2 mmol/L (3.5-5.1)
== END 2025-02-11 15:50 | disposition home or self-care (01) ==
PROVIDERS: PCP Family Medicine; Visit Provider Podiatrist Foot & Ankle Surgery
DX: L97.513 Non-pressure chronic ulcer of other part of right foot with necrosis of muscle (principal); L03.115 Cellulitis of right lower limb
CPT/HCPCS: 80053; 80202; 85025; 86140

== ENCOUNTER 2025-02-12 09:17 | Oncology outpatient (recurring) (ONCR) | payer OTHER, SELFPAY ==
--- NOTE | 2025-02-12 10:15 | MRR_ITS ---
PROCEDURE INFORMATION: Exam: MR Right Lower Extremity Joint Without Contrast; Ankle Exam date and time: 02/12/2025 10:22 AM Age: 79 years old Clinical indication: Injury or trauma; Sprain or strain; Injury details: Post op toe removed; C/O pain RT ankle - twisted getting out of w/c since surgery/recent infection in right foot on lateral and plantar aspect for 2 months; Prior surgery; Surgery date: 1-6 months; Surgery type: Toe amputation; HX of pancreatic cancer TECHNIQUE: Imaging protocol: Magnetic resonance imaging of the right lower extremity without contrast. Exam focused on the ankle. COMPARISON: CR XR ankle RT min 3V* [id number] 02/06/2025 2:08 PM FINDINGS: OSSEOUS STRUCTURES: There is a suggestion of pes planus, also seen on the prior plain radiographs. There is mild diffuse joint space narrowing with thinning of the articular cartilage, subchondral sclerosis, and small marginal spurs, particularly involving the subtalar joint and tarsometatarsal joints. There are degenerative fibrovascular marrow changes, particularly involving the tarsometatarsal joints. There is a 17 x 10 mm subchondral cyst within the inferolateral aspect of the talus. No evidence for acute fracture or suspicious osseous lesion. TENDONS: There is a full-thickness versus high-grade partial-thickness tear involving the posterior tibial tendon at the level of the distal tibial metaphysis. There is flattening of the peroneus brevis tendon and mild thickening and T2 hyperintensity involving the peroneus longus tendon with a tiny amount of surrounding fluid compatible with tendinopathy and tenosynovitis. There is a tiny focus of intrinsic T2 hyperintensity within the medial aspect of the distal Achilles tendon suggesting a tiny intrasubstance tear. The Achilles tendon is otherwise unremarkable. Remaining major tendons are unremarkable. LIGAMENTS: There is attenuation of the anterior talofibular ligament suspicious for a mild sprain. Remaining major ligaments appear intact. SOFT TISSUES: There is diffuse soft tissue edema surrounding the ankle and visualized foot. OTHER: None. MR/MR ankle RT wo con* [id number] IMPRESSION: 1. Full-thickness versus high-grade partial-thickness tear involving the posterior tibial tendon at the level of the distal tibial metaphysis. 2. Tendinopathy and tenosynovitis involving the peroneal tendons. 3. Mild sprain of the anterior talofibular ligament. 4. Tiny 4 mm intrasubstance tear involving the distal Achilles tendon. 5. 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 6. Suggestion of pes planus deformity. Weight-bearing plain radiographs may be helpful for further evaluation. 7. Diffuse soft tissue edema.
== END 2025-02-15 23:59 | disposition home or self-care (01) ==
LOC: RAD 09:19 → ONCMED 10:16 → RAD 10:57 → ONCMED 02-13 09:02
PROVIDERS: PCP Family Medicine; Visit Provider Podiatrist Foot & Ankle Surgery
DX: Z08 Encounter for follow-up examination after completed treatment for malignant neoplasm (principal); Z85.46 Personal history of malignant neoplasm of prostate; Z98.890 Other specified postprocedural states; E11.42 Type 2 diabetes mellitus with diabetic polyneuropathy; L97.512 Non-pressure chronic ulcer of other part of right foot with fat layer exposed; Z89.422 Acquired absence of other left toe(s); Z92.21 Personal history of antineoplastic chemotherapy; Z92.3 Personal history of irradiation; I51.9 Heart disease, unspecified; C61 Malignant neoplasm of prostate; Z92.25 Personal history of immunosuppression therapy; E11.621 Type 2 diabetes mellitus with foot ulcer; L97.322 Non-pressure chronic ulcer of left ankle with fat layer exposed; Z89.412 Acquired absence of left great toe; I77.9 Disorder of arteries and arterioles, unspecified; Z79.4 Long term (current) use of insulin; Z79.84 Long term (current) use of oral hypoglycemic drugs; S99.911A Unspecified injury of right ankle, initial encounter
CPT/HCPCS: 73721; 99214

== ENCOUNTER 2025-02-14 06:42 | Day surgery (SDC) | payer OTHER, SELFPAY ==
[2025-02-14] VITALS (9 sets, daily range): BP systolic 115–122; BP diastolic 63–79; PULSE 68–89; RESP 16–70; TEMP 36.2–36.6; O2SAT 95–98; BMI 29.8
--- NOTE | 2025-02-14 06:26 | ANES.PREANE2 ---
Pre-Anesthetic Assessment Height/Weight: Height 6 ft Preop Diagnosis: Need for foot closure Operation Date: 02/14/25 08:00 Proposed Procedures p Secondary Closure of surgical wound right foot(Right) - Cortez Bhatia DPM Was Beta Johnathon taken within 24 hours: N/A Was Clonidine taken within 24 hours: N/A Social No alcohol and No tobacco Exam alert, oriented x 3, clear to auscultation bilaterally and regular rate & rhythm Airway Submandibular: within normal limits Cervical ROM: within normal limits Mallampati: Class III Dentition: false Anesthetic Plan ASA status: 3 Anesthesia: MAC Other: No prior issues with anesthesia NPO since yesterday evening Patient just recently had a procedure under MAC anesthesia without issues History of diabetes and hyperlipidemia. On chronic insulin Patient just had labs 02/11/2025. K+ 5.2 at that time. Hypertension on lisinopril Plan for MAC anesthesia with local via surgeon Medications/Allergies Home Medications ?Medication ?Instructions ?Recorded ?Confirmed ?Last Taken ?Type allopurinol 300 mg tablet 300 mg PO DAILY 05/13/21 02/14/25 02/13/25 History insulin glargine 100 unit/mL 32 unit SUBCUT BID 05/13/21 02/13/25 02/13/25 History subcutaneous solution fluconazole 150 mg tablet 300 mg (2 x 150 mg) PO .once per 09/27/22 02/14/25 02/09/25 Rx week 6 months #48 tabs cyanocobalamin (vitamin B-12) 1,000 mcg PO DAILY #60 caps 04/11/23 02/14/25 02/13/25 Rx 1,000 mcg capsule empagliflozin 25 mg tablet 25 mg PO DAILY 07/12/23 02/14/25 02/13/25 History fenofibrate 160 mg tablet 160 mg PO DAILY 07/12/23 02/14/25 02/13/25 History ferrous sulfate 325 mg (65 mg 325 mg PO DAILY 07/12/23 02/14/25 02/13/25 History iron) tablet metformin 500 mg tablet 500 mg PO BID 07/12/23 02/14/25 02/13/25 History aspirin 81 mg tablet,delayed 81 mg PO DAILY #90 tabs 07/18/23 02/14/25 02/13/25 Rx release atorvastatin 40 mg tablet 40 mg PO DAILY #90 tabs 07/18/23 02/14/25 02/13/25 Rx Diabetic shoes #1 ea 09/25/24 02/12/25 01/23/25 Rx folic acid 1 mg tablet 1 mg PO DAILY 10/03/24 02/14/25 02/13/25 History lisinopril 20 mg tablet 40 mg PO DAILY 10/03/24 02/14/25 02/13/25 History custom molded orthotics with toe #1 ea 12/10/24 02/12/25 01/23/25 Rx filler to the left CAM walker #1 ea 01/09/25 02/12/25 01/23/25 Rx cholecalciferol (vitamin D3) 50 100 mcg PO DAILY 02/13/25 02/14/25 02/13/25 History mcg (2,000 unit) capsule (Vitamin D3) glipizide 10 mg tablet 10 mg PO BID 02/13/25 02/14/25 02/13/25 History insulin aspart U-100 100 unit/mL 15 unit SUBCUT BID 02/13/25 02/13/25 02/13/25 History subcutaneous cartridge pyridoxine (vitamin B6) 50 mg 50 mg PO DAILY 02/13/25 02/14/25 02/13/25 History tablet ciprofloxacin HCl 500 mg tablet 500 mg PO Q12H 14 days #28 tabs 02/14/25 02/14/25 02/13/25 Rx Allergies Allergy/AdvReac Type Severity Reaction Status Date / Time No Known Allergies Allergy Verified 02/14/25 06:55 [facility] Anesthesia Medical History 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 Peripheral vascular disease Gas gangrene Osteomyelitis Non-pressure chronic ulcer of left ankle with fat layer exposed Cellulitis of left foot Diabetic peripheral neuropathy associated with type 2 diabetes mellitus Prostate cancer Hyperlipidemia Diabetes Gout HTN (hypertension) Surgical History History of Achilles tendon repair left foot Previous back surgery History of prostate biopsy History of replacement of both shoulder joints Family History Father Cancer skin Other Diabetes Hyperlipidemia Hypertension Denies family history of CAD (coronary artery disease) Clotting disorder Dementia Psychiatric illness Chronic kidney disease (CKD) Suicide Anesthesia complication Bleeding disorder Lung disease Stroke Social History Smoking and tobacco/nicotine status: never used tobacco/nicotine Alcohol intake: current Alcohol intake frequency: holidays/special occasions only
[2025-02-14] MEDS: sodium chloride 0.9% 1,000 ML 30 ML IV (07:09)
--- NOTE | 2025-02-14 07:09 | W.PM.OPSUD ---
Surgery/Procedure H&P Update DATE OF PROCEDURE: February 14, 2025 DATE H&P PERFORMED: 02/12/25 H&P UPDATE INFORMATION: I have reviewed H&P completed within last 30 days, I have examined patient prior to procedure, No changes to prior documentation and Risks and benefits of the procedure reviewed PREOP DIAGNOSIS: Surgical dehiscence right foot PLANNED PROCEDURE: Operation Date: 02/14/25 08:00 Proposed Procedures p Secondary Closure of surgical wound right foot(Right) - Cortez Bhatia DPM
--- NOTE | 2025-02-14 07:10 | P.OP_ITS ---
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 L97.513 Non-pressure chronic ulcer of other part of right foot with necrosis of bone L97.514 Noncompliance Z91.199 Dehiscence of amputation stump T87.81 Post-op diagnosis: Diabetic peripheral neuropathy associated with type 2 diabetes mellitus E11.42 Cellulitis of right foot L03.115 Status post amputation of lesser toe of left foot Z89.422 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 CPT code 67082 Implants: 2-0 Vicryl, 3-0 nylon Specimens removed/disposition: None Pathology: None Surgeon: Cortez Bhatia DPM Lead Blender: Fei Estimated blood loss: 5 0 Brief History: Wound culture 12/31/2024 micrococcus. Bone culture 10/04/2024 Bacteroides and strep group B Home health care agency: [facility] at home Date of PICC line placement: January 24, 2025 single-lumen PICC line right basilic vein.? Line is secured with StatLock and insertion site covered with Biopatch and TSM. Pharmacy: [facility] Antibiotic: Vancomycin pharmacy to dose anticipating 6-week course, first infusion January 24, 2025 patient currently finishing week 1 of 6.? Current dose 1750 mg infused over 2 hours.? Maintenance: Flushed with 10 mL of 0.9% saline before and after medication and heparin 10 units/mL total of 5 mL after saline as needed to maintain IV patency.? PICC line dressing change 24 hours after insertion and weekly thereafter or as needed. Labs: Once weekly labs for 8 weeks into date 03/17/2025 CBC with differential, CMP and CRP and Vanco trough. Labs drawn 02/03/2025 white blood cell count 8.98, creatinine 1.0, albumin 3.4 C- reactive protein 98.6 down from 138.3. Betadine wet-to-dry dressing change right second toe amputation site, Hydrofera Blue subfirst metatarsal head wound and medial malleolus wound all right foot. Home health to perform dressing changes on Mondays and Fridays, will be seen weekly in podiatry clinic on Wednesdays. Surgical site dehiscence likely due to noncompliance now demonstrates erythema and exposed myofascial layer, recommended further debridement and delayed closure if appropriate patient is agreements will set up for this Monday outpatient. I reviewed at length with the patient, the risks, potential complications, benefits, alternatives, expectations, and typical outcomes associated with the surgery. The risks and potential complications were explained in detail, including but not limited to infection, wound dehiscence or soft tissue complications, bleeding and hematoma, chronic edema, neuritis or nerve damage producing numbness or chronic pain, CRPS, failure to relieve pain or worsening pain, thick / painful / unsightly scar, limited motion / stiffness, malposition, delayed union, malunion, or nonunion, fracture, reaction to implants, anesthetic complications, venous thromboembolism, and deformity recurrence. I discussed the notion of no regrets with the patient as it pertains to complications and outcomes. The patient seemed to understand the nature of the proposed care and required convalescence. They asked appropriate questions, answered to their satisfaction. They are aware no guarantees can be made as to a satisfactory outcome and they understand there may be other possible unforeseen complications or outcomes not listed here that will be treated accordingly if they arise. There were no written or implied guarantees given to the patient. They gave informed consent to proceed.
--- NOTE | 2025-02-14 07:10 | W.PM.BPON ---
Date of Procedure: 12/01/23 Surgeon: Cortez Bhatia DPM Licensed Nursing Assistant(s): Vaughn Procedure(s) performed: Delayed closure right foot. Findings of the procedure(s): Devitalized soft tissue, viable bone second metatarsal right foot. Estimated blood loss: 5 mL Specimen(s) removed: No specimens removed surgical site dehiscence and noncompliance Post-operative diagnosis: Surgical site dehiscence of right second toe amputation site and noncompliance Right foot.
[2025-02-14 07:36] LABS: Glucose Point of Care 147 mg/dL (70-110)
[2025-02-14] MEDS: piperacillin-tazobactam 3.375 GM in sodium chloride 0.9% (plus) 50 ML IV (08:02)
[2025-02-14] MEDS: lidocaine 1% 10 ML INJ INJECTION (08:28)
[2025-02-14] MEDS: BUPivacaine 0.5% INJ 30 mL 10 ML INJECTION (08:28)
[2025-02-14] MEDS: VANCOMYCIN ADD-Vantage 1,000 MG in 0.9% NaCl ADD-Vantage 250 ML 250 MG IV (08:30)
--- NOTE | 2025-02-14 08:56 | PC.NURSE ---
Vancomycin placed on a pump to continue infusing.
--- NOTE | 2025-02-14 10:25 | ANE.PACU2 ---
Inpatient post-anesthesia follow up: Airway intact: Yes Vital signs: Temperature 97.4 F Pulse Rate 70 Respiratory Rate 70 Blood Pressure 121/70 Pulse Oximetry 98 Oxygen Delivery Me thod Room Air Oxygen Flow Rate Fraction of Inspir ed Oxygen Hydration adequate: Yes Nausea and vomiting: No Pain level: 1 Mental status: Baseline
== END 2025-02-14 10:25 | disposition home or self-care (01) ==
PROVIDERS: PCP Family Medicine; Visit Provider Podiatrist Foot & Ankle Surgery
PROC: (CPT 13160; principal; 2025-02-14 08:00)
DX: T87.81 Dehiscence of amputation stump (principal); L97.513 Non-pressure chronic ulcer of other part of right foot with necrosis of muscle; L97.514 Non-pressure chronic ulcer of other part of right foot with necrosis of bone; L03.115 Cellulitis of right lower limb; E11.42 Type 2 diabetes mellitus with diabetic polyneuropathy; E78.5 Hyperlipidemia, unspecified; Z79.4 Long term (current) use of insulin; I10 Essential (primary) hypertension; Z79.84 Long term (current) use of oral hypoglycemic drugs; I73.9 Peripheral vascular disease, unspecified; Z85.46 Personal history of malignant neoplasm of prostate; M10.9 Gout, unspecified
CPT/HCPCS: 13160; 36416; 82962; J2543; J2704; J3010; J3370; J3490; J7030; J7050; J9999

== ENCOUNTER 2025-02-17 10:25 | Outpatient (CLI) | payer OTHER, SELFPAY ==
[2025-02-17 10:53] LABS: Basophils # 0.1 10^3/uL (0.0-0.1); Basophils % 0.6 %; Eosinophils # 0.2 10^3/uL (0.0-0.8); Eosinophils % 1.9 %; Lymphocytes # 1.4 10^3/uL (0.8-4.8); Lymphocytes % 18.4 %; Mean Corpuscular HGB Conc 32.6 g/dL (30-55); Mean Corpuscular Hemoglobin 27.1 pg (27-33); Mean Corpuscular Volume 83.3 fl (82-101); Monocytes # 0.4 10^3/uL (0.2-0.9); Monocytes % 4.9 %; Neutrophils # 5.74 10^3/uL (1.8-7.7); Neutrophils % 73.6 %; Nucleated Red Blood Cells % 0 %; Platelet Count 305 10^3/cmm (157-399); Red Cell Distribution Width 13.9 % (12.1-15.1); White Blood Count 7.81 10^3/uL (3.29-11.43)
[2025-02-17 11:14] LABS: Alanine Aminotransferase 21 U/L (0-41); Albumin Level 3.7 g/dL (3.5-5.2); Alkaline Phosphatase 83 U/L (40-130); Anion Gap 15.6 (5-19); Aspartate Amino Transferase 21 U/L (0-40); Blood Urea Nitrogen 25 mg/dL (8-23); C Reactive Protein 14.5 mg/L (0.0-4.9); Calcium 8.9 mg/dL (8.5-10.5); Carbon Dioxide 25 mmol/L (22-29); Chloride 98 mmol/L (98-107); Globulin 3.1 g/dL (1.3-4.6); Glucose 189 mg/dL (65-115); Osmolality Calculated 287 mOsm/kg (285-295); Potassium 4.6 mmol/L (3.5-5.1); Sodium 134 mmol/L (136-145); Total Bilirubin 0.3 mg/dL (0.15-1.2); Total Protein 6.8 g/dL (6.6-8.7)
[2025-02-17 11:16] LABS: Vancomycin Trough 12.5 ug/mL (10-15)
== END 2025-02-17 10:26 | disposition home or self-care (01) ==
LOC: LAB 10:26
PROVIDERS: PCP Family Medicine; Visit Provider Podiatrist Foot & Ankle Surgery
DX: E11.621 Type 2 diabetes mellitus with foot ulcer (principal)
CPT/HCPCS: 80053; 80202; 85025; 86140

== ENCOUNTER → 2025-02-19 06:50 | Outpatient (BNVA) | payer OTHER, SELFPAY | PROVIDERS: PCP Family Medicine; Visit Provider Podiatrist Foot & Ankle Surgery | DX: E11.42 Type 2 diabetes mellitus with diabetic polyneuropathy (principal); L03.115 Cellulitis of right lower limb; Z89.422 Acquired absence of other left toe(s); L97.513 Non-pressure chronic ulcer of other part of right foot with necrosis of muscle; L97.514 Non-pressure chronic ulcer of other part of right foot with necrosis of bone; Z91.199 Patient's noncompliance with other medical treatment and regimen due to unspecified reason; T87.81 Dehiscence of amputation stump; M76.821 Posterior tibial tendinitis, right leg; Z89.421 Acquired absence of other right toe(s); E11.621 Type 2 diabetes mellitus with foot ulcer; Y83.8 Other surgical procedures as the cause of abnormal reaction of the patient, or of later complication, without mention of misadventure at the time of the procedure; Z79.4 Long term (current) use of insulin; Z79.84 Long term (current) use of oral hypoglycemic drugs | CPT/HCPCS: 99214 ==

== ENCOUNTER 2025-02-24 13:48 | Outpatient (CLI) | payer OTHER, SELFPAY ==
[2025-02-24 14:02] LABS: Hematocrit 33.5 % (37-53); Mean Corpuscular HGB Conc 33.4 g/dL (30-55); Mean Corpuscular Hemoglobin 27.7 pg (27-33); Mean Corpuscular Volume 82.9 fl (82-101); Mean Platelet Volume 9.1 fL (7.4-10.4); Platelet Count 242 10^3/cmm (157-399); Red Blood Count 4.04 10^6/uL (3.85-5.65); Red Cell Distribution Width 14.6 % (12.1-15.1)
[2025-02-24 14:21] LABS: Alanine Aminotransferase 21 U/L (0-41); Albumin Level 3.6 g/dL (3.5-5.2); Alkaline Phosphatase 98 U/L (40-130); Anion Gap 14.5 (5-19); Aspartate Amino Transferase 20 U/L (0-40); Blood Urea Nitrogen 23 mg/dL (8-23); Calcium 9.3 mg/dL (8.5-10.5); Carbon Dioxide 25 mmol/L (22-29); Chloride 97 mmol/L (98-107); Globulin 2.9 g/dL (1.3-4.6); Glucose 244 mg/dL (65-115); Osmolality Calculated 286 mOsm/kg (285-295); Potassium 4.5 mmol/L (3.5-5.1); Sodium 132 mmol/L (136-145); Total Bilirubin 0.3 mg/dL (0.15-1.2); Total Protein 6.5 g/dL (6.6-8.7); Vancomycin Trough 12.8 ug/mL (10-15)
[2025-02-24 14:41] LABS: Total Cells Counted 100 (0-100)
[2025-02-24 14:42] LABS: Absolute Eosinophils 0.3 10^3/cmm (0.0-0.7); Eosinophils 4 %; Lymphocytes 27 %; Lymphocytes Absolute 1.9 10^3/cmm (1.2-3.4); Monocytes Absolute 0.2 10^3/cmm (0.1-0.6); Segmented Neutrophils 63 %
[2025-02-24 14:43] LABS: Platelet Estimate Normal (Normal)
== END 2025-02-24 13:49 | disposition home or self-care (01) ==
LOC: LAB 13:50
PROVIDERS: PCP Family Medicine; Visit Provider Podiatrist Foot & Ankle Surgery
DX: E11.621 Type 2 diabetes mellitus with foot ulcer (principal)
CPT/HCPCS: 80053; 80202; 85007; 85027; 86140

== ENCOUNTER → 2025-02-26 06:42 | Outpatient (BNVA) | payer OTHER, SELFPAY | PROVIDERS: PCP Family Medicine; Visit Provider Podiatrist Foot & Ankle Surgery | DX: E11.42 Type 2 diabetes mellitus with diabetic polyneuropathy (principal); L03.115 Cellulitis of right lower limb; Z89.422 Acquired absence of other left toe(s); L97.513 Non-pressure chronic ulcer of other part of right foot with necrosis of muscle; L97.514 Non-pressure chronic ulcer of other part of right foot with necrosis of bone; Z91.199 Patient's noncompliance with other medical treatment and regimen due to unspecified reason; T87.81 Dehiscence of amputation stump; M76.821 Posterior tibial tendinitis, right leg; Z89.412 Acquired absence of left great toe; E11.621 Type 2 diabetes mellitus with foot ulcer; Y83.8 Other surgical procedures as the cause of abnormal reaction of the patient, or of later complication, without mention of misadventure at the time of the procedure; Z79.4 Long term (current) use of insulin; Z79.84 Long term (current) use of oral hypoglycemic drugs | CPT/HCPCS: 99214 ==

== ENCOUNTER 2025-03-03 13:33 | Outpatient (CLI) | payer OTHER, SELFPAY ==
[2025-03-03 13:53] LABS: Basophils # 0.1 10^3/uL (0.0-0.1); Basophils % 0.9 %; Eosinophils # 0.2 10^3/uL (0.0-0.8); Eosinophils % 2.8 %; Lymphocytes # 1.8 10^3/uL (0.8-4.8); Lymphocytes % 22.7 %; Mean Corpuscular HGB Conc 32.6 g/dL (30-55); Mean Corpuscular Volume 82.7 fl (82-101); Mean Platelet Volume 9.4 fL (7.4-10.4); Monocytes # 0.6 10^3/uL (0.2-0.9); Monocytes % 7.4 %; Neutrophils # 5.09 10^3/uL (1.8-7.7); Neutrophils % 65.8 %; Nucleated Red Blood Cells % 0 %; Platelet Count 265 10^3/cmm (157-399); Red Blood Count 4.11 10^6/uL (3.85-5.65); Red Cell Distribution Width 14.6 % (12.1-15.1); White Blood Count 7.74 10^3/uL (3.29-11.43)
[2025-03-03 14:09] LABS: Vancomycin Trough 13.5 ug/mL (10-15)
[2025-03-03 14:10] LABS: Alanine Aminotransferase 19 U/L (0-41); Albumin Level 3.9 g/dL (3.5-5.2); Alkaline Phosphatase 82 U/L (40-130); Anion Gap 15.4 (5-19); Aspartate Amino Transferase 19 U/L (0-40); Blood Urea Nitrogen 24 mg/dL (8-23); C Reactive Protein 16.5 mg/L (0.0-4.9); Calcium 9.2 mg/dL (8.5-10.5); Carbon Dioxide 24 mmol/L (22-29); Chloride 99 mmol/L (98-107); Globulin 3.1 g/dL (1.3-4.6); Glucose 84 mg/dL (65-115); Osmolality Calculated 281 mOsm/kg (285-295); Potassium 4.4 mmol/L (3.5-5.1); Sodium 134 mmol/L (136-145); Total Bilirubin 0.3 mg/dL (0.15-1.2)
== END 2025-03-03 13:34 | disposition home or self-care (01) ==
PROVIDERS: PCP Family Medicine; Visit Provider Podiatrist Foot & Ankle Surgery
DX: L97.513 Non-pressure chronic ulcer of other part of right foot with necrosis of muscle (principal)
CPT/HCPCS: 80053; 80202; 85025; 86140

== ENCOUNTER → 2025-03-05 07:45 | Outpatient (BNVA) | payer OTHER, SELFPAY | PROVIDERS: PCP Family Medicine; Visit Provider Podiatrist Foot & Ankle Surgery | DX: L97.514 Non-pressure chronic ulcer of other part of right foot with necrosis of bone (principal); Z89.421 Acquired absence of other right toe(s); M85.671 Other cyst of bone, right ankle and foot; M25.774 Osteophyte, right foot | CPT/HCPCS: 73630 ==

== ENCOUNTER 2025-03-06 09:41 | Outpatient (CLI) | payer OTHER, SELFPAY ==
[2025-03-06 10:16] LABS: Vancomycin Trough 13.9 ug/mL (10-15)
== END 2025-03-06 09:42 | disposition home or self-care (01) ==
LOC: LAB 09:42
PROVIDERS: PCP Family Medicine; Visit Provider Podiatrist Foot & Ankle Surgery
DX: L97.513 Non-pressure chronic ulcer of other part of right foot with necrosis of muscle (principal)
CPT/HCPCS: 80202; 82565

== ENCOUNTER 2025-03-10 13:04 | Outpatient (CLI) | payer OTHER, SELFPAY ==
[2025-03-10 13:19] LABS: Hematocrit 33.3 % (37-53); Mean Corpuscular HGB Conc 32.4 g/dL (30-55); Mean Corpuscular Volume 83.3 fl (82-101); Mean Platelet Volume 9.3 fL (7.4-10.4); Platelet Count 236 10^3/cmm (157-399); Red Cell Distribution Width 14.7 % (12.1-15.1); White Blood Count 5.23 10^3/uL (3.29-11.43)
[2025-03-10 13:38] LABS: Vancomycin Trough 14.7 ug/mL (10-15)
[2025-03-10 13:40] LABS: Alanine Aminotransferase 17 U/L (0-41); Albumin Level 3.9 g/dL (3.5-5.2); Alkaline Phosphatase 68 U/L (40-130); Anion Gap 16.8 (5-19); Aspartate Amino Transferase 18 U/L (0-40); Blood Urea Nitrogen 25 mg/dL (8-23); Calcium 9.2 mg/dL (8.5-10.5); Carbon Dioxide 24 mmol/L (22-29); Chloride 99 mmol/L (98-107); Globulin 2.9 g/dL (1.3-4.6); Glucose 157 mg/dL (65-115); Osmolality Calculated 288 mOsm/kg (285-295); Potassium 4.8 mmol/L (3.5-5.1); Sodium 135 mmol/L (136-145); Total Bilirubin 0.3 mg/dL (0.15-1.2); Total Protein 6.8 g/dL (6.6-8.7)
[2025-03-10 14:03] LABS: Total Cells Counted 100 (0-100)
[2025-03-10 14:07] LABS: Absolute Eosinophils 0.4 10^3/cmm (0.0-0.7); Absolute Neutrophil 3.6 10^3/cmm (1.4-6.5); Absolute Segmented Neutrophil 3.6 10/cmm (1.6-7.1); Basophils Absolute 0.1 10^3/cmm (0.0-0.2); Eosinophils 7 %; Lymphocytes 17 %; Lymphocytes Absolute 0.9 10^3/cmm (1.2-3.4); Monocytes Absolute 0.2 10^3/cmm (0.1-0.6); Platelet Estimate Normal (Normal); Segmented Neutrophils 69 %
== END 2025-03-10 13:05 | disposition home or self-care (01) ==
PROVIDERS: PCP Family Medicine; Visit Provider Podiatrist Foot & Ankle Surgery
DX: E11.621 Type 2 diabetes mellitus with foot ulcer (principal)
CPT/HCPCS: 80053; 80202; 85007; 85027; 86140

== ENCOUNTER → 2025-03-12 06:50 | Outpatient (BNVA) | payer OTHER, SELFPAY | PROVIDERS: PCP Family Medicine; Visit Provider Podiatrist Foot & Ankle Surgery | DX: E11.42 Type 2 diabetes mellitus with diabetic polyneuropathy (principal); L03.115 Cellulitis of right lower limb; Z89.422 Acquired absence of other left toe(s); L97.513 Non-pressure chronic ulcer of other part of right foot with necrosis of muscle; L97.514 Non-pressure chronic ulcer of other part of right foot with necrosis of bone; Z91.199 Patient's noncompliance with other medical treatment and regimen due to unspecified reason; T87.81 Dehiscence of amputation stump; S99.911A Unspecified injury of right ankle, initial encounter; M76.821 Posterior tibial tendinitis, right leg; Z89.421 Acquired absence of other right toe(s); Y83.8 Other surgical procedures as the cause of abnormal reaction of the patient, or of later complication, without mention of misadventure at the time of the procedure; Z79.4 Long term (current) use of insulin; Z79.84 Long term (current) use of oral hypoglycemic drugs | CPT/HCPCS: 99214 ==

== ENCOUNTER 2025-03-17 15:31 | Outpatient (CLI) | payer OTHER, SELFPAY ==
[2025-03-17 15:59] LABS: Basophils # 0.1 10^3/uL (0.0-0.1); Basophils % 1.4 %; Eosinophils # 0.2 10^3/uL (0.0-0.8); Eosinophils % 2.7 %; Hematocrit 34.5 % (37-53); Lymphocytes # 1.4 10^3/uL (0.8-4.8); Lymphocytes % 22.6 %; Mean Corpuscular HGB Conc 32.5 g/dL (30-55); Mean Corpuscular Hemoglobin 26.5 pg (27-33); Mean Corpuscular Volume 81.8 fl (82-101); Mean Platelet Volume 9.8 fL (7.4-10.4); Monocytes # 0.5 10^3/uL (0.2-0.9); Monocytes % 7.5 %; Neutrophils % 65.5 %; Nucleated Red Blood Cells % 0 %; Platelet Count 236 10^3/cmm (157-399); Red Blood Count 4.22 10^6/uL (3.85-5.65); Red Cell Distribution Width 14.6 % (12.1-15.1); White Blood Count 6.27 10^3/uL (3.29-11.43)
[2025-03-17 16:09] LABS: Erythrocyte Sedimentation Rate 24 mm/hr (0-10)
[2025-03-17 17:47] LABS: Vancomycin Trough 11.3 ug/mL (10-15)
[2025-03-17 17:50] LABS: Alanine Aminotransferase 16 U/L (0-41); Alkaline Phosphatase 78 U/L (40-130); Anion Gap 20.8 (5-19); Aspartate Amino Transferase 20 U/L (0-40); Blood Urea Nitrogen 22 mg/dL (8-23); C Reactive Protein 11.1 mg/L (0.0-4.9); Calcium 8.7 mg/dL (8.5-10.5); Carbon Dioxide 20 mmol/L (22-29); Chloride 102 mmol/L (98-107); Globulin 2.8 g/dL (1.3-4.6); Glucose 170 mg/dL (65-115); Osmolality Calculated 293 mOsm/kg (285-295); Potassium 4.8 mmol/L (3.5-5.1); Sodium 138 mmol/L (136-145); Total Bilirubin 0.3 mg/dL (0.15-1.2); Total Protein 6.8 g/dL (6.6-8.7)
== END 2025-03-17 15:32 | disposition home or self-care (01) ==
PROVIDERS: PCP Family Medicine; Visit Provider Podiatrist Foot & Ankle Surgery
DX: E11.621 Type 2 diabetes mellitus with foot ulcer (principal)
CPT/HCPCS: 80053; 80202; 85025; 85651; 86140

== ENCOUNTER → 2025-03-19 06:54 | Outpatient (BNVA) | payer OTHER, SELFPAY | PROVIDERS: PCP Family Medicine; Visit Provider Podiatrist Foot & Ankle Surgery | DX: E11.42 Type 2 diabetes mellitus with diabetic polyneuropathy (principal); Z89.422 Acquired absence of other left toe(s); L97.513 Non-pressure chronic ulcer of other part of right foot with necrosis of muscle; L97.514 Non-pressure chronic ulcer of other part of right foot with necrosis of bone; Z91.199 Patient's noncompliance with other medical treatment and regimen due to unspecified reason; T87.81 Dehiscence of amputation stump; S99.911D Unspecified injury of right ankle, subsequent encounter; M76.821 Posterior tibial tendinitis, right leg; E11.621 Type 2 diabetes mellitus with foot ulcer; Y83.8 Other surgical procedures as the cause of abnormal reaction of the patient, or of later complication, without mention of misadventure at the time of the procedure; X58.XXXD Exposure to other specified factors, subsequent encounter; Z79.4 Long term (current) use of insulin; Z79.84 Long term (current) use of oral hypoglycemic drugs; Z89.412 Acquired absence of left great toe | CPT/HCPCS: 99214 ==

== ENCOUNTER → 2025-04-02 07:22 | Outpatient (BNVA) | payer OTHER, SELFPAY | PROVIDERS: PCP Family Medicine; Visit Provider Podiatrist Foot & Ankle Surgery | DX: Z89.422 Acquired absence of other left toe(s) (principal); L97.513 Non-pressure chronic ulcer of other part of right foot with necrosis of muscle; L97.514 Non-pressure chronic ulcer of other part of right foot with necrosis of bone; Z91.199 Patient's noncompliance with other medical treatment and regimen due to unspecified reason; T87.81 Dehiscence of amputation stump; S99.911D Unspecified injury of right ankle, subsequent encounter; M76.821 Posterior tibial tendinitis, right leg; L97.522 Non-pressure chronic ulcer of other part of left foot with fat layer exposed; Z89.412 Acquired absence of left great toe; X58.XXXD Exposure to other specified factors, subsequent encounter; Y83.8 Other surgical procedures as the cause of abnormal reaction of the patient, or of later complication, without mention of misadventure at the time of the procedure; Z79.84 Long term (current) use of oral hypoglycemic drugs; Z79.4 Long term (current) use of insulin | CPT/HCPCS: 29445 ==

== ENCOUNTER → 2025-04-09 07:22 | Outpatient (BNVA) | payer OTHER, SELFPAY | PROVIDERS: PCP Family Medicine; Visit Provider Podiatrist Foot & Ankle Surgery | DX: L97.513 Non-pressure chronic ulcer of other part of right foot with necrosis of muscle (principal); Z89.422 Acquired absence of other left toe(s); L97.514 Non-pressure chronic ulcer of other part of right foot with necrosis of bone; Z91.199 Patient's noncompliance with other medical treatment and regimen due to unspecified reason; T87.81 Dehiscence of amputation stump; M76.821 Posterior tibial tendinitis, right leg; L97.522 Non-pressure chronic ulcer of other part of left foot with fat layer exposed; Z89.412 Acquired absence of left great toe; Y83.8 Other surgical procedures as the cause of abnormal reaction of the patient, or of later complication, without mention of misadventure at the time of the procedure; S86.811D Strain of other muscle(s) and tendon(s) at lower leg level, right leg, subsequent encounter; X58.XXXD Exposure to other specified factors, subsequent encounter | CPT/HCPCS: 99213 ==

== ENCOUNTER 2025-04-16 12:30 | Oncology outpatient (recurring) (ONCR) | payer OTHER, SELFPAY ==
[2025-04-16 08:39] LABS: Hematocrit 34.6 % (37-53); Hemoglobin 11.40 g/dL (11.27-16.99); Mean Corpuscular HGB Conc 32.9 g/dL (30-55); Mean Corpuscular Hemoglobin 27.3 pg (27-33); Mean Corpuscular Volume 83.0 fl (82-101); Nucleated Red Blood Cells % 0 %; Platelet Count 306 10^3/cmm (157-399); Red Blood Count 4.17 10^6/uL (3.85-5.65); White Blood Count 8.32 10^3/uL (3.29-11.43)
[2025-04-16 09:12] LABS: Alanine Aminotransferase 29 U/L (0-41); Albumin Level 3.7 g/dL (3.5-5.2); Alkaline Phosphatase 101 U/L (40-130); Anion Gap 15.8 (5-19); Aspartate Amino Transferase 25 U/L (0-40); Blood Urea Nitrogen 30 mg/dL (8-23); Calcium 9.4 mg/dL (8.5-10.5); Carbon Dioxide 25 mmol/L (22-29); Chloride 99 mmol/L (98-107); Creatinine Clr Calc Pharmacy 57.1611; Globulin 3.6 g/dL (1.3-4.6); Glucose 156 mg/dL (65-115); Osmolality Calculated 289 mOsm/kg (285-295); Potassium 4.8 mmol/L (3.5-5.1); Prostate Specific Antigen 0.165 ng/mL (0-4); Sodium 135 mmol/L (136-145); Total Protein 7.3 g/dL (6.6-8.7)
== END 2025-04-17 23:59 | disposition home or self-care (01) ==
PROVIDERS: Nurse Practitioner Family; PCP Family Medicine; Visit Provider Podiatrist Foot & Ankle Surgery
DX: Z53.9 Procedure and treatment not carried out, unspecified reason; Z08 Encounter for follow-up examination after completed treatment for malignant neoplasm; Z85.46 Personal history of malignant neoplasm of prostate; E87.1 Hypo-osmolality and hyponatremia; S99.821A Other specified injuries of right foot, initial encounter; X58.XXXA Exposure to other specified factors, initial encounter
CPT/HCPCS: 29445; 36415; 80053; 84153; 84403; 85025; 99213

== ENCOUNTER → 2025-04-23 07:07 | Outpatient (BNVA) | payer OTHER, SELFPAY | PROVIDERS: PCP Family Medicine; Visit Provider Podiatrist Foot & Ankle Surgery | DX: E11.621 Type 2 diabetes mellitus with foot ulcer (principal); L97.514 Non-pressure chronic ulcer of other part of right foot with necrosis of bone; Z91.199 Patient's noncompliance with other medical treatment and regimen due to unspecified reason; Z89.432 Acquired absence of left foot; M86.171 Other acute osteomyelitis, right ankle and foot; L03.115 Cellulitis of right lower limb; Z79.84 Long term (current) use of oral hypoglycemic drugs; Z79.4 Long term (current) use of insulin | CPT/HCPCS: 11042; 73630; 87070; 87075; 87205; 99214 ==

== ENCOUNTER 2025-04-24 18:34 | Inpatient (IN) | payer OTHER, SELFPAY ==
--- OUTSIDE RECORDS SUMMARY | 2025-04-24 13:38 | XMS_ITS | Continuity of Care Document ---
Author Name [facility] Organization [facility] Care Team Providers Care Shingle Cutter Name Role Phone [facility] Unavailable Unavailable Problems Combined list of problems from Department of Defense and Veterans Affairs facilities. It does not include entries that were removed or entered in error. Problem Status Onset Date Problem Type Date of Resolution Comments Source Amputated toe of left foot Active Condition Oct 11, 2023 Entered By: ESTELLE ANTON Comment: podiatryOct 16, 2023 Entered By: ESTELLE ANTON Comment: 1st toe nonhealing ulcer = Dr calvillo aputated 06/2023 [place] [facility] [facility] Benign essential hypertension (SNOMED CT 2156917) Active Condition [facility] cardaic risk event 30% needs statin Active Condition [facility] Cellulitis of lower limb Active Condition Oct 16, 2023 Entered By: ESTELLE ANTON Comment: 2nd left toe, planned surgery for contracture release Dr Chago treviño [facility] Charcot's joint of foot Active Condition Oct 25, 2022 Entered By: ESTELLE ANTON Comment: leftNov 2022 Entered By: ESTELLE ANTON Comment: left toe amputateed, iv antibioitc 6 wks, (07/18/23) dr Brown 2022 Entered By: ESTELLE ANTON Comment: seeni infectious disesaae [facility] [facility] Constipation (SCT 29912781) Active Condition [facility] [facility] DM - Diabetes mellitus (SNOMED CT 88063182) Active Condition Jul 06, 2023 Entered By: ESTELLE ANTON Comment: cellulitis LEJan 2023 Entered By: ESTELLE ANTON Comment: sees clinical pharmacy [facility] elevated vit b6 Active Condition Oct 11, 2023 Entered By: ESTELLE ANTON Comment: Cases of peripheral neuropathy, dermatoses, photosensitivi ty, dizziness, and nausea [facility] Gout (SNOMED CT 89099403) Active Condition [facility] Hematochezia (SCT 535594660) Active Condition Aug 05, 2024 Entered By: ESTELLE ANTON Comment: Episode rectal bleeding with anal fissure from constipation. seen in ED 07/2024. [facility] HLD - Hyperlipidaemia (SNOMED CT 30693415) Active Condition Oct 11, 2023 Entered By: ESTELLE ANTON Comment: cardiac event risk 30% = needs to start statin ann [facility] 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 Pain in both feet Active Condition [facility] Peripheral vascular disease Active Condition Jul 19 Entered By: ESTELLE ANTON Comment: [facility] Prostate Cancer (SCT 549165650) Active Condition Oct 16, 2023 Entered By: ESTELLE ANTON Comment: sees oncologyOct 16, 2023 Entered By: ESTELLE ANTON Comment: psa goal is to stay below 2 [facility] Sensorineural hearing loss, bilateral (SNOMED CT 688263885) Active Condition [facility] Tinnitus (SNOMED CT 07385709) Active Condition [facility] Vitamin D below reference range [facility] Issue of Repeat Prescriptions (ICD-9-CM V68.1) Inactive Condition 12/10/2013 [facility] Laboratory Procedures (ICD-9-CM V72.6/SNOMED 2 P-2000) [facility] Rout[facility] General Medical Examination at a Health Care Facility * (ICD-9-CM V70.0) Inactive Condition 12/10/2013 [facility] SCREENING-EYE COND NEC Inactive Condition 12/10/2013 [facility] Diagnosis: ICD-10-CM E11.65 Type 2 diabetes mellitus with hyperglycemia Active Diagnosis [facility] Diagnosis: ICD-10-CM Z46.1 Encounter for fitting and adjustment of hearing aid Active Diagnosis [facility] Diagnosis: ICD-10-CM Z86.0101 Personal history of adenomatous and serrated colon polyps Active Diagnosis [facility] [facility] Diagnosis: ICD-10-CM D50.9 Iron deficiency anemia, unspecified Active Diagnosis [facility] [facility] Diagnosis: ICD-10-CM Z23 Encounter for immunization Active Diagnosis [facility] Diagnosis: ICD-10-CM H93.13 Tinnitus, bilateral Active Diagnosis [place] [facility] Diagnosis: ICD-10-CM H10.9 Unspecified conjunctivitis Active Diagnosis [facility] Diagnosis: ICD-10-CM Z71.3 Dietary counseling and surveillance Active Diagnosis [facility] Diagnosis: ICD-10-CM E78.5 Hyperlipidemia, unspecified Active Diagnosis [facility] Diagnosis: ICD-10-CM Z00.01 Encounter for general adult medical exam w abnormal findings Active Diagnosis [facility] Diagnosis: ICD-10-CM K92.1 Melena Active Diagnosis [facility] Diagnosis: ICD-10-CM L98.8 Oth disrd of the skin and subcutaneous tissue Active Diagnosis [facility] Medications Combined list of outpatient medications from Department of Defense and Veterans Affairs facilities.Medications provided include 1) outpatient medications from the last 15 months, and 2) patient-reported medications. Medication Details Route Status Patient Instructions Prescription Expires Prescription Number Last Dispense Date Ordering Provider Order Date Order Qty Source ALLOPURINOL 300MG TAB TAKE ONE TABLET BY MOUTH ONCE A DAY ORAL ACTIVE 10/11/2025 [id number] 5 CHITO ANTON [address] [place] [address] [facility] ALLOPURINOL 300MG TAB TAKE ONE TABLET BY MOUTH ONCE A DAY ORAL DISCONT INUED 12/20/2024 [id number] 5 CHITO ANTON [address] [place] [address] [facility] APPLE CIDER VINEGAR CAP/TAB TAKE 1 CAP/TAB BY MOUTH ONCE A DAY ORAL ACTIVE MATHEW MERCHANT 2023 [facility] ASPIRIN 81MG TAB,EC TAKE ONE TABLET BY MOUTH ONCE A DAY ORAL ACTIVE CHITO ANTON 2024 [facility] ATORVASTATI N CA 80MG TAB TAKE ONE-HALF TABLET BY MOUTH EVERY EVENING FOR HIGH CHOLESTE ROL ORAL ACTIVE 10/11/2025 [id number] 5 CHITO ANTON 2024 45 [facility] ATORVASTATI N CA 80MG TAB TAKE ONE-HALF TABLET BY MOUTH EVERY EVENING FOR HIGH CHOLESTE ROL ORAL DISCONT INUED 10/16/2024 [id number] CHITO ANTON 2023 45 [facility] BISACODYL 5MG TAB,EC TAKE FOUR TABLETS BY MOUTH ONE-TIME GI PREP ORAL 12/08/2024 [id number] ROSA MARIA CONDE RT L 2024 4 [facility] CHOLECALCIF ROCKY 50MCG (2,000UNIT) TAB TAKE TWO TABLETS BY MOUTH ONCE A DAY FOR VITAMIN D DEFICIEN CY ORAL ACTIVE 03/01/2026 [id number] 5 CHITO ANTON 2024 200 [facility] CHOLECALCIF ROCKY 50MCG (2,000UNIT) TAB TAKE TWO TABLETS BY MOUTH ONCE A DAY FOR VITAMIN D DEFICIEN CY ORAL DISCONT INUED 01/29/2025 [id number] 5 CHITO ANTON 2023 200 [facility] CLOPIDOGREL BISULFATE 75MG TAB TAKE ONE TABLET BY MOUTH ONCE A DAY FOR PERIPHER AL VASCULAR DISEASE ORAL ACTIVE 07/27/2025 [id number] 5 CHITO ANTON [address] [place] [address] [facility] CLOPIDOGREL BISULFATE 75MG TAB TAKE ONE TABLET BY MOUTH ONCE A DAY FOR PERIPHER AL VASCULAR DISEASE ORAL DISCONT INUED 2024 [id number] CHITO ANTON 2022 90 [facility] COLLAGENASE 250UNT/GM OINT,TOP APPLY ONE APPLICAT ION TO AFFECTED AREA(S) ONCE A DAY . APPLY TO WOUND. TOPICA L ACTIVE 01/18/2026 [id number] 5 Lakeshia CALVILLO IRMA 2024 90 [place] [facility] CYANOCOBALA MIN 1000MCG TAB TAKE ONE TABLET BY MOUTH EVERY WEEK FOR VITAMIN B12 SUPPLEME NTATION ORAL 04/23/2025 [id number] MATHEW MERCHANT Brinda [address] [address] [facility] EMPAGLIFLOZ IN 25MG TAB TAKE ONE TABLET BY MOUTH ONCE A DAY ORAL ACTIVE 08/27/2025 [id number] 5 MATHEW MERCHANT Brinda [address] [place] [address] [facility] EMPAGLIFLOZ IN 25MG TAB TAKE ONE TABLET BY MOUTH ONCE A DAY ORAL DISCONT INUED 02/19/2025 [id number] 4 MAYURMATHEW [address] [place] [address] [facility] EMPAGLIFLOZ IN 25MG TAB TAKE ONE TABLET BY MOUTH ONCE A DAY ORAL DISCONT INUED 09/15/2024 [id number] 4 MAYUR MATHEW Brinda [address] [place] [address] [facility] FENOFIBRATE 160MG TAB TAKE ONE TABLET BY MOUTH EVERY MORNING FOR HIGH TRIGLYCE RIDES TO LOWER CHOLESTE ROL - TAKE WITH FOOD INCREASE D DOSE ORAL ACTIVE 06/20/2025 [id number] 5 MAYURMATHEW [address] [place] [address] [facility] FENOFIBRATE 160MG TAB TAKE ONE TABLET BY MOUTH EVERY MORNING FOR HIGH TRIGLYCE RIDES TO LOWER CHOLESTE ROL - TAKE WITH FOOD INCREASE D DOSE ORAL DISCONT INUED 05/30/2024 [id number] 4 MAYURMATHEW [address] [place] [address] [facility] FERROUS SO4 325MG TAB TAKE ONE TABLET BY MOUTH ONCE A DAY FOR IRON SUPPLEME NTATION. ORAL ACTIVE 04/19/2026 [id number] 5 CHITO ANTON [address] [place] [address] [facility] FERROUS SO4 325MG TAB TAKE ONE TABLET BY MOUTH ONCE A DAY FOR IRON SUPPLEME NTATION. ORAL DISCONT INUED 03/08/2025 [id number] 5 CHITO ANTON [address] [place] [address] [facility] FISH OIL 1000MG (500MG DHA/EPA) CAP,ORAL TAKE 2 CAPSULES BY MOUTH THREE TIMES A DAY WITH MEALS ORAL ACTIVE MATHEW MERCHANT W 2023 [facility] FOLIC ACID 1MG TAB TAKE ONE TABLET BY MOUTH ONCE A DAY FOR FOLIC ACID SUPPLEME NTATION. ORAL SUSPEND ED 03/14/2026 [id number] 5 Lakeshia CALVILLO 2024 100 [facility] FOLIC ACID 1MG TAB TAKE ONE TABLET BY MOUTH ONCE A DAY FOR FOLIC ACID SUPPLEME NTATION. ORAL DISCONT INUED 01/05/2025 [id number] 5 Lakeshia CALVILLO 2023 100 [facility] GLIPIZIDE 10MG TAB TAKE ONE TABLET BY MOUTH TWO TIMES A DAY BEFORE MEALS FOR DIABETES TAKE 30 MINUTES BEFORE EATING. ORAL ACTIVE 10/25/2025 [id number] 5 CHITO ANTON R 2024 180 [facility] INSULIN,ASP ART,HUMAN (EQV-NOVOLO G) 100 UNIT/ML,FLE XPEN,3ML INJECT 15 UNITS UNDER THE SKIN THREE TIMES A DAY BEFORE MEALS FOR DIABETES ADMINIST ER 10 MINUTES BEFORE FOOD DIRECTED . REFRIGER ATE UN-OPENE D PENS. DISCARD CARTRIDG E 28 DAYS AFTER OPENING. SUBCUT ANEOUS 01/23/2025 [id number] 5 MATHEW MERCHANT W 2023 15 [facility] INSULIN,GLA RGINE,HUMAN 100 UNIT/ML INJ,SOLOSTA R,3ML INJECT 65 UNITS UNDER THE SKIN ONCE A DAY FOR DIABETES ADMINIST ER AT SAME TIME EACH DAY DIRECTED . DISCARD ANY OPEN CARTRIDG E AFTER 28 DAYS. DOSE INCREASE SUBCUT ANEOUS 04/23/2025 [id number] MATHEW MERCHANT W 2023 20 [facility] INSULIN,GLA RGINE-YFGN 100UNIT/ML INJ PEN,3ML INJECT 55 UNITS UNDER THE SKIN ONCE A DAY FOR DIABETES ADMINIST ER AT SAME TIME EACH DAY DIRECTED . DISCARD ANY OPEN CARTRIDG E AFTER 28 DAYS. SUBCUT ANEOUS DISCONT INUED (EDIT) 06/08/2024 [id number] 4 MATHEW MERCHANT 2023 15 [facility] INS[facility]IN,GLA RGINE-YFGN 100UNIT/ML INJ PEN,3ML INJECT 55 UNITS UNDER THE SKIN ONCE A DAY FOR DIABETES ADMINIST ER AT SAME TIME EACH DAY DIRECTED . DISCARD ANY OPEN CARTRIDG E AFTER 28 DAYS. SUBCUT ANEOUS DISCONT INUED 04/13/2024 [id number] MATHEW MERCHANT W 2023 15 [facility] LISINOPRIL 20MG TAB TAKE ONE AND ONE-HALF TABLETS BY MOUTH ONCE A DAY TO LOWER BLOOD PRESSURE ORAL ACTIVE 08/09/2025 [id number] 5 CHITO ANTON R 2023 135 [facility] LISINOPRIL 20MG TAB TAKE ONE AND ONE-HALF TABLETS BY MOUTH ONCE A DAY TO LOWER BLOOD PRESSURE ORAL DISCONT INUED 2024 [id number] CHITO ANTON R 2022 135 [facility] METFORMIN HCL 500MG 24HR TAB,SA TAKE ONE TABLET BY MOUTH TWICE A DAY WITH MEALS FOR DIABETES TAKE WITH FOOD. AVOID ALCOHOL. DISCONTI NUE BEFORE GETTING XRAY DYE. ORAL SUSPEND ED 03/04/2026 [id number] CHITO ANTON R 2024 180 [facility] METFORMIN HCL 500MG 24HR TAB,SA TAKE ONE TABLET BY MOUTH TWICE A DAY WITH MEALS FOR DIABETES TAKE WITH FOOD. AVOID ALCOHOL. DISCONTI NUE BEFORE GETTING XRAY DYE. ORAL DISCONT INUED 03/01/2026 [id number] 5 CHITO ANTON R 2024 60 [facility] METFORMIN HCL 500MG 24HR TAB,SA TAKE ONE TABLET BY MOUTH TWICE A DAY WITH MEALS FOR DIABETES TAKE WITH FOOD. AVOID ALCOHOL. DISCONTI NUE BEFORE GETTING XRAY DYE. ORAL DISCONT INUED 04/23/2025 [id number] 5 MATHEW MERCHANT W 2023 60 [facility] METFORMIN HCL 500MG 24HR TAB,SA TAKE ONE TABLET BY MOUTH TWICE A DAY WITH MEALS FOR DIABETES TAKE WITH FOOD. AVOID ALCOHOL. DISCONTI NUE BEFORE GETTING XRAY DYE. ORAL DISCONT INUED 01/23/2025 [id number] 4 MATHEW MERCHANT W 2023 180 [facility] MULTIVITAMI N/MINERALS ANTIOXIDANT CAP/TAB TAKE 1 CAP/TAB BY MOUTH ONCE A DAY ORAL ACTIVE MATHEW MERCHANT W 2023 [facility] PEG-3350/EL ECTROLYTES PWDR MIX AND DRINK 1 GALLON BY MOUTH ONE-TIME GI PREP FILL WITH WATER TO THE LINE INDICATE D ON CONTAINE R. DRINK DIRECTED . ORAL 12/08/2024 [id number] ROSA MARIA CONDE RT L 2024 1 [facility] PYRIDOXINE HCL 50MG TAB TAKE ONE TABLET BY MOUTH ONCE A DAY FOR VITAMIN B6 DEFICIEN CY. ORAL ACTIVE 12/03/2025 [id number] 5 Lakeshia CALVILLO 2024 100 [facility] PYRIDOXINE HCL 50MG TAB TAKE ONE TABLET BY MOUTH ONCE A DAY FOR VITAMIN B6 DEFICIEN CY. ORAL DISCONT INUED 01/05/2025 [id number] 5 Lakeshia CALVILLO [address] [facility] Allergies, Adverse Reactions, Alerts Combined list of allergies from Department of Defense and Veterans Affairs facilities. It does not include entries that were removed or entered in error. Substance Category Reaction Severity Reaction type Status Date Reported Comments Source ASPIRIN Propensity to adverse reactions to drug (finding) Eruption active 3 [facility] ROSUVASTATIN Propensity to adverse reactions to drug (finding) Muscle pain active 2 [facility] Immunizations Combined list of available immunizations from the Department of Defense and Veterans Affairs facilities. Immunization Series Date Given Administered By Site Reaction Lot Number CVX Code Drug Shrinker Status Comments Source COVID-19 (MODERNA), MRNA, LNP-S, PF, 50 MCG/0.5 ML (AGES 12+ YEARS) 2024 NIKOLE CHIU RIGHT DELTO ID [id number] 312 complet ed [facility] INFLUENZA, HIGH-DOSE, TRIVALENT, PF 2024 NIKOLE CHIU LEFT DELTO ID [id number] 135 complet ed [facility] COVID-19 (MODERNA), MRNA, LNP-S, PF, 50 MCG/0.5 ML (AGES 12+ YEARS) 1 2023 DALIA HODGES LEFT DELTO ID [id number] 312 complet ed [facility] INFLUENZA, HIGH-DOSE, QUADRIVALENT 2022 DALIA XIE LEFT DELTO ID [id number] 197 complet ed [facility] TDAP 2022 OZZIE DAVIES LEFT DELTO ID [id number] 115 complet ed Completed Series, [facility] COVID-19 (MODERNA), MRNA, LNP-S, BIVALENT BOOSTER, PF, 50 MCG/0.5 ML OR 25MCG/0.25 ML DOSE 1 2021 229 complet ed MOD; [id number]; 3 [facility] INFLUENZA VACCINE, QUADRIVALENT, ADJUVANTED 2021 205 complet ed [facility] COVID-19 (MODERNA), MRNA, LNP-S, PF, 100 MCG/0.5ML DOSE OR 50 MCG/0.25ML DOSE 3 2020 207 complet ed [facility] INFLUEN[facility], INJECTABLE, QUADRIVALENT, PRESERVATIVE FREE 2020 150 complet ed [facility] COVID-19 (MODERNA), MRNA, LNP-S, PF, 100 MCG/0.5ML DOSE OR 50 MCG/0.25ML DOSE 2 2020 207 complet ed [facility] COVID-19 (MODERNA), MRNA, LNP-S, PF, 100 MCG/0.5ML DOSE OR 50 MCG/0.25ML DOSE 1 2020 207 complet ed [facility] INFLUENZA, INJECTABLE, QUADRIVALENT, PRESERVATIVE FREE 2018 150 complet ed [facility] INFLUENZA, INJECTABLE, QUADRIVALENT, PRESERVATIVE FREE 2017 150 complet ed [facility] ZOSTER RECOMBINANT 2 2017 187 complet ed [facility] ZOSTER RECOMBINANT 1 2017 187 complet [facility] INFLUENZA, UNSPECIFIED FORMULATION 2016 88 complet ed [facility] PNEUMOCOCCAL POLYSACCHARID E [id number] 2016 33 complet ed [facility] INFLUENZA, SEASONAL, INJECTABLE, PRESERVATIVE FREE 2015 140 complet ed [facility] INFLUENZA, SEASONAL, INJECTABLE, PRESERVATIVE FREE 2014 140 complet ed [facility] PNEUMOCOCCAL CONJUGATE PCV 13 2014 133 complet [facility] INFLUENZA, UNSPECIFIED FORMULATION 2013 88 complet ed [facility] INFLUENZA, UNSPECIFIED FORMULATION 2012 88 complet [facility] ZOSTER LIVE 2012 BLADIMIR RUBIO 121 comple t ed [facility] PNEUMOCOCCAL, UNSPECIFIED FORMULATION 2012 109 complet ed [facility] INFLUENZA, UNSPECIFIED FORMULATION 2011 88 complet ed [facility] INFLUENZA, UNSPECIFIED FORMULATION 2011 88 complet ed [facility] TDAP 2008 115 complet [facility] INFLUENZA, UNSPECIFIED FORMULATION 2007 88 complet ed [facility] INFLUENZA, UNSPECIFIED FORMULATION 2006 88 complet ed [facility] INFLUENZA (HISTORICAL) 2003 88 complet ed [facility] INFLUENZA, UNSPECIFIED FORMULATION 2002 88 complet ed [facility] Results Combined list of recent chemistry, hematology and other laboratory results from Department of Defense and Veterans Affairs, ranging from 15 months to all on record, depending upon the facility. Order Name Results Value Reference Range Date Interpretation Specimen Comments Source ANCILLARY GLUCOSE-PB GLUCOSE [MASS/VOLUM E] IN BLOOD BY AUTOMATED TEST STRIP 147 mg/dL 72 - 99 12/09 H Specimen Type: BLOOD Comment: Test performed by: An Sarmiento [id number] Meter #: [id number] Ordering Provider: ESTELLE ANTON Report Released Date/Time: Dec 09, 2024 09:15 AM Reporting Lab: [place] [facility] [address] [place] [address] Performing Lab: [place] [facility] [address] [place] [address] [place] [facility] BASIC METABOLIC PANEL CREATININE [MASS/VOLUM E] IN SERUM OR PLASMA 1.45 mg/dL 0.7 - 1.3 10/24 H Specimen Type: PLASMA No comment entered. Ordering Provider: ESTELLE ANTON Report Released Date/Time: Oct 24, 2024 09:35 AM Reporting Lab: [place] [facility] [address] [place] [address] Performing Lab: [place] [facility] [address] [place] [address] [facility] BASIC METABOLIC PANEL UREA NITROGEN [MASS/VOLUM E] IN SERUM OR PLASMA 36 mg/dL 9 - 25 10/24 H Specimen Type: PLASMA No comment entered. Ordering Provider: ESTELLE ANTON Report Released Date/Time: Oct 24, 2024 09:35 AM Reporting Lab: [place] [facility] [address] [place] [address] Performing Lab: [place] [facility] [address] [place] [address] [facility] BASIC METABOLIC PANEL GLUCOSE [MASS/VOLUM E] IN SERUM OR PLASMA 224 mg/dL 72 - 99 10/24 H Specimen Type: PLASMA No comment entered. Ordering Provider: ESTELLE ANTON Report Released Date/Time: Oct 24, 2024 09:35 AM Reporting Lab: [place] [facility] [address] [place] [address] Performing Lab: [place] [facility] [address] [place] [address] [facility] BASIC METABOLIC PANEL SODIUM [MOLES/VOLU ME] IN SERUM OR PLASMA 133 meq/L 136 - 145 10/24 L Specimen Type: PLASMA No comment entered. Ordering Provider: ESTELLE ANTON Report Released Date/Time: Oct 24, 2024 09:35 AM Reporting Lab: [place] [facility] [address] [place] [address] Performing Lab: [place] [facility] [address] [place] [address] [facility] BASIC METABOLIC PANEL POTASSIUM [MOLES/VOLU ME] IN SERUM OR PLASMA 5.1 meq/L 3.5 - 5 10/24 H Specimen Type: PLASMA No comment entered. Ordering Provider: ESTELLE ANTON Report Released Date/Time: Oct 24, 2024 09:35 AM Reporting Lab: [place] [facility] [address] [place] [address] Performing Lab: [place] [facility] [address] [place] [address] [facility] BASIC METABOLIC PANEL CHLORIDE [MOLES/VOLU ME] IN SERUM OR PLASMA 99 meq/L 98 - 107 10/24 Specimen Type: PLASMA No comment entered. Ordering Provider: ESTELLE ANTON Report Released Date/Time: Oct 24, 2024 09:35 AM Reporting Lab: [place] [facility] [address] [place] [address] Performing Lab: [place] [facility] [address] [place] [address] [facility] BASIC METABOLIC PANEL CARBON DIOXIDE, TOTAL [MOLES/VOLU ME] IN SERUM OR PLASMA 24 meq/L 22 - 31 10/24 Specimen Type: PLASMA No comment entered. Ordering Provider: ESTELLE ANTON Report Released Date/Time: Oct 24, 2024 09:35 AM Reporting Lab: [place] [facility] [address] [place] [address] Performing Lab: [place] [facility] [address] [place] [address] [facility] BASIC METABOLIC PANEL CALCIUM [MASS/VOLUM E] IN SERUM OR PLASMA 9.3 mg/dL 8.4 - 10.4 10/24 Specimen Type: PLASMA No comment entered. Ordering Provider: ESTELLE ANTON Report Released Date/Time: Oct 24, 2024 09:35 AM Reporting Lab: [place] [facility] [address] [place] [address] Performing Lab: [place] [facility] [address] [place] [address] [facility] BASIC METABOLIC PANEL GLOMERULAR FILTRATION RATE/1.73 SQ M.PREDICTED [VOLUME RATE/AREA] IN SERUM, PLASMA OR BLOOD BY CREATININE- BASED FORMULA (CKD-EPI 2020) 49 10/24 Specimen Type: PLASMA No comment entered. Ordering Provider: ESTELLE ANTON Report Released Date/Time: Oct 24, 2024 09:35 AM Reporting Lab: [place] [facility] [address] [place] [address] Performing Lab: [place] [facility] [address] [place] [address] [facility] B12 COBALAMIN (VITAMIN B12) [MASS/VOLUM E] IN SERUM OR PLASMA 413 pg/mL 213 - 816 10/17 Specimen Type: SERUM No comment entered. Ordering Provider: ESTELLE ANTON Report Released Date/Time: Oct 16, 2023 09:54 AM Reporting Lab: [place] [facility] [address] [place] [address] Performing Lab: [place] [facility] [address] [place] [address] [facility] FOLATE (PB) FOLATE [MASS/VOLUM E] IN SERUM OR PLASMA 16.2 ng/mL 7 - 20 10/17 Specimen Type: SERUM No comment entered. Ordering Provider: ESTELLE ANTON Report Released Date/Time: Oct 16, 2023 09:54 AM Reporting Lab: [place] [facility] [address] [place] [address] Performing Lab: [place] [facility] [address] [place] [address] [facility] HGA1C HEMOGLOBIN A1C/HEMOGLO BIN.TOTAL IN BLOOD 9.4 4.0 - 6.0 10/17 H Specimen Type: BLOOD No comment entered. Ordering Provider: ESTELLE ANTON Report Released Date/Time: Oct 16, 2023 09:54 AM Reporting Lab: [place] [facility] [address] [place] [address] Performing Lab[facility] [place] [facility] [address] [place] [address] [facility] COMPREHENS DAYSI METABOLIC PANEL CREATININE [MASS/VOLUM E] IN SERUM OR PLASMA 1.60 mg/dL 0.7 - 1.3 10/17 H Specimen Type: PLASMA No comment entered. Ordering Provider: ESTELLE ANTON Report Released Date/Time: Oct 16, 2023 09:54 AM Reporting Lab: [place] [facility] [address] [place] [address] Performing Lab: [place] [facility] [facility] [address] [place] [address] [facility] COMPREHENS DAYSI METABOLIC PANEL UREA NITROGEN [MASS/VOLUM E] IN SERUM OR PLASMA 39 mg/dL 9 - 25 10/17 H Specimen Type: PLASMA No comment entered. Ordering Provider: ESTELLE ANTON Report Released Date/Time: Oct 16, 2023 09:54 AM Reporting Lab: [place] [facility] [address] [place] [address] Performing Lab: [place] [facility] [address] [place] [address] [facility] COMPREHENS DAYSI METABOLIC PANEL GLUCOSE [MASS/VOLUM E] IN SERUM OR PLASMA 147 mg/dL 72 - 99 10/17 H Specimen Type: PLASMA No comment entered. Ordering Provider: ESTELLE ANTON Report Released Date/Time: Oct 16, 2023 09:54 AM Reporting Lab: [place] [facility] [address] [place] [address] Performing Lab: [place] [facility] [address] [place] [address] [facility] COMPREHENS DAYSI METABOLIC PANEL SODIUM [MOLES/VOLU ME] IN SERUM OR PLASMA 133 meq/L 136 - 145 10/17 L Specimen Type: PLASMA No comment entered. Ordering Provider: ESTELLE ANTON Report Released Date/Time: Oct 16, 2023 09:54 AM Reporting Lab: [place] [facility] [address] [place] [address] Performing Lab: [place] [facility] [address] [place] [address] [facility] COMPREHENS DAYSI METABOLIC PANEL POTASSIUM [MOLES/VOLU ME] IN SERUM OR PLASMA 5.3 meq/L 3.5 - 5 10/17 H Specimen Type: PLASMA No comment entered. Ordering Provider: ESTELLE ANTON Report Released Date/Time: Oct 16, 2023 09:54 AM Reporting Lab: [place] [facility] [address] [place] [address] Performing Lab: [place] [facility] [address] [place] [address] [facility] COMPREHENS DAYSI METABOLIC PANEL CHLORIDE [MOLES/VOLU ME] IN SERUM OR PLASMA 100 meq/L 98 - 107 10/17 Specimen Type: PLASMA No comment entered. Ordering Provider: ESTELLE ANTON Report Released Date/Time: Oct 16, 2023 09:54 AM Reporting Lab: [place] [facility] [address] [place] [address] Performing Lab: [place] [facility] [address] [place] [address] [facility] COMPREHENS DAYSI METABOLIC PANEL CARBON DIOXIDE, TOTAL [MOLES/VOLU ME] IN SERUM OR PLASMA 22 meq/L 22 - 31 10/17 Specimen Type: PLASMA No comment entered. Ordering Provider: ESTELLE ANTON Report Released Date/Time: Oct 16, 2023 09:54 AM Reporting Lab: [place] [facility] [address] [place] [address] Performing Lab: [place] [facility] [address] [place] [address] [facility] COMPREHENS DAYSI METABOLIC PANEL CALCIUM [MASS/VOLUM E] IN SERUM OR PLASMA 10.5 mg/dL 8.4 - 10.4 10/17 H Specimen Type: PLASMA No comment entered. Ordering Provider: ESTELLE ANTON Report Released Date/Time: Oct 16, 2023 09:54 AM Reporting Lab: [place] [facility] [address] [place] [address] Performing Lab: [place] [facility] [address] [place] [address] [facility] COMPREHENS DAYSI METABOLIC PANEL PROTEIN [MASS/VOLUM E] IN SERUM OR PLASMA 8.1 g/dL 6 - 8.6 10/17 Specimen Type: PLASMA No comment entered. Ordering Provider: ESTELLE ANTON Report Released Date/Time: Oct 16, 2023 09:54 AM Reporting Lab: [place] [facility] [address] [place] [address] Performing Lab: [place] [facility] [address] [place] [address] [facility] COMPREHENS DAYSI METABOLIC PANEL ALBUMIN [MASS/VOLUM E] IN SERUM OR PLASMA 4.4 g/dL 3.4 - 5 10/17 Specimen Type: PLASMA No comment entered. Ordering Provider: ESTELLE ANTON Report Released Date/Time: Oct 16, 2023 09:54 AM Reporting Lab: [place] [facility] [address] [place] [address] Performing Lab: [place] [facility] [address] [place] [address] [facility] COMPREHENS DAYSI METABOLIC PANEL BILIRUBIN.T OTAL [MASS/VOLUM E] IN SERUM OR PLASMA 0.3 mg/dL 0.2 - 1.2 10/17 Specimen Type: PLASMA No comment entered. Ordering Provider: ESTELLE ANTON Report Released Date/Time: Oct 16, 2023 09:54 AM Reporting Lab: [place] [facility] [address] [place] [address] Performing Lab: [place] [facility] [address] [place] [address] [facility] COMPREHENS DAYSI METABOLIC PANEL ALKALINE PHOSPHATASE [ENZYMATIC ACTIVITY/VO LUME] IN SERUM OR PLASMA 94 U/L 40 - 150 10/17 Specimen Type: PLASMA No comment entered. Ordering Provider: ESTELLE ANTON Report Released Date/Time: Oct 16, 2023 09:54 AM Reporting Lab: [place] [facility] [address] [place] [address] Performing Lab: [place] [facility] [address] [place] [address] [facility] COMPREHENS DAYSI METABOLIC PANEL ASPARTATE AMINOTRANSF ERASE [ENZYMATIC ACTIVITY/VO LUME] IN SERUM OR PLASMA 24 U/L 5 - 34 10/17 Specimen Type: PLASMA No comment entered. Ordering Provider: ESTELLE ANTON Report Released Date/Time: Oct 16, 2023 09:54 AM Reporting Lab: [place] [facility] [address] [place] [address] Performing Lab: [place] [facility] [address] [place] [address] [facility] COMPREHENS DAYSI METABOLIC PANEL ALANINE AMINOTRANSF ERASE [ENZYMATIC ACTIVITY/VO LUME] IN SERUM OR PLASMA 29 U/L 8 - 40 10/17 Specimen Type: PLASMA No comment entered. Ordering Provider: ESTELLE ANTON Report Released Date/Time: Oct 16, 2023 09:54 AM Reporting Lab: [place] [facility] [address] [place] [address] Performing Lab: [place] [facility] [address] [place] [address] [facility] COMPREHENS DAYSI METABOLIC PANEL GLOMERULAR FILTRATION RATE/1.73 SQ M.PREDICTED [VOLUME RATE/AREA] IN SERUM, PLASMA OR BLOOD BY CREATININE- BASED FORMULA (CKD-EPI 2020) 44 10/17 Specimen Type: PLASMA No comment entered. Ordering Provider: ESTELLE ANTON Report Released Date/Time: Oct 16, 2023 09:54 AM Reporting Lab: [place] [facility] [address] [place] [address] Performing Lab: [place] [facility] [address] [place] [address] [place] [facility] URINE ALBUMIN PROFILE-ih (PB) ALBUMIN [MASS/VOLUM E] IN URINE <5.0mg /L 0 - 30 10/17 L Specimen Type: URINE Comment: Unable to calculate due to Microalbumin <5.0 mg/dL Ordering Provider: ESTELLE ANTON Report Released Date/Time: Oct 16, 2023 09:54 AM Reporting Lab: [place] [facility] [address] [place] [address] Performing Lab: [place] [facility] [address] [place] [address] [facility] URINE ALBUMIN PROFILE-ih (PB) ALBUMIN/CRE ATININE [MASS RATIO] IN URINE commen tug/mg 10/17 Specimen Type: URINE Comment: Unable to calculate due to Microalbumin <5.0 mg/dL Ordering Provider: ESTELLE ANTON Report Released Date/Time: Oct 16, 2023 09:54 AM Reporting Lab: [place] [facility] [address] [place] [address] Performing Lab: [place] [facility] [address] [place] [address] [facility] URINE ALBUMIN PROFILE-ih (PB) CREATININE [MASS/VOLUM E] IN URINE 51.20 mg/dL 10/17 Specimen Type: URINE Comment: Unable to calculate due to Microalbumin <5.0 mg/dL Ordering Provider: ESTELLE ANTON Report Released Date/Time: Oct 16, 2023 09:54 AM Reporting Lab: [place] [facility] [address] [place] [address] Performing Lab: [place] [facility] [address] [place] [address] [facility] CHOLESTERO L PANEL (PB) CHOLESTEROL [MASS/VOLUM E] IN SERUM OR PLASMA 117 mg/dL 0 - 200 10/17 Specimen Type: PLASMA No comment entered. Ordering Provider: ESTELLE ANTON Report Released Date/Time: Oct 16, 2023 09:54 AM Reporting Lab: [place] [facility] [address] [place] [address] Performing Lab: [place] [facility] [address] [place] [address] [facility] CHOLESTERO L PANEL (PB) TRIGLYCERID E [MASS/VOLUM E] IN SERUM OR PLASMA 156 mg/dL 0 - 150 10/17 H Specimen Type: PLASMA No comment entered. Ordering Provider: ESTELLE ANTON Report Released Date/Time: Oct 16, 2023 09:54 AM Reporting Lab: [place] [facility] [address] [place] [address] Performing Lab: [place] [facility] [address] [place] [address] [facility] CHOLESTERO L PANEL (PB) CHOLESTEROL IN LDL [MASS/VOLUM E] IN SERUM OR PLASMA BY CALCULATION 49.8 mg/dL 10/17 Specimen Type: PLASMA No comment entered. Ordering Provider: ESTELLE ANTON Report Released Date/Time: Oct 16, 2023 09:54 AM Reporting Lab: [place] [facility] [address] [place] [address] Performing Lab: [place] [facility] [address] [place] [address] [facility] CHOLESTERO L PANEL (PB) CHOLESTEROL IN HDL [MASS/VOLUM E] IN SERUM OR PLASMA 36.0 mg/dL 40 10/17 L Specimen Type: PLASMA No comment entered. Ordering Provider: ESTELLE ANTON Report Released Date/Time: Oct 16, 2023 09:54 AM Reporting Lab: [place] [facility] [address] [place] [address] Performing Lab: [place] [facility] [address] [place] [address] [facility] CHOLESTERO L PANEL (PB) CHOLESTEROL IN HDL/CHOLEST ROCKY.TOTAL [MASS RATIO] IN SERUM OR PLASMA 30.8 25 10/17 Specimen Type: PLASMA No comment entered. Ordering Provider: ESTELLE ANTON Report Released Date/Time: Oct 16, 2023 09:54 AM Reporting Lab: [place] [facility] [address] [place] [address] Performing Lab: [place] [facility] [address] [place] [address] [facility] VITAMIN D, 25-HYDROXY 25-HYDROXYV ITAMIN D3 [MASS/VOLUM E] IN SERUM OR PLASMA 47.0 ng/mL 30 - 96 10/17 Specimen Type: SERUM No comment entered. Ordering Provider: ESTELLE ANTON Report Released Date/Time: Oct 16, 2023 09:54 AM Reporting Lab: [place] [facility] [address] [place] [address] Performing Lab: [place] [facility] [address] [place] [address] [facility] TSH (MA-PB) THYROTROPIN [UNITS/VOLU ME] IN SERUM OR PLASMA 2.267 u[IU]/ mL 0.47 - 5 10/17 Specimen Type: SERUM No comment entered. Ordering Provider: ESTELLE ANTON Report Released Date/Time: Oct 16, 2023 09:54 AM Reporting Lab: [place] [facility] [address] [place] [address] Performing Lab: [place] [facility] [address] [place] [address] [facility] Vital Signs Combined list of inpatient and outpatient Vital Signs from Department of Defense and Veterans Affairs, ranging from 12 months to all on record, depending upon the facility. Vital Sign Value Date Comments Source SYSTOLIC BLOOD PRESSURE 149 12/09/2024 08:57:00 [facility] [facility] DIASTOLIC BLOOD PRESSURE 91 12/09/2024 08:57:00 [facility] PULSE OXIMETRY 100 12/09/2024 08:57:00 [facility] WEIGHT 222.2 12/09/2024 08:57:00 [facility] [place] [facility] BMI 30 kg/m2 12/09/2024 08:57:00 [facility] [place] [facility] PAIN 0 12/09/2024 08:57:00 [facility] [place] [facility] TEMPERATURE 98.2 12/09/2024 08:57:00 [facility] [place] [facility] PULSE 84 12/09/2024 08:57:00 [facility] [place] RESPIRATION 20 12/09/2024 08:57:00 [place] [facility] SYSTOLIC BLOOD PRESSURE 144 11/08/2024 09:58:00 [place] [facility] DIASTOLIC BLOOD PRESSURE 78 11/08/2024 09:58:00 [place] [facility] PULSE OXIMETRY 97 11/08/2024 09:58:00 [place] [facility] WEIGHT 226.9 11/08/2024 09:58:00 [place] [facility] BMI 31 kg/m2 11/08/2024 09:58:00 [place] [facility] PAIN 0 11/08/2024 09:58:00 [place] [facility] TEMPERATURE 98.3 11/08/2024 09:58:00 [place] [facility] PULSE 99 11/08/2024 09:58:00 [place] [facility] RESPIRATION 16 11/08/2024 09:58:00 [place] [facility] SYSTOLIC BLOOD PRESSURE 127 11/07/2024 14:19:00 [place] [facility] DIASTOLIC BLOOD PRESSURE 84 11/07/2024 14:19:00 [place] [facility] TEMPERATURE 97.8 11/07/2024 14:19:00 [place] [facility] PULSE 64 11/07/2024 14:19:00 [place] [facility] WEIGHT 223.9 10/31/2024 10:09:08 [place] [facility] BMI 30 kg/m2 10/31/2024 10:09:08 [place] [facility] SYSTOLIC BLOOD PRESSURE 131 10/24/2024 09:04:22 [place] [facility] DIASTOLIC BLOOD PRESSURE 80 10/24/2024 09:04:22 [place] [facility] PULSE OXIMETRY 97 10/24/2024 09:04:22 [facility] WEIGHT 226.4 10/24/2024 09:04:22 [place] [facility] BMI 31 kg/m2 10/24/2024 09:04:22 [place] [facility] PAIN 0 10/24/2024 09:04:22 [place] [facility] TEMPERATURE 97.8 10/24/2024 09:04:22 [place] [facility] PULSE 91 10/24/2024 09:04:22 [facility] RESPIRATION 22 10/24/2024 09:04:22 [facility] Encounters Combined list of: 1) Encounters from Department of Veterans Affairs facilities going backup to the last 18 months, not all VA inpatient encounters are included; 2) Encounters from the Department of Defense facilities going backup to 280 months. Location Location Details Encounter Type Encounter Number Reason For Visit Attending Provider ADM Date DC Date Status Disposition Source [facility] Outpatient Encounter [id number] 10/30 [facility] Outpatient Encounter [id number] 10/30 [place] [facility] Outpatient Encounter [id number] 11/06 [facility] MTMS BY PHARM ADDL 15 MIN [id number] Diagnos is: ICD-10- CM E78.5 Hyperli pidemia , unspeci fied Antonella MERCHANT W 11/15 [facility] Outpatient Encounter [id number] [facility] Outpatient Encounter [id number] 11/19 [facility] Outpatient Encounter [id number] LEESA IYER 12/12 [facility] Outpatient Encounter [id number] 01/02 [place] [facility] Outpatient Encounter [id number] 01/04 [facility] Outpatient Encounter [id number] 01/07 [place] [facility] Outpatient Encounter [id number] 01/08 [facility] Outpatient Encounter [id number] 01/09 [facility] Outpatient Encounter [id number] 01/16 [facility] Outpatient Encounter [id number] 01/17 [facility] MTMS BY PHARM ADDL 15 MIN [id number] Diagnos is: ICD-10- CM E78.5 Hyperli pidemia , unspeci fied Antonella MERCHANT W 01/22 [facility] Outpatient Encounter [id number] 02/05 [facility] Outpatient Encounter [id number] 02/06 [facility] OFF/OP EST JANUARY X REQ PHY/QHP [id number] Diagnos is: ICD-10- CM L98.8 Oth disrd of the skin and subcuta neous tissue SARAH SANCHEZ 02/12 [facility] Outpatient Encounter [id number] 02/27 [facility] PHARM ADDL 15 MIN [id number] Diagnos is: ICD-10- CM E78.5 Hyperli pidemia , unspeci fied MAYUR,J JOHNNIE W 03/19 [facility] Outpatient Encounter [id number] QUINTIN TORRE T 04/16 [facility] Outpatient Encounter [id number] 04/19 [facility] BY PHARM ADDL 15 MIN [id number] Diagnos is: ICD-10- CM E78.5 Hyperli pidemia , unspeci fied MAYUR,J JOHNNIE W 04/22 [facility] Outpatient Encounter [id number] 05/07 [facility] Outpatient Encounter [id number] 07/04 [facility] Outpatient Encounter [id number] 07/15 [place] [facility] ADDL 15 MIN [id number] Diagnos is: ICD-10- CM E78.5 Hyperli pidemia , unspeci fied MAYUR,J JOHNNIE W 07/16 [facility] Outpatient Encounter [id number] 07/17 [facility] Outpatient Encounter [id number] 07/17 [place] [facility] ADDL 15 MIN [id number] Diagnos is: ICD-10- CM E78.5 Hyperli pidemia , unspeci fied Antonella MERCHANT JOHNNIE W 07/22 [facility] [place] [facility] Outpatient Encounter [id number] 07/22 [place] [facility] Outpatient Encounter [id number] JENNYRUBY RIL L 07/23 [facility] OFF/OP EST JANUARY X REQ PHY/QHP [id number] Diagnos is: ICD-10- CM K92.1 Vanessa JULESROSA ELENA CHRISTIE R 07/24 [facility] Outpatient Encounter [id number] 07/26 [facility] Outpatient Encounter [id number] 08/06 [facility] Outpatient Encounter [id number] 08/06 [facility] Outpatient Encounter [id number] 08/07 [facility] Outpatient Encounter [id number] 08/16 [facility] Outpatient Encounter [id number] 08/29 [facility] Outpatient Encounter [id number] 09/09 [facility] Outpatient Encounter [id number] 09/23 [place] [facility] OFF/OP EST MAY X REQ PHY/QHP [id number] Diagnos is: ICD-10- CM Z23 Encount er for immuniz ation CUSTRED,TO RRI J 09/23 [facility] Outpatient Encounter [id number] 09/24 [place] [facility] Outpatient Encounter [id number] 09/24 [facility] Outpatient Encounter [id number] 09/27 [facility] Outpatient Encounter [id number] 09/30 [facility] Outpatient Encounter [id number] 10/02 [facility] Outpatient Encounter [id number] 10/04 [facility] Outpatient Encounter [id number] 10/07 [place] [facility] [place] [facility] HEARING AID REPAIR/MOD IFYING [id number] Diagnos is: ICD-10- CM Z46.1 Encount er for fitting and adjustm ent of hearing aid KORTNEY JAIME 10/09 [facility] FEE [id number] Diagnos is: ICD-10- CM Z46.1 Encount er for fitting and adjustm ent of hearing aid KORTNEY JAIME A 10/09 [facility] Outpatient Encounter [id number] 10/09 [facility] Outpatient Encounter [id number] 10/10 [facility] Outpatient Encounter [id number] 10/17 [facility] Outpatient Encounter [id number] 10/24 [facility] Outpatient Encounter [id number] 10/24 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 FEE [id number] [id number] Diagnos is: ICD-10- CM Z71.3 Dietary admitting counselor ing and surveil ALEJANDRO Muñoz CCA E 10/31 [facility] Outpatient Encounter [id number] 11/07 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 TAI CONDE 11/08 [facility] FAC[facility] FEE 15062-0.65 [id number] Diagnos is: ICD-10- CM H93.13 Tinnitu s, bilater al ADDISON,KORTNEY KIERSTEN A 11/11 [facility]/MOD IFYING 14698-2.65 [id number] Diagnos is: ICD-10- CM H93.13 Tinnitu s, bilater al ADDISON,KORTNEY KIERSTEN A 11/11 [facility] MTMS BY PHARM ADDL 15 MIN [id number] Diagnos is: ICD-10- CM 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 Antonella MERCHANT W 11/11 [facility] RSV MONOC ANTB SEAS[place] .5[place] [address]-8.65 [id number] Diagnos is: ICD-10- CM Z23 Encount er for immuniz TOAN Saxena M 11/11 [facility] En[facility] [id number] [id number] 11/11 [facility] Outpatient Encounter [id number] [id number] 11/12 [facility] Outpatient Encounter [id number] [id number] 11/12 [facility] Outpatient Encounter 48485-7.65 [id number] 11/26 [facility] En[facility] [id number] 12/02 [facility] Outpatient Encounter [id number] 12/02 [facility] Outpatient Encounter [id number] 12/06 [facility] Outpatient Encounter [id number] 12/09 [facility] Outpatient Encounter [id number] 12/09 [facility] Outpatient Encounter [id number] 12/09 [facility] OFF/OP EST JANUARY X REQ PHY/QHP [id number] Diagnos is: ICD-10- CM D50.9 Iron deficie ncy anemia, unspeci fied TAI CONDE L 12/09 [facility] [place] [id number] Diagnos is: ICD-10- CM Z86.010 1 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 TAI CONDE L 12/09 [facility] Outpatient Encounter [id number] 12/09 [facility] Outpatient Encounter [id number] 12/09 [facility] Outpatient Encounter [id number] 12/09 [facility] Outpatient Encounter [id number] 12/09 [facility] Outpatient Encounter [id number] BEN DOYLE T 12/10 [facility] Outpatient Encounter [id number] 12/10 [facility] Outpatient Encounter [id number] 12/11 [facility] FEE [id number] Diagnos is: ICD-10- CM Z46.1 Encount er for fitting and adjustm ent of hearing aid KORTNEY JAIME 12/12 [facility] EVALUATION [id number] Diagnos is: ICD-10- CM Z46.1 Encount er for fitting and adjustm ent of hearing aid KORTNEY JAIME 12/12 [facility] Outpatient Encounter [id number] 12/16 [facility] Outpatient Encounter [id number] 01/09 [facility] Outpatient Encounter [id number] 01/10 [facility] Outpatient Encounter [id number] 01/11 [facility] FEE [id number] Diagnos is: ICD-10- CM Z46.1 Encount er for fitting and adjustm ent of hearing aid KORTNEY JAIME 01/13 [facility]ARING SERVICE [id number] Diagnos is: ICD-10- CM Z46.1 Encount er for fitting and adjustm ent of hearing aid KORTNEY JAIME A 01/13 [facility] Outpatient Encounter [id number] 01/15 [facility] Outpatient Encounter [id number] 01/17 [facility] Outpatient Encounter [id number] 01/23 [facility] Outpatient Encounter [id number] 01[facility]23 [facility] Outpatient Encounter [id number] 01/23 [facility] Outpatient Encounter [id number] 01/24 [facility] Outpatient Encounter [id number] 01/24 [facility] Outpatient Encounter [id number] 01/29 [facility] Outpatient Encounter [id number] DAGO BOWLES A 01/31 [facility] Outpatient Encounter [id number] 01/31 [facility] Outpatient Encounter [id number] 02/28 [facility] OFF/OP EST JANUARY X REQ PHY/QHP [id number] Diagnos is: ICD-10- CM 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 NIMESH YUSUF 03/13 [facility] Outpatient Encounter [id number] 03/13 [facility] Outpatient Encounter [id number] Lakeshia SANCHEZ 04[facility]14 [facility] Outpatient Encounter [id number] Serge CHAVIRA A 04/15 [facility] Outpatient Encounter [id number] 04/16 [facility] Social History Combined list of available smoking, tobacco, and other social history from Department of Defense and Veterans Affairs facilities. Social History Type Response Date Comment Sour e Tobacco smoking status NHIS VA-TOBACCO NEVER USED 10/16/2023 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 01/18/2019 [facility] History of tobacco use CURRENT NON-TOBAC CO USER-HX OF USE 08/08/2018 [facility] History of tobacco use LIFETIME NON-USER OF TOBACCO 08/01/2008 [facility] History of tobacco use QUIT TOBACCO >7 Y EARS AGO 03/03/2008 [facility] History of tobacco use CURRENT NON-TOBAC CO USER-HX OF USE 10/11/2005 [facility] History of tobacco use CURRENT NON-TOBAC CO USER-HX OF USE 02/25/2005 [facility] 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 Additional future care activities may be listed in the Assessment and Plan section. Date/Time Care Activity Care Activity Detail Facili ty 04/14/2025 Consult Order [facility] EMATOLOGY/ONC [id number] Cons Shoe Stock Associate's Choice [facility]
[2025-04-24 18:40] VITALS: BP 124/72; PULSE 122; RESP 16; TEMP 38.6; O2SAT 95; BMI 29.8
--- OUTSIDE RECORDS SUMMARY | 2025-04-24 18:40 | XMS_ITS | Encounter Summary ---
Author Organization [employer] Address [address] 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
--- OUTSIDE RECORDS SUMMARY | 2025-04-24 18:40 | XMS_ITS | Encounter Summary ---
Author Organization [employer] Address [address] 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
--- OUTSIDE RECORDS SUMMARY | 2025-04-24 18:40 | XMS_ITS | Clinical Summary ---
Author Organization [employer] [facility] Address [address] 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
--- OUTSIDE RECORDS SUMMARY | 2025-04-24 18:40 | XMS_ITS | Encounter Summary ---
Author Organization [employer] Address [address] 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
--- NOTE | 2025-04-24 19:48 | W.ED.EXTPRO ---
HPI - Extremity Problem General: Chief complaint: Extremity Problem,Nontraumatic Stated complaint: Has infection. was told by doctor to come to er. Time Seen by Provider: 04/24/25 19:35 Source: patient Mode of arrival: ambulatory Limitations: no limitations History of Present Illness: Patient is a 79-year-old male who presents to the emergency department for right foot infection. Patient has been seen by Dr. Bhatia with podiatry, he is set to have surgery tomorrow for osteomyelitis in his right foot, and there is plan for bone culture and subsequent PICC line placement. Patient is here febrile and slightly tachycardic, though he is without any new complaints and is here for preadmission purposes and likely consult with infectious disease. Has not taken any antipyretics today. No other new symptoms to report. MD Complaint: extremity pain Location: right and lower extremity (Foot) Associated symptoms: Deny chest pain, fever(s) or rash Context: other (Known infection with right foot) Related Data Home Medications ?Medication ?Instructions ?Recorded ?Confirmed allopurinol 300 mg tablet 300 mg PO DAILY 05/13/21 04/23/25 insulin glargine 100 unit/mL 32 unit SUBCUT BID 05/13/21 04/23/25 subcutaneous solution empagliflozin 25 mg tablet 25 mg PO DAILY 07/12/23 04/23/25 fenofibrate 160 mg tablet 160 mg PO DAILY 07/12/23 04/23/25 ferrous sulfate 325 mg (65 mg 325 mg PO DAILY 07/12/23 04/23/25 iron) tablet metformin 500 mg tablet 500 mg PO BID 07/12/23 04/23/25 lisinopril 20 mg tablet 40 mg PO DAILY 10/03/24 04/23/25 cholecalciferol (vitamin D3) 50 100 mcg PO DAILY 02/13/25 04/23/25 mcg (2,000 unit) capsule (Vitamin D3) glipizide 10 mg tablet 10 mg PO BID 02/13/25 04/23/25 insulin aspart U-100 100 unit/mL 15 unit SUBCUT BID 02/13/25 04/23/25 subcutaneous cartridge pyridoxine (vitamin B6) 50 mg 50 mg PO DAILY 02/13/25 04/23/25 tablet Previous Rx's ?Medication ?Instructions ?Recorded fluconazole 150 mg tablet 300 mg (2 x 150 mg) PO .once per 09/27/22 week 6 months #48 tabs cyanocobalamin (vitamin B-12) 1,000 mcg PO DAILY #60 caps 04/11/23 1,000 mcg capsule aspirin 81 mg tablet,delayed 81 mg PO DAILY #90 tabs 07/18/23 release atorvastatin 40 mg tablet 40 mg PO DAILY #90 tabs 07/18/23 Diabetic shoes #1 ea 09/25/24 custom molded orthotics with toe #1 ea 12/10/24 filler to the left CAM walker #1 ea 01/09/25 folic acid 1 mg tablet See Rx Instructions .Route 03/13/25 .COMPLEX #100 tabs Allergies Allergy/AdvReac Type Severity Reaction Status Date / Time No Known Allergies Allergy Verified 04/24/25 18:42 Review of Systems General: Reports: 10 or more systems reviewed and unremarkable except in HPI and below Const: Denies: fever(s), chills or fatigue Eyes: Denies: change in vision ENMT: Denies: throat pain, ear or mastoid pain or nasal discharge Card: Denies: chest pain, palpitations, swelling of feet/ankles or lightheadedness Resp: Denies: dyspnea, productive cough or wheezing GI: Denies: abdominal pain, nausea, vomiting, diarrhea or constipation : Denies: flank pain, difficulty urinating, dysuria or urinary frequency Musc: Reports: extremity pain (Right foot); Denies: neck pain, back pain or joint pain Skin/Breast: Denies: rash Neuro: Denies: headache(s), numbness in extremities or weakness in extremities PFSH ED PFSH: Medical History 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 Peripheral vascular disease Gas gangrene Osteomyelitis Non-pressure chronic ulcer of left ankle with fat layer exposed Cellulitis of left foot Diabetic peripheral neuropathy associated with type 2 diabetes mellitus Prostate cancer Hyperlipidemia Diabetes Gout HTN (hypertension) Surgical History History of Achilles tendon repair left foot Previous back surgery History of prostate biopsy History of replacement of both shoulder joints Family History Father Cancer skin Other Diabetes Hyperlipidemia Hypertension Denies family history of CAD (coronary artery disease) Clotting disorder Dementia Psychiatric illness Chronic kidney disease (CKD) Suicide Anesthesia complication Bleeding disorder Lung disease Stroke Social History Smoking and tobacco/nicotine status: never used tobacco/nicotine Alcohol intake: current Alcohol intake frequency: holidays/special occasions only Physical Exam Const: COMMON NORMALS: no acute distress, patient oriented x3, no limitations, healthy appearing and alert ORIENTATION/CONSCIOUSNESS: Yes awake Neck/C-Spine: COMMON NORMALS: full ROM and no meningeal signs Resp: COMMON NORMALS: normal respiratory effort, No retractions, No use of accessory muscles and clear to auscultation bilaterally AUSCULTATION: clear to auscultation bilaterally Cardio: COMMON NORMALS: regular rhythm, S1 normal heart sound present and S2 normal heart sound present RATE: tachycardic RHYTHM: regular rhythm HEART SOUNDS: S1 normal heart sound present and S2 normal heart sound present Extremity: NARRATIVE EXTREMITY EXAM: Right extremity is wrapped, limiting physical exam at this time. Neuro: COMMON NORMALS: patient oriented x3, moves all extremities, no focal motor deficits and no sensory deficits noted SENSORIUM/ORIENTATION: Yes alert MENINGEAL SIGNS: Yes no meningeal signs Skin: NARRATIVE SKIN EXAM: Unable to assess integumentary system of right foot Course Vital Signs: Vital signs: Vital Signs Temperature 101.4 F H 04/24/25 18:40 Pulse Rate 122 H 04/24/25 18:40 Respiratory Rate 16 04/24/25 18:40 Blood Pressure 124/72 04/24/25 18:40 Pulse Oximetry 95 04/24/25 18:40 Oxygen Delivery Me thod Room Air 04/24/25 18:40 MDM - Extremity (Nontraumatic) Medical Decision Making Patient presenting for preadmission, he is set to undergo surgery with Dr. Bhatia tomorrow. He is tachycardic and febrile on exam, meeting sepsis criteria. He will be excepted for hospital service by Dr. Dubose, however with his concerning vitals he will be started empirically on Vanco and Zosyn. He will be made n.p.o. after midnight, an MRI with and without contrast is ordered at this time for further evaluation. No radiology studies performed this visit Discharge Plan Discharge Patient Disposition: Admitted As Inpatient Clinical Impression: Acute osteomyelitis of right foot Condition: Stable Coding Level of Care Code ED Hazmat Technician for Chg Fwd
--- NOTE | 2025-04-24 20:15 | ECG_ITS ---
[facility] Date: 2025-04-24 Pat Name: Luther Lindquist Department: Room: Gender: Male [facility] Agent: : 1945 Requested By: Gonzalo Murcia Order Number: [id number] Nain MD: Aspen Lucia M.D. Measurements Intervals [place] Rate: 105 P: 43 KS: 212 QRS: 21 QRSD: 85 T: 17 QT: 315 QTc: 418 Interpretive Statements SINUS TACHYCARDIA WITH FIRST DEGREE AV BLOCK WITH OCCASIONAL SUPRAVENTRICULAR PREMATURE COMPLEXES No previous ECG available for comparison Electronically Signed On 04-25-2025 14:01:41 CDT by Aspen Lucia M.D. [email or web address]
[2025-04-24 20:44] LABS: Hematocrit 33.9 % (37-53); Hemoglobin 11.30 g/dL (11.27-16.99); Mean Corpuscular HGB Conc 33.3 g/dL (30-55); Mean Corpuscular Hemoglobin 26.6 pg (27-33); Mean Corpuscular Volume 79.8 fl (82-101); Nucleated Red Blood Cells % 0 %; Platelet Count 336 10^3/cmm (157-399); Red Blood Count 4.25 10^6/uL (3.85-5.65); White Blood Count 14.39 10^3/uL (3.29-11.43)
[2025-04-24 20:52] LABS: Alanine Aminotransferase 21 U/L (0-41); Albumin Level 3.7 g/dL (3.5-5.2); Alkaline Phosphatase 92 U/L (40-130); Anion Gap 17.3 (5-19); Aspartate Amino Transferase 20 U/L (0-40); Blood Urea Nitrogen 19 mg/dL (8-23); Calcium 9.1 mg/dL (8.5-10.5); Carbon Dioxide 21 mmol/L (22-29); Chloride 95 mmol/L (98-107); Creatinine Clr Calc Pharmacy 67.6959; Globulin 3.8 g/dL (1.3-4.6); Glucose 143 mg/dL (65-115); Osmolality Calculated 273 mOsm/kg (285-295); Potassium 4.3 mmol/L (3.5-5.1); Sodium 129 mmol/L (136-145); Total Protein 7.5 g/dL (6.6-8.7)
[2025-04-24 20:53] LABS: Lactic Sepsis W/Reflex 0.8 mmol/L (0.5-2.2)
[2025-04-24] MEDS: piperacillin-tazobactam 3.375 GM in sodium chloride 0.9% (plus) 50 ML IV (21:00)
[2025-04-24 21:07] VITALS: BP 124/66; PULSE 94; RESP 18; TEMP 37.5; O2SAT 97
--- NOTE | 2025-04-24 21:12 | PM.HP ---
Providers/Chief Complaint Admitting Physician: Keagan Dubose MD Primary Care Provider: Caitlin Beltran MD Chief Complaint: Has infection. was told by doctor to come to er. History of Present Illness Luther Lindquist is a 79 year old male with a past medical history of type 2 diabetes mellitus, hypertension, hyperlipidemia, right foot diabetic foot infection, history of polymicrobial organisms including Pseudomonas, acinetobacter, staph, who had presented to Dr. Bhatia's office, had a full-thickness wound debridement in clinic of the right foot subfirst metatarsal head, was sent in to [facility] due to concerns for sepsis, diabetic foot infection, osteomyelitis, cellulitis. According to patient he has noticed increased pain, swelling, first 3 digits, right foot, with fevers this morning, chills, fatigue, malaise. He does report a history of peripheral vascular disease, but he was told he had good blood flow in his right leg, but he did require stenting of his left leg/peripheral arterial disease Review of Systems Const: Reports: fever(s) and chills; Denies: fatigue or malaise Card: Denies: chest pain Resp: Denies: dyspnea GI: Denies: abdominal pain Medications/Allergies Home Medications ?Medication ?Instructions ?Recorded ?Confirmed ?Last Taken ?Type allopurinol 300 mg tablet 300 mg PO DAILY 05/13/21 04/23/25 02/13/25 History insulin glargine 100 unit/mL 32 unit SUBCUT BID 05/13/21 04/23/25 02/13/25 History subcutaneous solution fluconazole 150 mg tablet 300 mg (2 x 150 mg) PO .once per 09/27/22 04/23/25 02/09/25 Rx week 6 months #48 tabs cyanocobalamin (vitamin B-12) 1,000 mcg PO DAILY #60 caps 04/11/23 04/23/25 02/13/25 Rx 1,000 mcg capsule empagliflozin 25 mg tablet 25 mg PO DAILY 07/12/23 04/23/25 02/13/25 History fenofibrate 160 mg tablet 160 mg PO DAILY 07/12/23 04/23/25 02/13/25 History ferrous sulfate 325 mg (65 mg 325 mg PO DAILY 07/12/23 04/23/25 02/13/25 History iron) tablet metformin 500 mg tablet 500 mg PO BID 07/12/23 04/23/25 02/13/25 History aspirin 81 mg tablet,delayed 81 mg PO DAILY #90 tabs 07/18/23 04/23/25 02/13/25 Rx release atorvastatin 40 mg tablet 40 mg PO DAILY #90 tabs 07/18/23 04/23/25 02/13/25 Rx Diabetic shoes #1 ea 09/25/24 04/23/25 01/23/25 Rx lisinopril 20 mg tablet 40 mg PO DAILY 10/03/24 04/23/25 02/13/25 History custom molded orthotics with toe #1 ea 12/10/24 04/23/25 01/23/25 Rx filler to the left CAM walker #1 ea 01/09/25 04/23/25 01/23/25 Rx cholecalciferol (vitamin D3) 50 100 mcg PO DAILY 02/13/25 04/23/25 02/13/25 History mcg (2,000 unit) capsule (Vitamin D3) glipizide 10 mg tablet 10 mg PO BID 02/13/25 04/23/25 02/13/25 History insulin aspart U-100 100 unit/mL 15 unit SUBCUT BID 02/13/25 04/23/25 02/13/25 History subcutaneous cartridge pyridoxine (vitamin B6) 50 mg 50 mg PO DAILY 02/13/25 04/23/25 02/13/25 History tablet folic acid 1 mg tablet See Rx Instructions .Route 03/13/25 04/23/25 Unknown Rx .COMPLEX #100 tabs Allergies Allergy/AdvReac Type Severity Reaction Status Date / Time No Known Allergies Allergy Verified 04/24/25 18:42 PFSH Acute PFSH: Medical History 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 Peripheral vascular disease Gas gangrene Osteomyelitis Non-pressure chronic ulcer of left ankle with fat layer exposed Cellulitis of left foot Diabetic peripheral neuropathy associated with type 2 diabetes mellitus Prostate cancer Hyperlipidemia Diabetes Gout HTN (hypertension) Surgical History History of Achilles tendon repair left foot Previous back surgery History of prostate biopsy History of replacement of both shoulder joints Family History Father Cancer skin Other Diabetes Hyperlipidemia Hypertension Denies family history of CAD (coronary artery disease) Clotting disorder Dementia Psychiatric illness Chronic kidney disease (CKD) Suicide Anesthesia complication Bleeding disorder Lung disease Stroke Social History Smoking and tobacco/nicotine status: never used tobacco/nicotine Alcohol intake: current Alcohol intake frequency: holidays/special occasions only Vitals/I&O/Wt Last Vital Signs Temp 101.4 F H 04/24/25 18:40 Pulse 122 H 04/24/25 18:40 Resp 16 04/24/25 18:40 BP 124/72 04/24/25 18:40 Pulse Ox 95 04/24/25 18:40 O2 Del Method Room Air 04/24/25 18:40 04/24/25 04/24/25 04/24/25 06:59 14:59 22:59 Intake Total 0 / 0 Balance 0 / 0 Weight last 48 hrs Weight 99.79 kg Physical Exam Const: COMMON NORMALS: no acute distress and patient oriented x3 Eye: COMMON NORMALS: Equal, round and reactive pupils present and EOMs intact bilaterally Resp: COMMON NORMALS: normal respiratory effort, No retractions, No use of accessory muscles and clear to auscultation bilaterally AUSCULTATION: clear to auscultation bilaterally Cardio: COMMON NORMALS: no JVD, regular rate, regular rhythm, S1 normal heart sound present and S2 normal heart sound present RATE: regular rate RHYTHM: regular rhythm HEART SOUNDS: S1 normal heart sound present and S2 normal heart sound present GI: COMMON NORMALS: Normal to inspection, nondistended, normoactive bowel sounds present, Soft to palpation and non-tender Extremity: COMMON NORMALS: no calf tenderness and no pedal edema NARRATIVE EXTREMITY EXAM: Right foot wrapped, able to visualize 1st through 5th digit, able to wiggle his toes, good cap refill, no discoloration, does have onychomycosis Neuro: COMMON NORMALS: patient oriented x3, CN's II-XII intact bilaterally and moves all extremities Psych: COMMON NORMALS: mental status grossly normal Quick SOFA Score: Respiratory Rate: 16 Blood Pressure: 120/54 [place] Coma Scale: 15 qSOFA Score: 0 If qSOFA score 2 or greater, continue: Blood Pressure Mean: 76 Bilirubin (mg/dl): 0.6 Platelets (x10?/ml): 336 Creatinine (mg/dl): 1.1 Evaluation: Current stage of sepsis: sepsis Sepsis stage criteria used: [facility] Sep-1 and Sepsis-3 Crystalloid fluids: less than 30 mL/kg crystalloid fluids ordered Blood cultures ordered: Yes Possible source: skin/soft tissue and wound Focused Exam: Vital signs: Temp Pulse Resp BP Pulse Ox O2 Del Method 04/24/25 21:18 96 16 120/54 97 Room Air 04/24/25 18:40 101.4 F H 122 H 16 124/72 95 Room Air Capillary refill: > 3 Seconds Peripheral pulse strength: 3+ Normal Peripheral pulse location: Radial and Pedal Skin exam: turgor normal Details: right foot wrapped, left leg held in evaluating sepsis Date exam was performed: 04/24/25 Time exam was performed: 21:19 Sepsis Screen No Definite Risk Today, 21:18 Respiratory Rate, (12 - 18) 16 breaths/min Today, 21:18 Blood Pressure 120/54 mmHg Today, 21:18 [place] Coma Scale Score 15 Today, 18:40 Quick SOFA Score 0 Today, 21:20 SOFA Score: [place] Coma Scale Score 15 Today, 18:40 Blood Pressure Mean 76 mmHg Today, 21:18 Total Bilirubin, (0.15-1.2) 0.6 mg/dL Today, 20:28 Platelet Count, (157-399) 336 10^3/cmm Today, 20:28 Creatinine, (0.7-1.2) 1.1 mg/dL Today, 20:28 Data 04/24/25 20:28 04/24/25 20:28 Micro: Microbiology 04/24/25 20:52 Blood Culture - Preliminary Blood SPECIMEN COLLECTED 04/24/25 20:28 Blood Culture - Preliminary Blood SPECIMEN COLLECTED A&P Assessment and plan 1. Diabetic foot infection: 2. Acute osteomyelitis of right foot: 3. Peripheral arterial occlusive disease: 4. HTN (hypertension): 5. Cellulitis of right foot: 6. Sepsis: Plan: Right foot diabetic foot infection - With concerns for osteomyelitis - With concerns for cellulitis - With concerns for sepsis Blood - Blood cultures - Wound cultures obtained in clinic - Vancomycin - Cefepime - N.p.o. midnight, for surgical invention tomorrow morning - Will likely need PICC line, and prolonged IV antibiotics - Will consult infectious disease in the morning Type 2 diabetes mellitus, moderate-dose sliding scale Hyponatremia, serum sodium 129, monitor History of peripheral vascular disease Hypertension Full code Lovenox for DVT prophylaxis PDMP PDMP Reviewed: Not Reviewed Attestations Medical Necessity Statement*: Patient requires hospitalization for right foot diabetic foot infection, with sepsis, inpatient, greater than 2 midnights Diagnoses Diabetic foot infection E11.628; L08.9 Acute osteomyelitis of right foot M86.171 Peripheral arterial occlusive disease I77.9 HTN (hypertension) I10 Cellulitis of right foot L03.115 Sepsis A41.9
--- NOTE | 2025-04-24 21:17 | PHA.VACGOAL ---
Vancomycin Goal - Goal Vancomycin Goal:: 15-20 mg/L Vancomycin Indication:: Osteo - Therapy Current therapy:: Cefepime Day of therpy:: Day []of [] . Actual body weight (kg): 220 lb - Data Labs: WBC 14.39 10^3/uL (3.29-11.43) H 04/24/25 20: RBC 4.25 10^6/uL (3.85-5.65) 04/24/25 20: Hgb 11.30 g/dL (11.27-16.99) 04/24/25 20: Hct 33.9 % (37-53) L 04/24/25 20: MCV 79.8 fl (82-101) L 04/24/25 20: MCH 26.6 pg (27-33) L 04/24/25 20: MCHC 33.3 g/dL (30-55) 04/24/25 20: RDW 13.9 % (12.1-15.1) 04/24/25 20: Sodium 129 mmol/L (136-145) L 04/24/25 20: Potassium 4.3 mmol/L (3.5-5.1) 04/24/25 20: Chloride 95 mmol/L (98-107) L 04/24/25 20: Carbon Dioxide 21 mmol/L (22-29) L 04/24/25 20: Anion Gap 17.3 (5-19) 04/24/25 20: BUN 19 mg/dL (8-23) 04/24/25 20: Creatinine 1.1 mg/dL (0.7-1.2) 04/24/25 20: GFR Calculation Not Reportable 04/24/25: Treatment plan:: new consult Regimen:: PATIENT HAS OSTEOMYELITIS, GOAL TROUGH 15-20. BEGINNING MAINTENANCE DOSE 1250 MG Q12H PER PROTOCOL. WILL OBTAIN TROUGH PRIOR TO 4TH DOSE.
[2025-04-24 21:18] VITALS: BP 120/54; PULSE 96; RESP 16; O2SAT 97
[2025-04-24 21:20] VITALS: BP 120/54
--- NOTE | 2025-04-24 21:31 | PC.NURSE ---
call placed to dr. Dubose due to Vanc order, Sedrick Stein instructed this nurse to call pharmacy and let them know pt is already getting 1 grm in ER since pharmacy is dosing. call placed to pharmacy and and this nurse was informed that pt is intended to receive 3gm loading dose
[2025-04-24 21:50] LABS: Procalcitonin 0.50 ng/mL (0-0.5); Thyroid Stimulating Hormone 1.13 uIU/mL (0.27-4.20)
[2025-04-24 22:00] VITALS: PULSE 95
[2025-04-24] MEDS: pantoprazole 40 mg SDV IVP (22:05)
[2025-04-24 22:37] LABS: Estmated Average Glucose 160; Hemoglobin A1C 7.2 % (4.0-6.0)
[2025-04-24 23:18] VITALS: O2SAT 95
[2025-04-24 23:25] LABS: Glucose Urine UA 3+ (Normal); Nitrate Urine Negative (Negative); Specific Gravity, Urine 1.015 (1.005-1.030)
[2025-04-24 23:31] LABS: Add Urine Microscopic? YES
[2025-04-25] VITALS (17 sets, daily range): BP systolic 93–131; BP diastolic 54–67; PULSE 64–82; RESP 13–20; TEMP 36.3–37.6; O2SAT 93–98
[2025-04-25] MEDS: cefepime 2,000 mg SDV 2000 MG IVP ×2 (01:30→11:54)
[2025-04-25 05:00] LABS: Hematocrit 30.9 % (37-53); Hemoglobin 9.90 g/dL (11.27-16.99); Mean Corpuscular HGB Conc 32.0 g/dL (30-55); Mean Corpuscular Hemoglobin 26.9 pg (27-33); Mean Corpuscular Volume 84.0 fl (82-101); Nucleated Red Blood Cells % 0 %; Platelet Count 280 10^3/cmm (157-399); Red Blood Count 3.68 10^6/uL (3.85-5.65); White Blood Count 9.25 10^3/uL (3.29-11.43)
[2025-04-25 05:20] LABS: Anion Gap 16.0 (5-19); Blood Urea Nitrogen 18 mg/dL (8-23); Calcium 8.1 mg/dL (8.5-10.5); Carbon Dioxide 19 mmol/L (22-29); Chloride 103 mmol/L (98-107); Creatinine Clr Calc Pharmacy 67.4970; Glucose 124 mg/dL (65-115); Osmolality Calculated 281 mOsm/kg (285-295); Potassium 4.0 mmol/L (3.5-5.1); Sodium 134 mmol/L (136-145)
--- NOTE | 2025-04-25 06:16 | PM.CONSULT ---
Providers/Reason For Consult Consulting Physician/Specialty*: Cortez Bhatia D.P.M./podiatry Reason for Consult*: Acute osteomyelitis right foot Attending Physician: Keagan Dubose MD Primary Care Provider: Caitlin Beltran MD History of Present Illness History of Present Illness 79-year-old diabetic male presents for reevaluation of diabetic foot ulcerations right foot. Compliance has been an issue with weightbearing status, due to neuropathy he continues to walk on ulcerations with worsening of symptoms. Patient has had reoccurring ulcers, this year he has underwent debridement of right foot wounds, has a history of right second toe amputation, history of osteomyelitis of the right foot and completed 8 weeks of IV antibiotics with PICC line. Has a history of left transmetatarsal amputation. Unfortunately his right foot has onset of erythema, purulent drainage and wound that now probes to bone at plantar aspect of first metatarsal. Review of Systems General: Reports: 10 or more systems reviewed and unremarkable except in HPI and below Const: Denies: fever(s) or chills Eyes: Denies: change in vision Card: Denies: chest pain or palpitations Resp: Denies: dyspnea or productive cough GI: Denies: abdominal pain, nausea or vomiting : Denies: flank pain Musc: Reports: extremity swelling, joint stiffness and deformity Skin/Breast: Reports: erythema, sores, changes in skin color, dry skin, nail changes and change in hair Neuro: Reports: numbness in extremities, sensory changes and difficulty walking Psych: Denies: suicidal ideation Endo: Denies: change in body appearance Cristobal/Lymph: Denies: tender lymph nodes Medications/Allergies Home Medications ?Medication ?Instructions ?Recorded ?Confirmed ?Last Taken ?Type allopurinol 300 mg tablet 300 mg PO DAILY 05/13/21 04/23/25 02/13/25 History insulin glargine 100 unit/mL 32 unit SUBCUT BID 05/13/21 04/23/25 02/13/25 History subcutaneous solution fluconazole 150 mg tablet 300 mg (2 x 150 mg) PO .once per 09/27/22 04/23/25 02/09/25 Rx week 6 months #48 tabs cyanocobalamin (vitamin B-12) 1,000 mcg PO DAILY #60 caps 04/11/23 04/23/25 02/13/25 Rx 1,000 mcg capsule empagliflozin 25 mg tablet 25 mg PO DAILY 07/12/23 04/23/25 02/13/25 History fenofibrate 160 mg tablet 160 mg PO DAILY 07/12/23 04/23/25 02/13/25 History ferrous sulfate 325 mg (65 mg 325 mg PO DAILY 07/12/23 04/23/25 02/13/25 History iron) tablet metformin 500 mg tablet 500 mg PO BID 07/12/23 04/23/25 02/13/25 History aspirin 81 mg tablet,delayed 81 mg PO DAILY #90 tabs 07/18/23 04/23/25 02/13/25 Rx release atorvastatin 40 mg tablet 40 mg PO DAILY #90 tabs 07/18/23 04/23/25 02/13/25 Rx Diabetic shoes #1 ea 09/25/24 04/23/25 01/23/25 Rx lisinopril 20 mg tablet 40 mg PO DAILY 10/03/24 04/23/25 02/13/25 History custom molded orthotics with toe #1 ea 12/10/24 04/23/25 01/23/25 Rx filler to the left CAM walker #1 ea 01/09/25 04/23/25 01/23/25 Rx cholecalciferol (vitamin D3) 50 100 mcg PO DAILY 02/13/25 04/23/25 02/13/25 History mcg (2,000 unit) capsule (Vitamin D3) glipizide 10 mg tablet 10 mg PO BID 02/13/25 04/23/25 02/13/25 History insulin aspart U-100 100 unit/mL 15 unit SUBCUT BID 02/13/25 04/23/25 02/13/25 History subcutaneous cartridge pyridoxine (vitamin B6) 50 mg 50 mg PO DAILY 02/13/25 04/23/25 02/13/25 History tablet folic acid 1 mg tablet See Rx Instructions .Route 03/13/25 04/23/25 Unknown Rx .COMPLEX #100 tabs Allergies Allergy/AdvReac Type Severity Reaction Status Date / Time No Known Allergies Allergy Verified 04/24/25 18:42 Current Medications Generic Name Dose Route Start Last Admin Trade Name Freq PRN Reason Stop Dose Admin Cefepime HCl 2,000 mg 04/25/25 02:00 04/25/25 01:30 Cefepime 2,000 Mg Sdv IVP 2,000 mg Q8H JULISA Administration Protocol Enoxaparin Sodium 40 mg 04/24/25 21:15 04/24/25 22:05 Enoxaparin 40 Mg/0.4 Ml Syringe SUBCUT 40 mg Q24H JULISA Administration Pantoprazole Sodium 40 mg 04/24/25 21:15 04/24/25 22:05 Pantoprazole 40 Mg Sdv IVP 40 mg Q24H JULISA Administration PFSH Acute PFSH: Medical History (Updated 04/24/25 @ 21:18 by Keagan Dubose MD) 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 Peripheral vascular disease Gas gangrene Osteomyelitis Non-pressure chronic ulcer of left ankle with fat layer exposed Cellulitis of left foot Diabetic peripheral neuropathy associated with type 2 diabetes mellitus Prostate cancer Hyperlipidemia Diabetes Gout HTN (hypertension) Surgical History History of Achilles tendon repair left foot Previous back surgery History of prostate biopsy History of replacement of both shoulder joints Family History Father Cancer skin Other Diabetes Hyperlipidemia Hypertension Denies family history of CAD (coronary artery disease) Clotting disorder Dementia Psychiatric illness Chronic kidney disease (CKD) Suicide Anesthesia complication Bleeding disorder Lung disease Stroke Social History Smoking and tobacco/nicotine status: never used tobacco/nicotine Alcohol intake: current Alcohol intake frequency: holidays/special occasions only Vitals/I&O/Wt Last Vital Signs Temp 99.4 F 04/25/25 04:00 Pulse 80 04/25/25 04:00 Resp 17 04/25/25 04:00 BP 93/56 04/25/25 04:00 Pulse Ox 94 04/25/25 04:00 O2 Del Method Room Air 04/25/25 04:00 04/24/25 04/24/25 04/25/25 14:59 22:59 06:59 Intake Total 300 / 300 3393.7 / 3693.7 Output Total 1000 / 1000 Balance 300 / 300 2393.7 / 2693.7 Weight last 48 hrs Weight 218 lb 9.6 oz Weight 220 lb Weight 220 lb Physical Exam Narrative: Patient is alert and oriented ?3 and in no acute distress.? The following is a focused bilateral lower extremity exam.? VASCULAR: Dorsalis pedis decreased bilaterally.? Posterior tibial arteries decreased bilaterally.? Calf is supple and nontender proximally and distally.? Decreased pedal hair growth.? Edema to the left forefoot medially. NEUROLOGICAL: Protective sensation intact neuro/10 sites, tested with Sheridan Chaparro monofilament to bilateral feet. DERMATOLOGICAL: Wound 1) full-thickness ulceration subfirst metatarsal head right foot that probes to bone with surrounding erythema and devitalized base. Wound 2) dorsum of right foot at second intermetatarsal space with erythema. Wound 3) instep of right foot has healthy granular base and epithelialized margin. Wound 4) left plantar forefoot grade 2 wound with granular base and epithelial margin no surrounding erythema or warmth. MUSCULOSKELETAL: History of right second toe amputation. History of left transmetatarsal amputation. Pes planus and hammertoes right foot. Pes planus left foot. Status post right second toe amputation. Tenderness palpation tibialis anterior tendon insertion at right foot decreased dorsiflexion right foot able to visualize extensor digitorum longus fire however unable to palpate or visualize tibialis anterior tendon. Tenderness at posterior tibial tendon, right. CARDIOVASCULAR: S1, S2, normal rate, normal rhythm. Dorsalis pedis and posterior tibial arteries palpable. LUNGS: Clear to auscltation, no use of acessory muscles, no crackles or wheezes. Data 04/25/25 04:24 04/25/25 04:24 Micro: Microbiology 04/24/25 20:52 Blood Culture - Preliminary Blood SPECIMEN COLLECTED 04/24/25 20:28 Blood Culture - Preliminary Blood SPECIMEN COLLECTED A&P Assessment and plan 1. Noncompliance: 2. Cellulitis of right foot: 3. Acute osteomyelitis of right foot: Plan: 79-year-old diabetic male presents for reevaluation of diabetic foot ulcerations right foot. Compliance has been an issue with weightbearing status, due to neuropathy he continues to walk on ulcerations with worsening of symptoms. Patient has had reoccurring ulcers, this year he has underwent debridement of right foot wounds, has a history of right second toe amputation, history of osteomyelitis of the right foot and completed 8 weeks of IV antibiotics with PICC line. Has a history of left transmetatarsal amputation. Unfortunately his right foot has onset of erythema, purulent drainage and wound that now probes to bone at plantar aspect of first metatarsal. Wound cultures this year of the right foot wound are polymicrobial ranging from strep group B to Bacteroides micrococcus and Pseudomonas. Recommended patient to be admitted to the hospital for IV antibiotics, infectious disease consultation, right foot MRI for planning most appropriate level of amputation of right foot. PDMP PDMP Reviewed: Not Reviewed Coding Level of Care Code Acute Code for Chg Fwd Diagnoses Noncompliance Z91.199 Cellulitis of right foot L03.115 Acute osteomyelitis of right foot M86.171
[2025-04-25] MEDS: gadobenate dimeglumine 20 mL vial IV (10:59)
--- NOTE | 2025-04-25 11:29 | ANES.PREANE2 ---
Pre-Anesthetic Assessment Height/Weight: Height 6 ft Weight 218 lb 9.6 oz Temp Pulse Resp BP Pulse Ox O2 Del Method 99.2 F 76 18 119/60 94 Room Air 04/25/25 07:23 04/25/25 07:23 04/25/25 07:23 04/25/25 07:23 04/25/25 07:23 04/25/25 04:00 Preop Diagnosis: Osteomyelitis right foot Operation Date: 04/25/25 12:30 Proposed Procedures p Right Transmetatarsal Amputation for Osteomyelitis(Right) - MONE MartinsM Was Beta Johnathon taken within 24 hours: N/A Was Clonidine taken within 24 hours: N/A Last intake: Intake Last Liquid Date 04/25/25 Last Liquid Time 00:00 Last Solid Date 04/24/25 Last Solid Time 23:00 Social No alcohol and No tobacco Exam alert, oriented x 3, clear to auscultation bilaterally and regular rate & rhythm Airway Submandibular: within normal limits Cervical ROM: within normal limits Mallampati: Class III Dentition: full Anesthetic Plan ASA status: 3 Anesthesia: General Other: No prior issues with anesthesia NPO since yesterday evening History of diabetes and hyperlipidemia. On chronic insulin Labs reviewed 04/25/2025 and acceptable for procedure. Hemoglobin 9.9 Hypertension on lisinopril Plan for MAC anesthesia with local via surgeon Medications/Allergies Home Medications ?Medication ?Instructions ?Recorded ?Confirmed ?Last Taken ?Type allopurinol 300 mg tablet 300 mg PO DAILY 05/13/21 04/23/25 02/13/25 History insulin glargine 100 unit/mL 32 unit SUBCUT BID 05/13/21 04/23/25 02/13/25 History subcutaneous solution fluconazole 150 mg tablet 300 mg (2 x 150 mg) PO .once per 09/27/22 04/23/25 02/09/25 Rx week 6 months #48 tabs cyanocobalamin (vitamin B-12) 1,000 mcg PO DAILY #60 caps 04/11/23 04/23/25 02/13/25 Rx 1,000 mcg capsule empagliflozin 25 mg tablet 25 mg PO DAILY 07/12/23 04/23/25 02/13/25 History fenofibrate 160 mg tablet 160 mg PO DAILY 07/12/23 04/23/25 02/13/25 History ferrous sulfate 325 mg (65 mg 325 mg PO DAILY 07/12/23 04/23/25 02/13/25 History iron) tablet metformin 500 mg tablet 500 mg PO BID 07/12/23 04/23/25 02/13/25 History aspirin 81 mg tablet,delayed 81 mg PO DAILY #90 tabs 07/18/23 04/23/25 02/13/25 Rx release atorvastatin 40 mg tablet 40 mg PO DAILY #90 tabs 07/18/23 04/23/25 02/13/25 Rx Diabetic shoes #1 ea 09/25/24 04/23/25 01/23/25 Rx lisinopril 20 mg tablet 40 mg PO DAILY 10/03/24 04/23/25 02/13/25 History custom molded orthotics with toe #1 ea 12/10/24 04/23/25 01/23/25 Rx filler to the left CAM walker #1 ea 01/09/25 04/23/25 01/23/25 Rx cholecalciferol (vitamin D3) 50 100 mcg PO DAILY 02/13/25 04/23/25 02/13/25 History mcg (2,000 unit) capsule (Vitamin D3) glipizide 10 mg tablet 10 mg PO BID 02/13/25 04/23/25 02/13/25 History insulin aspart U-100 100 unit/mL 15 unit SUBCUT BID 02/13/25 04/23/25 02/13/25 History subcutaneous cartridge pyridoxine (vitamin B6) 50 mg 50 mg PO DAILY 02/13/25 04/23/25 02/13/25 History tablet folic acid 1 mg tablet See Rx Instructions .Route 03/13/25 04/23/25 Unknown Rx .COMPLEX #100 tabs Allergies Allergy/AdvReac Type Severity Reaction Status Date / Time No Known Allergies Allergy Verified 04/24/25 18:42 Current Medications Generic Name Dose Route Start Last Admin Trade Name Anjelq PRN Reason Stop Dose Admin Allopurinol 300 mg 04/25/25 09:00 04/25/25 08:40 Allopurinol 300 Mg Tablet PO 300 mg On Hold: 04/25/25 11:21 DAILY JULISA Administration Comment: Order held by Process Transfer Aspirin 81 mg 04/25/25 09:00 04/25/25 08:40 Aspirin 81 Mg Ec Tablet PO 81 mg On Hold: 04/25/25 11:21 DAILY JULISA Administration Comment: Order held by Process Transfer Atorvastatin Calcium 40 mg 04/25/25 09:00 04/25/25 08:40 Atorvastatin 40 Mg Tablet PO 40 mg On Hold: 04/25/25 11:21 DAILY JULIAS Administration Comment: Order held by Process Transfer Cefepime HCl 2,000 mg 04/25/25 02:00 04/25/25 01:30 Cefepime 2,000 Mg Sdv IVP 2,000 mg Q8H JULISA Administration Protocol Enoxaparin Sodium 40 mg 04/24/25 21:15 04/24/25 22:05 Enoxaparin 40 Mg/0.4 Ml Syringe SUBCUT 40 mg On Hold: 04/25/25 11:21 Q24H JULISA Administration Comment: Order held by Process Transfer Fenofibrate 145 mg 04/25/25 09:00 04/25/25 08:40 Fenofibrate 145 Mg Tablet PO 145 mg On Hold: 04/25/25 11:21 DAILY JULISA Administration Comment: Order held by Process Transfer Folic Acid 1 mg 04/25/25 09:00 04/25/25 08:40 Folic Acid 1 Mg Tablet PO 1 mg On Hold: 04/25/25 11:21 DAILY JULISA Administration Comment: Order held by Process Transfer Vancomycin HCl 1,250 mg in 250 mls @ 166.667 mls/hr 04/25/25 09:00 04/25/25 08:41 Vancocin IV 166.67 mls/hr On Hold: 04/25/25 11:21 Q12H JULISA Administration Comment: Order held by Process Transfer Insulin Human Lispro 0 unit 04/25/25 08:00 04/25/25 07:23 Insulin Lispro 100 Unit/1 Ml SUBCUT Not Given On Hold: 04/25/25 11:21 WM&BEDTIME JULISA Comment: Order held by Process Protocol Transfer Lisinopril 40 mg 04/25/25 09:00 04/25/25 08:40 Lisinopril 20 Mg Tablet PO 40 mg On Hold: 04/25/25 11:21 DAILY JULISA Administration Comment: Order held by Process Transfer Pantoprazole Sodium 40 mg 04/24/25 21:15 04/24/25 22:05 Pantoprazole 40 Mg Sdv IVP 40 mg On Hold: 04/25/25 11:21 Q24H JULISA Administration Comment: Order held by Process Transfer [facility] Anesthesia Medical History (Updated 04/24/25 @ 21:18 by Keagan Dubose MD) 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 Peripheral vascular disease Gas gangrene Osteomyelitis Non-pressure chronic ulcer of left ankle with fat layer exposed Cellulitis of left foot Diabetic peripheral neuropathy associated with type 2 diabetes mellitus Prostate cancer Hyperlipidemia Diabetes Gout HTN (hypertension) Surgical History History of Achilles tendon repair left foot Previous back surgery History of prostate biopsy History of replacement of both shoulder joints Family History Father Cancer skin Other Diabetes Hyperlipidemia Hypertension Denies family history of CAD (coronary artery disease) Clotting disorder Dementia Psychiatric illness Chronic kidney disease (CKD) Suicide Anesthesia complication Bleeding disorder Lung disease Stroke Social History Smoking and tobacco/nicotine status: never used tobacco/nicotine Alcohol intake: current Alcohol intake frequency: holidays/special occasions only Data Anesthesia 04/25/25 04:24 04/25/25 04:24 Short CBC 04/24/25 04/25/25 Range/Units 20:28 04:24 WBC 14.39 H 9.25 (3.29-11.43) 10^3/uL Hgb 11.30 9.90 L (11.27-16.99) g/dL Hct 33.9 L 30.9 L (37-53) % MCV 79.8 L 84.0 D (82-101) fl Plt Count 336 280 (157-399) 10^3/cmm Neut % (Auto) 84.9 73.7 % Neut # (Auto) 12.21 H 6.82 (1.8-7.7) 10^3/uL BMP 04/24/25 04/25/25 20:28 04:24 Sodium 129 L 134 L Potassium 4.3 4.0 Chloride 95 L 103 Carbon Dioxide 21 L 19 L BUN 19 18 Creatinine 1.1 1.1 Glucose 143 H 124 H Calcium 9.1 8.1 L Liver Function 04/24/25 Range/Units 20:28 Total Bilirubin 0.6 (0.15-1.2) mg/dL AST 20 (0-40) U/L ALT 21 (0-41) U/L Alkaline Phosphatase 92 (40-130) U/L Albumin 3.7 (3.5-5.2) g/dL Urine 04/24/25 Range/Units 23:10 Urine Color Yellow (Yellow) Urine Appearance Clear (CLEAR) Urine pH 5.5 (5-7) Ur Specific [place] 1.015 (1.005-1.030) Urine Protein Negative (Negative) Urine Glucose (UA) 3+ H (Normal) Urine Ketones Negative (Negative) Urine Nitrate Negative (Negative) Urine Bilirubin Negative (Negative) Ur Leukocyte Esterase Negative (Negative) Urine RBC 0-2 (0-2) /hpf Urine WBC 0-5 (0-5) /hpf Coags 04/24/25 20:28 ESR 68 H C-Reactive Protein 143.7 H Microbiology 04/24/25 20:52 Blood Culture - Preliminary Blood SPECIMEN COLLECTED 04/24/25 20:28 Blood Culture - Preliminary Blood SPECIMEN COLLECTED
--- NOTE | 2025-04-25 11:30 | W.PM.OPSUD ---
Surgery/Procedure H&P Update DATE OF PROCEDURE: April 25, 2025 DATE H&P PERFORMED: 04/24/25 H&P UPDATE INFORMATION: I have reviewed H&P completed within last 30 days, I have examined patient prior to procedure, No changes to prior documentation and Risks and benefits of the procedure reviewed PREOP DIAGNOSIS: Osteomyelitis right foot PLANNED PROCEDURE: Operation Date: 04/25/25 12:30 Proposed Procedures p Right Transmetatarsal Amputation for Osteomyelitis(Right) - Cortez Bhatia DPM
[2025-04-25 11:37] LABS: Iron 12 ug/dL (59-158); Total Iron Binding Capacity 143 mcg/dl; Unsaturated Iron Binding 131 ug/dL (112-347)
[2025-04-25 11:53] LABS: Vitamin B12 303 pg/mL (232-1245)
[2025-04-25] MEDS: BUPivacaine 0.5% INJ 30 mL 15 ML INJECTION (12:25)
--- NOTE | 2025-04-25 12:58 | ANE.PACU2 ---
Inpatient post-anesthesia follow up: Airway intact: Yes Vital signs: Temperature 97.5 F Pulse Rate 70 Respiratory Rate 14 Blood Pressure 105/60 Pulse Oximetry 96 Oxygen Delivery Me thod Room Air Oxygen Flow Rate Fraction of Inspir ed Oxygen Hydration adequate: Yes Nausea and vomiting: No Pain level: 1 Mental status: Baseline
--- NOTE | 2025-04-25 13:19 | W.PM.BPON ---
Date of Procedure: 12/01/23 Surgeon: Cortez Bhatia DPM [employer] Operator(s): Abhijit Procedure(s) performed: Right transmetatarsal amputation and fillet of toe flap closure right foot. Findings of the procedure(s): Osteomyelitis first metatarsal and third metatarsal as well as third proximal phalanx all right foot. First metatarsal demonstrated characteristics of chronic osteomyelitis, third metatarsal demonstrated characteristics of acute osteomyelitis. Estimated blood loss: 25 mL Specimen(s) removed: Third metatarsal bone sent to microbiology for Gram stain, culture and sensitivity. Right forefoot sent to pathology for gross anatomical review. Post-operative diagnosis: Osteomyelitis right foot.
--- NOTE | 2025-04-25 13:23 | P.OP_ITS ---
Operative Report Date of procedure: April 25, 2025 Pre-op diagnosis: Acute osteomyelitis right third metatarsal. Acute osteomyelitis right third toe. Chronic osteomyelitis right first metatarsal. Cellulitis right foot. Post-op diagnosis: Same Procedure done: Right transmetatarsal amputation. CPT code 69843. Right fillet of toe skin flap. CPT code 79045. Implants: 2-0 Vicryl, 3-0 Vicryl, skin german Specimens removed/disposition: Bone right third metatarsal sent to microbiology for culture. Pathology: Right forefoot sent to pathology for gross anatomical review. Surgeon: Cortez Bhatia DPM General Repair Mechanic: Abhijit Estimated blood loss: 25 mL 36 minutes IV fluids: See intraoperative documentation. Urine output: None Complications: None Brief History: 79-year-old diabetic male presents for reevaluation of diabetic foot ulcerations right foot. Compliance has been an issue with weightbearing status, due to neuropathy he continues to walk on ulcerations with worsening of symptoms. Patient has had reoccurring ulcers, this year he has underwent debridement of right foot wounds, has a history of right second toe amputation, history of osteomyelitis of the right foot and completed 8 weeks of IV antibiotics with PICC line. Has a history of left transmetatarsal amputation. Unfortunately his right foot has onset of erythema, purulent drainage and wound that now probes to bone at plantar aspect of first metatarsal. Wound cultures this year of the right foot wound are polymicrobial ranging from strep group B to Bacteroides micrococcus and Pseudomonas. MRI of the left foot 04/25/2025 significant for osteomyelitis involving the second distal metatarsal third metatarsal extending from the proximal shaft distally with additional osteomyelitis extending to the third toe proximal phalanx and degenerative changes at the first metatarsal phalangeal joint with chronic subchondral cystic changes enhancement involving the first metatarsophalangeal joint osteomyelitis not excluded of the first metatarsal head enhancing fluid collections on the dorsum of the midfoot. I reviewed at length with the patient, the risks, potential complications, benefits, alternatives, expectations, and typical outcomes associated with the surgery. The risks and potential complications were explained in detail, including but not limited to infection, wound dehiscence or soft tissue complications, bleeding and hematoma, chronic edema, neuritis or nerve damage producing numbness or chronic pain, CRPS, failure to relieve pain or worsening pain, thick / painful / unsightly scar, limited motion / stiffness, malposition, delayed union, malunion, or nonunion, fracture, reaction to implants, anesthetic complications, venous thromboembolism, and deformity recurrence. I discussed the notion of no regrets with the patient as it pertains to complications and outcomes. The patient seemed to understand the nature of the proposed care and required convalescence. They asked appropriate questions, answered to their satisfaction. They are aware no guarantees can be made as to a satisfactory outcome and they understand there may be other possible unforeseen complications or outcomes not listed here that will be treated accordingly if they arise. There were no written or implied guarantees given to the patient. They gave informed consent to proceed. Procedure: Under mild sedation the patient was brought to the operating room and remained on the gurney in supine position. A timeout was performed. Anesthesia was then administered by the anesthesia service. Local anesthesia injected by myself consisting of 30 cc of one-to-one mixture 1% lidocaine and 0.5% Marcaine plain in a 5 point ankle block fashion to the right ankle. Well-padded pneumatic tourniquet applied to the right ankle. The right lower extremity was then s crubbed, prepped and draped utilizing normal aseptic technique. Right foot was elevated and tourniquet inflated to 250 mmHg. Attention was directed to the right forefoot where planned transmetatarsal fixation was carried out with skin incision performed with a #10 blade full- thickness down to bone and a [place] incision fashion which was contoured in an irregular fashion at the plantar medial aspect of the right forefoot due to full-thickness wound that probes to bone and at the dorsal aspect maintaining the soft tissue of the left great toe as to act as a toe flap full-thickness to cover the wound deficit. Sagittal saw utilized in a beveled fashion on the first metatarsal and fifth metatarsal to remove bony prominences and metatarsals 1, 2, 3, 4, 5 were transected at the proximal diaphyseal margin and the right forefoot was sent to pathology for gross anatomical review. All bleeders were ligated and cauterized as necessary. Amputation site was irrigated with Irrisept and saline solution, all extensor and flexor tendons were transected under traction at the most proximal margin. Areas of osteotomy metatarsals 1, 2, 3, 4, 5 were smoothed with a rasp of all rough edges. The incision was further irrigated and closed in a layered fashion with deep myofascial layer being reapproximated with 2-0 Vicryl, subcutaneous tissue with 3-0 Vicryl and skin with german. Attention was directed to the soft tissue deficit from the plantar medial forefoot wound which remaining fillet of toe flap from the right great toe was remodeled and transposed plantarly and medially covering the wound entirely and approximated utilizing subcutaneous tissue closure with 3-0 Vicryl and skin with german. Incisions were dressed with Xeroform, sterile 4 x 4 gauze, Kerlix followed by application of a well-padded well 2 layer light compressive posterior splint. Tourniquet was deflated and a prompt hyperemic response is noted to the distal right foot amputation site. Patient tolerated the procedure and anesthesia well and was transferred to the PACU with vital signs stable and vascular status intact. Following a period of postoperative monitoring he will be transferred back to the floor to continue empiric IV antibiotics, anticipated PICC line and minimum 6-week antibiotic course. Patient to elevate right foot and is strict nonweightbearing right lower extremity.
--- NOTE | 2025-04-25 13:32 | SUR.PHASEI ---
In PACU Dr. Bhatia at bedside and changing patients home made dressing to left foot sore. removed duct tape and for dressing placed xeroform, gauze and devon wrap to left foot.
--- NOTE | 2025-04-25 13:44 | P.PN_ITS ---
Subjective 2 Subjective: Admitted overnight. H&P and labs appreciated. Patient lying comfortably in bed. Plan for debridement later in the day with podiatry team. Has remained hemodynamically stable and afebrile since admission. Vitals/I&O/Wt Last Vital Signs Temp 97.3 F L 04/25/25 13:15 Pulse 65 04/25/25 13:15 Resp 18 04/25/25 13:15 BP 107/65 04/25/25 13:15 Pulse Ox 96 04/25/25 13:15 O2 Del Method Room Air 04/25/25 13:15 04/24/25 04/25/25 04/25/25 22:59 06:59 14:59 Intake Total 300 / 300 3393.7 / 3693.7 850 / 850 Output Total 1000 / 1000 Balance 300 / 300 2393.7 / 2693.7 825 / 825 Weight last 48 hrs Weight 99.155 kg Weight 99.79 kg Weight 99.79 kg Physical Exam 2 Const: COMMON NORMALS: no acute distress, patient oriented x3, no limitations, healthy appearing and alert ORIENTATION/CONSCIOUSNESS: Yes awake Eye: COMMON NORMALS: Equal, round and reactive pupils present and EOMs intact bilaterally PUPIL: Yes Equal, round and reactive pupils present Neck/C-Spine: COMMON NORMALS: full ROM, no meningeal signs and no JVD Resp: COMMON NORMALS: normal respiratory effort, No retractions, No use of accessory muscles and clear to auscultation bilaterally AUSCULTATION: clear to auscultation bilaterally Cardio: COMMON NORMALS: no JVD, regular rate, regular rhythm, S1 normal heart sound present and S2 normal heart sound present RATE: regular rate and tachycardic RHYTHM: regular rhythm HEART SOUNDS: S1 normal heart sound present and S2 normal heart sound present GI: COMMON NORMALS: Normal to inspection, nondistended, normoactive bowel sounds present, Soft to palpation and non-tender PALPATION: Yes Soft to palpation Extremity: COMMON NORMALS: no calf tenderness and no pedal edema NARRATIVE EXTREMITY EXAM: Right foot wrapped, able to visualize 1st through 5th digit, able to wiggle his toes, good cap refill, no discoloration, does have onychomycosis LEFT LOWER EXTREMITY: Yes foot & digits (left great toe amputation) Neuro: COMMON NORMALS: patient oriented x3, CN's II-XII intact bilaterally, moves all extremities, no focal motor deficits and no sensory deficits noted SENSORIUM/ORIENTATION: Yes alert MENINGEAL SIGNS: Yes no meningeal signs Psych: COMMON NORMALS: mental status grossly normal Skin: COMMON NORMALS: turgor normal NARRATIVE SKIN EXAM: Unable to assess integumentary system of right foot GENERAL SKIN EXAM: turgor normal WOUNDS: Yes surgical site (no hematoma palpable) Details: no odor Data 04/25/25 04:24 04/25/25 04:24 Micro: Microbiology 04/24/25 20:52 Blood Culture - Preliminary Blood SPECIMEN COLLECTED 04/24/25 20:28 Blood Culture - Preliminary Blood SPECIMEN COLLECTED A&P Assessment and plan 1. Sepsis: 2. Diabetic foot infection: 3. Acute osteomyelitis of right foot: 4. Cellulitis of right foot: 5. Peripheral arterial occlusive disease: 6. HTN (hypertension): Plan: Sepsis: Insetting of cellulitis/acute osteomyelitis of right foot. Admitted overnight. Podiatry has been consulted. Plan for MRI and or debridement of the wound later in the day. Appreciate past culture history of polymicrobial infection. Appreciate outpatient cultures growing gram-negative bobby and Streptococcus species from 04/23. For now continue with empiric IV vancomycin and cefepime. Check MRSA swab. Will request the OR cultures. Follow-up blood cultures. Will consult infectious disease for further recommendations. If blood cultures remain negative patient will most likely need PICC line placement and prolonged IV antibiotic course. Type 2 diabetes mellitus: Check A1c. Continue with insulin sliding scale AC and at bedtime. Continue with home dose of Lantus 32 units twice daily. Hypertension: Goal blood pressure less than 140/90 mmHg. Continue with home dose of lisinopril 40 mg oral daily. Peripheral artery disease: Post balloon angioplasty 07/10 for critical limb ischemia with total 100% occlusion of left mid anterior tibial artery. Continue with aspirin, statin, fenofibrate. Full code N.p.o. for now, carb consistent diet postoperatively Lovenox for DVT prophylaxis Protonix for PUD prophylaxis PDMP PDMP Reviewed: Not Reviewed Attestations 2 Medical Necessity Statement*: Requires further hospitalization for management of sepsis due to osteomyelitis of the right foot, cellulitis as patient requires OR debridement, type 2 diabetes mellitus Diagnoses Sepsis A41.9 Diabetic foot infection E11.628; L08.9 Acute osteomyelitis of right foot M86.171 Cellulitis of right foot L03.115 Peripheral arterial occlusive disease I77.9 HTN (hypertension) I10
--- NOTE | 2025-04-25 15:03 | PC.SOCIAL ---
IMM Update pg 2 of IMM updated and reviewed w/ patient. Copy provided and copy dated, initialed and placed in chart.
--- NOTE | 2025-04-25 19:58 | MR_ITS ---
WS: [id number] EXAMINATION: MR foot RT wo/w con [id number] ORDER DATE: 04/25/2025 10:15 AM COMPARISON: None. HISTORY: right foot osteo CONTRAST: None. TECHNIQUE: Sagittal T1, sagittal STIR, coronal PD, coronal T2, axial T1, axial T2, and axial PD imaging with fat saturation technique. Post gadolinium imaging includes axial T1, coronal T1, and sagittal T1 with fat saturation technique. FINDINGS: Diffuse soft tissue edema. Diffuse soft tissue enhancement with deep soft tissue infection in the midfoot. Replacement of the normal fatty T1 bone marrow signal compatible with osteomyelitis involving the second distal metatarsal, third metatarsal extending from the proximal shaft distally. A dditional osteomyelitis extending into the third proximal phalanx. Advanced degenerative changes involving the first MTP with subchondral cystic changes. Enhancement involving the first MTP . T1 bone marrow signal is for the most part preserved involving the first MTP. Early osteomyelitis not excluded at this level. Few tiny enhancing fluid collections along the dorsal midfoot. Diffuse soft tissue edema and infection involving the plantar soft tissues. No drainable abscess or fluid collection. 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 MR/MR foot RT wo/w con [id number] IMPRESSION: Osteomyelitis described above.
[2025-04-25] MEDS: pantoprazole 40 mg SDV IVP (22:44)
[2025-04-26] VITALS (8 sets, daily range): BP systolic 104–127; BP diastolic 54–68; PULSE 67–77; RESP 13–18; TEMP 36.8–37.2; O2SAT 91–97
[2025-04-26] MEDS: cefepime 2,000 mg SDV 2000 MG IVP ×3 (03:12→17:27)
[2025-04-26 04:02] LABS: Hematocrit 30.8 % (37-53); Hemoglobin 10.10 g/dL (11.27-16.99); Mean Corpuscular HGB Conc 32.8 g/dL (30-55); Mean Corpuscular Hemoglobin 26.6 pg (27-33); Mean Corpuscular Volume 81.3 fl (82-101); Nucleated Red Blood Cells % 0 %; Platelet Count 312 10^3/cmm (157-399); Red Blood Count 3.79 10^6/uL (3.85-5.65); White Blood Count 10.12 10^3/uL (3.29-11.43)
[2025-04-26 04:22] LABS: Alanine Aminotransferase 24 U/L (0-41); Albumin Level 3.3 g/dL (3.5-5.2); Alkaline Phosphatase 91 U/L (40-130); Anion Gap 14.8 (5-19); Aspartate Amino Transferase 20 U/L (0-40); Blood Urea Nitrogen 18 mg/dL (8-23); Calcium 8.7 mg/dL (8.5-10.5); Carbon Dioxide 22 mmol/L (22-29); Chloride 101 mmol/L (98-107); Creatinine Clr Calc Pharmacy 74.2936; Globulin 3.4 g/dL (1.3-4.6); Glucose 244 mg/dL (65-115); Osmolality Calculated 286 mOsm/kg (285-295); Potassium 4.8 mmol/L (3.5-5.1); Sodium 133 mmol/L (136-145); Total Protein 6.7 g/dL (6.6-8.7)
[2025-04-26 04:26] LABS: Magnesium 2.4 mg/dL (1.7-2.3)
--- NOTE | 2025-04-26 11:59 | P.PN_ITS ---
Subjective 2 Subjective: No acute vents overnight. Patient seen laying comfortably in bed. Denies any nausea, vomiting, headache. Seen with spouse at bedside. Has remained hemodynamically stable and afebrile. Vitals/I&O/Wt Last Vital Signs Temp 99 F 04/26/25 11:51 Pulse 71 04/26/25 11:51 Resp 18 04/26/25 11:51 BP 115/61 04/26/25 11:51 Pulse Ox 95 04/26/25 11:51 O2 Del Method Room Air 04/26/25 11:51 04/25/25 04/26/25 04/26/25 22:59 06:59 14:59 Intake Total 660 / 1586.5 810 / 2396.5 930 / 930 Output Total 2130 / 2155 1050 / 3205 800 / 800 Balance -1470 / -568.5 -240 / -808.5 130 / 130 Weight last 48 hrs Weight 99.291 kg Weight 99.155 kg Weight 99.79 kg Weight 99.79 kg Physical Exam 2 Narrative: No acute distress, AO x 3, hard of hearing, family at bedside Const: COMMON NORMALS: no acute distress, patient oriented x3, no limitations, healthy appearing and alert ORIENTATION/CONSCIOUSNESS: Yes awake Eye: COMMON NORMALS: Equal, round and reactive pupils present and EOMs intact bilaterally PUPIL: Yes Equal, round and reactive pupils present Neck/C-Spine: COMMON NORMALS: full ROM, no meningeal signs and no JVD Resp: COMMON NORMALS: normal respiratory effort, No retractions, No use of accessory muscles and clear to auscultation bilaterally AUSCULTATION: clear to auscultation bilaterally Cardio: COMMON NORMALS: no JVD, regular rate, regular rhythm, S1 normal heart sound present and S2 normal heart sound present RATE: regular rate and tachycardic RHYTHM: regular rhythm HEART SOUNDS: S1 normal heart sound present and S2 normal heart sound present GI: COMMON NORMALS: Normal to inspection, nondistended, normoactive bowel sounds present, Soft to palpation and non-tender PALPATION: Yes Soft to palpation Extremity: COMMON NORMALS: no calf tenderness and no pedal edema NARRATIVE EXTREMITY EXAM: Foot surgically bandaged. No soakage. Neuro: COMMON NORMALS: patient oriented x3, CN's II-XII intact bilaterally, moves all extremities, no focal motor deficits and no sensory deficits noted SENSORIUM/ORIENTATION: Yes alert MENINGEAL SIGNS: Yes no meningeal signs Psych: COMMON NORMALS: mental status grossly normal Skin: COMMON NORMALS: turgor normal NARRATIVE SKIN EXAM: Unable to assess integumentary system of right foot GENERAL SKIN EXAM: turgor normal Data 04/26/25 02:48 04/26/25 02:48 Micro: Microbiology 04/24/25 20:52 Blood Culture - Preliminary Blood NEGATIVE TO DATE 04/24/25 20:28 Blood Culture - Preliminary Blood NEGATIVE TO DATE 04/25/25 12:30 Gram Stain - Final Bone A&P Assessment and plan 1. Sepsis: 2. Diabetic foot infection: 3. Acute osteomyelitis of right foot: 4. Cellulitis of right foot: 5. Peripheral arterial occlusive disease: 6. HTN (hypertension): Plan: Sepsis: Insetting of cellulitis/acute osteomyelitis of right foot. Admitted overnight. Podiatry has been consulted. Appreciate osteomyelitis on MRI. 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 Wound care, weightbearing, anticoagulation as per podiatry team. Follow-up OR cultures. Follow-up blood cultures. Appreciate recent wound cultures taken on 04/23 growing strep species and gram-negative rods. Will await complete ID and sensitivities. Will plan to consult ID for further evaluation. For now continue with IV vancomycin and cefepime. Check MRSA swab. If blood cultures remain negative patient will most likely need PICC line placement and prolonged 6 weeks of IV antibiotic course. Type 2 diabetes mellitus: A1c of 7.2. Continue with insulin sliding scale AC and at bedtime. Continue with home dose of Lantus 30 units bedtime. Hypertension: Goal blood pressure less than 140/90 mmHg. Continue with home dose of lisinopril 40 mg oral daily. Peripheral artery disease: Post balloon angioplasty 07/10 for critical limb ischemia with total 100% occlusion of left mid anterior tibial artery. Continue with aspirin, statin, fenofibrate. Full code Carb consistent diet Lovenox for DVT prophylaxis Protonix for PUD prophylaxis PDMP PDMP Reviewed: Not Reviewed Attestations 2 Medical Necessity Statement*: Requires further hospitalization for management of sepsis in setting of cellulitis/osteomyelitis of the right foot post amputation as patient needs further wound care, set up of IV antibiotic as an outpatient. Diagnoses Sepsis A41.9 Diabetic foot infection E11.628; L08.9 Acute osteomyelitis of right foot M86.171 Cellulitis of right foot L03.115 Peripheral arterial occlusive disease I77.9 HTN (hypertension) I10
[2025-04-26] MEDS: pantoprazole 40 mg SDV IVP (21:08)
[2025-04-26] MEDS: insulin glargine 100 units/1 mL 30 UNIT SUBCUT (21:09)
[2025-04-27] MEDS: cefepime 2,000 mg SDV 2000 MG IVP ×3 (01:47→18:25)
[2025-04-27 04:00] VITALS: BP 116/64; PULSE 72; RESP 15; TEMP 37.1; O2SAT 95
[2025-04-27 04:25] LABS: Hematocrit 28.1 % (37-53); Hemoglobin 9.00 g/dL (11.27-16.99); Mean Corpuscular HGB Conc 32.0 g/dL (30-55); Mean Corpuscular Hemoglobin 26.2 pg (27-33); Mean Corpuscular Volume 81.7 fl (82-101); Nucleated Red Blood Cells % 0 %; Platelet Count 295 10^3/cmm (157-399); Red Blood Count 3.44 10^6/uL (3.85-5.65); White Blood Count 7.79 10^3/uL (3.29-11.43)
[2025-04-27 04:42] LABS: Alanine Aminotransferase 25 U/L (0-41); Albumin Level 3.1 g/dL (3.5-5.2); Alkaline Phosphatase 89 U/L (40-130); Anion Gap 14.4 (5-19); Aspartate Amino Transferase 18 U/L (0-40); Blood Urea Nitrogen 19 mg/dL (8-23); Calcium 8.0 mg/dL (8.5-10.5); Carbon Dioxide 22 mmol/L (22-29); Chloride 98 mmol/L (98-107); Creatinine Clr Calc Pharmacy 74.0280; Globulin 2.5 g/dL (1.3-4.6); Glucose 194 mg/dL (65-115); Osmolality Calculated 278 mOsm/kg (285-295); Potassium 4.4 mmol/L (3.5-5.1); Sodium 130 mmol/L (136-145); Total Protein 5.6 g/dL (6.6-8.7)
[2025-04-27 04:51] LABS: Magnesium 2.1 mg/dL (1.7-2.3)
[2025-04-27 08:14] VITALS: BP 110/64; PULSE 70; RESP 18; TEMP 37.4; O2SAT 97
--- NOTE | 2025-04-27 08:29 | PM.PN ---
Subjective Subjective: Patient seen bedside, 2 days status post right transmetatarsal potation secondary to osteomyelitis. No strikethrough bleeding or drainage from surgical dressing. Patient is in good spirits. Tolerating diabetic consistent carb diet. Patient denies any subjective nausea, vomiting, fever, chills, shortness of breath or chest pain. Vitals/I&O/Wt Last Vital Signs Temp 99.4 F 04/27/25 08:14 Pulse 70 04/27/25 08:14 Resp 18 04/27/25 08:14 BP 110/64 04/27/25 08:14 Pulse Ox 97 04/27/25 08:14 O2 Del Method Room Air 04/27/25 08:14 04/26/25 04/27/25 04/27/25 22:59 06:59 14:59 Intake Total 760 / 2050 650 / 2700 Output Total 500 / 2100 650 / 2750 Balance 260 / -50 0 / -50 Weight last 48 hrs Weight 217 lb 3.2 oz Weight 218 lb 14.4 oz Physical Exam Narrative: GENERAL: Patient is alert and oriented ?3 and in no acute distress. The following is a focused bilateral lower extremity exam. VASCULAR: Dorsalis pedis palpable bilaterally. Posterior tibial arteries palpable. Brisk capillary refill left and right forefoot amputation level. Calf is supple and nontender proximally and distally. NEUROLOGICAL: Protective sensation intact 0/10 sites, tested with Robertson Chaparro monofilament to bilateral feet. DERMATOLOGICAL: Amputation site right forefoot incision remains well coapted, ecchymosis at the dorsal aspect of the incision, no dehiscence no active bleeding or drainage, no erythema or warmth. Grade 2 wound left plantar foot has epithelial margin and granular base without erythema or drainage. MUSCULOSKELETAL: Patient is status post right transmetatarsal potation. History of left transmetatarsal amputation. Data 04/28/25 05:04 04/28/25 05:04 A&P Assessment and plan 1. Noncompliance: 2. Cellulitis of right foot: 3. 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 Nonweightbearing right foot, elevate right lower extremity. Appreciate infectious disease recommendations on antibiotic selection for minimum 6-week course of IV antibiotics via PICC line at discharge. No further surgical intervention anticipated during this hospitalization Podiatry will follow PDMP PDMP Reviewed: Not Reviewed Attestations Medical Necessity Statement*: Deferred to primary Coding Level of Care Code Acute Code for Chg Fwd Diagnoses Noncompliance Z91.199 Cellulitis of right foot L03.115 Acute osteomyelitis of right foot M86.171
--- NOTE | 2025-04-27 08:38 | PC.NURSE ---
dr. calvillo changed dressing on left foot at bedside, will need changed starting tomorrow 04/28/25.
[2025-04-27 11:49] VITALS: BP 113/67; PULSE 77; RESP 18; TEMP 37.2; O2SAT 95
--- NOTE | 2025-04-27 12:43 | P.PN_ITS ---
Subjective 2 Subjective: No acute vents overnight. Patient seen laying comfortably in bed. Denies any nausea, vomiting, headache. Seen with spouse at bedside. Has remained hemodynamically stable and afebrile. Vitals/I&O/Wt Last Vital Signs Temp 98.9 F 04/27/25 11:49 Pulse 77 04/27/25 11:49 Resp 18 04/27/25 11:49 BP 113/67 04/27/25 11:49 Pulse Ox 95 04/27/25 11:49 O2 Del Method Room Air 04/27/25 11:49 04/26/25 04/27/25 04/27/25 22:59 06:59 14:59 Intake Total 760 / 2050 650 / 2700 730 / 730 Output Total 500 / 2100 650 / 2750 400 / 400 Balance 260 / -50 0 / -50 330 / 330 Weight last 48 hrs Weight 98.52 kg Weight 99.291 kg Physical Exam 2 Narrative: No acute distress, AO x 3, hard of hearing, family at bedside Const: COMMON NORMALS: no acute distress, patient oriented x3, no limitations, healthy appearing and alert ORIENTATION/CONSCIOUSNESS: Yes awake Eye: COMMON NORMALS: Equal, round and reactive pupils present and EOMs intact bilaterally PUPIL: Yes Equal, round and reactive pupils present Neck/C-Spine: COMMON NORMALS: full ROM, no meningeal signs and no JVD Resp: COMMON NORMALS: normal respiratory effort, No retractions, No use of accessory muscles and clear to auscultation bilaterally AUSCULTATION: clear to auscultation bilaterally Cardio: COMMON NORMALS: no JVD, regular rate, regular rhythm, S1 normal heart sound present and S2 normal heart sound present RATE: regular rate and tachycardic RHYTHM: regular rhythm HEART SOUNDS: S1 normal heart sound present and S2 normal heart sound present GI: COMMON NORMALS: Normal to inspection, nondistended, normoactive bowel sounds present, Soft to palpation and non-tender PALPATION: Yes Soft to palpation Extremity: COMMON NORMALS: no calf tenderness and no pedal edema NARRATIVE EXTREMITY EXAM: Foot surgically bandaged. No soakage. Neuro: COMMON NORMALS: patient oriented x3, CN's II-XII intact bilaterally, moves all extremities, no focal motor deficits and no sensory deficits noted SENSORIUM/ORIENTATION: Yes alert MENINGEAL SIGNS: Yes no meningeal signs Psych: COMMON NORMALS: mental status grossly normal Skin: COMMON NORMALS: turgor normal NARRATIVE SKIN EXAM: Unable to assess integumentary system of right foot GENERAL SKIN EXAM: turgor normal Data 04/27/25 02:58 04/27/25 02:58 Micro: Microbiology 04/24/25 20:52 Blood Culture - Preliminary Blood NEGATIVE TO DATE 04/24/25 20:28 Blood Culture - Preliminary Blood NEGATIVE TO DATE 04/25/25 12:30 Gram Stain - Final Bone A&P Assessment and plan 1. Sepsis: 2. Diabetic foot infection: 3. Acute osteomyelitis of right foot: 4. Cellulitis of right foot: 5. Peripheral arterial occlusive disease: 6. HTN (hypertension): Plan: Sepsis: Insetting of cellulitis/acute osteomyelitis of right foot. Admitted overnight. Podiatry has been consulted. Appreciate osteomyelitis on MRI. 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 Wound care, weightbearing, anticoagulation as per podiatry team. Follow-up OR cultures. Follow-up blood cultures. Appreciate recent wound cultures taken on 04/23 growing strep species and gram-negative rods. Will await complete ID and sensitivities. Will plan to consult ID for further evaluation. For now continue with IV vancomycin and cefepime. Check MRSA swab. If blood cultures remain negative patient will most likely need PICC line placement and prolonged 6 weeks of IV antibiotic course. Type 2 diabetes mellitus: A1c of 7.2. Continue with insulin sliding scale AC and at bedtime. Continue with home dose of Lantus 30 units bedtime. Hypertension: Goal blood pressure less than 140/90 mmHg. Continue with home dose of lisinopril 40 mg oral daily. Peripheral artery disease: Post balloon angioplasty 07/10 for critical limb ischemia with total 100% occlusion of left mid anterior tibial artery. Continue with aspirin, statin, fenofibrate. Full code Carb consistent diet Lovenox for DVT prophylaxis Protonix for PUD prophylaxis Plan for the day: Outpatient cultures growing Pseudomonas and strep. Awaiting sensitivities. Continue with current IV antibiotics. Awaiting ID recommendations for outpatient antibiotics. Patient will most likely need antibiotics for overall 6 weeks. PICC line to be placed if blood cultures remain negative. Monitor blood sugars. Slightly elevated. Increase Lantus to 40 units nightly. Continue with current sliding scale. Monitor blood pressures. Goal blood pressure less than 140/90 mmHg. PDMP PDMP Reviewed: Not Reviewed Attestations 2 Medical Necessity Statement*: Requires further hospitalization for management of sepsis in setting of cellulitis/osteomyelitis of the right foot post amputation as patient needs further wound care, set up of IV antibiotic as an outpatient. Diagnoses Sepsis A41.9 Diabetic foot infection E11.628; L08.9 Acute osteomyelitis of right foot M86.171 Cellulitis of right foot L03.115 Peripheral arterial occlusive disease I77.9 HTN (hypertension) I10
[2025-04-27 16:00] VITALS: BP 115/70; PULSE 65; RESP 17; TEMP 37.1; O2SAT 96
--- NOTE | 2025-04-27 18:49 | PM.CONSULT ---
Providers/Reason For Consult Consulting Physician/Specialty*: Karen Higgins MD / Infectious disease Reason for Consult*: osteomyelitis Requesting Physician: Dr. Bhatia Attending Physician: Arvin Chapin MD Primary Care Provider: Caitlin Beltran MD History of Present Illness History of Present Illness Luther Lindquist is a 79 year old male with a past medical history of type 2 diabetes mellitus, hypertension, hyperlipidemia, right foot diabetic foot infection, history of polymicrobial organisms who was directed for admission after he presented to Dr. Bhatia's office for a full thickness wound needing debridement.He had a right 2nd toe amputation on 01/30/25 and completed a course of iv vancomycin x 8 weeks and oral ciprofloxacin--> transitioned to Zosyn. He has had multiple ulcers affecting his extremities over the years. Most recently he presented to Dr. Bhatia'd office with right foot cellulitis and drainage from a plantar wound with probe to bone at the first metatarsal head. HE is s/p Right transmetatarsal amputation and flap closure right foot on 04/25/25. intraop findings included: Osteomyelitis first metatarsal and third metatarsal as well as third proximal phalanx all right foot. First metatarsal demonstrated characteristics of chronic osteomyelitis, third metatarsal demonstrated characteristics of acute osteomyelitis. MRI showed Diffuse soft tissue enhancement with deep soft tissue infection in the midfoot. Replacement of the normal fatty T1 bone marrow signal compatible with osteomyelitis involving the second distal metatarsal, third metatarsal extending from the proximal shaft distally. Additional osteomyelitis extending into the third proximal phalanx. Advanced degenerative changes involving the first MTP with subchondral cystic changes. Enhancement involving the first MTP . T1 bone marrow signal is for the most part preserved involving the first MTP. Early osteomyelitis not excluded at this level. Few tiny enhancing fluid collections along the dorsal midfoot. Review of Systems General: Reports: 10 or more systems reviewed and unremarkable except in HPI and below Const: Denies: fever(s), chills or body aches Eyes: Denies: change in vision, blurry vision or photophobia ENMT: Reports: hoarseness; Denies: throat pain, enlarged tonsils, odynophagia or nasal congestion Card: Denies: chest pain, palpitations, irregular heart rhythm, edema, swelling of feet/ankles, lightheadedness, pre-syncope, dyspnea on exertion or orthopnea Resp: Denies: dyspnea, productive cough, non-productive cough, wheezing, stridor, pain on inspiration, change in phlegm color, hemoptysis or chest congestion GI: Denies: abdominal pain, nausea, vomiting, hematemesis, coffee ground emesis, dysphagia, heartburn, diarrhea, constipation, GI cramping, change in stool character, hematochezia or melena : Denies: flank pain, dysuria, urinary frequency, urinary urgency, urinary hesitancy or hematuria Musc: Denies: neck pain, back pain, extremity pain, joint swelling, joint warmth or deformity Neuro: Denies: headache(s), numbness in extremities, weakness in extremities, sensory changes, difficulty walking, frequent falls, dizziness, vertigo, behavioral changes, Slurred speech present or seizure-like activity Psych: Denies: anxiety, depression, suicidal ideation or homicidal ideation Endo: Denies: polyuria, polydipsia, tired all the time, cold intolerance or hot flashes Cristobal/Lymph: Denies: easy bruising or easy bleeding Medications/Allergies Home Medications ?Medication ?Instructions ?Recorded ?Confirmed ?Last Taken ?Type allopurinol 300 mg tablet 300 mg PO DAILY 05/13/21 04/25/25 04/24/25 History insulin glargine 100 unit/mL 65 unit SUBCUT DAILY 05/13/21 04/25/25 02/13/25 History subcutaneous solution cyanocobalamin (vitamin B-12) 1,000 mcg PO DAILY #60 caps 04/11/23 04/25/25 02/13/25 Rx 1,000 mcg capsule empagliflozin 25 mg tablet 25 mg PO DAILY 07/12/23 04/25/25 04/24/25 07:00 History fenofibrate 160 mg tablet 160 mg PO DAILY 07/12/23 04/25/25 04/24/25 07:00 History ferrous sulfate 325 mg (65 mg 325 mg PO DAILY 07/12/23 04/25/25 04/23/25 18:00 History iron) tablet metformin 500 mg tablet 500 mg PO BID 07/12/23 04/25/25 04/24/25 18:00 History aspirin 81 mg tablet,delayed 81 mg PO DAILY #90 tabs 07/18/23 04/25/25 04/21/25 Rx release atorvastatin 40 mg tablet 40 mg PO DAILY #90 tabs 07/18/23 04/25/25 04/23/25 19:00 Rx Diabetic shoes #1 ea 09/25/24 04/25/25 01/23/25 Rx lisinopril 20 mg tablet 30 mg PO DAILY 10/03/24 04/25/25 04/23/25 19:00 History custom molded orthotics with toe #1 ea 12/10/24 04/25/25 01/23/25 Rx filler to the left CAM walker #1 ea 01/09/25 04/25/25 01/23/25 Rx cholecalciferol (vitamin D3) 50 100 mcg PO DAILY 02/13/25 04/25/25 04/23/25 History mcg (2,000 unit) capsule (Vitamin D3) glipizide 10 mg tablet 10 mg PO BID 02/13/25 04/25/25 04/23/25 06:00 History pyridoxine (vitamin B6) 50 mg 50 mg PO DAILY 02/13/25 04/25/25 04/23/25 18:00 History tablet folic acid 1 mg tablet See Rx Instructions .Route 03/13/25 04/25/25 04/23/25 19:00 Rx .COMPLEX #100 tabs clopidogrel 75 mg tablet 75 mg PO DAILY 04/25/25 04/25/25 04/24/25 History insulin aspart U-100 100 unit/mL 15 unit SUBCUT DAILY 04/25/25 04/25/25 04/24/25 History (3 mL) subcutaneous pen Allergies Allergy/AdvReac Type Severity Reaction Status Date / Time No Known Allergies Allergy Verified 04/24/25 18:42 Current Medications Generic Name Dose Route Start Last Admin Trade Name Freq PRN Reason Stop Dose Admin Allopurinol 300 mg 04/25/25 09:00 04/27/25 08:30 Allopurinol 300 Mg Tablet PO 300 mg DAILY JULISA Administration Aspirin 81 mg 04/25/25 09:00 04/27/25 08:30 Aspirin 81 Mg Ec Tablet PO 81 mg DAILY JULISA Administration Atorvastatin Calcium 40 mg 04/25/25 09:00 04/27/25 08:30 Atorvastatin 40 Mg Tablet PO 40 mg DAILY JULISA Administration Cefepime HCl 2,000 mg 04/25/25 02:00 04/27/25 18:25 Cefepime 2,000 Mg Sdv IVP 2,000 mg Q8H JULISA Administration Protocol Enoxaparin Sodium 40 mg 04/24/25 21:15 04/26/25 21:10 Enoxaparin 40 Mg/0.4 Ml Syringe SUBCUT 40 mg Q24H JULISA Administration Fenofibrate 145 mg 04/25/25 09:00 04/27/25 09:33 Fenofibrate 145 Mg Tablet PO 145 mg DAILY JULISA Administration Folic Acid 1 mg 04/25/25 09:00 04/27/25 09:33 Folic Acid 1 Mg Tablet PO 1 mg DAILY JULISA Administration Vancomycin HCl 1,250 mg in 250 mls @ 166.667 mls/hr 04/25/25 09:00 04/27/25 11:38 Vancocin IV Infused Q12H JULISA Infusion Insulin Human Lispro 0 unit 04/25/25 08:00 04/27/25 18:26 Insulin Lispro 100 Unit/1 Ml SUBCUT 8 unit WM&BEDTIME JULISA Administration Protocol Lisinopril 40 mg 04/25/25 09:00 04/27/25 09:33 Lisinopril 20 Mg Tablet PO 40 mg DAILY JULISA Administration Pantoprazole Sodium 40 mg 04/24/25 21:15 04/26/25 21:08 Pantoprazole 40 Mg Sdv IVP 40 mg Q24H JULISA Administration PFSH Acute PFSH: Medical History 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 Peripheral vascular disease Gas gangrene Osteomyelitis Non-pressure chronic ulcer of left ankle with fat layer exposed Cellulitis of left foot Diabetic peripheral neuropathy associated with type 2 diabetes mellitus Prostate cancer Hyperlipidemia Diabetes Gout HTN (hypertension) Surgical History History of Achilles tendon repair left foot Previous back surgery History of prostate biopsy History of replacement of both shoulder joints Family History Father Cancer skin Other Diabetes Hyperlipidemia Hypertension Denies family history of CAD (coronary artery disease) Clotting disorder Dementia Psychiatric illness Chronic kidney disease (CKD) Suicide Anesthesia complication Bleeding disorder Lung disease Stroke Social History Smoking and tobacco/nicotine status: never used tobacco/nicotine Alcohol intake: current Alcohol intake frequency: holidays/special occasions only Vitals/I&O/Wt Last Vital Signs Temp 98.8 F 04/27/25 16:00 Pulse 65 04/27/25 16:00 Resp 17 04/27/25 16:00 BP 115/70 04/27/25 16:00 Pulse Ox 96 04/27/25 16:00 O2 Del Method Room Air 04/27/25 16:00 04/27/25 04/27/25 04/27/25 06:59 14:59 22:59 Intake Total 650 / 2700 1090 / 1090 480 / 1570 Output Total 650 / 2750 800 / 800 1300 / 2100 Balance 0 / -50 290 / 290 -820 / -530 Weight last 48 hrs Weight 98.52 kg Weight 99.291 kg Physical Exam Narrative: General: No acute distress, AO x3 HEENT: PERRLA, pupils bilaterally equal and reactive, pallors not present Chest: Normal vesicular breath sounds, no added sounds, equal good air entry bilaterally CVS: S1-S2 regular, no murmurs, no tachycardia, no gallops, no rubs Abdomen: Soft, nontender, no organomegaly, bowel sounds present Neuro: No focal deficits, no facial deformity, AO x3, power 5/5 in all limbs Data 04/28/25 05:04 04/28/25 05:04 Micro: NAME: Luther Lindquist LOC: [facility] U #: [id number] AGE/SX: 79/M ROOM: RE04/23/[address]: Cortez Bhatia DPM : 1945 BED: DIS: FAX #: STATUS: DEP AMB TLOC: Spec #: [id number] Gurwinder: 04/23/25 Status: COMP Req #: [id number] Recd: 04/23/[address]: Cortez Bhatia DPM Src: Toe SpDesc: #1 Ordered: WC and GS Procedure Result Verified Site Gram Stain Final 04/23/25-929 Result NO WHITE BLOOD CELLS MODERATE GRAM POSITIVE COCCI IN PAIRS IN CHAINS IN CLUSTERS FEW GRAM NEGATIVE RODS Wound Culture Final 04/26/25-1650 Organism 1 Pseudomonas aeruginosa Growth HEAVY Organism 2 Strep agalactiae - (group b) Growth HEAVY HEAVY MIXED SUPERFICIAL JHONATAN ON DAY 3 P aerugino S aga(gr b M.I.C. RX M.I.C. RX --------- ------ --------- ------ * Aztreonam <=4 S * Cefepime <=8 S * Ciprofloxacin <=1 S * Imipenem <=1 S * Levofloxacin <=2 S <=1 S * Linezolid <=1 S * Penicillin <=0.03 S Vancomycin 0.5 S * Piperacillin/Tazobactam <=16 S Daptomycin <=0.5 S Wound Culture Preliminary (changed) 04/24/25-1235 Organism 1 Gram Negative Rods Growth HEAVY Organism 2 Streptococcus species Growth HEAVY DAY 1 RESULTS TO FOLLOW Wound Culture Preliminary (changed) 04/23/25-1103 NAME: Luther Lindquist LOC: [facility] U #: [id number] AGE/SX: 79/M ROOM: 254 RE04/24/[address]: Keagan Dubose MD : 1945 BED: 2 DIS: FAX #: STATUS: ADM IN TLOC: Spec #: [id number] Gurwinder: 04/24/25 Status: RES Req #: [id number] Recd: 04/24/[address]: Mohini Valdez MD Src: Blood SpDesc: Ordered: Bcult Procedure Result Verified Site Blood Culture Preliminary 04/25/25 NEGATIVE TO DATE Blood Culture Preliminary (changed) 04/24/25-2099 SPECIMEN COLLECTED NAME: Luther Lindquist LOC: [facility] U #: [id number] AGE/SX: 79/M ROOM: 254 RE04/24/[address]: Keagan Dubose MD : 1945 BED: 2 DIS: FAX #: STATUS: ADM IN TLOC: Spec #: [id number] Gurwinder: 04/25/25 Status: COMP Req #: [id number] Recd: 04/25/[address]: Cortez Bhatia DPM Src: Bone SpDesc: Ordered: Comments: Comment Right third metatarsal Procedure Result Verified Site Gram Stain Final 04/25/25-1556 Result FEW WHITE BLOOD CELLS NO ORGANISMS SEEN Other data: Radiology Impressions Foot MRI 04/25/25 19:58 IMPRESSION: Osteomyelitis described above. Laboratory Results WBC 7.00 10^3/uL (3.29-11.43) 04/28/25 05:04 RBC 3.89 10^6/uL (3.85-5.65) 04/28/25 05:04 Hgb 10.20 g/dL (11.27-16.99) L 04/28/25 05:04 Hct 31.7 % (37-53) L 04/28/25 05:04 MCV 81.5 fl (82-101) L 04/28/25 05:04 MCH 26.2 pg (27-33) L 04/28/25 05:04 MCHC 32.2 g/dL (30-55) 04/28/25 05:04 RDW 13.8 % (12.1-15.1) 04/28/25 05:04 Plt Count 294 10^3/cmm (157-399) 04/28/25 05:04 MPV 8.5 fL (7.4-10.4) 04/28/25 05:04 Neut % (Auto) 66.3 % 04/28/25 05:04 Lymph % (Auto) 21.0 % 04/28/25 05:04 [place] % (Auto) 7.3 % 04/28/25 05:04 Eos % (Auto) 4.0 % 04/28/25 05:04 Baso % (Auto) 1.0 % 04/28/25 05:04 Neut # (Auto) 4.64 10^3/uL (1.8-7.7) 04/28/25 05:04 Lymph # (Auto) 1.5 10^3/uL (0.8-4.8) 04/28/25 05:04 [place] # (Auto) 0.5 10^3/uL (0.2-0.9) 04/28/25 05:04 Eos # (Auto) 0.3 10^3/uL (0.0-0.8) 04/28/25 05:04 Baso # (Auto) 0.1 10^3/uL (0.0-0.1) 04/28/25 05:04 Nucleated RBC % (auto) 0 % 04/28/25 05:04 Nucleated RBCs # 0.0 /100WBC 04/28/25 05:04 ESR 68 mm/hr (0-10) H 04/24/25 20:28 Sodium 134 mmol/L (136-145) L 04/28/25 05:04 Potassium 4.6 mmol/L (3.5-5.1) 04/28/25 05:04 Chloride 101 mmol/L (98-107) 04/28/25 05:04 Carbon Dioxide 25 mmol/L (22-29) 04/28/25 05:04 Anion Gap 12.6 (5-19) 04/28/25 05:04 BUN 17 mg/dL (8-23) 04/28/25 05:04 Creatinine 0.9 mg/dL (0.7-1.2) 04/28/25 05:04 GFR Calculation Not Reportable 04/28/25 05:04 Glucose 150 mg/dL (65-115) H 04/28/25 05:04 POC Glucose 120 mg/dL (70-110) H 04/28/25 06:27 Estimat Average Glucose 160 04/24/25 20:28 Hemoglobin A1c 7.2 % (4.0-6.0) H 04/24/25 20:28 Calculated Osmolality 282 mOsm/kg (285-295) L 04/28/25 05:04 Lactic Acid 0.8 mmol/L (0.5-2.2) 04/24/25 20:28 Calcium 8.7 mg/dL (8.5-10.5) 04/28/25 05:04 Magnesium 2.1 mg/dL (1.7-2.3) 04/28/25 05:04 Iron 12 ug/dL (59-158) L 04/25/25 04:23 TIBC 143 mcg/dl 04/25/25 04:23 % Saturation 8.3 % (20-50) L 04/25/25 04:23 Unsat Iron Binding 131 ug/dL (112-347) 04/25/25 04:23 Total Bilirubin 0.3 mg/dL (0.15-1.2) 04/28/25 05:04 AST 26 U/L (0-40) 04/28/25 05:04 ALT 37 U/L (0-41) 04/28/25 05:04 Alkaline Phosphatase 97 U/L (40-130) 04/28/25 05:04 C-Reactive Protein 143.7 mg/L (0.0-4.9) H 04/24/25 20:28 Total Protein 6.8 g/dL (6.6-8.7) 04/28/25 05:04 Albumin 3.1 g/dL (3.5-5.2) L 04/28/25 05:04 Globulin 3.7 g/dL (1.3-4.6) 04/28/25 05:04 Vitamin B12 303 pg/mL (232-1245) 04/25/25 04:23 Folate 18.1 ng/mL (4.5-32.2) 04/26/25 02:48 Procalcitonin 0.50 ng/mL (0-0.5) 04/24/25 20:28 TSH 1.13 uIU/mL (0.27-4.20) 04/24/25 20:28 Urine Color Yellow (Yellow) 04/24/25 23:10 Urine Appearance Clear (CLEAR) 04/24/25 23:10 Urine pH 5.5 (5-7) 04/24/25 23:10 Ur Specific [place] 1.015 (1.005-1.030) 04/24/25 23:10 Urine Protein Negative (Negative) 04/24/25 23:10 Urine Glucose (UA) 3+ (Normal) H 04/24/25 23:10 Urine Ketones Negative (Negative) 04/24/25 23:10 Urine Blood Negative (Negative) 04/24/25 23:10 Urine Nitrate Negative (Negative) 04/24/25 23:10 Urine Bilirubin Negative (Negative) 04/24/25 23:10 Urine Urobilinogen 0.2 mg/dL (Negative) 04/24/25 23:10 Ur Leukocyte Esterase Negative (Negative) 04/24/25 23:10 Urine RBC 0-2 /hpf (0-2) 04/24/25 23:10 Urine WBC 0-5 /hpf (0-5) 04/24/25 23:10 Ur Squamous Epith Cells 0-5 /hpf (0-5) 04/24/25 23:10 Amorphous Sediment Not Reportable 04/24/25 23:10 Urine Bacteria None seen /hpf (NONE) 04/24/25 23:10 Hyaline Casts 0-4 /lpf H 04/24/25 23:10 Vancomycin Trough 18.2 ug/mL (10-15) H 04/26/25 07:52 A&P Assessment and plan 1. Osteomyelitis of foot: 2. Cellulitis of right foot: Plan: 79-year-old male with peripheral artery disease, multiple comorbidities including diabetes mellitus, who is presenting to the hospital with complaints of right foot cellulitis and osteomyelitis. Blood cultures are negative Foot MRI showing osteomyelitis involving second metatarsal, third metatarsal and third proximal phalanx. He is status post transmetatarsal amputation due to this reason. Cellulitis is extending beyond the margins of the transmetatarsal amputation. Intraoperatively concern that there might be some degree of infection more proximally as well. Given patient's recent history of extensive IV antibiotic course of 8 weeks, history of recurrent ulcerations, poor compliance with nonweightbearing status, he is at high risk of poor clinical outcome. Recommend to continue 6 weeks of IV antibiotics at this time. OR cultures Are without any growth, however patient has been on antibiotics prior to these cultures being taken. Outpatient cultures taken in Dr. Bhatia's office on the with Pseudomonas aeruginosa and group B strep. No MRSA or enterococcal species identified. Discontinue vancomycin Continue piperacillin/tazobactam based on sensitivity testing. Recommend discharge on 6 weeks of IV piperacillin/tazobactam with follow-up in infectious disease clinic on May 27, 2025 at 12:30 PM. While on the above antibiotics to obtain weekly CBC, creatinine, LFTs, CRP and fax to the infectious disease clinic for review. Recommend additionally to obtain arterial duplex of the right lower extremity. In reviewing prior imaging, last arterial duplex from 2019 makes note of mild atherosclerotic disease involving the right leg. Reviewed angiogram from 2022 which makes note of changes on the left side only. If patient turns out to have significant arterial disease on the right side, this may additionally need to be addressed PDMP PDMP Reviewed: Not Reviewed Consult Attestations Medical Necessity Statement: Per admitting Coding Level of Care Code Acute Code for Chg Fwd High MDM includes number and complexity of problems actively addressed during encounter, amount and/or complexity of data reviewed/ordered and described risk of complication, morbidity or mortality of management as documented Diagnoses Osteomyelitis of foot M86.9 Cellulitis of right foot L03.115
[2025-04-27 19:30] VITALS: BP 150/70; PULSE 77; RESP 16; TEMP 37.6; O2SAT 95
[2025-04-27] MEDS: pantoprazole 40 mg SDV IVP (21:19)
[2025-04-27] MEDS: insulin glargine 100 units/1 mL 40 UNIT SUBCUT (21:20)
[2025-04-27 22:00] VITALS: PULSE 66
[2025-04-28] VITALS: BP 106/57; PULSE 64; RESP 14; TEMP 36.6; O2SAT 97
[2025-04-28] MEDS: cefepime 2,000 mg SDV 2000 MG IVP ×3 (02:16→17:17)
[2025-04-28 04:22] VITALS: BP 106/62; PULSE 72; RESP 17; TEMP 36.6; O2SAT 94
[2025-04-28 05:18] LABS: Hematocrit 31.7 % (37-53); Hemoglobin 10.20 g/dL (11.27-16.99); Mean Corpuscular HGB Conc 32.2 g/dL (30-55); Mean Corpuscular Hemoglobin 26.2 pg (27-33); Mean Corpuscular Volume 81.5 fl (82-101); Nucleated Red Blood Cells % 0 %; Platelet Count 294 10^3/cmm (157-399); Red Blood Count 3.89 10^6/uL (3.85-5.65); White Blood Count 7.00 10^3/uL (3.29-11.43)
[2025-04-28 05:45] LABS: Alanine Aminotransferase 37 U/L (0-41); Albumin Level 3.1 g/dL (3.5-5.2); Alkaline Phosphatase 97 U/L (40-130); Anion Gap 12.6 (5-19); Aspartate Amino Transferase 26 U/L (0-40); Blood Urea Nitrogen 17 mg/dL (8-23); Calcium 8.7 mg/dL (8.5-10.5); Carbon Dioxide 25 mmol/L (22-29); Chloride 101 mmol/L (98-107); Creatinine Clr Calc Pharmacy 82.2533; Globulin 3.7 g/dL (1.3-4.6); Glucose 150 mg/dL (65-115); Osmolality Calculated 282 mOsm/kg (285-295); Potassium 4.6 mmol/L (3.5-5.1); Sodium 134 mmol/L (136-145); Total Protein 6.8 g/dL (6.6-8.7)
[2025-04-28 05:53] LABS: Magnesium 2.1 mg/dL (1.7-2.3)
--- NOTE | 2025-04-28 07:36 | XRR_ITS ---
PROCEDURE INFORMATION: Exam: XR Chest Exam date and time: 04/28/2025 8:09 AM Age: 79 years old Clinical indication: Device placement; Picc; Prior surgery; Surgery date: 6+ months; Surgery type: Jimmie shoulder; Additional info: Post picc insertion, sagar placing on med-surg 254-2. Should be ready at 0815 TECHNIQUE: Imaging protocol: Radiologic exam of the chest. Views: 1 view. COMPARISON: CR XR chest 1V portable [id number] 01/24/2025 12:16 PM FINDINGS: Tubes, catheters and devices: There is a right upper extremity PICC line. There is increase in left basilar atelectasis/infiltrate and increased elevation left hemidiaphragm. Lungs: The right lung is clear Pleural spaces: Unremarkable. No pleural effusion. No pneumothorax. Heart/Mediastinum: Unremarkable. No cardiomegaly. Bones/joints: Patient has bilateral reverse shoulder prostheses. XR/XR chest 1V portable [id number] IMPRESSION: 1. PICC line 2. Interval worsening of left basilar atelectasis/infiltrate
[2025-04-28 07:50] VITALS: BP 114/71; PULSE 70; RESP 16; TEMP 37.1; O2SAT 96
--- NOTE | 2025-04-28 08:11 | USR_ITS ---
PROCEDURE INFORMATION: Exam: US Duplex Right Lower Extremity Arteries Or Arterial Bypass Grafts Exam date and time: 04/28/2025 3:01 PM Age: 79 years old Clinical indication: Pain; Leg, lower; Right; Prior surgery; Surgery date: 3-7 days post-operative; Surgery type: RT toe amputee; Additional info: Non healing wound right leg, recurring osteomyelitis right foot TECHNIQUE: Imaging protocol: Right Real-time duplex scan of the arteries or arterial bypass grafts of the right lower extremity with 2-D spears scale, color Doppler flow and spectral waveform analysis. Images documented and saved. COMPARISON: MR foot RT wo/w con [id number] 04/25/2025 10:22 AM FINDINGS: Right external iliac artery: Normal triphasic waveform. Peak systolic velocity 115 Right Common femoral artery: Normal waveform: Peak systolic 86 cm/S Right SFA proximal: Normal waveform. Peak systolic velocity 105 cm /S Right SFA mid: Normal waveform. Peak systolic velocity 104 Right SFA distal: Normal waveform. Peak systolic velocity 127 cm/S Right popliteal artery: Normal waveform. Peak systolic velocity 87 cm/S Right posterior tibial artery: Monophasic. Peak systolic velocity 68 cm/S Right dorsalis pedis artery monophasic. Peak stalk velocity 41 Right peroneal and right anterior tibial artery not visualized. This could be due to technical reasons or it is possible there occluded. US/[place] [id number] Impression: 1. No significant stenosis detected in the right external iliac through the right popliteal artery. 2. Abnormal waveform in right posterior tibial artery and dorsalis pedis suggesting that these are diseased vessels however velocity was not elevated 3. Peroneal and right anterior tibial artery were not visualized which could be due to technical factors could indicate occlusion. Recommend correlation with anatomic study.
--- NOTE | 2025-04-28 08:39 | PICC.NOTE ---
Single lumen PICC placed to right basilic vein. Referred to vascular access nurse for PICC placement due to need for IV antibiotics x 6 weeks. Risks and benefits discussed and informed consent obtained from pt. Right arm assessed with right basilic vein measuring 5.3 mm, straight, and apparent best choice for placement. Using sterile technique and MST, right basilic vein accessed x 1 stick. Mid-arm circumference measured 10 cm from right AC 32 cm. Trimmed cath 45 cm with 0 cm external length noted. CXR shows tip to appear to be in distal SVC. Awaiting radiologist to read. Line secured with stat-lock. Insertion site covered with Biopatch and TSM. Report given to bedside nurse, Bartolo.
[2025-04-28 11:19] VITALS: BP 125/70; PULSE 66; RESP 16; TEMP 37.1; O2SAT 95
--- NOTE | 2025-04-28 11:29 | PM.DCS ---
Discharge Providers Date of Admission: 04/24/25 20:35 Date of Discharge: April 28, 2025 Attending Provider at Admission: Keagan Dubose MD Attending Provider at Discharge: Keagan Dubose MD Primary Care Provider: Caitlin Beltran MD Diagnoses at Discharge Discharge Diagnosis 1. Sepsis: 2. Diabetic foot infection: 3. Acute osteomyelitis of right foot: 4. Cellulitis of right foot: 5. Peripheral arterial occlusive disease: 6. HTN (hypertension): Reason for Visit Reason for Visit: Has infection. was told by doctor to come to er. Discharge Data Studies Completed and Pending Completed Studies During Hospitalization Category Date Time Status CXRP [XR chest 1V portable [id number]] Routine Exams 04/28/25 07:36 Completed MR foot RT wo/w con [id number] Stat MRI 04/25/25 19:58 Completed Pending at discharge Category Date Time Status Blood Culture Stat Lab 04/24/25 20:52 Results MRSA PCR OZH (swab) Routine Lab 04/25/25 10:53 Ordered Pathology: Surgical [PTH] Routine Pth 04/25/25 12:31 [place] [id number] Routine Ultrasound 04/28/25 08:11 Ordered Radiology Impressions Foot MRI 04/25/25 19:58 IMPRESSION: Osteomyelitis described above. Chest X-Ray 04/28/25 07:36 IMPRESSION: 1. PICC line 2. Interval worsening of left basilar atelectasis/infiltrate ADDENDUM: 04/28/25 0900 Tip of the right upper extremity PICC line projects in the mid superior vena cava. Laboratory Results WBC 7.00 10^3/uL (3.29-11.43) 04/28/25 05:04 RBC 3.89 10^6/uL (3.85-5.65) 04/28/25 05:04 Hgb 10.20 g/dL (11.27-16.99) L 04/28/25 05:04 Hct 31.7 % (37-53) L 04/28/25 05:04 MCV 81.5 fl (82-101) L 04/28/25 05:04 MCH 26.2 pg (27-33) L 04/28/25 05:04 MCHC 32.2 g/dL (30-55) 04/28/25 05:04 RDW 13.8 % (12.1-15.1) 04/28/25 05:04 Plt Count 294 10^3/cmm (157-399) 04/28/25 05:04 MPV 8.5 fL (7.4-10.4) 04/28/25 05:04 Neut % (Auto) 66.3 % 04/28/25 05:04 Lymph % (Auto) 21.0 % 04/28/25 05:04 [place] % (Auto) 7.3 % 04/28/25 05:04 Eos % (Auto) 4.0 % 04/28/25 05:04 Baso % (Auto) 1.0 % 04/28/25 05:04 Neut # (Auto) 4.64 10^3/uL (1.8-7.7) 04/28/25 05:04 Lymph # (Auto) 1.5 10^3/uL (0.8-4.8) 04/28/25 05:04 [place] # (Auto) 0.5 10^3/uL (0.2-0.9) 04/28/25 05:04 Eos # (Auto) 0.3 10^3/uL (0.0-0.8) 04/28/25 05:04 Baso # (Auto) 0.1 10^3/uL (0.0-0.1) 04/28/25 05:04 Nucleated RBC % (auto) 0 % 04/28/25 05:04 Nucleated RBCs # 0.0 /100WBC 04/28/25 05:04 ESR 68 mm/hr (0-10) H 04/24/25 20:28 Sodium 134 mmol/L (136-145) L 04/28/25 05:04 Potassium 4.6 mmol/L (3.5-5.1) 04/28/25 05:04 Chloride 101 mmol/L (98-107) 04/28/25 05:04 Carbon Dioxide 25 mmol/L (22-29) 04/28/25 05:04 Anion Gap 12.6 (5-19) 04/28/25 05:04 BUN 17 mg/dL (8-23) 04/28/25 05:04 Creatinine 0.9 mg/dL (0.7-1.2) 04/28/25 05:04 GFR Calculation Not Reportable 04/28/25 05:04 Glucose 150 mg/dL (65-115) H 04/28/25 05:04 POC Glucose 275 mg/dL (70-110) H 04/28/25 11:08 Estimat Average Glucose 160 04/24/25 20:28 Hemoglobin A1c 7.2 % (4.0-6.0) H 04/24/25 20:28 Calculated Osmolality 282 mOsm/kg (285-295) L 04/28/25 05:04 Lactic Acid 0.8 mmol/L (0.5-2.2) 04/24/25 20:28 Calcium 8.7 mg/dL (8.5-10.5) 04/28/25 05:04 Magnesium 2.1 mg/dL (1.7-2.3) 04/28/25 05:04 Iron 12 ug/dL (59-158) L 04/25/25 04:23 TIBC 143 mcg/dl 04/25/25 04:23 % Saturation 8.3 % (20-50) L 04/25/25 04:23 Unsat Iron Binding 131 ug/dL (112-347) 04/25/25 04:23 Total Bilirubin 0.3 mg/dL (0.15-1.2) 04/28/25 05:04 AST 26 U/L (0-40) 04/28/25 05:04 ALT 37 U/L (0-41) 04/28/25 05:04 Alkaline Phosphatase 97 U/L (40-130) 04/28/25 05:04 C-Reactive Protein 143.7 mg/L (0.0-4.9) H 04/24/25 20:28 Total Protein 6.8 g/dL (6.6-8.7) 04/28/25 05:04 Albumin 3.1 g/dL (3.5-5.2) L 04/28/25 05:04 Globulin 3.7 g/dL (1.3-4.6) 04/28/25 05:04 Vitamin B12 303 pg/mL (232-1245) 04/25/25 04:23 Folate 18.1 ng/mL (4.5-32.2) 04/26/25 02:48 Procalcitonin 0.50 ng/mL (0-0.5) 04/24/25 20:28 TSH 1.13 uIU/mL (0.27-4.20) 04/24/25 20:28 Urine Color Yellow (Yellow) 04/24/25 23:10 Urine Appearance Clear (CLEAR) 04/24/25 23:10 Urine pH 5.5 (5-7) 04/24/25 23:10 Ur Specific [place] 1.015 (1.005-1.030) 04/24/25 23:10 Urine Protein Negative (Negative) 04/24/25 23:10 Urine Glucose (UA) 3+ (Normal) H 04/24/25 23:10 Urine Ketones Negative (Negative) 04/24/25 23:10 Urine Blood Negative (Negative) 04/24/25 23:10 Urine Nitrate Negative (Negative) 04/24/25 23:10 Urine Bilirubin Negative (Negative) 04/24/25 23:10 Urine Urobilinogen 0.2 mg/dL (Negative) 04/24/25 23:10 Ur Leukocyte Esterase Negative (Negative) 04/24/25 23:10 Urine RBC 0-2 /hpf (0-2) 04/24/25 23:10 Urine WBC 0-5 /hpf (0-5) 04/24/25 23:10 Ur Squamous Epith Cells 0-5 /hpf (0-5) 04/24/25 23:10 Amorphous Sediment Not Reportable 04/24/25 23:10 Urine Bacteria None seen /hpf (NONE) 04/24/25 23:10 Hyaline Casts 0-4 /lpf H 04/24/25 23:10 Vancomycin Trough 18.2 ug/mL (10-15) H 04/26/25 07:52 Vitals Last Vital Signs Temp 98.8 F 04/28/25 11:19 Pulse 66 04/28/25 11:19 Resp 16 04/28/25 11:19 BP 125/70 04/28/25 11:19 Pulse Ox 95 04/28/25 11:19 O2 Del Method Room Air 04/28/25 11:19 Discharge Plan Discharge Patient Disposition: Home Condition: Stable Prescriptions: New insulin lispro [Humalog U-100 Insulin] 100 unit/mL Solution See Rx Instructions .ROUTE .COMPLEX Qty: 10 0RF Rx Instructions: Inject, subcut, 3 times daily, after meals, based on low-dose insulin sliding scale Continued allopurinol 300 mg tablet 300 mg PO DAILY cyanocobalamin (vitamin B-12) 1,000 mcg capsule 1,000 mcg PO DAILY Qty: 60 5RF folic acid 1 mg tablet See Rx Instructions .ROUTE .COMPLEX Qty: 100 3RF Dose Instruction: TAKE ONE TABLET BY MOUTH ONCE A DAY FOR FOLIC ACID SUPPLEMENTATION. Rx Instructions: TAKE ONE TABLET BY MOUTH ONCE A DAY FOR FOLIC ACID SUPPLEMENTATION. metformin 500 mg Tablet 500 mg PO BID ferrous sulfate 325 mg (65 mg iron) Tablet 325 mg PO DAILY fenofibrate 160 mg Tablet 160 mg PO DAILY empagliflozin 25 mg Tablet 25 mg PO DAILY aspirin 81 mg tablet,delayed release (DR/EC) 81 mg PO DAILY Qty: 90 1RF atorvastatin 40 mg tablet 40 mg PO DAILY Qty: 90 2RF clopidogrel 75 mg Tablet 75 mg PO DAILY pyridoxine (vitamin B6) 50 mg tablet 50 mg PO DAILY Rx Instructions: TAKE ONE TABLET BY MOUTH ONCE A DAY FOR VITAMIN B6 DEFICIENCY. cholecalciferol (vitamin D3) [Vitamin D3] 50 mcg (2,000 unit) Capsule 100 mcg PO DAILY Changed insulin glargine 100 unit/mL solution 40 unit SUBCUT BEDTIME 30 Days Qty: 0 0RF lisinopril 20 mg tablet 40 mg PO DAILY 30 Days Qty: 60 0RF Discontinued insulin aspart U-100 100 unit/mL (3 mL) Insulin Pen 15 unit SUBCUT DAILY glipizide 10 mg Tablet 10 mg PO BID No [employer] (DME) custom molded orthotics with toe filler to the left See Rx Instructions .Route .MEDSUPPLY Qty: 1 0RF Rx Instructions: As directed [employer] [place] (DME) CAM walker See Rx Instructions .Route .MEDSUPPLY Qty: 1 0RF Rx Instructions: As directed (DME) Diabetic shoes See Rx Instructions .ROUTE .MEDSUPPLY Qty: 1 0RF Rx Instructions: With 3 pairs of inserts toe filler to the left shoe made by the [employer] OK for DC: Infectious Disease Referrals: Cortez Bhatia DPM [Physician, Podiatry] - 1 week Caitlin Beltran MD [Primary Care Provider, Family Practice] - 1-3 days Discharge Diet: Cardiac Discharge Activity: Limit activity as instructed Patient Instructions: Acute Wound Care (DC), Opioid Safety, Post Anesthesia Care, Patient Portal & Jaqui Instructions Activity Restrictions/Additional Instructions: - Zosyn 4.5 g IV every 8 hours for total of 6 weeks stop date 06/07/2025, weekly CBC, creatinine, LFT, CRP - Please follow-up with your primary care - Please follow-up with podiatry -Please monitor your blood sugars closely -Monitor your blood sugars 3 times daily as after meals -Please record your blood sugars, and a blood sugar log -For your NovoLog -Please inject blood sugar after meals based on sliding scale provided -Do not inject insulin if you do not eat as hypoglycemia kills -This is a NovoLog sliding scale -Insulin sliding ?fingerstick? Insulin ?141-180?0 units/sq 181-220?2 units/sq ?221-260?4 units/sq ?261-300 6 units/sq ?301-350?8 units/sq ?351-400 10 units/sq ?401-450?12 units/sq >450? 14units/sq -If your blood sugar is greater than 500 go to the emergency room -If your blood sugar is less than 60 or at anytime you feel lightheaded or dizzy or diaphoretic or have chest palpitations check your blood sugar, and eat a hard candy or drink orange juice and go immediately to the emergency room -Remember hypoglycemia kills, so if his blood sugar is less than 60 we have to increase it by taking in a sugary meal such as a hard candy or orange juice and go to the emergency room -If you have any questions please call us where here to help Coding Level of Care Code Acute Code for g Fwd Diagnoses Sepsis A41.9 Diabetic foot infection E11.628; L08.9 Acute osteomyelitis of right foot M86.171 Cellulitis of right foot L03.115 Peripheral arterial occlusive disease I77.9 HTN (hypertension) I10
--- NOTE | 2025-04-28 15:07 | P.PN_ITS ---
Subjective 2 Subjective: No acute vents overnight. Patient seen laying comfortably in bed. Denies any nausea, vomiting, headache. Seen with spouse at bedside. Has remained hemodynamically stable and afebrile. Patient's is bedside, asked if he would be okay to travel to [place] I advised against this, patient states he is okay staying home and recovering. Vitals/I&O/Wt Last Vital Signs Temp 98.8 F 04/28/25 11:19 Pulse 66 04/28/25 11:19 Resp 16 04/28/25 11:19 BP 125/70 04/28/25 11:19 Pulse Ox 95 04/28/25 11:19 O2 Del Method Room Air 04/28/25 11:19 04/28/25 04/28/25 04/28/25 06:59 14:59 22:59 Intake Total 490 / 2060 960 / 960 Output Total 1600 / 3700 1600 / 1600 Balance -1110 / -1640 -640 / -640 Weight last 48 hrs Weight 217 lb 3 oz Weight 217 lb 3.2 oz Physical Exam 2 Narrative: GENERAL: Patient is alert and oriented ?3 and in no acute distress. The following is a focused bilateral lower extremity exam. VASCULAR: Dorsalis pedis palpable bilaterally. Posterior tibial arteries palpable. Brisk capillary refill left and right forefoot amputation level. Calf is supple and nontender proximally and distally. NEUROLOGICAL: Protective sensation intact 0/10 sites, tested with [place] monofilament to bilateral feet. DERMATOLOGICAL: Amputation site right forefoot incision remains well coapted, ecchymosis at the dorsal aspect of the incision, no dehiscence no active bleeding or drainage, no erythema or warmth. Grade 2 wound left plantar foot has epithelial margin and granular base without erythema or drainage. MUSCULOSKELETAL: Patient is status post right transmetatarsal potation. History of left transmetatarsal amputation. Data 04/28/25 05:04 04/28/25 05:04 A&P Assessment and plan 1. Noncompliance: 2. Cellulitis of right foot: Resolved 3. 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 Nonweightbearing right foot, elevate right lower extremity. Appreciate infectious disease recommendations on antibiotic selection for minimum 6-week course of IV antibiotics via PICC line at discharge. PICC line placed today Awaiting antibiotic recommendations No further surgical intervention anticipated during this hospitalization, discharge planning awaiting antibiotic selection and home health with offsite pharmacy, dai for discharge from podiatry standpoint once at home therapies are set up. Keep current dressing clean, dry and intact, follow-up in podiatry clinic for dressing change at right foot this Friday, May 02, 2025 2:30 PM. PDMP PDMP Reviewed: Not Reviewed Attestations 2 Medical Necessity Statement*: Required continue IV antibiotic therapy for acute osteomyelitis Coding Level of Care Code Acute Code for [facility] Fwd Diagnoses Noncompliance Z91.199 Cellulitis of right foot L03.115 Acute osteomyelitis of right foot M86.171
--- NOTE | 2025-04-28 15:42 | P.PN_ITS ---
Vitals/I&O/Wt Last Vital Signs Temp 98.8 F 04/28/25 11:19 Pulse 66 04/28/25 11:19 Resp 16 04/28/25 11:19 BP 125/70 04/28/25 11:19 Pulse Ox 95 04/28/25 11:19 O2 Del Method Room Air 04/28/25 11:19 04/28/25 04/28/25 04/28/25 06:59 14:59 22:59 Intake Total 490 / 2060 960 / 960 Output Total 1600 / 3700 1600 / 1600 Balance -1110 / -1640 -640 / -640 Weight last 48 hrs Weight 98.515 kg Weight 98.52 kg Physical Exam 2 Const: COMMON NORMALS: no acute distress and patient oriented x3 Resp: COMMON NORMALS: normal respiratory effort, No retractions, No use of accessory muscles and clear to auscultation bilaterally AUSCULTATION: clear to auscultation bilaterally Cardio: COMMON NORMALS: regular rate, regular rhythm, S1 normal heart sound present and S2 normal heart sound present RATE: regular rate RHYTHM: r egular rhythm HEART SOUNDS: S1 normal heart sound present and S2 normal heart sound present GI: COMMON NORMALS: Normal to inspection, nondistended, normoactive bowel sounds present and non-tender Extremity: COMMON NORMALS: no pedal edema NARRATIVE EXTREMITY EXAM: Right lower extremity wrapped Neuro: COMMON NORMALS: patient oriented x3, CN's II-XII intact bilaterally and moves all extremities Psych: COMMON NORMALS: mental status grossly normal Data 04/28/25 05:04 04/28/25 05:04 A&P Assessment and plan 1. Sepsis: 2. Diabetic foot infection: 3. Acute osteomyelitis of right foot: 4. Cellulitis of right foot: 5. Peripheral arterial occlusive disease: 6. HTN (hypertension): Plan: Sepsis: Secondary to cellulitis/acute osteomyelitis of right foot. Right foot cellulitis and osteomyelitis FINDINGS: Diffuse soft tissue edema. Diffuse soft tissue enhancement with deep soft tissue infection in the midfoot. Replacement of the normal fatty T1 bone marrow signal compatible with osteomyelitis involving the second distal metatarsal, third metatarsal extending from the proximal shaft distally. Additional osteomyelitis extending into the third proximal phalanx. Advanced degenerative changes involving the first MTP with subchondral cystic changes. Enhancement involving the first MTP . T1 bone marrow signal is for the most part preserved involving the first MTP. Early osteomyelitis not excluded at this level. Few tiny enhancing fluid collections along the dorsal midfoot. Diffuse soft tissue edema and infection involving the plantar soft tissues. No drainable abscess or fluid collection. 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 - Status post surgical invention by Dr. Bhatia - Surgical cultures pending -History of Pseudomonas Plan - Continue IV Zosyn - Infectious disease consulted - Right lower extremity arterial ultrasound pending Type 2 diabetes mellitus: A1c of 7.2. Lantus 40 units at bedtime Low-dose sliding scale Hypertension: -lisinopril 40 mg oral daily. Peripheral artery disease: - Status post balloon angioplasty 07/10 for critical limb ischemia with total 100% occlusion of left mid anterior tibial artery. Continue with aspirin, statin, fenofibrate. - Arterial ultrasound right lower extremity Full code Carb consistent diet Lovenox for DVT prophylaxis Protonix for PUD prophylaxis Plan for the day: PICC line to be placed today, continue IV cefepime arrange for IV Zosyn as outpatient, right lower extremity arterial ultrasound PDMP PDMP Reviewed: Not Reviewed Attestations 2 Medical Necessity Statement*: Patient requires hospitalization for right foot cellulitis, osteomyelitis Diagnoses Sepsis A41.9 Diabetic foot infection E11.628; L08.9 Acute osteomyelitis of right foot M86.171 Cellulitis of right foot L03.115 Peripheral arterial occlusive disease I77.9 HTN (hypertension) I10
[2025-04-28 16:14] VITALS: BP 111/64; PULSE 67; RESP 17; TEMP 37.1; O2SAT 95
[2025-04-28 19:33] VITALS: BP 104/58; PULSE 77; RESP 16; TEMP 37.2; O2SAT 95
[2025-04-28] MEDS: pantoprazole 40 mg SDV IVP (20:32)
[2025-04-28] MEDS: insulin glargine 100 units/1 mL 40 UNIT SUBCUT (20:33)
[2025-04-29] VITALS (7 sets, daily range): BP systolic 108–129; BP diastolic 58–76; PULSE 65–74; RESP 17; TEMP 36.8–37.4; O2SAT 94–98
[2025-04-29] MEDS: cefepime 2,000 mg SDV 2000 MG IVP ×3 (02:06→14:26)
[2025-04-29 04:53] LABS: Hematocrit 31.7 % (37-53); Hemoglobin 10.40 g/dL (11.27-16.99); Mean Corpuscular HGB Conc 32.8 g/dL (30-55); Mean Corpuscular Hemoglobin 26.4 pg (27-33); Mean Corpuscular Volume 80.5 fl (82-101); Nucleated Red Blood Cells % 0 %; Platelet Count 302 10^3/cmm (157-399); Red Blood Count 3.94 10^6/uL (3.85-5.65); White Blood Count 6.51 10^3/uL (3.29-11.43)
[2025-04-29 06:04] LABS: Anion Gap 11.5 (5-19); Blood Urea Nitrogen 16 mg/dL (8-23); Calcium 9.1 mg/dL (8.5-10.5); Carbon Dioxide 26 mmol/L (22-29); Chloride 98 mmol/L (98-107); Creatinine Clr Calc Pharmacy 90.7749; Glucose 142 mg/dL (65-115); Osmolality Calculated 276 mOsm/kg (285-295); Potassium 4.5 mmol/L (3.5-5.1); Sodium 131 mmol/L (136-145)
--- NOTE | 2025-04-29 11:32 | PM.DCS ---
Discharge Providers Date of Admission: 04/24/25 20:35 Date of Discharge: April 29, 2025 Attending Provider at Admission: Keagan Dubose MD Attending Provider at Discharge: Keagan Dubose MD Primary Care Provider: Caitlin Beltran MD Diagnoses at Discharge Discharge Diagnosis 1. Noncompliance: 2. Cellulitis of right foot: 3. Acute osteomyelitis of right foot: Reason for Visit Reason for Visit: Has infection. was told by doctor to come to er. Hospital Course Hospital Course Luther Lindquist is a 79 year old male with a past medical history of type 2 diabetes mellitus, hypertension, hyperlipidemia, right foot diabetic foot infection, history of polymicrobial organisms including Pseudomonas, acinetobacter, staph, who had presented to Dr. Bhatia's office, had a full-thickness wound debridement in clinic of the right foot subfirst metatarsal head, was sent in to [facility] due to concerns for sepsis, diabetic foot infection, osteomyelitis, cellulitis. According to patient he has noticed increased pain, swelling, first 3 digits, right foot, with fevers this morning, chills, fatigue, malaise. He does report a history of peripheral vascular disease, but he was told he had good blood flow in his right leg, but he did require stenting of his left leg/peripheral arterial disease Patient was admitted to [facility] Right foot cellulitis and osteomyelitis FINDINGS: Diffuse soft tissue edema. Diffuse soft tissue enhancement with deep soft tissue infection in the midfoot. Replacement of the normal fatty T1 bone marrow signal compatible with osteomyelitis involving the second distal metatarsal, third metatarsal extending from the proximal shaft distally. Additional osteomyelitis extending into the third proximal phalanx. Advanced degenerative changes involving the first MTP with subchondral cystic changes. Enhancement involving the first MTP . T1 bone marrow signal is for the most part preserved involving the first MTP. Early osteomyelitis not excluded at this level. Few tiny enhancing fluid collections along the dorsal midfoot. Diffuse soft tissue edema and infection involving the plantar soft tissues. No drainable abscess or fluid collection. 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 - Status post surgical invention by Dr. Bhatia - Patient status post right transmetatarsal amputation - Nonweightbearing right foot, elevate right lower extremity - PICC line in place - Will receive a total of 6 weeks of IV Zosyn - Follow-up with infectious disease - Follow-up with Dr. Bhatia For peripheral arterial disease - Status post balloon angioplasty 07/10 for critical limb ischemia with total 100% occlusion of left mid anterior tibial artery. Continue with aspirin, Plavix, statin, fenofibrate. - Arterial ultrasound right lower [place] US/[place] [id number] Impression: 1. No significant stenosis detected in the right external iliac through the right popliteal artery. 2. Abnormal waveform in right posterior tibial artery and dorsalis pedis suggesting that these are diseased vessels however velocity was not elevated 3. Peroneal and right anterior tibial artery were not visualized which could be due to technical factors could indicate occlusion. Recommend correlation with anatomic study. - No evidence of acute limb ischemia, no pain, no pallor, good peripheral pulses DP/PT - Nonetheless continue aspirin, Plavix, statin, follow-up with cardiology for consideration of aorta with runoff, and consideration of intervention Physical Exam Const: COMMON NORMALS: no acute distress and patient oriented x3 Resp: COMMON NORMALS: normal respiratory effort, No retractions, No use of accessory muscles and clear to auscultation bilaterally AUSCULTATION: clear to auscultation bilaterally Cardio: COMMON NORMALS: regular rate, regular rhythm, S1 normal heart sound present and S2 normal heart sound present RATE: regular rate RHYTHM: regular rhythm HEART SOUNDS: S1 normal heart sound present and S2 normal heart sound present GI: COMMON NORMALS: Normal to inspection, nondistended, normoactive bowel sounds present and non-tender Extremity: COMMON NORMALS: no pedal edema NARRATIVE EXTREMITY EXAM: Right lower extremity wrapped Neuro: COMMON NORMALS: patient oriented x3 Psych: COMMON NORMALS: mental status grossly normal Discharge Data Studies Completed and Pending Completed Studies During Hospitalization Category Date Time Status CXRP [XR chest 1V portable [id number]] Routine Exams 04/28/25 07:36 Completed MR foot RT wo/w con [id number] Stat MRI 04/25/25 19:58 [place] [id number] Routine Ultrasound 04/28/25 08:11 Completed Pending at discharge Category Date Time Status Basic Metabolic Panel AM LABS Lab 04/30/25 04:00 Ordered Basic Metabolic Panel AM LABS Lab 05/01/25 04:00 Ordered Blood Culture Stat Lab 04/24/25 20:52 Results Complete Blood Count w/Auto AM LABS Lab 04/30/25 04:00 Ordered Complete Blood Count w/Auto AM LABS Lab 05/01/25 04:00 Ordered MRSA PCR OZH (swab) Routine Lab 04/25/25 10:53 Ordered Pathology: Surgical [PTH] Routine Pth 04/25/25 12:31 Received Radiology Impressions Foot MRI 04/25/25 19:58 IMPRESSION: Osteomyelitis described above. Chest X-Ray 04/28/25 07:36 IMPRESSION: 1. PICC line 2. Interval worsening of left basilar atelectasis/infiltrate ADDENDUM: 04/28/25 0900 Tip of the right upper extremity PICC line projects in the mid superior vena cava. Duplex Scan Lower Extremity Artery 04/28/25 08:11 Impression: 1. No significant stenosis detected in the right external iliac through the right popliteal artery. 2. Abnormal waveform in right posterior tibial artery and dorsalis pedis suggesting that these are diseased vessels however velocity was not elevated 3. Peroneal and right anterior tibial artery were not visualized which could be due to technical factors could indicate occlusion. Recommend correlation with anatomic study. Laboratory Results WBC 6.51 10^3/uL (3.29-11.43) 04/29/25 04:24 RBC 3.94 10^6/uL (3.85-5.65) 04/29/25 04:24 Hgb 10.40 g/dL (11.27-16.99) L 04/29/25 04:24 Hct 31.7 % (37-53) L 04/29/25 04:24 MCV 80.5 fl (82-101) L 04/29/25 04:24 MCH 26.4 pg (27-33) L 04/29/25 04:24 MCHC 32.8 g/dL (30-55) 04/29/25 04:24 RDW 13.7 % (12.1-15.1) 04/29/25 04:24 Plt Count 302 10^3/cmm (157-399) 04/29/25 04:24 MPV 9.1 fL (7.4-10.4) 04/29/25 04:24 Neut % (Auto) 66.5 % 04/29/25 04:24 Lymph % (Auto) 21.2 % 04/29/25 04:24 [place] % (Auto) 6.8 % 04/29/25 04:24 Eos % (Auto) 3.8 % 04/29/25 04:24 Baso % (Auto) 1.4 % 04/29/25 04:24 Neut # (Auto) 4.33 10^3/uL (1.8-7.7) 04/29/25 04:24 Lymph # (Auto) 1.4 10^3/uL (0.8-4.8) 04/29/25 04:24 [place] # (Auto) 0.4 10^3/uL (0.2-0.9) 04/29/25 04:24 Eos # (Auto) 0.3 10^3/uL (0.0-0.8) 04/29/25 04:24 Baso # (Auto) 0.1 10^3/uL (0.0-0.1) 04/29/25 04:24 Nucleated RBC % (auto) 0 % 04/29/25 04:24 Nucleated RBCs # 0.0 /100WBC 04/29/25 04:24 ESR 68 mm/hr (0-10) H 04/24/25 20:28 Sodium 131 mmol/L (136-145) L 04/29/25 05:38 Potassium 4.5 mmol/L (3.5-5.1) 04/29/25 05:38 Chloride 98 mmol/L (98-107) 04/29/25 05:38 Carbon Dioxide 26 mmol/L (22-29) 04/29/25 05:38 Anion Gap 11.5 (5-19) 04/29/25 05:38 BUN 16 mg/dL (8-23) 04/29/25 05:38 Creatinine 0.8 mg/dL (0.7-1.2) 04/29/25 05:38 GFR Calculation Not Reportable 04/29/25 05:38 Glucose 142 mg/dL (65-115) H 04/29/25 05:38 POC Glucose 200 mg/dL (70-110) H 04/29/25 11:05 Estimat Average Glucose 160 04/24/25 20:28 Hemoglobin A1c 7.2 % (4.0-6.0) H 04/24/25 20:28 Calculated Osmolality 276 mOsm/kg (285-295) L 04/29/25 05:38 Lactic Acid 0.8 mmol/L (0.5-2.2) 04/24/25 20:28 Calcium 9.1 mg/dL (8.5-10.5) 04/29/25 05:38 Magnesium 2.1 mg/dL (1.7-2.3) 04/28/25 05:04 Iron 12 ug/dL (59-158) L 04/25/25 04:23 TIBC 143 mcg/dl 04/25/25 04:23 % Saturation 8.3 % (20-50) L 04/25/25 04:23 Unsat Iron Binding 131 ug/dL (112-347) 04/25/25 04:23 Total Bilirubin 0.3 mg/dL (0.15-1.2) 04/28/25 05:04 AST 26 U/L (0-40) 04/28/25 05:04 ALT 37 U/L (0-41) 04/28/25 05:04 Alkaline Phosphatase 97 U/L (40-130) 04/28/25 05:04 C-Reactive Protein 143.7 mg/L (0.0-4.9) H 04/24/25 20:28 Total Protein 6.8 g/dL (6.6-8.7) 04/28/25 05:04 Albumin 3.1 g/dL (3.5-5.2) L 04/28/25 05:04 Globulin 3.7 g/dL (1.3-4.6) 04/28/25 05:04 Vitamin B12 303 pg/mL (232-1245) 04/25/25 04:23 Folate 18.1 ng/mL (4.5-32.2) 04/26/25 02:48 Procalcitonin 0.50 ng/mL (0-0.5) 04/24/25 20:28 TSH 1.13 uIU/mL (0.27-4.20) 04/24/25 20:28 Urine Color Yellow (Yellow) 04/24/25 23:10 Urine Appearance Clear (CLEAR) 04/24/25 23:10 Urine pH 5.5 (5-7) 04/24/25 23:10 Ur Specific [place] 1.015 (1.005-1.030) 04/24/25 23:10 Urine Protein Negative (Negative) 04/24/25 23:10 Urine Glucose (UA) 3+ (Normal) H 04/24/25 23:10 Urine Ketones Negative (Negative) 04/24/25 23:10 Urine Blood Negative (Negative) 04/24/25 23:10 Urine Nitrate Negative (Negative) 04/24/25 23:10 Urine Bilirubin Negative (Negative) 04/24/25 23:10 Urine Urobilinogen 0.2 mg/dL (Negative) 04/24/25 23:10 Ur Leukocyte Esterase Negative (Negative) 04/24/25 23:10 Urine RBC 0-2 /hpf (0-2) 04/24/25 23:10 Urine WBC 0-5 /hpf (0-5) 04/24/25 23:10 Ur Squamous Epith Cells 0-5 /hpf (0-5) 04/24/25 23:10 Amorphous Sediment Not Reportable 04/24/25 23:10 Urine Bacteria None seen /hpf (NONE) 04/24/25 23:10 Hyaline Casts 0-4 /lpf H 04/24/25 23:10 Vancomycin Trough 18.2 ug/mL (10-15) H 04/26/25 07:52 Vitals Last Vital Signs Temp 99.4 F 04/29/25 11:28 Pulse 74 04/29/25 11:28 Resp 17 04/29/25 11:28 BP 127/76 04/29/25 11:28 Pulse Ox 95 04/29/25 11:28 O2 Del Method Room Air 04/29/25 11:28 Discharge Plan Discharge Patient Disposition: Home Condition: Stable Prescriptions: New insulin lispro [Humalog U-100 Insulin] 100 unit/mL Solution See Rx Instructions .ROUTE .COMPLEX Qty: 10 0RF Rx Instructions: Inject, subcut, 3 times daily, after meals, based on low-dose insulin sliding scale Continued allopurinol 300 mg tablet 300 mg PO DAILY cyanocobalamin (vitamin B-12) 1,000 mcg capsule 1,000 mcg PO DAILY Qty: 60 5RF folic acid 1 mg tablet See Rx Instructions .ROUTE .COMPLEX Qty: 100 3RF Dose Instruction: TAKE ONE TABLET BY MOUTH ONCE A DAY FOR FOLIC ACID SUPPLEMENTATION. Rx Instructions: TAKE ONE TABLET BY MOUTH ONCE A DAY FOR FOLIC ACID SUPPLEMENTATION. metformin 500 mg Tablet 500 mg PO BID ferrous sulfate 325 mg (65 mg iron) Tablet 325 mg PO DAILY fenofibrate 160 mg Tablet 160 mg PO DAILY empagliflozin 25 mg Tablet 25 mg PO DAILY aspirin 81 mg tablet,delayed release (DR/EC) 81 mg PO DAILY Qty: 90 1RF atorvastatin 40 mg tablet 40 mg PO DAILY Qty: 90 2RF clopidogrel 75 mg Tablet 75 mg PO DAILY pyridoxine (vitamin B6) 50 mg tablet 50 mg PO DAILY Rx Instructions: TAKE ONE TABLET BY MOUTH ONCE A DAY FOR VITAMIN B6 DEFICIENCY. cholecalciferol (vitamin D3) [Vitamin D3] 50 mcg (2,000 unit) Capsule 100 mcg PO DAILY Changed insulin glargine 100 unit/mL solution 40 unit SUBCUT BEDTIME 30 Days Qty: 0 0RF lisinopril 20 mg tablet 40 mg PO DAILY 30 Days Qty: 60 0RF Discontinued insulin aspart U-100 100 unit/mL (3 mL) Insulin Pen 15 unit SUBCUT DAILY glipizide 10 mg Tablet 10 mg PO BID No Action (DME) custom molded orthotics with toe filler to the left See Rx Instructions .Route .MEDSUPPLY Qty: 1 0RF Rx Instructions: As directed [employer] (DME) CAM walker See Rx Instructions .Route .MEDSUPPLY Qty: 1 0RF Rx Instructions: As directed (DME) Diabetic shoes See Rx Instructions .ROUTE .MEDSUPPLY Qty: 1 0RF Rx Instructions: With 3 pairs of inserts toe filler to the left shoe made by the [employer] [place] for DC: Infectious Disease Referrals: Infectious Disease Group [facility] [Provider Group, Infectious Disease] - 05/27/25 12:30 pm Cortez Bhatia DPM [Physician, Podiatry] - 05/07/25 7:30 am Bhavik Moreno MD [Physician, Cardiology] - 2 weeks Referral Note: Caitlin Rodriguez MD [Primary Care Provider, Family Practice] Referral Note: We have notified your physician's clinic of the need for a follow-up appointment to be scheduled. If you have not heard from them within the next 2 business days, please call them directly. Discharge Diet: Cardiac Discharge Activity: Limit activity as instructed Patient Instructions: Acute Wound Care (DC), Opioid Safety, Post Anesthesia Care, Patient Portal & Jaqui Instructions Activity Restrictions/Additional Instructions: - Zosyn 4.5 g IV every 8 hours for total of 6 weeks stop date 06/07/2025, weekly CBC, creatinine, LFT, CRP - Please follow-up with your primary care - Please follow-up with podiatry -Please monitor your blood sugars closely -Monitor your blood sugars 3 times daily as after meals -Please record your blood sugars, and a blood sugar log -For your NovoLog -Please inject blood sugar after meals based on sliding scale provided -Do not inject insulin if you do not eat as hypoglycemia kills -This is a NovoLog sliding scale -Insulin sliding ?fingerstick? Insulin ?141-180?0 units/sq 181-220?2 units/sq ?221-260?4 units/sq ?261-300 6 units/sq ?301-350?8 units/sq ?351-400 10 units/sq ?401-450?12 units/sq >450? 14units/sq -If your blood sugar is greater than 500 go to the emergency room -If your blood sugar is less than 60 or at anytime you feel lightheaded or dizzy or diaphoretic or have chest palpitations check your blood sugar, and eat a hard candy or drink orange juice and go immediately to the emergency room -Remember hypoglycemia kills, so if his blood sugar is less than 60 we have to increase it by taking in a sugary meal such as a hard candy or orange juice and go to the emergency room -If you have any questions please call us where here to help Instructions from Dr. Bhatia D.P.Gonzalez./podiatry Strict nonweightbearing right foot, elevate right lower extremity level with or above the hip. Keep current dressing clean, dry and intact, follow-up in podiatry clinic for dressing change at right foot this Friday, May 02, 2025 2:30 PM. Once daily dressing change left foot wound with Hydrofera Blue. Contact Dr. Bhatia with any questions or concerns [phone]. Discharge Attestations Time Spent in Discharge Care*: greater than 30 min Quality Metrics Clinical Quality Measures [ No reported AMI, CVA or VTE this stay] Coding Level of Care Code 15305 Total time (in minutes) for Discharge: 45 Diagnoses Noncompliance Z91.199 Cellulitis of right foot L03.115 Acute osteomyelitis of right foot M86.171
== END 2025-04-29 15:02 | disposition home health service (06) | DRG 854 ==
LOC: ER 20:41 → MEDSURG 20:46
PROVIDERS: Emergency Medicine; Podiatrist Foot & Ankle Surgery; Student in an Organized Health Care Education/Training Program; Admitting Provider Family Medicine; Emergency Provider Physician Assistant; PCP Family Medicine; Visit Provider Family Medicine
PROC: 0Y6M0Z9 Detachment at Right Foot, Partial 1st Ray, Open Approach (ICD-10-PCS; principal; 2025-04-25 12:20)
DX: A41.9 Sepsis, unspecified organism (principal); L03.115 Cellulitis of right lower limb; L97.418 Non-pressure chronic ulcer of right heel and midfoot with other specified severity; M86.171 Other acute osteomyelitis, right ankle and foot; M86.671 Other chronic osteomyelitis, right ankle and foot; E11.621 Type 2 diabetes mellitus with foot ulcer; E11.69 Type 2 diabetes mellitus with other specified complication; E11.51 Type 2 diabetes mellitus with diabetic peripheral angiopathy without gangrene; E11.40 Type 2 diabetes mellitus with diabetic neuropathy, unspecified; Z91.199 Patient's noncompliance with other medical treatment and regimen due to unspecified reason; I10 Essential (primary) hypertension; E78.5 Hyperlipidemia, unspecified; Z79.84 Long term (current) use of oral hypoglycemic drugs; Z79.82 Long term (current) use of aspirin; Z79.02 Long term (current) use of antithrombotics/antiplatelets; Z79.4 Long term (current) use of insulin; Z89.412 Acquired absence of left great toe; Z89.421 Acquired absence of other right toe(s); Z85.46 Personal history of malignant neoplasm of prostate; M10.9 Gout, unspecified; Z96.612 Presence of left artificial shoulder joint; Z96.611 Presence of right artificial shoulder joint; B96.5 Pseudomonas (aeruginosa) (mallei) (pseudomallei) as the cause of diseases classified elsewhere
CPT/HCPCS: 36415; 36416; 36573; 71045; 73720; 80048; 80053; 80202; 81001; 82607; 82746; 82962; 83036; 83540; 83550; 83605; 83735; 84145; 84443; 85025; 85651; 86140; 87040; 87205; 88305; 88311; 93005; 93926; 94664; 96365; 96367; 96372; 99285; J0692; J1650; J1815; J2470; J2543; J2704; J3372; J3373; J3490; J7030; J7050; J9999

== ENCOUNTER → 2025-05-02 14:13 | Outpatient (BNVA) | payer OTHER, SELFPAY | PROVIDERS: PCP Family Medicine; Visit Provider Podiatrist Foot & Ankle Surgery | DX: Z89.432 Acquired absence of left foot (principal); Z89.431 Acquired absence of right foot; L97.514 Non-pressure chronic ulcer of other part of right foot with necrosis of bone; Z91.199 Patient's noncompliance with other medical treatment and regimen due to unspecified reason; S99.911D Unspecified injury of right ankle, subsequent encounter; M86.171 Other acute osteomyelitis, right ankle and foot; L03.115 Cellulitis of right lower limb; X58.XXXD Exposure to other specified factors, subsequent encounter | CPT/HCPCS: 99213 ==

== ENCOUNTER 2025-05-05 11:52 | Outpatient (CLI) | payer OTHER, SELFPAY ==
[2025-05-05 12:10] LABS: Hematocrit 34.6 % (37-53); Hemoglobin 11.40 g/dL (11.27-16.99); Mean Corpuscular HGB Conc 32.9 g/dL (30-55); Mean Corpuscular Hemoglobin 27.1 pg (27-33); Mean Corpuscular Volume 82.4 fl (82-101); Nucleated Red Blood Cells % 0 %; Platelet Count 296 10^3/cmm (157-399); Red Blood Count 4.20 10^6/uL (3.85-5.65); White Blood Count 6.41 10^3/uL (3.29-11.43)
== END 2025-05-05 11:53 | disposition home or self-care (01) ==
LOC: LAB 11:52
PROVIDERS: PCP Family Medicine; Visit Provider Podiatrist Foot & Ankle Surgery
DX: M86.171 Other acute osteomyelitis, right ankle and foot (principal)
CPT/HCPCS: 85025

== ENCOUNTER → 2025-05-07 07:27 | Outpatient (BNVA) | payer OTHER, SELFPAY | PROVIDERS: PCP Family Medicine; Visit Provider Podiatrist Foot & Ankle Surgery | DX: L97.514 Non-pressure chronic ulcer of other part of right foot with necrosis of bone (principal); Z91.199 Patient's noncompliance with other medical treatment and regimen due to unspecified reason; Z89.432 Acquired absence of left foot; M86.171 Other acute osteomyelitis, right ankle and foot; L03.115 Cellulitis of right lower limb | CPT/HCPCS: 99214 ==

== ENCOUNTER 2025-05-08 11:58 | Outpatient (CLI) | payer OTHER, SELFPAY ==
[2025-05-08 17:25] LABS: Alanine Aminotransferase 26 U/L (0-41); Albumin Level 3.8 g/dL (3.5-5.2); Alkaline Phosphatase 93 U/L (40-130); Globulin 3.0 g/dL (1.3-4.6); Total Protein 6.8 g/dL (6.6-8.7)
[2025-05-08 17:27] LABS: Aspartate Amino Transferase 29 U/L (0-40)
== END 2025-05-08 11:59 | disposition home or self-care (01) ==
PROVIDERS: PCP Family Medicine; Visit Provider Podiatrist Foot & Ankle Surgery
DX: M86.171 Other acute osteomyelitis, right ankle and foot (principal)
CPT/HCPCS: 80076; 82565; 86140

== ENCOUNTER 2025-05-12 14:19 | Outpatient (CLI) | payer OTHER, SELFPAY ==
[2025-05-12 14:49] LABS: Hematocrit 36.3 % (37-53); Hemoglobin 11.90 g/dL (11.27-16.99); Mean Corpuscular HGB Conc 32.8 g/dL (30-55); Mean Corpuscular Hemoglobin 27.0 pg (27-33); Mean Corpuscular Volume 82.5 fl (82-101); Nucleated Red Blood Cells % 0 %; Platelet Count 292 10^3/cmm (157-399); Red Blood Count 4.40 10^6/uL (3.85-5.65); White Blood Count 7.36 10^3/uL (3.29-11.43)
== END 2025-05-12 14:20 | disposition home or self-care (01) ==
LOC: LAB 14:22
PROVIDERS: PCP Family Medicine; Visit Provider Podiatrist Foot & Ankle Surgery
DX: M86.171 Other acute osteomyelitis, right ankle and foot (principal)
CPT/HCPCS: 85025

== ENCOUNTER 2025-05-13 16:25 | Outpatient (CLI) | payer OTHER, SELFPAY ==
[2025-05-13 17:59] LABS: Alanine Aminotransferase 24 U/L (0-41); Albumin Level 3.9 g/dL (3.5-5.2); Alkaline Phosphatase 97 U/L (40-130); Globulin 3.0 g/dL (1.3-4.6); Total Protein 6.9 g/dL (6.6-8.7)
[2025-05-13 18:00] LABS: Aspartate Amino Transferase 28 U/L (0-40)
== END 2025-05-13 16:26 | disposition home or self-care (01) ==
LOC: LAB 16:26
PROVIDERS: PCP Family Medicine; Visit Provider Podiatrist Foot & Ankle Surgery
DX: M86.171 Other acute osteomyelitis, right ankle and foot (principal)
CPT/HCPCS: 80076; 82565; 86140

== ENCOUNTER → 2025-05-14 06:58 | Outpatient (BNVA) | payer OTHER, SELFPAY | PROVIDERS: PCP Family Medicine; Visit Provider Podiatrist Foot & Ankle Surgery | DX: L97.514 Non-pressure chronic ulcer of other part of right foot with necrosis of bone (principal); Z91.199 Patient's noncompliance with other medical treatment and regimen due to unspecified reason; S99.911D Unspecified injury of right ankle, subsequent encounter; Z89.432 Acquired absence of left foot; M86.171 Other acute osteomyelitis, right ankle and foot; Z89.431 Acquired absence of right foot; L03.115 Cellulitis of right lower limb; Z79.84 Long term (current) use of oral hypoglycemic drugs; Z79.4 Long term (current) use of insulin | CPT/HCPCS: 99214 ==

== ENCOUNTER → 2025-05-15 14:09 | Outpatient (BNVA) | payer OTHER, SELFPAY | PROVIDERS: PCP Family Medicine; Visit Provider Nurse Practitioner Family | DX: L85.3 Xerosis cutis (principal); L57.8 Other skin changes due to chronic exposure to nonionizing radiation; Z08 Encounter for follow-up examination after completed treatment for malignant neoplasm; Z85.828 Personal history of other malignant neoplasm of skin; L82.0 Inflamed seborrheic keratosis; L29.89 Other pruritus; R20.9 Unspecified disturbances of skin sensation; Z29.89 Encounter for other specified prophylactic measures; R20.8 Other disturbances of skin sensation; L57.0 Actinic keratosis | CPT/HCPCS: 17000; 17110; 99213 ==

== ENCOUNTER → 2025-05-15 15:04 | Outpatient (BNVA) | payer OTHER, SELFPAY | PROVIDERS: PCP Family Medicine; Visit Provider Internal Medicine | DX: I77.9 Disorder of arteries and arterioles, unspecified (principal); I10 Essential (primary) hypertension; Z89.511 Acquired absence of right leg below knee; Z79.02 Long term (current) use of antithrombotics/antiplatelets; Z79.82 Long term (current) use of aspirin | CPT/HCPCS: 99214 ==

== ENCOUNTER 2025-05-20 13:24 | Outpatient (CLI) | payer OTHER, SELFPAY ==
[2025-05-20 14:43] LABS: Hematocrit 37.0 % (37-53); Hemoglobin 12.30 g/dL (11.27-16.99); Mean Corpuscular HGB Conc 33.2 g/dL (30-55); Mean Corpuscular Hemoglobin 27.1 pg (27-33); Mean Corpuscular Volume 81.5 fl (82-101); Nucleated Red Blood Cells % 0 %; Platelet Count 208 10^3/cmm (157-399); Red Blood Count 4.54 10^6/uL (3.85-5.65); White Blood Count 6.39 10^3/uL (3.29-11.43)
== END 2025-05-20 13:25 | disposition home or self-care (01) ==
LOC: LAB 13:25
PROVIDERS: PCP Family Medicine; Visit Provider Podiatrist Foot & Ankle Surgery
DX: M86.171 Other acute osteomyelitis, right ankle and foot (principal)
CPT/HCPCS: 85025

== ENCOUNTER → 2025-05-21 06:53 | Outpatient (BNVA) | payer OTHER, SELFPAY | PROVIDERS: PCP Family Medicine; Visit Provider Podiatrist Foot & Ankle Surgery | DX: E11.621 Type 2 diabetes mellitus with foot ulcer (principal); L97.514 Non-pressure chronic ulcer of other part of right foot with necrosis of bone; Z91.199 Patient's noncompliance with other medical treatment and regimen due to unspecified reason; Z89.432 Acquired absence of left foot; M86.171 Other acute osteomyelitis, right ankle and foot; Z89.431 Acquired absence of right foot; L03.115 Cellulitis of right lower limb; T87.81 Dehiscence of amputation stump; L97.522 Non-pressure chronic ulcer of other part of left foot with fat layer exposed; Y83.8 Other surgical procedures as the cause of abnormal reaction of the patient, or of later complication, without mention of misadventure at the time of the procedure; Z79.4 Long term (current) use of insulin; Z79.84 Long term (current) use of oral hypoglycemic drugs | CPT/HCPCS: 99214 ==

== ENCOUNTER 2025-05-22 15:48 | Outpatient (CLI) | payer OTHER, SELFPAY ==
[2025-05-22 18:13] LABS: Alanine Aminotransferase 34 U/L (0-41); Albumin Level 4.1 g/dL (3.5-5.2); Alkaline Phosphatase 79 U/L (40-130); Globulin 2.9 g/dL (1.3-4.6); Total Protein 7.0 g/dL (6.6-8.7)
[2025-05-22 18:14] LABS: Aspartate Amino Transferase 43 U/L (0-40)
== END 2025-05-22 15:49 | disposition home or self-care (01) ==
LOC: LAB 15:50
PROVIDERS: PCP Family Medicine; Visit Provider Podiatrist Foot & Ankle Surgery
DX: M86.171 Other acute osteomyelitis, right ankle and foot (principal)
CPT/HCPCS: 80076; 82565; 86140

== ENCOUNTER 2025-05-26 14:31 | Outpatient (CLI) | payer OTHER, SELFPAY ==
[2025-05-26 15:10] LABS: Hematocrit 37.8 % (37-53); Hemoglobin 12.70 g/dL (11.27-16.99); Mean Corpuscular HGB Conc 33.6 g/dL (30-55); Mean Corpuscular Hemoglobin 27.4 pg (27-33); Mean Corpuscular Volume 81.6 fl (82-101); Nucleated Red Blood Cells % 0 %; Platelet Count 221 10^3/cmm (157-399); Red Blood Count 4.63 10^6/uL (3.85-5.65); White Blood Count 6.48 10^3/uL (3.29-11.43)
== END 2025-05-26 14:32 | disposition home or self-care (01) ==
LOC: LAB 14:33
PROVIDERS: PCP Family Medicine; Visit Provider Podiatrist Foot & Ankle Surgery
DX: M86.171 Other acute osteomyelitis, right ankle and foot (principal)
CPT/HCPCS: 85025

== ENCOUNTER → 2025-05-27 07:21 | Outpatient (BNVA) | payer OTHER, SELFPAY | PROVIDERS: PCP Family Medicine; Visit Provider Podiatrist Foot & Ankle Surgery | DX: L97.514 Non-pressure chronic ulcer of other part of right foot with necrosis of bone (principal); Z91.199 Patient's noncompliance with other medical treatment and regimen due to unspecified reason; Z89.432 Acquired absence of left foot; M86.171 Other acute osteomyelitis, right ankle and foot; Z89.431 Acquired absence of right foot; L03.115 Cellulitis of right lower limb; T87.81 Dehiscence of amputation stump; L97.522 Non-pressure chronic ulcer of other part of left foot with fat layer exposed; Y83.8 Other surgical procedures as the cause of abnormal reaction of the patient, or of later complication, without mention of misadventure at the time of the procedure; S86.121A Laceration of other muscle(s) and tendon(s) of posterior muscle group at lower leg level, right leg, initial encounter; X58.XXXA Exposure to other specified factors, initial encounter | CPT/HCPCS: 29445; 99213 ==

== ENCOUNTER 2025-05-28 10:25 | Outpatient (CLI) | payer OTHER, SELFPAY ==
[2025-05-29 16:08] LABS: Alanine Aminotransferase 28 U/L (0-41); Albumin Level 4.3 g/dL (3.5-5.2); Alkaline Phosphatase 84 U/L (40-130); Aspartate Amino Transferase 24 U/L (0-40); Globulin 2.3 g/dL (1.3-4.6); Total Protein 6.6 g/dL (6.6-8.7)
== END 2025-05-28 10:26 | disposition home or self-care (01) ==
PROVIDERS: PCP Family Medicine; Visit Provider Podiatrist Foot & Ankle Surgery
DX: M86.171 Other acute osteomyelitis, right ankle and foot (principal)
CPT/HCPCS: 80076; 82565; 86140

== ENCOUNTER 2025-06-02 14:54 | Outpatient (CLI) | payer OTHER, SELFPAY ==
[2025-06-02 16:23] LABS: Hematocrit 37.5 % (37-53); Hemoglobin 12.50 g/dL (11.27-16.99); Mean Corpuscular HGB Conc 33.3 g/dL (30-55); Mean Corpuscular Hemoglobin 27.5 pg (27-33); Mean Corpuscular Volume 82.4 fl (82-101); Nucleated Red Blood Cells % 0 %; Platelet Count 226 10^3/cmm (157-399); Red Blood Count 4.55 10^6/uL (3.85-5.65); White Blood Count 6.09 10^3/uL (3.29-11.43)
[2025-06-02 17:49] LABS: Alanine Aminotransferase 28 U/L (0-41); Albumin Level 4.2 g/dL (3.5-5.2); Alkaline Phosphatase 105 U/L (40-130); Aspartate Amino Transferase 22 U/L (0-40); Globulin 2.8 g/dL (1.3-4.6); Total Protein 7.0 g/dL (6.6-8.7)
== END 2025-06-02 14:55 | disposition home or self-care (01) ==
LOC: LAB 14:56
PROVIDERS: PCP Family Medicine; Visit Provider Podiatrist Foot & Ankle Surgery
DX: M86.171 Other acute osteomyelitis, right ankle and foot (principal)
CPT/HCPCS: 80076; 82565; 85025; 86140

== ENCOUNTER → 2025-06-06 10:48 | Outpatient (BNVA) | payer OTHER, SELFPAY | PROVIDERS: PCP Family Medicine; Visit Provider Podiatrist Foot & Ankle Surgery | DX: L97.522 Non-pressure chronic ulcer of other part of left foot with fat layer exposed (principal); L97.514 Non-pressure chronic ulcer of other part of right foot with necrosis of bone; Z91.199 Patient's noncompliance with other medical treatment and regimen due to unspecified reason; S99.911D Unspecified injury of right ankle, subsequent encounter; Z89.432 Acquired absence of left foot; Z89.431 Acquired absence of right foot; L03.115 Cellulitis of right lower limb; T87.81 Dehiscence of amputation stump; X58.XXXD Exposure to other specified factors, subsequent encounter; Y83.8 Other surgical procedures as the cause of abnormal reaction of the patient, or of later complication, without mention of misadventure at the time of the procedure | CPT/HCPCS: 11042; 29445; 99214 ==

== ENCOUNTER 2025-06-09 16:41 | Outpatient (CLI) | payer OTHER, SELFPAY ==
[2025-06-09 17:56] LABS: Hematocrit 37.5 % (37-53); Hemoglobin 12.70 g/dL (11.27-16.99); Mean Corpuscular HGB Conc 33.9 g/dL (30-55); Mean Corpuscular Hemoglobin 27.9 pg (27-33); Mean Corpuscular Volume 82.4 fl (82-101); Nucleated Red Blood Cells % 0 %; Platelet Count 244 10^3/cmm (157-399); Red Blood Count 4.55 10^6/uL (3.85-5.65); White Blood Count 6.72 10^3/uL (3.29-11.43)
[2025-06-10 00:10] LABS: Alanine Aminotransferase 29 U/L (0-41); Albumin Level 4.3 g/dL (3.5-5.2); Alkaline Phosphatase 93 U/L (40-130); Aspartate Amino Transferase 31 U/L (0-40); Globulin 2.9 g/dL (1.3-4.6); Total Protein 7.2 g/dL (6.6-8.7)
== END 2025-06-09 16:42 | disposition home or self-care (01) ==
LOC: LAB 16:42
PROVIDERS: PCP Family Medicine; Visit Provider Podiatrist Foot & Ankle Surgery
DX: M86.171 Other acute osteomyelitis, right ankle and foot (principal)
CPT/HCPCS: 80076; 82565; 85025; 85651; 86140

== ENCOUNTER 2025-06-12 08:55 | Outpatient (CLI) | payer OTHER, SELFPAY ==
[2025-06-12] VITALS (11 sets, daily range): BP systolic 103–129; BP diastolic 64–80; PULSE 64–93; RESP 15–20; TEMP 36.7; O2SAT 90–98; BMI 28.3
--- NOTE | 2025-06-12 09:00 | XACV_ITS ---
Ht: 183 cm Wt: 95 kg BSA: 2.21 m2 Any Known Allergies: No known allergies Gender: Male : 1945 Exam Type: Invasive Peripheral Vascular Procedure(s): Procedure Description: Peripheral Cath Diagnostic Procedure Procedure Description: Abdominal aortic angiography Procedure Description: Iliac arterial aortic angiography Procedure Description: Lower extremities' angiography Exam Priority: Routine Abdominal Diagnostic Findings Distal abdominal aorta is patent. Lower Extremity Diagnostic Findings INDICATION: Non-healing right foot wound/ peripheral artery disease. Right lower extremity findings: Patent right common iliac, external iliac, common femoral, profunda, SFA, popliteal arteries. Patent TP trunk and peroneal artery ( with very distal diffuse disease). Patent posterior tibial artery. Anterior tibial artery is occluded in the proximal to mid segment. . Lower Extremity Interventional Findings We attempted to cross totally occluded anterior tibial artery however wire could not cross. Given 2 vessel run off, we decided to medically treat the vessel. Conclusions Two vessel runoff to right foot. Occluded anterior tibial artery. Wire could not cross. Medical therapy. Recommendations Continue aspirin. Wound care and podiatry care. Diabetes management and control is critical. Access Site Site: Left Femoral artery Sheath Size: 6 Fr Hemost... Method: [place] Hemost... Success: Successful Procedure Details Findings Procedure Consent Obtained. Pre-Procedure Time Out. Identified patient by full name and date of as verbalized by the patient/guarantor. Does the consent match the physician's order: Yes. Accurate & Complete Informed Consent: Yes. Inpatient/Outpatient History & Physical on Chart: Yes. If H&P is completed, is and addenduem needed: No. Visualize and Verify Site with Patient/Guarantor: N/A. Relevant Radiology Images available: Yes. The risks, benefits, and alternatives of sedation and/or procedure were discussed by physician. The patient agrees to continue. Procedure started. Correct patient, site and procedure confirmed by cath team. Current diagnosis: PVD. PERRLA. Strong, equal hand camp cook bilaterally. Lungs clear x 5 lobes. IV Site on Arrival: 20 gauge in the left anticubital. IV Site on Arrival: Single lumen PICC line to right upper arm. IV Fluids: 0.9% NaCl at KVO. 0 mL infused prior to labor and delivery nurse. Pre Procedural Pulses: bilateral radial was 3+. Unable to assess lower extremity pulses due to bilateral casting. Oxygen started at 2liters/min via nasal canula. bilateral groins was prepped with chloroprep then draped in the usual sterile fashion. Physician notified. Baseline sample Acquired. HR: 64 BPM. Patient's family in CPRU room #3. Dr. Phan will update at the completion of the procedure. Equipment: 6F - Femoral. Cardiac Cath Pack. ACIST Manifold Kit Model BT 2000. Heparinized Saline (2 units/mL), 1000 mL bag. Kit, Micropuncture. Physician arrived. Physician scrubbed in. Immediate Pre-Procedure Time Out. Correct Patient: Yes; Correct Procedure: Yes; Correct Site: Yes; Correct Patient Position: Yes; Correct Supplies: Yes; Dried Flammable Prep: Yes; Blood Products Available: N/A;. Lidocaine 1% infiltrated to the left groin. Arterial access obtained. A 5 Fr UF catheter in over the standard J wire. Pigtail postioned above the bifurcation of the iliacs. Aortagram performed @ 10 mL/sec for a total of 30 mL. 0.035 x 260cm stiff angled glidewire in through the UF catheter. Glidewire out. Glidewire in. Glidewire out. Right external iliac selected and arteriogram with runoff performed @ 10 mL/sec for a total of 30 mL in DSA. Right external iliac selected and arteriogram with runoff performed @ 10 mL/sec for a total of 30 mL in DSA. Catheter removed over the standard J wire. Lidocaine 1% infiltrated to the left groin. Sheath upsized to a 6 Fr. Seeker support catheter in over the glidewire. Glidewire out. Hand injection of the right AT performed through the seeker catheter. 0.014 x 300cm Runthrough guideiwre in through the seeker and advanced distal to the lesion in the right AT. 300cm Runthrough guideiwre out. Hand injection of the right AT performed through the seeker catheter. Glidewire in. Seeker support catheter out over the glidewire. Glidewire out. Right external iliac selected and arteriogram with runoff performed @ 10 mL/sec for a total of 20 mL in DSA. Sheath upsized to a 6 Fr. Glidewire out. A Mynx was successful obtaining hemostatsis at the Left Femoral artery insertion site. Mynx placed without complications. No signs or symptoms of hematoma noted. Sterile dressing applied per usual sterile fashion. Lot # [id number], REF [id number], Exp. . Post Procedure: Pulses unable to assess to to bilat casts. PERRLA. Strong, equal hand camp cook bilaterally. No VTE prophylaxis required. Total IV fluids: 60 mL. Post-op diagnosis: PVD. Complications: none. Estimated blood loss: 5mL-10mL. Responsiveness - Normal response to verbal stimuli; alert and oriented, PERRLA. Airway - Unaffected, no intervention required; spontaneous ventilation. Circulation: W/N/L, pulses unchanged. Nausea/Vomiting: No. Procedure completed. Patient transferred by bed to 1st floor. Vital chart was stopped. Procedure Medications Start: 11:03 AM Stop: 11:03 AM Medication: Versed Amount: 1 mg Route: I.V. Start: 11:03 AM Stop: 11:03 AM Medication: Fentanyl Amount: 50 mcg Route: I.V. Start: 11:21 AM Stop: 11:21 AM Medication: Versed Amount: 1 mg Route: I.V. Start: 11:21 AM Stop: 11:21 AM Medication: Fentanyl Amount: 50 mcg Route: I.V. Start: 11:25 AM Stop: 11:25 AM Medication: Heparin Amount: 6000 units Route: I.V. I, the attending physician, have reviewed and verified all procedure medications. Yes, all medications given per verbal order History/Risk Factors Hypertension: Yes Dyslipidemia: Yes Peripheral Arterial Disease (PAD): Yes Obesity: No Renal Disease: No Tobacco Use: Never Prior Interventions PCI: No CABG: No Valve Surgery: No Report Signatures Finalized by Kalia Phan MD on 06/21/2025 11:11 PM
--- NOTE | 2025-06-12 09:41 | PC.NURSE ---
Physical Assessment On arrival to unit patient has single lumen PICC line present in right upper arm. Last dressing change was 06/09/25. Dressing clean, dry, and intact. Unable to assess pedal or posterior tibial pulses due to BLE leg castings.
[2025-06-12 09:44] LABS: Anion Gap 15.3 (5-19); Blood Urea Nitrogen 23 mg/dL (8-23); Calcium 9.5 mg/dL (8.5-10.5); Carbon Dioxide 25 mmol/L (22-29); Chloride 98 mmol/L (98-107); Creatinine Clr Calc Pharmacy 72.7470; Glucose 142 mg/dL (65-115); Osmolality Calculated 284 mOsm/kg (285-295); Potassium 4.3 mmol/L (3.5-5.1); Sodium 134 mmol/L (136-145)
--- NOTE | 2025-06-12 10:54 | W.PM.OPSUD ---
Surgery/Procedure H&P Update DATE OF PROCEDURE: June 12, 2025 DATE H&P PERFORMED: 05/15/25 H&P UPDATE INFORMATION: I have reviewed H&P completed within last 30 days, I have examined patient prior to procedure and Changes to prior documentation as noted here CHANGES TO PREVIOUS DOCUMENTATION: Patient has been having issues with wound healing of right foot. Plan for peripheral angiogram and possible intervention to improve blood flow to foot. PREOP DIAGNOSIS: Non-healing wound/ Peripheral artery disease PRIMARY INDICATION FOR PROCEDURE: Non-healing wound/ Peripheral artery disease PLANNED PROCEDURE: Operation Date: 06/12/25 10:00 Proposed Procedures p Peripheral Diagnostic- Periph Angio Bilat(Bilateral) - Kalia Phan M.D Possible percutaneous peripheral intervention PATIENT REASSESSED PRIOR TO SEDATION, WITH NO CHANGE NOTED: Yes PHYSICAL EXAM: alert, oriented x 3, clear to auscultation bilaterally and regular rate & rhythm AIRWAY EVAL/ANESTHESIA PLAN: normal airway, ASA III, Local Anesthesia, Risks, benefits & alternatives of sedation and/or procedure discussed and Patient agrees to continue as planned ADDITIONAL INFORMATION: Moderate sedation
--- NOTE | 2025-06-12 12:00 | P.PCN_ITS ---
Procedure Note: Date of procedure: 06/12/25 Pre-procedure diagnosis: Non- healing right foot wound/ Peripheral artery disease Post-procedure diagnosis: other (Occluded anterior tibial artery. Patent 2 vessel runoff) Procedure: Patent right common iliac, external iliac, common femoral, profunda, SFA, popliteal arteries. Patent TP trunk and peroneal arteries ( with very distal diffuse disease) and posterior tibial arteries. Anterior tibial artery is occluded in the proximal to mid segment. No reconstitution of vessel seen. Attempt at wiring it was unsuccessful and given long segment chronic occlusion with no distal reconstitution of vessel, decision made for medical therapy 2 Vessel run-off Continue aspirin. Wound care and podiatry care. Diabetes management and control is critical Performing Provider: Kalia Phan Complications: None Condition: stable Disposition: same day Coding Level of Care Code Acute Code for Gloria Andino
--- NOTE | 2025-06-12 12:55 | PC.NURSE ---
Patient received from cath s/p peripheral angiogram with left femoral access. 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 No s/s of bleeding or hematoma formation observed. Dressing to site remains c,d,i. Instructed patient on site care with restrictions. patient verbalized understanding.
--- NOTE | 2025-06-12 13:27 | PC.NURSE ---
Spoke with Jadyn with clinic support- she confirmed [facility] will contact patient to schedule follow-up appointment.
--- NOTE | 2025-06-12 16:34 | PC.NURSE ---
Patient up to ambulate. Patient denies pain. Dressing to site remains c,d,i without s/s of bleeding or hematoma formation observed.
--- NOTE | 2025-06-12 17:51 | PC.NURSE ---
Patient discharged to home. Instruction provided regarding follow up needs and post cath site care with restrictions. No medication changes. Patient verbalized complete understanding. Dressing to left groin remains c,d,i without s/s of bleeding or hematoma formation observed. Patient denies pain or needs. No distress observed. Patient taken via wheelchair to private vehicle. Spouse at side.
== END 2025-06-12 17:15 | disposition home or self-care (01) ==
LOC: CCL 08:59 → CSU 13:24
PROVIDERS: PCP Family Medicine; Visit Provider Internal Medicine
DX: I73.9 Peripheral vascular disease, unspecified (principal); I70.92 Chronic total occlusion of artery of the extremities; I10 Essential (primary) hypertension; E78.5 Hyperlipidemia, unspecified; E11.42 Type 2 diabetes mellitus with diabetic polyneuropathy; Z85.46 Personal history of malignant neoplasm of prostate; Z79.84 Long term (current) use of oral hypoglycemic drugs; Z79.4 Long term (current) use of insulin; Z79.82 Long term (current) use of aspirin; I77.9 Disorder of arteries and arterioles, unspecified
CPT/HCPCS: 36415; 75625; 75716; 80048; 99152; 99153; C1760; C1769; C1887; C1894; G0269; J1644; J2250; J3010; J7030; J7799; J9999; Q0163; Q9967

== ENCOUNTER 2025-06-13 09:29 | Day surgery (SDC) | payer OTHER, SELFPAY ==
--- NOTE | 2025-06-13 10:35 | W.PM.OPSUD ---
Surgery/Procedure H&P Update DATE OF PROCEDURE: June 13, 2025 DATE H&P PERFORMED: 06/06/25 H&P UPDATE INFORMATION: I have reviewed H&P completed within last 30 days, I have examined patient prior to procedure, No changes to prior documentation and Risks and benefits of the procedure reviewed PREOP DIAGNOSIS: Dehiscence right foot PLANNED PROCEDURE: Operation Date: 06/13/25 11:30 Proposed Procedures p Delayed Wound Closure(Right) - Cortez Bhatia DPM
--- NOTE | 2025-06-13 11:22 | ANES.PREANE2 ---
Pre-Anesthetic Assessment Height/Weight: Height 6 ft Preop Diagnosis: Dehiscence right foot Operation Date: 06/13/25 11:30 Proposed Procedures p Delayed Wound Closure(Right) - Cortez Bhatia DPM Was Beta Johnathon taken within 24 hours: N/A Was Clonidine taken within 24 hours: N/A Social No alcohol and No tobacco Exam alert, oriented x 3, clear to auscultation bilaterally and regular rate & rhythm Airway Submandibular: within normal limits Cervical ROM: within normal limits Mallampati: Class III Comments: Comments: Edentulous Anesthetic Plan ASA status: 3 Anesthesia: MAC Other: No prior issues with anesthesia NPO since yesterday evening History of diabetes and hyperlipidemia. On chronic insulin. Preop BS 177 Labs reviewed 06/09/2025 and acceptable for procedur Hypertension on lisinopril Plan for MAC anesthesia with local via surgeon Medications/Allergies Home Medications ?Medication ?Instructions ?Recorded ?Confirmed ?Last Taken ?Type allopurinol 300 mg tablet 300 mg PO DAILY 05/13/21 06/12/25 06/12/25 History cyanocobalamin (vitamin B-12) 1,000 mcg PO DAILY #60 caps 04/11/23 06/12/25 06/12/25 Rx 1,000 mcg capsule empagliflozin 25 mg tablet 25 mg PO DAILY 07/12/23 06/12/25 06/12/25 History fenofibrate 160 mg tablet 160 mg PO DAILY 07/12/23 06/12/25 06/12/25 History ferrous sulfate 325 mg (65 mg 325 mg PO DAILY 07/12/23 06/12/25 06/12/25 History iron) tablet metformin 500 mg tablet 500 mg PO BID 07/12/23 06/12/25 06/12/25 History aspirin 81 mg tablet,delayed 81 mg PO DAILY #90 tabs 07/18/23 06/12/25 06/12/25 Rx release atorvastatin 40 mg tablet 40 mg PO DAILY #90 tabs 07/18/23 06/12/25 06/12/25 Rx Diabetic shoes #1 ea 09/25/24 06/11/25 06/12/25 Rx custom molded orthotics with toe #1 ea 12/10/24 06/11/25 06/12/25 Rx filler to the left CAM walker #1 ea 01/09/25 06/11/25 06/12/25 Rx cholecalciferol (vitamin D3) 50 100 mcg PO DAILY 02/13/25 06/12/25 06/12/25 History mcg (2,000 unit) capsule (Vitamin D3) pyridoxine (vitamin B6) 50 mg 50 mg PO DAILY 02/13/25 06/11/25 06/12/25 History tablet folic acid 1 mg tablet See Rx Instructions .Route 03/13/25 06/12/25 06/12/25 Rx .COMPLEX #100 tabs clopidogrel 75 mg tablet 75 mg PO DAILY 04/25/25 06/12/25 06/12/25 History insulin glargine 100 unit/mL 40 unit (0.4 mL) SUBCUT BEDTIME 30 04/28/25 06/12/25 06/12/25 Rx subcutaneous solution days #0 mL insulin lispro 100 unit/mL See Rx Instructions .Route 04/28/25 06/11/25 06/12/25 Rx subcutaneous solution (Humalog .COMPLEX #10 mL U-100 Insulin) lisinopril 20 mg tablet 40 mg (2 x 20 mg) PO DAILY 30 days 04/28/25 06/12/25 06/12/25 Rx #60 tabs Allergies Allergy/AdvReac Type Severity Reaction Status Date / Time No Known Allergies Allergy Verified 06/12/25 10:28 [facility] Anesthesia Medical History 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 Peripheral vascular disease Gas gangrene Osteomyelitis Non-pressure chronic ulcer of left ankle with fat layer exposed Cellulitis of left foot Diabetic peripheral neuropathy associated with type 2 diabetes mellitus Prostate cancer Hyperlipidemia Diabetes Gout HTN (hypertension) Surgical History History of Achilles tendon repair left foot Previous back surgery History of prostate biopsy History of replacement of both shoulder joints Family History Father Cancer skin Other Diabetes Hyperlipidemia Hypertension Denies family history of CAD (coronary artery disease) Clotting disorder Dementia Psychiatric illness Chronic kidney disease (CKD) Suicide Anesthesia complication Bleeding disorder Lung disease Stroke Social History Smoking and tobacco/nicotine status: never used tobacco/nicotine Alcohol intake: current Alcohol intake frequency: holidays/special occasions only
[2025-06-13] MEDS: ceFAZolin 2,000 mg SDV 2000 MG IVP (11:27)
[2025-06-13] MEDS: BUPivacaine 0.5% INJ 30 mL 15 ML INJECTION (11:51)
[2025-06-13 12:17] VITALS: BP 112/65; PULSE 71; RESP 16; TEMP 36.8; O2SAT 97
[2025-06-13 12:22] VITALS: BP 116/74; PULSE 71; RESP 16; O2SAT 96
[2025-06-13 12:27] VITALS: BP 123/67; PULSE 72; RESP 16; O2SAT 96
--- NOTE | 2025-06-13 12:29 | PM.OP ---
Operative Report Date of procedure: June 13, 2025 Pre-op diagnosis: Dehiscence of amputation stump T87.81 Post-op diagnosis: Dehiscence of amputation stump T87.81 Procedure done: Delayed closure right foot. CPT code 46139 Implants: 2-0 Vicryl, 4-0 nylon Specimens removed/disposition: None Pathology: None Surgeon: Cortez Bhatia DPM Oil Rig Driller: Toyin Estimated blood loss: 25 mL 31 minutes tourniquet time. IV fluids: See intraoperative documentation Urine output: No urine output Complications: No complications Findings: Fragile dorsal flap Brief History: Poorly healing right TMA site, any improvements in lower extremity arterial perfusion would be greatly beneficial. Would appreciate any efforts from cardiology for revascularization of the right lower extremity to improve healing potential for amputation site which is delayed. He has revascularization scheduled for June 12 and planning on debridement with delayed closure of amputation site dehiscence of the right foot on MondayJune 13. I reviewed at length with the patient, the risks, potential complications, benefits, alternatives, expectations, and typical outcomes associated with the surgery. The risks and potential complications were explained in detail, including but not limited to infection, wound dehiscence or soft tissue complications, bleeding and hematoma, chronic edema, neuritis or nerve damage producing numbness or chronic pain, CRPS, failure to relieve pain or worsening pain, thick / painful / unsightly scar, limited motion / stiffness, malposition, delayed union, malunion, or nonunion, fracture, reaction to implants, anesthetic complications, venous thromboembolism, and deformity recurrence. I discussed the notion of no regrets with the patient as it pertains to complications and outcomes. The patient seemed to understand the nature of the proposed care and required convalescence. They asked appropriate questions, answered to their satisfaction. They are aware no guarantees can be made as to a satisfactory outcome and they understand there may be other possible unforeseen complications or outcomes not listed here that will be treated accordingly if they arise. There were no written or implied guarantees given to the patient. They gave informed consent to proceed. Procedure: Under mild sedation the patient was brought to the operating room and remained on the gurney in supine position. A time was performed. Anesthesia was administered by the anesthesia service. Local esthesia injected by myself consisting of 30 cc of one-to-one mixture 1% lidocaine and 0.5's Marcaine plain right ankle block fashion 5 point nerve block. Well-padded pneumatic tourniquet applied to the right high calf. The right lower extremity was scrubbed, prepped and draped utilizing normal aseptic technique. Right foot was elevated and tourniquet inflated to 150 mmHg for 31 minutes. Attention was directed to the distal right transmetatarsal amputation site which was noted to have full dehiscence and devitalized tissue including epidermis, dermis, subcutaneous tissue myofascial layer. This was sharply debrided and excised with Brown pickups and #15 scalpel down to healthy tissue. After all debridement was performed the area of dehiscence was noted to be 6 cm in length. All bleeders were ligated and cauterized as necessary. Copious amounts of sterile saline solution and Irrisept utilized to irrigate the amputation site and then the amputation site was reapproximated in a layered fashion with deep fascia and subcutaneous tissue reapproximated 2-0 Vicryl, skin with 4-0 nylon. The incision was then dressed with Xeroform, sterile 4 x 4 gauze, Kerlix followed by application of well-padded multilayer compressive posterior splint. Tourniquet was deflated and a prompt hyperemic response is noted to the distal amputation site of the right foot. Patient tolerated the procedure and anesthesia well and was transferred to the PACU with vital signs stable vascular status intact. Following a period of postoperative monitoring he will be discharged home without home care instructions and scheduled follow-up. Will continue with IV antibiotic infusion via PICC line and was advised to remain strict nonweightbearing to the right lower extremity and elevate right foot while resting. Was given at home scheduled follow-up for Monday at 7:00 AM in podiatry clinic June 16.
[2025-06-13 12:32] VITALS: BP 115/66; PULSE 71; RESP 18; TEMP 37.3; O2SAT 95
[2025-06-13 12:40] VITALS: BP 110/69; PULSE 75; RESP 16; TEMP 36.6; O2SAT 96
[2025-06-13 13:00] VITALS: BP 119/67; PULSE 77; RESP 18; TEMP 36.6; O2SAT 98
--- NOTE | 2025-06-13 13:10 | ANE.PACU2 ---
Inpatient post-anesthesia follow up: Airway intact: Yes Vital signs: Temperature 97.8 F Pulse Rate 77 Respiratory Rate 18 Blood Pressure 119/67 Pulse Oximetry 98 Oxygen Delivery Me thod Room Air Oxygen Flow Rate Fraction of Inspir ed Oxygen Hydration adequate: Yes Nausea and vomiting: No Pain level: 1 Mental status: Baseline
== END 2025-06-13 13:10 | disposition home or self-care (01) ==
PROVIDERS: PCP Family Medicine; Visit Provider Podiatrist Foot & Ankle Surgery
PROC: (CPT 13160; principal; 2025-06-13 11:20)
DX: T87.81 Dehiscence of amputation stump (principal); E11.9 Type 2 diabetes mellitus without complications; E78.5 Hyperlipidemia, unspecified; I10 Essential (primary) hypertension; Z85.46 Personal history of malignant neoplasm of prostate; I73.9 Peripheral vascular disease, unspecified; Z79.82 Long term (current) use of aspirin; Z79.4 Long term (current) use of insulin; Z79.84 Long term (current) use of oral hypoglycemic drugs
CPT/HCPCS: 27691; 36416; 82962; J0690; J2250; J3490; J7030; J9999

== ENCOUNTER 2025-06-16 12:30 | Oncology outpatient (recurring) (ONCR) | payer OTHER, SELFPAY | END 2025-06-17 23:59 | disposition home or self-care (01) | PROVIDERS: PCP Family Medicine; Visit Provider Podiatrist Foot & Ankle Surgery | DX: Z08 Encounter for follow-up examination after completed treatment for malignant neoplasm (principal); Z85.46 Personal history of malignant neoplasm of prostate; Z98.890 Other specified postprocedural states; E11.42 Type 2 diabetes mellitus with diabetic polyneuropathy; L97.512 Non-pressure chronic ulcer of other part of right foot with fat layer exposed; Z89.422 Acquired absence of other left toe(s); Z92.21 Personal history of antineoplastic chemotherapy; Z92.3 Personal history of irradiation; I51.9 Heart disease, unspecified; C61 Malignant neoplasm of prostate; Z92.25 Personal history of immunosuppression therapy; E11.621 Type 2 diabetes mellitus with foot ulcer; L97.322 Non-pressure chronic ulcer of left ankle with fat layer exposed; Z89.412 Acquired absence of left great toe; I77.9 Disorder of arteries and arterioles, unspecified; Z79.4 Long term (current) use of insulin; Z79.84 Long term (current) use of oral hypoglycemic drugs; S99.911A Unspecified injury of right ankle, initial encounter; M21.41 Flat foot [pes planus] (acquired), right foot; M21.42 Flat foot [pes planus] (acquired), left foot; Z91.199 Patient's noncompliance with other medical treatment and regimen due to unspecified reason; S99.911D Unspecified injury of right ankle, subsequent encounter; X58.XXXD Exposure to other specified factors, subsequent encounter; Z89.432 Acquired absence of left foot; Z89.431 Acquired absence of right foot; L97.514 Non-pressure chronic ulcer of other part of right foot with necrosis of bone; L03.115 Cellulitis of right lower limb; T87.81 Dehiscence of amputation stump; Y83.8 Other surgical procedures as the cause of abnormal reaction of the patient, or of later complication, without mention of misadventure at the time of the procedure; L97.522 Non-pressure chronic ulcer of other part of left foot with fat layer exposed | CPT/HCPCS: 99213 ==

== ENCOUNTER 2025-06-23 17:23 | Outpatient (CLI) | payer OTHER, MEDICARE, SELFPAY ==
[2025-06-23 17:59] LABS: Hematocrit 39.0 % (37-53); Hemoglobin 13.10 g/dL (11.27-16.99); Mean Corpuscular HGB Conc 33.6 g/dL (30-55); Mean Corpuscular Hemoglobin 28.2 pg (27-33); Mean Corpuscular Volume 84.1 fl (82-101); Nucleated Red Blood Cells % 0 %; Platelet Count 239 10^3/cmm (157-399); Red Blood Count 4.64 10^6/uL (3.85-5.65); White Blood Count 5.83 10^3/uL (3.29-11.43)
[2025-06-23 18:14] LABS: Alanine Aminotransferase 28 U/L (0-41); Albumin Level 4.2 g/dL (3.5-5.2); Alkaline Phosphatase 95 U/L (40-130); Aspartate Amino Transferase 23 U/L (0-40); Globulin 3.1 g/dL (1.3-4.6); Total Protein 7.3 g/dL (6.6-8.7)
== END 2025-06-23 17:24 | disposition home or self-care (01) ==
LOC: LAB 17:24
PROVIDERS: PCP Family Medicine; Visit Provider Podiatrist Foot & Ankle Surgery
DX: M86.171 Other acute osteomyelitis, right ankle and foot (principal)
CPT/HCPCS: 80076; 82565; 85025; 86140

== ENCOUNTER → 2025-06-25 06:56 | Outpatient (BNVA) | payer OTHER, SELFPAY | PROVIDERS: PCP Family Medicine; Visit Provider Podiatrist Foot & Ankle Surgery | DX: T87.81 Dehiscence of amputation stump (principal); Z91.199 Patient's noncompliance with other medical treatment and regimen due to unspecified reason; Z89.432 Acquired absence of left foot; Z89.431 Acquired absence of right foot; L97.514 Non-pressure chronic ulcer of other part of right foot with necrosis of bone; L03.115 Cellulitis of right lower limb; L97.522 Non-pressure chronic ulcer of other part of left foot with fat layer exposed; Y83.8 Other surgical procedures as the cause of abnormal reaction of the patient, or of later complication, without mention of misadventure at the time of the procedure | CPT/HCPCS: 99213 ==

== ENCOUNTER → 2025-06-26 08:51 | Outpatient (BNVA) | payer OTHER, SELFPAY | PROVIDERS: PCP Family Medicine; Visit Provider Student in an Organized Health Care Education/Training Program | DX: M86.171 Other acute osteomyelitis, right ankle and foot (principal) | CPT/HCPCS: 99204 ==

== ENCOUNTER 2025-07-01 15:51 | Outpatient (CLI) | payer OTHER, SELFPAY ==
[2025-07-01 19:06] LABS: Alanine Aminotransferase 33 U/L (0-41); Albumin Level 4.3 g/dL (3.5-5.2); Alkaline Phosphatase 119 U/L (40-130); Aspartate Amino Transferase 27 U/L (0-40); Globulin 2.8 g/dL (1.3-4.6); Total Protein 7.1 g/dL (6.6-8.7)
== END 2025-07-01 15:52 | disposition home or self-care (01) ==
LOC: LAB 15:52
PROVIDERS: PCP Family Medicine; Visit Provider Podiatrist Foot & Ankle Surgery
DX: M86.171 Other acute osteomyelitis, right ankle and foot (principal)
CPT/HCPCS: 80076; 82565; 86140

== ENCOUNTER → 2025-07-02 12:47 | Outpatient (BNVA) | payer OTHER, SELFPAY | PROVIDERS: PCP Family Medicine; Visit Provider Internal Medicine Cardiovascular Disease | DX: I73.9 Peripheral vascular disease, unspecified (principal); I10 Essential (primary) hypertension; Z98.61 Coronary angioplasty status | CPT/HCPCS: 99214 ==

== ENCOUNTER 2025-07-07 12:01 | Outpatient (CLI) | payer OTHER, SELFPAY ==
[2025-07-07 13:42] LABS: Alanine Aminotransferase 29 U/L (0-41); Albumin Level 4.2 g/dL (3.5-5.2); Alkaline Phosphatase 80 U/L (40-130); Aspartate Amino Transferase 28 U/L (0-40); Globulin 2.8 g/dL (1.3-4.6); Total Protein 7.0 g/dL (6.6-8.7)
== END 2025-07-07 12:02 | disposition home or self-care (01) ==
PROVIDERS: PCP Family Medicine; Visit Provider Podiatrist Foot & Ankle Surgery
DX: M86.171 Other acute osteomyelitis, right ankle and foot (principal)
CPT/HCPCS: 80076; 82565; 86140

== ENCOUNTER → 2025-07-09 07:01 | Outpatient (BNVA) | payer OTHER, SELFPAY | PROVIDERS: PCP Family Medicine; Visit Provider Podiatrist Foot & Ankle Surgery | DX: S99.911D Unspecified injury of right ankle, subsequent encounter (principal); X58.XXXD Exposure to other specified factors, subsequent encounter; Z91.199 Patient's noncompliance with other medical treatment and regimen due to unspecified reason; Z89.432 Acquired absence of left foot; Z89.431 Acquired absence of right foot; L97.514 Non-pressure chronic ulcer of other part of right foot with necrosis of bone; L03.115 Cellulitis of right lower limb; T87.81 Dehiscence of amputation stump; L97.522 Non-pressure chronic ulcer of other part of left foot with fat layer exposed; Y83.8 Other surgical procedures as the cause of abnormal reaction of the patient, or of later complication, without mention of misadventure at the time of the procedure; Z79.4 Long term (current) use of insulin; Z79.84 Long term (current) use of oral hypoglycemic drugs | CPT/HCPCS: 11043 ==

== ENCOUNTER 2025-07-16 08:12 | Oncology outpatient (recurring) (ONCR) | payer OTHER, SELFPAY ==
[2025-07-16 09:04] LABS: Hematocrit 40.5 % (37-53); Hemoglobin 13.70 g/dL (11.27-16.99); Mean Corpuscular HGB Conc 33.8 g/dL (30-55); Mean Corpuscular Hemoglobin 28.3 pg (27-33); Mean Corpuscular Volume 83.7 fl (82-101); Nucleated Red Blood Cells % 0 %; Platelet Count 212 10^3/cmm (157-399); Red Blood Count 4.84 10^6/uL (3.85-5.65); White Blood Count 6.94 10^3/uL (3.29-11.43)
[2025-07-16 09:21] LABS: Alanine Aminotransferase 35 U/L (0-41); Albumin Level 4.5 g/dL (3.5-5.2); Alkaline Phosphatase 101 U/L (40-130); Anion Gap 18.8 (5-19); Aspartate Amino Transferase 29 U/L (0-40); Blood Urea Nitrogen 27 mg/dL (8-23); Calcium 9.7 mg/dL (8.5-10.5); Carbon Dioxide 23 mmol/L (22-29); Chloride 96 mmol/L (98-107); Creatinine Clr Calc Pharmacy 67.4118; Globulin 2.5 g/dL (1.3-4.6); Glucose 279 mg/dL (65-115); Osmolality Calculated 291 mOsm/kg (285-295); Potassium 4.8 mmol/L (3.5-5.1); Prostate Specific Antigen 0.139 ng/mL (0-4); Sodium 133 mmol/L (136-145); Total Protein 7.0 g/dL (6.6-8.7)
== END 2025-07-18 23:59 | disposition home or self-care (01) ==
PROVIDERS: Nurse Practitioner Family; PCP Family Medicine; Visit Provider Podiatrist Foot & Ankle Surgery
DX: Z08 Encounter for follow-up examination after completed treatment for malignant neoplasm (principal); Z85.46 Personal history of malignant neoplasm of prostate; Z91.199 Patient's noncompliance with other medical treatment and regimen due to unspecified reason; Z89.432 Acquired absence of left foot; Z89.431 Acquired absence of right foot; S99.911D Unspecified injury of right ankle, subsequent encounter; T87.81 Dehiscence of amputation stump; L97.522 Non-pressure chronic ulcer of other part of left foot with fat layer exposed; S96.811A Strain of other specified muscles and tendons at ankle and foot level, right foot, initial encounter; X58.XXXA Exposure to other specified factors, initial encounter; M67.873 Other specified disorders of tendon, right ankle and foot; S93.491A Sprain of other ligament of right ankle, initial encounter; S86.011A Strain of right Achilles tendon, initial encounter; M19.071 Primary osteoarthritis, right ankle and foot; Z92.3 Personal history of irradiation
CPT/HCPCS: 36415; 80053; 84153; 85025; 99213; 99214; A4590

== ENCOUNTER 2025-07-18 05:32 | Day surgery (SDC) | payer OTHER, SELFPAY ==
[2025-07-18] VITALS (7 sets, daily range): BP systolic 102–119; BP diastolic 63–73; PULSE 64–71; RESP 16–18; TEMP 36.3–36.5; O2SAT 96–99; BMI 29.8
--- NOTE | 2025-07-18 07:17 | P.HPUD_ITS ---
Surgery/Procedure H&P Update DATE OF PROCEDURE: July 18, 2025 DATE H&P PERFORMED: 07/16/25 H&P UPDATE INFORMATION: I have reviewed H&P completed within last 30 days, I have examined patient prior to procedure, No changes to prior documentation, H&P is in [facility] EMR on date indicated and Risks and benefits of the procedure reviewed PREOP DIAGNOSIS: Dehiscence right foot amputation PLANNED PROCEDURE: Operation Date: 07/18/25 08:10 Proposed Procedures p Delayed Wound Closure right foot(Right) - Cortez Bhatia DPM
--- NOTE | 2025-07-18 07:35 | ANES.PREANE2 ---
Pre-Anesthetic Assessment Height/Weight: Height 1.83 m Weight 99.79 kg Temp Pulse Resp BP Pulse Ox O2 Del Method 97.7 F 71 16 119/68 97 Room Air 07/18/25 06:45 07/18/25 06:45 07/18/25 06:45 07/18/25 06:45 07/18/25 06:45 07/18/25 06:45 Preop Diagnosis: Dehiscence right foot amputation Operation Date: 07/18/25 08:10 Proposed Procedures p Delayed Wound Closure right foot(Right) - Cortez Bhatia DPM Familial anesthetic complications: none Was Beta Johnathon taken within 24 hours: N/A Was Clonidine taken within 24 hours: N/A Last intake: Intake Last Liquid Date 07/17/25 Last Liquid Time 19:00 Last Solid Date 07/17/25 Last Solid Time 19:00 Social No alcohol and No tobacco Exam alert, oriented x 3, clear to auscultation bilaterally and regular rate & rhythm Airway Submandibular: within normal limits Cervical ROM: within normal limits Mallampati: Class II Dentition: false Pulmonary None reported CV/HEM Hypertension None reported GI None reported Metabolic Diabetes Mellitus [facility] None reported Anesthetic Plan ASA status: 3 Anesthesia: MAC Medications/Allergies Home Medications ?Medication ?Instructions ?Recorded ?Confirmed ?Last Taken ?Type allopurinol 300 mg tablet 300 mg PO DAILY 05/13/21 07/17/25 07/17/25 19:00 History cyanocobalamin (vitamin B-12) 1,000 mcg PO DAILY #60 caps 04/11/23 07/17/25 07/17/25 19:00 Rx 1,000 mcg capsule empagliflozin 25 mg tablet 25 mg PO DAILY 07/12/23 07/17/25 07/17/25 19:00 History fenofibrate 160 mg tablet 160 mg PO DAILY 07/12/23 07/17/25 07/17/25 19:00 History ferrous sulfate 325 mg (65 mg 325 mg PO DAILY 07/12/23 07/17/25 07/17/25 19:00 History iron) tablet metformin 500 mg tablet 500 mg PO BID 07/12/23 07/17/25 07/17/25 19:00 History aspirin 81 mg tablet,delayed 81 mg PO DAILY #90 tabs 07/18/23 07/17/25 07/17/25 19:00 Rx release atorvastatin 40 mg tablet 40 mg PO DAILY #90 tabs 07/18/23 07/17/25 07/17/25 19:00 Rx Diabetic shoes #1 ea 09/25/24 07/16/25 07/17/25 19:00 Rx custom molded orthotics with toe #1 ea 12/10/24 07/16/25 07/17/25 19:00 Rx filler to the left CAM walker #1 ea 01/09/25 07/16/25 07/17/25 19:00 Rx cholecalciferol (vitamin D3) 50 100 mcg PO DAILY 02/13/25 07/17/25 07/17/25 19:00 History mcg (2,000 unit) capsule (Vitamin D3) pyridoxine (vitamin B6) 50 mg 50 mg PO DAILY 02/13/25 07/17/25 07/17/25 19:00 History tablet clopidogrel 75 mg tablet 75 mg PO DAILY 04/25/25 07/17/25 07/17/25 19:00 History insulin lispro 100 unit/mL See Rx Instructions .Route 04/28/25 07/17/25 07/17/25 19:00 Rx subcutaneous solution (Humalog .COMPLEX #10 mL U-100 Insulin) lisinopril 20 mg tablet 40 mg (2 x 20 mg) PO DAILY 30 days 04/28/25 07/17/25 07/17/25 19:00 Rx #60 tabs folic acid 1 mg tablet 1 mg PO DAILY 07/17/25 07/17/25 07/17/25 19:00 History insulin glargine 100 unit/mL 20 unit SUBCUT DAILY 07/17/25 07/18/25 07/17/25 19:00 History subcutaneous solution (Lantus U-100 Insulin) Allergies Allergy/AdvReac Type Severity Reaction Status Date / Time No Known Allergies Allergy Verified 07/18/25 06:40 Current Medications Generic Name Dose Route Start Last Admin Trade Name Freq PRN Reason Stop Dose Admin Sodium Chloride 1,000 mls @ 30 mls/hr 07/18/25 06:45 07/18/25 06:59 Sodium Chloride 0.9% IV 07/19/25 06:44 30 mls/hr .Q24H JULISA Administration PFSH Anesthesia Medical History 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 Peripheral vascular disease Gas gangrene Osteomyelitis Non-pressure chronic ulcer of left ankle with fat layer exposed Cellulitis of left foot Diabetic peripheral neuropathy associated with type 2 diabetes mellitus Prostate cancer Hyperlipidemia Diabetes Gout HTN (hypertension) Surgical History History of Achilles tendon repair left foot Previous back surgery History of prostate biopsy History of replacement of both shoulder joints Family History Father Cancer skin Other Diabetes Hyperlipidemia Hypertension Denies family history of CAD (coronary artery disease) Clotting disorder Dementia Psychiatric illness Chronic kidney disease (CKD) Suicide Anesthesia complication Bleeding disorder Lung disease Stroke Social History Smoking and tobacco/nicotine status: never used tobacco/nicotine Alcohol intake: current Alcohol intake frequency: holidays/special occasions only
[2025-07-18] MEDS: ceFAZolin 2,000 mg SDV 2000 MG IVP (07:42)
--- NOTE | 2025-07-18 08:32 | W.PM.BPON ---
Date of Procedure: 12/01/23 Surgeon: Cortez Bhatia DPM Field Liability Generalist(s): Vel Procedure(s) performed: Delayed closure right foot Findings of the procedure(s): Surgical site dehiscence right foot Estimated blood loss: 5 mL Specimen(s) removed: No specimens Post-operative diagnosis: Dehiscence right transmetatarsal amputation
--- NOTE | 2025-07-18 08:33 | P.OP_ITS ---
Operative Report Date of procedure: July 18, 2025 Pre-op diagnosis: History of transmetatarsal amputation of left foot Z89.432 Dehiscence of amputation stump T87.81 Post-op diagnosis: History of transmetatarsal amputation of left foot Z89.432 Dehiscence of amputation stump T87.81 Procedure done: Delayed closure right foot. CPT code 39498 Implants: 3-0 Monocryl, 4-0 Monocryl, 3-0 nylon, 3-0 Prolene. Surgeon: Cortez Bhatia DPM Nitrocellulose Operator: HENOK Estimated blood loss: 5 mL 21 minutes IV fluids: see intraoperative documentation Complications: No complications Brief History: Patient successfully completed IV antibiotic course via PICC line, PICC line is DC'd, due to a multitude of factors including noncompliance with weightbearing status as well as underlying peripheral arterial disease and the presence of d iabetes with immunocompromise state he has dehisced again at the right transmetatarsal amputation site. Fortunately it is clinically stable without any signs of infection, recommended further debridement with delayed closure could be scheduled outpatient patient is in agreements and would like to proceed this Monday with delayed closure right foot. I reviewed at length with the patient, the risks, potential complications, benefits, alternatives, expectations, and typical outcomes associated with the surgery. The risks and potential complications were explained in detail, including but not limited to infection, wound dehiscence or soft tissue complications, bleeding and hematoma, chronic edema, neuritis or nerve damage producing numbness or chronic pain, CRPS, failure to relieve pain or worsening pain, thick / painful / unsightly scar, limited motion / stiffness, malposition, delayed union, malunion, or nonunion, fracture, reaction to implants, anesthetic complications, venous thromboembolism, and deformity recurrence. I discussed the notion of no regrets with the patient as it pertains to complications and outcomes. The patient seemed to understand the nature of the proposed care and required convalescence. They asked appropriate questions, answered to their satisfaction. They are aware no guarantees can be made as to a satisfactory outcome and they understand there may be other possible unforeseen complications or outcomes not listed here that will be treated accordingly if they arise. There were no written or implied guarantees given to the patient. They gave informed consent to proceed. Procedure: Under mild sedation the patient was brought to the operating room and remained on the gurney in supine position. A timeout was performed. Anesthesia was then administered by the anesthesia service. Local anesthesia not utilized due to patient being not insensate. Well-padded pneumatic tourniquet applied to the [facility] ankle. The right lower extremity was scrubbed, prepped and draped utilizing normal aseptic technique. Right foot was elevated and tourniquet inflated to 250 mmHg. Attention was directed to the right transmetatarsal amputation ion stump where at the dorsal distal aspect full-thickness dehiscence was appreciated down to myofascial layer this was irrigated with saline solution, the width of the area of dehiscence was 3.7 cm medial to lateral, anterior to posterior 0.3 cm and depth 0.3 cm with devitalized epidermis, dermis, subcutaneous tissue and myofascial layer. Devitalized tissue was sharply excisionally debrided with pickups and #15 blade and fresh skin margins were established to healthy bleeding tissue. The incision was irrigated with Irrisept and further irrigated with sterile saline solution. The incision was then closed in a layered fashion with myofascial layer being reapproximated with 2-0 Vicryl, subcutaneous tissue reapproximated with a 4-0 Vicryl and skin with 4-0 nylon. The incision was dressed with Xeroform, sterile 4 x 4 gauze, Kerlix and Giancarlo wrap followed by application of a posterior splint to the right foot. Tourniquet was deflated and a prompt hyperemic response is noted to the amputation stump of the right foot. Patient tolerated the procedure and anesthesia well and was transferred to the PACU with vital signs stable and vascular status intact. Following a period of postoperative monitoring he will be discharged home without home care instructions and scheduled follow-up. Was advised to remain strict nonweightbearing and elevate right foot while resting.
--- NOTE | 2025-07-18 09:05 | ANE.PACU2 ---
Inpatient post-anesthesia follow up: Airway intact: Yes Vital signs: Temperature 97.3 F Pulse Rate 70 Respiratory Rate 16 Blood Pressure 115/73 Pulse Oximetry 98 Oxygen Delivery Me thod Room Air Oxygen Flow Rate Fraction of Inspir ed Oxygen Hydration adequate: Yes Nausea and vomiting: No Pain level: 1 Mental status: Baseline
== END 2025-07-18 09:05 | disposition home or self-care (01) ==
PROVIDERS: PCP Family Medicine; Visit Provider Podiatrist Foot & Ankle Surgery
PROC: (CPT 13160; principal; 2025-07-18 08:00)
DX: T87.81 Dehiscence of amputation stump (principal); Z89.432 Acquired absence of left foot; I10 Essential (primary) hypertension; E11.9 Type 2 diabetes mellitus without complications; Z79.84 Long term (current) use of oral hypoglycemic drugs; Z79.82 Long term (current) use of aspirin; Z79.4 Long term (current) use of insulin; I73.9 Peripheral vascular disease, unspecified; Z85.46 Personal history of malignant neoplasm of prostate; E78.5 Hyperlipidemia, unspecified
CPT/HCPCS: 27691; 36416; 82962; J0690; J1100; J2405; J2704; J7030; J9999

== ENCOUNTER → 2025-07-23 06:50 | Outpatient (BNVA) | payer OTHER, SELFPAY | PROVIDERS: PCP Family Medicine; Visit Provider Podiatrist Foot & Ankle Surgery | DX: S99.911D Unspecified injury of right ankle, subsequent encounter (principal); Z91.199 Patient's noncompliance with other medical treatment and regimen due to unspecified reason; Z89.432 Acquired absence of left foot; Z89.431 Acquired absence of right foot; T87.81 Dehiscence of amputation stump; L97.522 Non-pressure chronic ulcer of other part of left foot with fat layer exposed; X58.XXXD Exposure to other specified factors, subsequent encounter; Y83.8 Other surgical procedures as the cause of abnormal reaction of the patient, or of later complication, without mention of misadventure at the time of the procedure | CPT/HCPCS: 99024 ==

== ENCOUNTER → 2025-07-30 06:45 | Outpatient (BNVA) | payer OTHER, SELFPAY | PROVIDERS: PCP Family Medicine; Visit Provider Podiatrist Foot & Ankle Surgery | DX: T87.81 Dehiscence of amputation stump (principal); Z91.199 Patient's noncompliance with other medical treatment and regimen due to unspecified reason; Z89.432 Acquired absence of left foot; Z89.431 Acquired absence of right foot; S99.911D Unspecified injury of right ankle, subsequent encounter; L97.513 Non-pressure chronic ulcer of other part of right foot with necrosis of muscle; Y83.8 Other surgical procedures as the cause of abnormal reaction of the patient, or of later complication, without mention of misadventure at the time of the procedure; X58.XXXD Exposure to other specified factors, subsequent encounter | CPT/HCPCS: 11043 ==

== ENCOUNTER → 2025-08-06 07:06 | Outpatient (BNVA) | payer OTHER, SELFPAY | PROVIDERS: PCP Family Medicine; Visit Provider Podiatrist Foot & Ankle Surgery | DX: T87.81 Dehiscence of amputation stump (principal); Z91.199 Patient's noncompliance with other medical treatment and regimen due to unspecified reason; Z89.432 Acquired absence of left foot; Z89.431 Acquired absence of right foot; L97.513 Non-pressure chronic ulcer of other part of right foot with necrosis of muscle; Y83.8 Other surgical procedures as the cause of abnormal reaction of the patient, or of later complication, without mention of misadventure at the time of the procedure | CPT/HCPCS: 99213 ==

== ENCOUNTER → 2025-08-20 06:55 | Outpatient (BNVA) | payer OTHER, SELFPAY | PROVIDERS: PCP Family Medicine; Visit Provider Podiatrist Foot & Ankle Surgery | DX: I77.9 Disorder of arteries and arterioles, unspecified (principal); E11.42 Type 2 diabetes mellitus with diabetic polyneuropathy; Z98.890 Other specified postprocedural states; Z89.412 Acquired absence of left great toe; Z89.432 Acquired absence of left foot; Z89.431 Acquired absence of right foot; L97.522 Non-pressure chronic ulcer of other part of left foot with fat layer exposed; E11.621 Type 2 diabetes mellitus with foot ulcer; S86.011D Strain of right Achilles tendon, subsequent encounter; X58.XXXD Exposure to other specified factors, subsequent encounter; Z79.4 Long term (current) use of insulin; Z79.84 Long term (current) use of oral hypoglycemic drugs | CPT/HCPCS: 99214 ==

== ENCOUNTER → 2025-09-03 06:45 | Outpatient (BNVA) | payer OTHER, SELFPAY | PROVIDERS: PCP Family Medicine; Visit Provider Podiatrist Foot & Ankle Surgery | DX: E11.42 Type 2 diabetes mellitus with diabetic polyneuropathy (principal); E11.621 Type 2 diabetes mellitus with foot ulcer; Z89.432 Acquired absence of left foot; Z89.431 Acquired absence of right foot; S99.911D Unspecified injury of right ankle, subsequent encounter; I77.9 Disorder of arteries and arterioles, unspecified; L97.522 Non-pressure chronic ulcer of other part of left foot with fat layer exposed; X58.XXXD Exposure to other specified factors, subsequent encounter; Z79.4 Long term (current) use of insulin; Z79.84 Long term (current) use of oral hypoglycemic drugs | CPT/HCPCS: 99213 ==

== ENCOUNTER → 2025-09-17 09:39 | Outpatient (BNVA) | payer OTHER, SELFPAY | PROVIDERS: PCP Family Medicine; Visit Provider Podiatrist Foot & Ankle Surgery | DX: E11.621 Type 2 diabetes mellitus with foot ulcer (principal); Z89.432 Acquired absence of left foot; Z89.431 Acquired absence of right foot; S99.911D Unspecified injury of right ankle, subsequent encounter; E11.42 Type 2 diabetes mellitus with diabetic polyneuropathy; I77.9 Disorder of arteries and arterioles, unspecified; L97.522 Non-pressure chronic ulcer of other part of left foot with fat layer exposed; Z79.4 Long term (current) use of insulin; Z79.84 Long term (current) use of oral hypoglycemic drugs; S96.811A Strain of other specified muscles and tendons at ankle and foot level, right foot, initial encounter; X58.XXXA Exposure to other specified factors, initial encounter | CPT/HCPCS: 99213 ==